=== PATIENT | female | born 1955 | race Caucasian/White ===

== ENCOUNTER 2017-01-07 09:55 | Observation (INO) ==
[2017-01-07] MEDS ORDERED: Haloperidol Lactate 5 MG/ML VIAL IM ONE ×3 (09:59→17:29)
[2017-01-07] MEDS ORDERED: *HR* LORazepam 2 MG/ML VIAL IM ONE (09:59)
[2017-01-07] MEDS ORDERED: ChlorproMAZINE 25 MG/ML AMPUL IM ONE (10:01)
--- NOTE | 2017-01-07 10:21 | Emergency Department Note ---
Disposition Clinical Impression: Acute anxiety, Suicidal ideation, Dehydration, moderate Depression Qualifiers: Depression Type: unspecified Qualified Code(s): F32.9 - Major depressive disorder, single episode, unspecified Diarrhea Qualifiers: Diarrhea type: unspecified type Qualified Code(s): R19.7 - Diarrhea, unspecified Disposition: Admitted As Inpatient Condition: Fair Referrals: NONE,PCP [Primary Care Provider] - Forms: ED Satisfaction Letter Time of Disposition: 11:27 Psych HPI - General Chief Complaint: ED Psychiatric Symptoms Stated Complaint: depressed Time Seen by Provider: 01/07/17 09:59 Source: patient Mode of arrival: EMS Limitations: no limitations Nursing Notes Reviewed: Yes Vital Signs Reviewed: Yes - History of Present Illness HPI Narrative: 61-year-old female is brought by EMS for evaluation of depression , anxiety, and suicidal ideation. The patient complains of worsening depression and anxiety and suicide ideation since this past Thursday. She states that she had a knee arthroscopy performed by Dr. Card last week and feels increasingly less mobile and that she is unable to get out and do the things that she enjoys. She denies any active plan but does admit to thoughts of self-harm. She denies any homicidal ideations. She denies any auditory or visual hallucinations. She denies any fever, chills, abdominal pain, or constipation. She does admit to being slightly nauseated and having a couple occasions of loose stools over the past several days. She complains of being short of breath however EMS reports that upon their arrival, the patient was found to be outside without her oxygen smoking cigarettes. She has a known history of COPD. She denies any productive cough or change in characteristics of her sputum. She denies any chest pain. She denies any pain with inspiration. Pt complaint: suicidal ideation, feels depressed Onset (ago): day(s) Duration: getting worse History of similar episodes: Yes Improves with: none Worsens with: none Context: other (recent surgery) Associated symptoms: Reports: shortness of breath - Related Data Home Medications Medication Instructions Recorded Confirmed Albuterol Neb [Proventil Neb] 2.5 mg IH Q4HR #0 07/10/16 12/31/16 Aspirin Enteric Coated [Aspirin EC] 81 mg PO DAILY #0 07/10/16 12/31/16 Cetirizine HCl [Zyrtec] 10 mg PO DAILY #0 07/10/16 12/31/16 Dicyclomine [Bentyl] 10 mg PO BID #0 07/10/16 12/31/16 Divalproex Sodium [Depakote] 500 mg PO BID #0 07/10/16 12/31/16 Gabapentin [Neurontin] 600 mg PO TID #0 07/10/16 12/31/16 LORazepam [Ativan] 0.5 mg PO TID #0 07/10/16 12/31/16 Losartan [Cozaar] 25 mg PO DAILY #0 07/10/16 12/31/16 Mirtazapine [Remeron] 15 mg PO HS #0 07/10/16 12/31/16 Oxygen 2 l .ROUTE AD #0 07/10/16 12/31/16 Salmeterol Xinafoate [Serevent 1 puff IH BID #0 07/10/16 12/31/16 Diskus] Tiotropium [place] [Spiriva 2 puff IH DAILY #0 07/10/16 12/31/16 Respimat] Tramadol HCl [Ultram] 50 mg PO QID PRN #0 07/10/16 12/31/16 Acetaminophen [Tylenol] 650 mg PO Q6HR PRN 12/31/16 12/31/16 Albuterol Sulfate [Proair Hfa] 2 puff IH Q4H PRN 12/31/16 12/31/16 Calcium Carbonate [Tums] 1,000 mg PO Q4HR PRN 12/31/16 12/31/16 Esomeprazole Magnesium [Nexium] 40 mg PO DAILY 12/31/16 12/31/16 Fluticasone Propionate [Flovent 1 puff IH BID 12/31/16 12/31/16 Hfa] HYDROcodone/Acet 5/325 mg [[place] 1 tab PO Q8H PRN 12/31/16 12/31/16 5-325 mg] Loperamide [Imodium] 2 - 4 mg PO Q6H PRN 12/31/16 12/31/16 Tetrahydrozoline HCl [Visine] 1 drop OP QID PRN 12/31/16 12/31/16 Tizanidine HCl [Tizanidine HCl] 4 mg PO TID PRN 12/31/16 12/31/16 Previous Rx's Medication Instructions Recorded Clindamycin [Cleocin] 150 mg PO Q6HR #7 capsule 12/31/16 Clindamycin [Cleocin] 150 mg PO Q6HR #7 capsule 12/31/16 HYDROcodone/Acet 5/325 mg [[place] 1 tab PO Q6H PRN #14 tab 12/31/16 5-325 mg] Ibuprofen [Motrin] 600 mg PO Q8HR #20 tab 12/31/16 Ibuprofen [Motrin] 600 mg PO Q8HR #20 tab 12/31/16 Azithromycin [Zithromax] 250 mg PO DAILY #6 tablet 01/05/17 predniSONE [PredniSONE] 10 mg PO DAILY #21 tablet 01/05/17 Allergies Allergy/AdvReac Type Severity Reaction Status Date / Time alprazolam [From Xanax] Allergy Itching Verified 12/19/16 16:27 bupropion [From Wellbutrin] Allergy Itching Verified 12/19/16 16:27 doxycycline Allergy Nausea Verified 12/19/16 16:27 Ethyl Chloride Allergy Itching Verified 12/19/16 16:27 fexofenadine [From Fannie] Allergy Itching Verified 12/19/16 16:27 hydroxyzine Allergy Hallucinati Verified 12/19/16 16:27 ng Procaine [From Novocain] Allergy Rash Verified 12/19/16 16:27 Penicillins AdvReac Itching Verified 12/19/16 16:27 All systems ED: reviewed and negative except as stated. Constitutional: Denies: fever, chills, weakness, weight change Eyes: Denies: eye pain, eye discharge, vision change ENT ED: Denies: ear pain, throat pain, dental pain, hearing loss, epistaxis, congestion, dysphagia Cardiovascular: Denies: chest pain, palpitations, dyspnea on exertion, edema, syncope Respiratory: Reports: as per HPI, dyspnea. Denies: cough, wheezes, hemoptysis, stridor Gastrointestinal: Reports: as per HPI, nausea, vomiting. Denies: abdominal pain , diarrhea, constipation, hematemesis, melena, hematochezia Genitourinary: Denies: dysuria, frequency, hematuria, discharge Musculoskeletal: Denies: back pain, neck pain, arthralgia, myalgia Integumentary: Denies: rash, abrasion, lesions Neurological: Denies: headache, weakness, numbness, paresthesias, confusion, abnormal gait, vertigo Psychiatric: Reports: as per HPI, anxiety, depression, suicidal thoughts. Denies: homicidal thoughts, auditory hallucinations, visual hallucinations Endocrine: Denies: fatigue Hematological/Lymphatic: Denies: easy bleeding, easy bruising Allergic/Immunologic: Denies: facial swelling, urticaria Past Medical History - Past Medical History Attestation: Yes The following information was validated with the patient. Source: patient, nursing notes reviewed Medical history: Reports: asthma, COPD, GERD, hypertension, syncope Psychiatric history: Reports: anxiety, bipolar - Social History Smoking Status: Current every day smoker Smokeless Tobacco Status: No Alcohol use: Reports: none Drug use: Reports: none Physical Exam - General Limitations: no limitations General appearance: alert, in no apparent distress - Head Head exam: atraumatic, normocephalic, normal inspection - Eye Eye exam: Present: normal appearance, PERRL, EOMI. Absent: nystagmus - ENT ENT exam: mucous membranes moist - Neck Neck exam: Present: normal inspection, full ROM, trachea midline - Chest Chest inspection: Present: normal inspection, symmetric chest wall rise - Respiratory Respiratory exam: Present: normal lung sounds bilaterally. Absent: respiratory distress, wheezes, stridor, accessory muscle use, prolonged expiratory phase - Cardiovascular Cardiovascular exam: Present: regular rate, normal rhythm, normal heart sounds - Abdominal Exam Abdominal exam: Present: soft, Non-Tender, normal bowel sounds - Expanded Lower Extremity Exam Knee exam: Present: tenderness (Left knee), other (3 surgical puncture wounds are noted with Steri-Strips in place overlying the wounds. No discharge or drainage is noted. No associated cellulitis.) Neurovascular/Tendon exam: Present: normal capillary refill, normal 2-point discrimination. Absent: pulse deficit, motor deficit, sensory deficit, tendon deficit, extremity cold to touch Gait: observed and normal - Back Exam Back exam: Present: normal inspection, full ROM. Absent: tenderness - Neurological Exam Neurological exam: Present: alert, oriented X3 - Psychiatric Psychiatric exam: Present: normal affect, depressed, anxious, suicidal ideation - Skin Skin exam: Present: warm, dry, intact, normal color Course Vital Signs Temperature 97.7 F 01/07/17 10:06 Pulse Rate 103 01/07/17 10:06 Respiratory Rate 20 01/07/17 10:06 Blood Pressure 128/77 01/07/17 10:06 O2 Sat by Pulse Oximetry 95 01/07/17 10:06 Temperature 97.7 F 01/07/17 10:06 Pulse Rate 90 01/07/17 10:48 Respiratory Rate 22 01/07/17 10:48 Blood Pressure 128/77 01/07/17 10:48 O2 Sat by Pulse Oximetry 98 01/07/17 10:48 Oxygen Delivery Oxygen Delivery Simple Mask Psych - MDM Narrative Medical decision making narrative: For this encounter, I have reviewed the [employer] or PA documentation, treatment plan, and medical decision making; and I have had face to face time with this patient. Patient was signed out to me by the day shift nurse practitioner. Patient has a history of schizophrenia has been off her medications due to knee surgery she has had exacerbation of her COPD and also probably C. difficile she has had diarrhea as post surgery along with antibiotics. Waiting on her C. difficile to come back. She was medicated with Haldol and Ativan here. She is a 72 hour hold. I will speak with 1A for evaluation of her also while she is in the hospital. I will he spoke with hospitalist and they will admit her. Patient has been uncooperative here but is nontoxic. Waiting on the rest of her labs and then reassess. 1300 hrs.: Patient's chest x-ray shows a COPD pattern and she is much more calm now that she got her medications. She is given IV fluid hydration with her C. difficile negative. Per lab. Her bring her in for diarrhea, dehydration, and schizophrenia reevaluation. Will consult psychiatry for her evaluation inpatient. - Lab Data Lab results reviewed: Yes I reviewed the patient's lab results. Result diagrams: 01/07/17 10:28 01/07/17 10:28 Lab Results 01/07/17 01/07/17 01/07/17 Range/Units 10:28 10:28 10:30 WBC 8.7 (4.3-11.1) K/mcL RBC 4.07 (3.82-4.97) M/mcL Hgb 11.5 (11.5-15.4) g/dL Hct 36.8 (35.3-44.9) % MCV 90.4 (83.0-100.0) fL MCH 28.3 (28.0-33.3) pg MCHC 31.3 L (31.6-35.5) g/dL RDW 12.6 (11.5-14.5) % Plt Count 222 (140-400) K/mcL MPV 9.3 L (9.4-12.4) fL Immature Gran % 0.3 (0-4) % Seg Neutrophils % 76.8 % Lymphocytes % 14.8 % Monocytes % 8.0 % Eosinophils % 0.0 % Basophils % 0.1 % Neutrophils # 6.7 (1.6-8.9) K/mcL Lymphocytes # 1.3 (0.6-4.6) K/mcL Monocytes # 0.7 (0.0-1.3) K/mcL Eosinophils # 0.0 (0.0-0.6) K/mcL Basophils # 0.0 (0.0-0.2) K/mcL Sodium 139 (136-145) mEq/L Potassium 3.7 (3.5-4.5) mEq/L Chloride 96 L (98-109) mEq/L Carbon Dioxide 33 H (19-29) mEq/L BUN 9 (7-20) mg/dL Creatinine 0.77 (0.57-1.11) mg/dL Est GFR ( Amer) > 60 (> 60) Est GFR (Non-Af Amer) > 60 (> 60) BUN/Creatinine Ratio 12 (6-26) Glucose 106 H (70-99) mg/dL Calculated Osmolality 287 (280-300) Calcium 9.3 (8.6-10.8) mg/dL Troponin I 0.01 (0-0.03) ng/mL Ur Specimen Adequacy Urine Color (Yellow) Urine Clarity (Clear) Urine pH (5.0-8.0) pH Units Ur Specific [place] (1.010-1.025) Urine Protein (Neg-Trace) mg/dL Urine Glucose (UA) (Normal) mg/dL Urine Ketones (Negative) mg/dL Urine Blood (Negative) Urine Nitrite (Negative) Urine Bilirubin (Negative) Urine Urobilinogen (Normal) mg/dL Ur Leukocyte Esterase (Negative) Stl C. diff Tox B Gene (Negative) Salicylates < 5.0 L (15-30) mg/dL Urine Opiates Screen (Gpsttv=929) ng/mL Acetaminophen 1.0 L (10-30) mcg/mL Ur Barbiturates Screen (Fzygcy=750) ng/mL Ur Phencyclidine Scrn (Cutoff=25) ng/mL Ur Amphetamines Screen (Dasgpj=2028) ng/mL U Benzodiazepines Scrn (Nxnwdd=154) ng/mL Urine Cocaine Screen (Cutoff= 300) ng/mL U Marijuana (THC) Screen (Cutoff = 50) ng/mL Ethyl Alcohol < 10 (0-10) mg/dL 01/07/17 01/07/17 01/07/17 Range/Units 11:07 11:08 11:27 WBC (4.3-11.1) K/mcL RBC (3.82-4.97) M/mcL Hgb (11.5-15.4) g/dL Hct (35.3-44.9) % MCV (83.0-100.0) fL MCH (28.0-33.3) pg MCHC (31.6-35.5) g/dL RDW (11.5-14.5) % Plt Count (140-400) K/mcL MPV (9.4-12.4) fL Immature Gran % (0-4) % Seg Neutrophils % % Lymphocytes % % Monocytes % % Eosinophils % % Basophils % % Neutrophils # (1.6-8.9) K/mcL Lymphocytes # (0.6-4.6) K/mcL Monocytes # (0.0-1.3) K/mcL Eosinophils # (0.0-0.6) K/mcL Basophils # (0.0-0.2) K/mcL Sodium (136-145) mEq/L Potassium (3.5-4.5) mEq/L Chloride (98-109) mEq/L Carbon Dioxide (19-29) mEq/L BUN (7-20) mg/dL Creatinine (0.57-1.11) mg/dL Est GFR ( Amer) (> 60) Est GFR (Non-Af Amer) (> 60) BUN/Creatinine Ratio (6-26) Glucose (70-99) mg/dL Calculated Osmolality (280-300) Calcium (8.6-10.8) mg/dL Troponin I (0-0.03) ng/mL Ur Specimen Adequacy See below A Urine Color Yellow (Yellow) Urine Clarity Clear (Clear) Urine pH 6.5 (5.0-8.0) pH Units Ur Specific [place] 1.015 (1.010-1.025) Urine Protein 30 H (Neg-Trace) mg/dL Urine Glucose (UA) Normal (Normal) mg/dL Urine Ketones Negative (Negative) mg/dL Urine Blood Moderate H (Negative) Urine Nitrite Negative (Negative) Urine Bilirubin Small H (Negative) Urine Urobilinogen Normal (Normal) mg/dL Ur Leukocyte Esterase Trace H (Negative) Stl C. diff Tox B Gene Negative (Negative) Salicylates (15-30) mg/dL Urine Opiates Screen Positive H (Dtlgvy=414) ng/mL Acetaminophen (10-30) mcg/mL Ur Barbiturates Screen Negative (Xwzigu=158) ng/mL Ur Phencyclidine Scrn Negative (Cutoff=25) ng/mL Ur Amphetamines Screen Negative (Mnwtiq=7686) ng/mL U Benzodiazepines Scrn Positive H (Wftmwh=640) ng/mL Urine Cocaine Screen Negative (Cutoff= 300) ng/mL U Marijuana (THC) Screen Negative (Cutoff = 50) ng/mL Ethyl Alcohol (0-10) mg/dL - Radiology Data Radiology results reviewed: Yes I reviewed the patient's radiology results. - EKG Data EKG attestation: Yes I reviewed and interpreted this EKG. Psychiatric Medical Clearance - Medical Clearance Checklist Medical History: No Social History Section defined Current Vitals: Last Vital Signs Temp 97.7 F 01/07/17 10:06 Pulse 90 01/07/17 10:48 Resp 22 01/07/17 10:48 BP 128/77 01/07/17 10:48 Pulse Ox 98 01/07/17 10:48 Psychiatric Lab Panel: Drug Levels and Toxicity 01/07/17 01/07/17 10:28 11:08 Urine Opiates Screen Positive H Acetaminophen 1.0 L Ur Barbiturates Screen Negative Ur Phencyclidine Scrn Negative Ur Amphetamines Screen Negative U Benzodiazepines Scrn Positive H Urine Cocaine Screen Negative U Marijuana (THC) Screen Negative Ethyl Alcohol < 10 Abnormal Labs: Abnormal lab results MCHC 31.3 g/dL (31.6-35.5) L 01/07/17 10:28 MPV 9.3 fL (9.4-12.4) L 01/07/17 10:28 Chloride 96 mEq/L (98-109) L 01/07/17 10:28 Carbon Dioxide 33 mEq/L (19-29) H 01/07/17 10:28 Glucose 106 mg/dL (70-99) H 01/07/17 10:28 Ur Specimen Adequacy See below A 01/07/17 11:07 Urine Protein 30 mg/dL (Neg-Trace) H 01/07/17 11:07 Urine Blood Moderate (Negative) H 01/07/17 11:07 Urine Bilirubin Small (Negative) H 01/07/17 11:07 Ur Leukocyte Esterase Trace (Negative) H 01/07/17 11:07 Salicylates < 5.0 mg/dL (15-30) L 01/07/17 10:28 Urine Opiates Screen Positive ng/mL (Lqzxvq=284) H 01/07/17 11:08 Acetaminophen 1.0 mcg/mL (10-30) L 01/07/17 10:28 U Benzodiazepines Scrn Positive ng/mL (Leivcj=114) H 01/07/17 11:08 SKayce - Genevieve Situation: Demographics, MOA Background: Presenting Complaint, Relevant PMH, Meds, & Allergies Assessment: Vital Signs, Course and respsone to treatment, Exam Concerns, Patient/Family Expectation, Pertinant Lab Results, Outstanding Labs Recommendation: Barrier(s) to disposition, Recommendation based on pending studies, treatments, or consults S.B.A.RJude Report Given to: Dr. Tony Vallejo Repor Time: 11:10 (Due to mid-level shift change)
[2017-01-07 10:37] LABS: Basophils % 0.1 %; Hematocrit 36.8 % (35.3-44.9); Hemoglobin 11.5 g/dL (11.5-15.4); Immature Granulocytes % 0.3 % (0-4); Lymphocytes # 1.3 K/mcL (0.6-4.6); Lymphocytes % 14.8 %; Mean Corpuscular HGB Conc 31.3 g/dL (31.6-35.5); Mean Corpuscular Hemoglobin 28.3 pg (28.0-33.3); Mean Corpuscular Volume 90.4 fL (83.0-100.0); Mean Platelet Volume 9.3 fL (9.4-12.4); Monocytes # 0.7 K/mcL (0.0-1.3); Neutrophils # 6.7 K/mcL (1.6-8.9); Platelet Count 222 K/mcL (140-400); Red Blood Count 4.07 M/mcL (3.82-4.97); Red Cell Distribution Width 12.6 % (11.5-14.5); Segmented Neutrophils % 76.8 %
[2017-01-07 10:51] LABS: BUN/Creatinine Ratio 12 (6-26); Blood Urea Nitrogen 9 mg/dL (7-20); Calcium 9.3 mg/dL (8.6-10.8); Carbon Dioxide 33 mEq/L (19-29); Chloride 96 mEq/L (98-109); Glucose 106 mg/dL (70-99); Osmolality,Calculated 287 (280-300); Potassium 3.7 mEq/L (3.5-4.5); Sodium 139 mEq/L (136-145); eGFR For African Americans > 60 (> 60); eGFR For Non-African Americans > 60 (> 60)
[2017-01-07 10:52] LABS: Ethanol < 10 mg/dL (0-10); Salicylate < 5.0 mg/dL (15-30)
[2017-01-07 11:30] LABS: Amphetamine Screen,Urine Negative ng/mL (Cutoff=1000); Barbiturate Screen,Urine Negative ng/mL (Cutoff=200); Benzodiazepines Screen,Urine Positive ng/mL (Cutoff=200); Cannabinoid Screen,Urine Negative ng/mL (Cutoff = 50); Cocaine Screen,Urine Negative ng/mL (Cutoff= 300); Opiate Screen,Urine Positive ng/mL (Cutoff=300); Phencyclidine Screen,Urine Negative ng/mL (Cutoff=25)
[2017-01-07 11:32] LABS: Bilirubin,Urine Small (Negative); Blood,Urine Moderate (Negative); Clarity,Urine Clear (Clear); Color,Urine Yellow (Yellow); Glucose,Urine (UA) Normal (Normal); Ketones,Urine Negative (Negative); Leukocyte Esterase,Urine Trace (Negative); Nitrite,Urine Negative (Negative); PH,Urine 6.5 pH Units (5.0-8.0); Protein,Urine 30 mg/dL (Neg-Trace); Specific Gravity,Urine 1.015 (1.010-1.025); Urobilinogen,Urine Normal (Normal)
[2017-01-07] MEDS ORDERED: *HR* HYDROmorphone (PF) 1 MG/ML SYRINGE IVP ONE (12:01)
[2017-01-07] MEDS ORDERED: Nicotine 21 MG PATCH.TD24 TD ONE (12:30)
[2017-01-07] MEDS: 0.9 % Sodium Chloride 1,000 ML IVC SCH ×2 (13:08→17:37)
[2017-01-07] MEDS ORDERED: Ipratropium/Albuterol Neb 3 ML IH ONE (13:56)
[2017-01-07] MEDS ORDERED: tiZANidine 4 MG TABLET PO PRN (15:26)
[2017-01-07] MEDS ORDERED: NON-FORMULARY MEDICATION 1 EACH EACH (Oxygen [Oxygen] 2 L) SCH (15:30)
[2017-01-07] MEDS ORDERED: methylPREDNISolone 125 MG/2 ML VIAL IVP ONE (15:35)
[2017-01-07] MEDS ORDERED: Acetaminophen 325 MG TABLET PO PRN (15:40)
[2017-01-07] MEDS ORDERED: Naloxone 0.4 MG/ML INJ IVP PRN (15:40)
--- NOTE | 2017-01-07 16:04 | Internal Med History&Physical ---
<Danial Dexter J - Last Filed: 01/07/17 15:49> Date of Encounter: 01/07/17 Time of Encounter: 15:49 Assessment and Plan (1) Suicidal ideation Current visit: Yes Status: Acute While in the emergency department she was noted to have suicidal ideation. At that time she was placed as a 1-1 and a consult to psych was implemented however , this time the patient denies any suicidal ideation. Awaiting consult from psych to determine the need for one-to-one monitoring and/or medication adjustment. It appears that she is having an acute exacerbation of anxiety likely secondary to withdrawal from benzodiazepines and antidepressants. Plan is to resume lorazepam at home dose, to resume Remeron and Depakote at home dose as well. (2) Withdrawal from benzodiazepine Current visit: Yes Status: Acute Patient has recently been taking additional doses of benzodiazepines to help combat anxiety. Additionally she admits to taking additional doses of antidepressants. Her benzo's and anti depressants are now under lock and nielsen and dosed as appropriate per her home health aid. It appears that she may be suffering from benzo withdrawal which could be exacerbating her anxiety. Continue lorazepam at home dose. Continue Depakote and Remeron at home dosing. consult to psych for eval Qualifiers: Complication of substance-induced condition: with unspecified complication Qualified Code(s): F13.239 - Sedative, hypnotic or anxiolytic dependence with withdrawal, unspecified (3) Depression Current visit: Yes Status: Acute History of anxiety, bipolar with depression. He admits to worsening depression since undergoing arthroscopy last week. Since being depression missed that she does not care whether or not she lives or dies. However at this time she denies any SI. Resume Remeron and Depakote at home doses to help with depression and bipolar disorder Qualifiers: Depression Type: unspecified Qualified Code(s): F32.9 - Major depressive disorder, single episode, unspecified (4) Acute anxiety Current visit: Yes Status: Acute Appears to have acute exacerbation of anxiety. Patient has history of anxiety/ bipolar/depression. She reports to recently taking additional doses of her benzos to help mitigate anxiety she is experiencing symptoms undergoing arthroscopy last week. However, when her home health aide found out she was doing her medications are locked up and given to her as dosed since this past Thursday. I highly suspect benzodiazepine withdrawal is contributing to her acute anxiety. Continue home dose of Ativan (5) COPD exacerbation Current visit: Yes Status: Acute Acute on chronic exacerbation of COPD. Upon examination the patient is anxious , and has wheezing throughout bilateral lungs anterior and posterior. It is a current 1 pack per day smoker for the last 40 years she reports that the difficulty breathing began 3 days ago has progressively gotten worse since. Additionally she has not taken any of her respiratory medications. Start duo nebs every 4 hours scheduled Continue home dose of Flovent A one-time dose of Solu-Medrol 125 mg IV push then start 40 mg IV push daily Azithromycin 250 mg daily Start nicotine patch Continuous pulse ox Continuous oxygen therapy at home dose titrate as needed for SPO2 greater than 92%. Continuous telemetry (6) Diarrhea Current visit: Yes Status: Acute Reports diarrhea intermittently throughout the last 72 hours. However, at this time she has not had a bowel movement. She was found to be negative of C. difficile in the ED. Start loperamide and continue to monitor for worsening or improvement She has also dehydrated plan is to rehydrate with normal saline at 125 mL per hour CMP in the a.m. Qualifiers: Diarrhea type: unspecified type Qualified Code(s): R19.7 - Diarrhea, unspecified (7) Dehydration, moderate Current visit: Yes Status: Acute Patient reports intermittent diarrhea throughout the last 72 hours. She is mildly tachycardic at times and will exam appears to be slightly dehydrated. IV fluids 0.9 normal saline at 125 mL per hour CMP in the a.m. (8) DVT prophylaxis Current visit: Yes Status: Acute Due to hospital course and changes to mobility as well as recent surgery she is at risk for DVT. Start lovenox 40mg SC Internal Medicine - H&P: HPI Chief complaint: ANXIETY, SI, diarrhea, and dehydration Admitted From: Home Plans for Post Hospital Care: Home History of present illness: Ms. Aguilera is a 61 year old female with a PMH of asthma, COPD, GERD, HTN, anxiety, bipolar. Patient reports that last week she had a knee arthroscopy by Dr. Card and has been less mobile than she is used to. She states that this has stopped her from partaking in activities that she once enjoyed. The increase in immobility has led to an increase in anxiety and depression. The patient admits to taking her anxiolytics and antidepressants more than the prescribed dose. Additionally she goes on to confirm that she was caught doing so by her home health aide and that now her medications are locked up and dosed as appropriate. she notes that her anxiety has gotten progressively worse since then. Upon arrival to the ED was noted that she had some SI, however, when questioned the patient denies any SI or intent to harm herself or any other individual. She admits to saying the anxiety is so bad she would not care if she . For this reason she was placed as a 1-1 and a psych consult was obtained in the ED. She reports an additional concern for new shortness of breath, wheezing and non productive cough as well as intermittent bouts of diarrhea within the last 72 hours. She denies any fevers, fatigue, lethargy, increase in sputum production or chest pain. Admits to difficulty breathing that is more noticable with activity. Chest x-ray in the emergency department did not reveal any new acute pulmonary process. CBC and CMP were unremarkable. Shortness of breath somewhat improved with a DuoNeb treatment in the emergency department. She reports diarrhea as intermittent, but is unable to describe the consistency or frequency. Denies any abdominal pain, nausea, or vomiting. C-diff w/u in the ED negative. She is being admitted to [facility] for further workup and evaluation Past Med Surg Social Fam HX - Past Medical History Medical history: asthma, COPD, GERD, hypertension, syncope Psychiatric history: anxiety, bipolar - Social History Smoking Status: Current every day smoker Smokeless Tobacco Status: No Alcohol use: none Drug use: none - Family History Mother Living Status: Cause of : lung ca Hx Family Cancer: Yes (lung) Sister Race: Family Member Ethnicity: Non- Hx Family Endocrine Disorder: Yes (DM II) Internal Medicine - H&P: Meds Cetirizine HCl [Zyrtec] 10 mg PO DAILY #0 07/10/16 [History] Dicyclomine [Bentyl] 10 mg PO BID #0 07/10/16 [History] Gabapentin [Neurontin] 600 mg PO TID #0 07/10/16 [History] LORazepam [Ativan] 0.5 mg PO TID #0 07/10/16 [History] Losartan [Cozaar] 25 mg PO DAILY #0 07/10/16 [History] Mirtazapine [Remeron] 15 mg PO HS #0 07/10/16 [History] Oxygen 2 l .ROUTE AD #0 07/10/16 [History] Salmeterol Xinafoate [Serevent Diskus] 1 puff IH BID #0 07/10/16 [History] Tiotropium [place] [Spiriva Respimat] 2 puff IH DAILY #0 07/10/16 [History] Tramadol HCl [Ultram] 50 mg PO QID PRN #0 07/10/16 [History] Calcium Carbonate [Tums] 1,000 mg PO Q4HR PRN 12/31/16 [History] Esomeprazole Magnesium [Nexium] 40 mg PO DAILY 12/31/16 [History] Fluticasone Propionate [Flovent Hfa] 1 puff IH BID 12/31/16 [History] Tetrahydrozoline HCl [Visine] 1 drop OP QID PRN 12/31/16 [History] Tizanidine HCl [Tizanidine HCl] 4 mg PO TID PRN 12/31/16 [History] Azithromycin [Zithromax] 250 mg PO DAILY #6 tablet 01/05/17 [Rx] predniSONE [PredniSONE] 10 mg PO DAILY #21 tablet 01/05/17 [Rx] Diclofenac Sodium [Voltaren] 75 mg PO BID 01/07/17 [History] Divalproex Sodium [Depakote Sprinkle] 250 mg PO BID 01/07/17 [History] 3 Allergy/AdvReac Type Severity Reaction Status Date / Time alprazolam [From Xanax] Allergy Itching Verified 12/19/16 16:27 bupropion [From Wellbutrin] Allergy Itching Verified 12/19/16 16:27 doxycycline Allergy Nausea Verified 12/19/16 16:27 Ethyl Chloride Allergy Itching Verified 12/19/16 16:27 fexofenadine [From Fannie] Allergy Itching Verified 12/19/16 16:27 hydroxyzine Allergy Hallucinati Verified 12/19/16 16:27 ng Procaine [From Novocain] Allergy Rash Verified 12/19/16 16:27 Penicillins AdvReac Itching Verified 12/19/16 16:27 All Systems PM: A 10-system review of systems was performed and is negative for pertinent findings except as documented above in the HPI. - Constitutional Constitutional: no anorexia, no chills, no fatigue, no fever(s), no malaise, no night sweats, no weakness - EENT Eyes: no change in vision, no discharge, no pain, no photophobia Ears: no ear discharge, no ear pain, no tinnitus Nose, mouth and throat: no dysphagia, no nasal discharge, no neck pain, no post- nasal drip, no sore throat - Cardiovascular Cardiovascular ROS IM: no chest pain, no diaphoresis, no dyspnea, no lightheadedness, no palpitations, no syncope - Respiratory Respiratory: cough (Cough that is chronic), dyspnea, wheezing, no pain on inspiration, no excessive phlegm production, no change in phlegm color, no pain with cough - Gastrointestinal Gastrointestinal: diarrhea, no abdominal pain, no constipation, no fecal incontinence, no hematemesis, no hematochezia, no melena, no nausea, no vomiting - Genitourinary Genitourinary: no change in urinary stream, no difficulty urinating, no dysuria , no flank pain, no hematuria - Musculoskeletal Musculoskeletal ROS IM: limited range of motion (Admits to limited range of motion since arthroscopy), no joint swelling, no numbness, no tingling - Integumentary Integumentary IM: no rash, no unusual bruising - Neurological Neurological ROS: no confusion, no convulsions, no disequilibrium, no dizziness , no focal weakness, no lack of coordination, no numbness, no tingling, no tremor(s), no weakness - Psychiatric Psychiatric: anxiety (Admits to an increase in anxiety as per history of present illness), depression (Minutes through an increase in depression as per history of present illness), suicidal ideation (Denies suicidal ideations at this time), no auditory hallucinations, no homicidal ideation, no paranoia, no visual hallucinations - Hematologic/Lymphatic Hematologic/Lymphatic: no easy bruising - Constitutional Vitals: Temp Pulse Resp BP Pulse Ox 97.7 F 89 16 136/89 93 01/07/17 15:34 01/07/17 15:34 01/07/17 15:34 01/07/17 15:34 01/07/17 15:34 General appearance: Present: cooperative, mild distress, A&O X 3, answers questions appropriately - Head Head exam: Present: atraumatic, normocephalic - Eye Eye exam: Present: EOMI, PERRL, conjuntiva pink, sclera anicteric Pupils: Present: PERRL - Neck Neck exam general surgery: Present: supple, trachea midline. Absent: lymphadenopathy - Respiratory Respiratory exam: Present: wheezes (Wheezes noted throughout lungs anterior and posterior), tachypnea. Absent: accessory muscle use, rales, rhonchi - Expanded Respiratory Exam Location: wheezes: Left, Right, Upper, Lower - Cardiovascular Cardiovascular exam: Present: RRR, +S1, +S2. Absent: diastolic murmur, gallop, rubs, systolic murmur - GI/Abdominal GI/Abdominal exam: Present: normal bowel sounds, soft, no peritoneal signs. Absent: distended, firm, tenderness - Extremities Exam Extremities exam: Present: warm, radial pulses palpable and symmetrical. Absent : calf tenderness, cyanotic, pedal edema - Expanded Lower Extremities Exam Knee exam: Present: ecchymosis. Absent: erythema, swelling, tenderness, warmth - Incison Incision: Present: clean and dry, intact, approximated. Absent: draining, red, swollen, inflamed, erythema, open - Neurological Exam Neurological exam: Present: CN II-XII intact, oriented X3, no focal deficits. Absent: pronater drift, facial droop, speech deficit - Psychiatric Psychiatric exam: Present: anxious. Absent: suicidal ideation - Expanded Psychiatric Exam Focused psych exam: Absent: delusional, flight of ideas, loose associations, paranoid, restlessness - Skin Skin exam: Present: dry, intact Internal Med - H&P Results - Labs CBC & Chem 7: 01/07/17 10:28 01/07/17 10:28 - Diagnostic Studies Chest x-ray Additional comments: Revealed no acute pulmonary process <Eladia Rachel - Last Filed: 01/07/17 19:00> Date of Encounter: 01/07/17 Internal Medicine - H&P: HPI History of present illness: Ms. Aguilera is a 61 year old female All Systems PM: A 10-system review of systems was performed and is negative for pertinent findings except as documented above in the HPI. - Constitutional Vitals: Temp Pulse Resp BP Pulse Ox 97.7 F 88 14 156/77 97 01/07/17 18:47 01/07/17 18:47 01/07/17 18:47 01/07/17 18:47 01/07/17 18:47 Internal Med - H&P Results - Labs CBC & Chem 7: 01/07/17 10:28 01/07/17 10:28 - Attending Attestation Pt independently seen and examined at bedside. Admitted for acute anxiety attack , COPD exacerbation, concern for SI, and diarrhea. continue systemic steroids, bronchodilator support, O2 supplementation restarted home antipsychotic medications. Pt has intermittently required Haldol 5mg IM prn severe agitation/anxiety, will continue No suicidal ideation at this time, however given the state of anxiety she is in , will continue 1-1 sitter. Psych evaluation requested. Reconcile patient's psych medications prior to discharge Will continue supportive care for diarrhea, continue IV fluids, stool negative for C-diff. Monitor electrolytes closely and replace as needed. Case was discussed with the CRICKET Dexter, I agree with his documented findings, assessment, and plan.
[2017-01-07] MEDS: Ipratropium/Albuterol Neb 3 ML IH SCH ×3 (16:14→22:59)
[2017-01-07] MEDS ORDERED: Haloperidol Lactate 5 MG/ML VIAL ONE (17:31)
[2017-01-07] MEDS: Azithromycin 250 MG TABLET PO SCH (17:37)
[2017-01-07] MEDS: Divalproex Sodium 125 MG CAPSULE PO SCH ×2 (17:44→21:10)
[2017-01-07] MEDS: *HR* LORazepam 0.5 MG TABLET PO SCH (20:18)
[2017-01-07] MEDS: Diclofenac Sodium 75 MG TABLET PO SCH (20:18)
[2017-01-07] MEDS: Gabapentin 300 MG CAPSULE PO SCH (20:19)
[2017-01-07] MEDS: Fluticasone Propionate Nasal 50 MCG/SPRAY BOTTLE NS SCH (20:20)
[2017-01-07] MEDS ORDERED: Divalproex Sodium 125 MG CAPSULE PO SCH (21:00)
[2017-01-07] MEDS ORDERED: Mirtazapine 15 MG TABLET PO SCH (21:00)
[2017-01-08] MEDS: traMADol 50 MG TABLET PO PRN ×2 (00:08→09:38)
[2017-01-08] MEDS: Ipratropium/Albuterol Neb 3 ML IH SCH ×3 (05:02→11:20)
[2017-01-08 05:16] LABS: Basophils % 0.2 %; Hematocrit 29.9 % (35.3-44.9); Immature Granulocytes % 1.3 % (0-4); Lymphocytes # 0.6 K/mcL (0.6-4.6); Mean Corpuscular HGB Conc 32.8 g/dL (31.6-35.5); Mean Corpuscular Volume 88.5 fL (83.0-100.0); Mean Platelet Volume 9.9 fL (9.4-12.4); Monocytes # 0.1 K/mcL (0.0-1.3); Neutrophils # 4.7 K/mcL (1.6-8.9); Platelet Count 176 K/mcL (140-400); Red Blood Count 3.38 M/mcL (3.82-4.97); Red Cell Distribution Width 12.8 % (11.5-14.5); Segmented Neutrophils % 85.5 %
[2017-01-08 05:39] LABS: Hemoglobin 9.8 g/dL (11.5-15.4)
--- NOTE | 2017-01-08 05:42 | Electrocardiograph Report ---
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
[2017-01-08] MEDS ORDERED: *HR* Enoxaparin 40 MG/0.4 ML SYRINGE SQ SCH (07:00)
[2017-01-08 07:23] LABS: BUN/Creatinine Ratio 13 (6-26); Blood Urea Nitrogen 8 mg/dL (7-20); Calcium 8.2 mg/dL (8.6-10.8); Carbon Dioxide 28 mEq/L (19-29); Chloride 97 mEq/L (98-109); Glucose 123 mg/dL (70-99); Osmolality,Calculated 286 (280-300); Potassium 3.9 mEq/L (3.5-4.5); Sodium 138 mEq/L (136-145); eGFR For African Americans > 60 (> 60); eGFR For Non-African Americans > 60 (> 60)
[2017-01-08] MEDS ORDERED: predniSONE 20 MG TABLET PO SCH (09:00)
[2017-01-08] MEDS ORDERED: MethylPREDNISolone 40 MG/ML VIAL IVP SCH (09:00)
[2017-01-08] MEDS ORDERED: Loratadine 10 MG TABLET PO SCH (09:00)
[2017-01-08] MEDS ORDERED: Nicotine 21 MG PATCH.TD24 TD SCH (09:00)
[2017-01-08] MEDS: 0.9 % Sodium Chloride 1,000 ML IVC SCH ×2 (09:17→13:20)
[2017-01-08] MEDS: Gabapentin 300 MG CAPSULE PO SCH (09:31)
[2017-01-08] MEDS: Divalproex Sodium 125 MG CAPSULE PO SCH (09:32)
[2017-01-08] MEDS: *HR* LORazepam 0.5 MG TABLET PO SCH (09:32)
[2017-01-08] MEDS: Azithromycin 250 MG TABLET PO SCH (09:32)
[2017-01-08] MEDS: Fluticasone Propionate Nasal 50 MCG/SPRAY BOTTLE NS SCH (09:34)
[2017-01-08] MEDS: Diclofenac Sodium 75 MG TABLET PO SCH (09:35)
[2017-01-08 11:28] VITALS: BP 150/92
--- NOTE | 2017-01-08 15:18 | Consult Note ---
Date of Encounter: 01/08/17 Time of Encounter: 14:30 Assessment & Recommendation (1) Suicidal ideation Current visit: Yes Status: Acute Assessment & Recommendation: Patient is currently stable and nonsuicidal from psychiatric point of view. She is advised to follow-up with her psychiatrist. No medication changes at this time. Thank you for consultation History of Present Illness Patient: new to practice Requesting Physician: Radha Vasquez MD Reason for consult: Suicidal ideation History of present illness: Ms. Aguilera is a 61 year old female admitted to the hospital for evaluation of multiple medical problems including COPD, possible benzodiazepine withdrawal and history of depression and anxiety. Psychiatric consultation was requested to evaluate suicidal ideation. Patient has history of psychiatric treatment and continue to be on medication including Depakote and mirtazapine and apparently she was overusing her benzodiazepines and was going through withdrawal joint this admission, she is stable at this time. Patient also carries a different diagnosis in the past including bipolar schizoaffective disorder and anxiety disorder. Currently the patient is recovering and improving and denied any suicidal ideation she is taken her medication as ordered And denied any recent change in her medication or stressors. CC: Radha Vasquez MD Past Med Surg Social Fam HX - Past Medical History Medical history: asthma, COPD, GERD, hypertension, syncope - Past Psychiatric History Psychiatric history: Reports: anxiety, bipolar, depression - Social History Smoking Status: Current every day smoker Smokeless Tobacco Status: No Alcohol use: none Drug use: none - Family History Mother Living Status: Cause of : lung ca Hx Family Cancer: Yes (lung) Sister Race: Family Member Ethnicity: Non- Hx Family Endocrine Disorder: Yes (DM II) Medications & Allergies Cetirizine HCl [Zyrtec] 10 mg PO DAILY #0 07/10/16 [History] Dicyclomine [Bentyl] 10 mg PO BID #0 07/10/16 [History] Gabapentin [Neurontin] 600 mg PO TID #0 07/10/16 [History] LORazepam [Ativan] 0.5 mg PO TID #0 07/10/16 [History] Losartan [Cozaar] 25 mg PO DAILY #0 07/10/16 [History] Mirtazapine [Remeron] 15 mg PO HS #0 07/10/16 [History] Oxygen 2 l .ROUTE AD #0 07/10/16 [History] Salmeterol Xinafoate [Serevent Diskus] 1 puff IH BID #0 07/10/16 [History] Tiotropium [place] [Spiriva Respimat] 2 puff IH DAILY #0 07/10/16 [History] Tramadol HCl [Ultram] 50 mg PO QID PRN #0 07/10/16 [History] Calcium Carbonate [Tums] 1,000 mg PO Q4HR PRN 12/31/16 [History] Esomeprazole Magnesium [Nexium] 40 mg PO DAILY 12/31/16 [History] Fluticasone Propionate [Flovent Hfa] 1 puff IH BID 12/31/16 [History] Tetrahydrozoline HCl [Visine] 1 drop OP QID PRN 12/31/16 [History] Tizanidine HCl [Tizanidine HCl] 4 mg PO TID PRN 12/31/16 [History] Azithromycin [Zithromax] 250 mg PO DAILY #6 tablet 01/05/17 [Rx] predniSONE [PredniSONE] 10 mg PO DAILY #21 tablet 01/05/17 [Rx] Divalproex Sodium [Depakote Sprinkle] 250 mg PO BID 01/07/17 [History] PredniSONE [Deltasone] 40 mg PO DAILY 7 Days 01/08/17 [Rx] 3 Allergy/AdvReac Type Severity Reaction Status Date / Time alprazolam [From Xanax] Allergy Itching Verified 12/19/16 16:27 bupropion [From Wellbutrin] Allergy Itching Verified 12/19/16 16:27 doxycycline Allergy Nausea Verified 12/19/16 16:27 Ethyl Chloride Allergy Itching Verified 12/19/16 16:27 fexofenadine [From Fannie] Allergy Itching Verified 12/19/16 16:27 hydroxyzine Allergy Hallucinati Verified 12/19/16 16:27 ng Procaine [From Novocain] Allergy Rash Verified 12/19/16 16:27 Penicillins AdvReac Itching Verified 12/19/16 16:27 Review of Systems Psychiatric: Reports: anxiety Mental Status Exam Patient orientation: Yes Person, Yes Time, Yes Place Level of alertness: Alert Patient appearance: Appropriate, Unkempt, Thin Behavior: calm, cooperative, anxious Psychomotor activity: Normal Eye contact: Maintains Eye Contact Mood description: Euthymic/stable Affect description: congruent with mood, full range Speech pattern: Normal rate, Normal rhythm, Normal tone Speech volume: Normal Thought process: Linear, Goal Oriented Thought content: No Suicidal ideation, No Homicidal ideation, No Overt delusions Perceptual disturbances: No Auditory hallucinations, No Visual hallucinations Attention span: Capable of Focused Attention Memory description: Grossly Intact Patient reliability: Reliable Historian Intelligence estimate: Average Judgment: Limited Insight: Partial Results - Vital Signs Vital signs: Temp Pulse Resp BP Pulse Ox 98.8 F 76 15 150/92 98 01/08/17 11:26 01/08/17 11:26 01/08/17 11:26 01/08/17 11:26 01/08/17 11:26 - Labs Labs: Laboratory Last Values WBC 5.5 K/mcL (4.3-11.1) 01/08/17 04:33 RBC 3.38 M/mcL (3.82-4.97) L 01/08/17 04:33 Hgb 9.8 g/dL (11.5-15.4) L D 01/08/17 04:33 Hct 29.9 % (35.3-44.9) L 01/08/17 04:33 MCV 88.5 fL (83.0-100.0) 01/08/17 04:33 MCH 29.0 pg (28.0-33.3) 01/08/17 04:33 MCHC 32.8 g/dL (31.6-35.5) 01/08/17 04:33 RDW 12.8 % (11.5-14.5) 01/08/17 04:33 Plt Count 176 K/mcL (140-400) 01/08/17 04:33 MPV 9.9 fL (9.4-12.4) 01/08/17 04:33 Immature Gran % 1.3 % (0-4) 01/08/17 04:33 Seg Neutrophils % 85.5 % 01/08/17 04:33 Lymphocytes % 11.0 % 01/08/17 04:33 Monocytes % 2.0 % 01/08/17 04:33 Eosinophils % 0.0 % 01/08/17 04:33 Basophils % 0.2 % 01/08/17 04:33 Neutrophils # 4.7 K/mcL (1.6-8.9) 01/08/17 04:33 Lymphocytes # 0.6 K/mcL (0.6-4.6) 01/08/17 04:33 Monocytes # 0.1 K/mcL (0.0-1.3) 01/08/17 04:33 Eosinophils # 0.0 K/mcL (0.0-0.6) 01/08/17 04:33 Basophils # 0.0 K/mcL (0.0-0.2) 01/08/17 04:33 Sodium 138 mEq/L (136-145) 01/08/17 04:33 Potassium 3.9 mEq/L (3.5-4.5) 01/08/17 04:33 Chloride 97 mEq/L (98-109) L 01/08/17 04:33 Carbon Dioxide 28 mEq/L (19-29) 01/08/17 04:33 BUN 8 mg/dL (7-20) 01/08/17 04:33 Creatinine 0.63 mg/dL (0.57-1.11) 01/08/17 04:33 Est GFR ( Amer) > 60 (> 60) 01/08/17 04:33 Est GFR (Non-Af Amer) > 60 (> 60) 01/08/17 04:33 BUN/Creatinine Ratio 13 (6-26) 01/08/17 04:33 Glucose 123 mg/dL (70-99) H 01/08/17 04:33 Calculated Osmolality 286 (280-300) 01/08/17 04:33 Calcium 8.2 mg/dL (8.6-10.8) L 01/08/17 04:33 Troponin I 0.01 ng/mL (0-0.03) 01/07/17 10:30 Ur Specimen Adequacy See below A 01/07/17 11:07 Urine Color Yellow (Yellow) 01/07/17 11:07 Urine Clarity Clear (Clear) 01/07/17 11:07 Urine pH 6.5 pH Units (5.0-8.0) 01/07/17 11:07 Ur Specific [place] 1.015 (1.010-1.025) 01/07/17 11:07 Urine Protein 30 mg/dL (Neg-Trace) H 01/07/17 11:07 Urine Glucose (UA) Normal mg/dL (Normal) 01/07/17 11:07 Urine Ketones Negative mg/dL (Negative) 01/07/17 11:07 Urine Blood Moderate (Negative) H 01/07/17 11:07 Urine Nitrite Negative (Negative) 01/07/17 11:07 Urine Bilirubin Small (Negative) H 01/07/17 11:07 Urine Urobilinogen Normal mg/dL (Normal) 01/07/17 11:07 Ur Leukocyte Esterase Trace (Negative) H 01/07/17 11:07 Stl C. diff Tox B Gene Negative (Negative) 01/07/17 11:27 Salicylates < 5.0 mg/dL (15-30) L 01/07/17 10:28 Urine Opiates Screen Positive ng/mL (Koaeby=221) H 01/07/17 11:08 Acetaminophen 1.0 mcg/mL (10-30) L 01/07/17 10:28 Ur Barbiturates Screen Negative ng/mL (Lsxhvg=972) 01/07/17 11:08 Ur Phencyclidine Scrn Negative ng/mL (Cutoff=25) 01/07/17 11:08 Ur Amphetamines Screen Negative ng/mL (Abmkip=5892) 01/07/17 11:08 U Benzodiazepines Scrn Positive ng/mL (Zuynog=987) H 01/07/17 11:08 Urine Cocaine Screen Negative ng/mL (Cutoff= 300) 01/07/17 11:08 U Marijuana (THC) Screen Negative ng/mL (Cutoff = 50) 01/07/17 11:08 Ethyl Alcohol < 10 mg/dL (0-10) 01/07/17 10:28 Consult Discharge Plan - Plan Instructions: Prednisone (By mouth), Hypoxia (GEN), Anxiety (DC) Additional Instructions: Please starting taking the 40mg of steroids that we prescribed you here. Please stop taking the dose that you currently have at home. Please follow up with your PCP in 1-2 weeks time. Come to the ED if you have any worsening signs or symptoms. Prescriptions: PredniSONE [Deltasone] 40 mg PO DAILY 7 Days
--- NOTE | 2017-01-10 15:35 | Discharge Summary ---
Date of Encounter: 01/08/17 Time of Encounter: 14:00 - Discharge Diagnosis (1) Depression Priority: Secondary Status: Chronic Qualifiers: Depression Type: unspecified Qualified Code(s): F32.9 - Major depressive disorder, single episode, unspecified (2) Acute anxiety Priority: Primary Status: Acute (3) Suicidal ideation Priority: Primary Status: Acute (4) COPD exacerbation Priority: Primary Status: Acute (5) Withdrawal from benzodiazepine Priority: Primary Status: Acute Qualifiers: Complication of substance-induced condition: with unspecified complication Qualified Code(s): F13.239 - Sedative, hypnotic or anxiolytic dependence with withdrawal, unspecified - Discharge Medications Prescriptions: PredniSONE [Deltasone] 40 mg PO DAILY 7 Days Home Medications: Cetirizine HCl [Zyrtec] 10 mg PO DAILY #0 07/10/16 [History] Dicyclomine [Bentyl] 10 mg PO BID #0 07/10/16 [History] Gabapentin [Neurontin] 600 mg PO TID #0 07/10/16 [History] LORazepam [Ativan] 0.5 mg PO TID #0 07/10/16 [History] Losartan [Cozaar] 25 mg PO DAILY #0 07/10/16 [History] Mirtazapine [Remeron] 15 mg PO HS #0 07/10/16 [History] Oxygen 2 l .ROUTE AD #0 07/10/16 [History] Salmeterol Xinafoate [Serevent Diskus] 1 puff IH BID #0 07/10/16 [History] Tiotropium [place] [Spiriva Respimat] 2 puff IH DAILY #0 07/10/16 [History] Tramadol HCl [Ultram] 50 mg PO QID PRN #0 07/10/16 [History] Calcium Carbonate [Tums] 1,000 mg PO Q4HR PRN 12/31/16 [History] Esomeprazole Magnesium [Nexium] 40 mg PO DAILY 12/31/16 [History] Fluticasone Propionate [Flovent Hfa] 1 puff IH BID 12/31/16 [History] Tetrahydrozoline HCl [Visine] 1 drop OP QID PRN 12/31/16 [History] Tizanidine HCl [Tizanidine HCl] 4 mg PO TID PRN 12/31/16 [History] Azithromycin [Zithromax] 250 mg PO DAILY #6 tablet 01/05/17 [Rx] predniSONE [PredniSONE] 10 mg PO DAILY #21 tablet 01/05/17 [Rx] Divalproex Sodium [Depakote Sprinkle] 250 mg PO BID 01/07/17 [History] PredniSONE [Deltasone] 40 mg PO DAILY 7 Days 01/08/17 [Rx] Allergies/Adverse Reactions: 3 Allergy/AdvReac Type Severity Reaction Status Date / Time alprazolam [From Xanax] Allergy Itching Verified 12/19/16 16:27 bupropion [From Wellbutrin] Allergy Itching Verified 12/19/16 16:27 doxycycline Allergy Nausea Verified 12/19/16 16:27 Ethyl Chloride Allergy Itching Verified 12/19/16 16:27 fexofenadine [From Fannie] Allergy Itching Verified 12/19/16 16:27 hydroxyzine Allergy Hallucinati Verified 12/19/16 16:27 ng Procaine [From Novocain] Allergy Rash Verified 12/19/16 16:27 Penicillins AdvReac Itching Verified 12/19/16 16:27 Date of admission: 01/07/17 13:31 Primary care physician: PCP NONE Consults: 01/07/17 13:40 Consult to Psychiatry [CONS] Routine Consulting Provider: Psychiatry Luana Reason for Consult: Schizophrenia Call Completed: No 01/07/17 16:15 Consult to Cnc Service Technician [CONS] Routine Reason for SW Consult: Maxim H/H Discharging clinician: Radha Vasquez Anticipated date of discharge: 01/08/17 - Patient Status Disposition: Left Against Medical Advice Condition: Fair - Discharge Instructions Instructions: Prednisone (By mouth), Hypoxia (GEN), Anxiety (DC) Follow Up With: NONE,PCP [Primary Care Provider] - Additional Instructions: Please starting taking the 40mg of steroids that we prescribed you here. Please stop taking the dose that you currently have at home. Please follow up with your PCP in 1-2 weeks time. Come to the ED if you have any worsening signs or symptoms. Hospital course: Ms. Aguilera is a 61 year old female with history of COPD, tobacco abuse, anxiety and depression was admitted due to possible benzodiazepine withdrawal. She does have home health services and was noted to be apparently overusing her benzodiazepine pills due to extreme anxiety, which were then taken away by her home health nurse. She was also noted to have acute exacerbation of COPD and was started on IV steroids, bronchodilators and supplemental oxygen. On my evaluation today, patient is noted to be extremely anxious, on a simple mask at 6 L/m oxygen and noted to be having bilateral wheezing. She was recommended to stay in the hospital for continued treatment for acute COPD, however she refused stating that she is very anxious in the hospital setting and would be more comfortable at home and decided to leave AGAINST MEDICAL ADVICE. She was still provided with a prescription for oral steroids. Patient was also evaluated by psychiatry and has been cleared from psychiatric standpoint. - Time Spent with Patient Total time spent providing and/or coordinating discharge services: Greater than 30 minutes (25 min) - Constitutional Vitals: Temp Pulse Resp BP Pulse Ox 98.8 F 76 15 150/92 98 01/08/17 11:26 01/08/17 11:26 01/08/17 11:26 01/08/17 11:26 01/08/17 11:26 General appearance: Present: cooperative, mild distress, A&O X 3, answers questions appropriately - Respiratory Respiratory exam: Present: wheezes (B/L diffuse wheezing). Absent: accessory muscle use, rales, rhonchi
== END 2017-01-08 13:55 | disposition left against medical advice (07) ==
LOC: 3BNU 09:55 → EMEROO 09:55 → SUATTDRO 13:31 → 3BNU 14:46
PROVIDERS: ADMIT Nurse Practitioner; ATTEND Internal Medicine

== ENCOUNTER 2017-01-20 04:47 | Observation (INO) ==
[2017-01-20] MEDS ORDERED: methylPREDNISolone 125 MG/2 ML VIAL IVP ONE (04:51)
[2017-01-20] MEDS ORDERED: Ipratropium/Albuterol Neb 3 ML IH ONE ×2 (04:51→07:42)
--- NOTE | 2017-01-20 04:55 | Emergency Department Note ---
Disposition Clinical Impression: Acute exacerbation of chronic obstructive airways disease, Acute anxiety Disposition: Still a Patient Condition: Fair Referrals: NONE,PCP [Non-Partnered Physician] - Forms: ED Satisfaction Letter SOB HPI - General Chief Complaint: ED Shortness of Breath/Dyspnea Stated Complaint: anxiety/COPD Time Seen by Provider: 01/20/17 04:49 Source: patient, EMS Mode of arrival: EMS Limitations: no limitations Nursing Notes Reviewed: Yes Vital Signs Reviewed: Yes - History of Present Illness Patient presents to the ED with the chief complaint of shortness of breath. Patient has a history of severe anxiety and COPD. She was seen and evaluated in the emergency department earlier today for similar symptoms. She refused a chest x-ray steroids and left AGAINST MEDICAL ADVICE. She presents again stating that she feels worse. Reports that she was given medicine for her anxiety, which really helped and she wanted to leave and when the medicine wore off, she began panicking again and feeling very short of breath and heavy feeling in her chest. States that she just cannot take it anymore. Denies any fever, abdominal pain or vomiting. - Related Data Home Medications Medication Instructions Recorded Confirmed Cetirizine HCl [Zyrtec] 10 mg PO DAILY #0 07/10/16 01/20/17 Dicyclomine [Bentyl] 10 mg PO BID #0 07/10/16 01/20/17 Gabapentin [Neurontin] 600 mg PO TID #0 07/10/16 01/20/17 LORazepam [Ativan] 0.5 mg PO TID #0 07/10/16 01/20/17 Losartan [Cozaar] 25 mg PO DAILY #0 07/10/16 01/20/17 Mirtazapine [Remeron] 15 mg PO HS #0 07/10/16 01/20/17 Oxygen 2 l .ROUTE AD #0 07/10/16 01/20/17 Salmeterol Xinafoate [Serevent 1 puff IH BID #0 07/10/16 01/20/17 Diskus] Tiotropium [place] [Spiriva 2 puff IH DAILY #0 07/10/16 01/20/17 Respimat] Tramadol HCl [Ultram] 50 mg PO QID PRN #0 07/10/16 01/20/17 Calcium Carbonate [Tums] 1,000 mg PO Q4HR PRN 12/31/16 01/20/17 Esomeprazole Magnesium [Nexium] 40 mg PO DAILY 12/31/16 01/20/17 Fluticasone Propionate [Flovent 1 puff IH BID 12/31/16 01/20/17 Hfa] Tetrahydrozoline HCl [Visine] 1 drop OP QID PRN 12/31/16 01/20/17 Tizanidine HCl [Tizanidine HCl] 4 mg PO TID PRN 12/31/16 01/20/17 Divalproex Sodium [Depakote 250 mg PO BID 01/07/17 01/20/17 Sprinkle] Previous Rx's Medication Instructions Recorded PredniSONE [Deltasone] 40 mg PO DAILY 7 Days 01/08/17 Allergies Allergy/AdvReac Type Severity Reaction Status Date / Time alprazolam [From Xanax] Allergy Itching Verified 12/19/16 16:27 bupropion [From Wellbutrin] Allergy Itching Verified 12/19/16 16:27 doxycycline Allergy Nausea Verified 12/19/16 16:27 Ethyl Chloride Allergy Itching Verified 12/19/16 16:27 fexofenadine [From Fannie] Allergy Itching Verified 12/19/16 16:27 hydroxyzine Allergy Hallucinati Verified 12/19/16 16:27 ng Procaine [From Novocain] Allergy Rash Verified 12/19/16 16:27 Penicillins AdvReac Itching Verified 12/19/16 16:27 All systems ED: reviewed and negative except as stated. Constitutional: Denies: fever Cardiovascular: Reports: chest pain Respiratory: Reports: cough, dyspnea, wheezes Gastrointestinal: Denies: vomiting Past Medical History - Past Medical History Attestation: Yes The following information was validated with the patient. Source: patient Medical history: Reports: asthma, COPD, GERD, hypertension, syncope Psychiatric history: Reports: anxiety, bipolar, depression - Social History Smoking Status: Current every day smoker Smokeless Tobacco Status: No Alcohol use: Reports: none Drug use: Reports: none Physical Exam - General General appearance: anxious (very) - Head Head exam: atraumatic, normocephalic, normal inspection - Chest Chest inspection: Present: normal inspection, symmetric chest wall rise - Respiratory Respiratory exam: Present: respiratory distress (Hyperventilating), other (Poor inspiratory effort). Absent: normal lung sounds bilaterally - Cardiovascular Cardiovascular exam: Present: regular rate, normal rhythm, normal heart sounds - Abdominal Exam Abdominal exam: Present: soft, Non-Tender. Absent: tenderness, distention, guarding, rebound, rigidity Course Course Narrative: 61-year-old female presenting with a COPD exacerbation and anxiety attack. She left AGAINST MEDICAL ADVICE a few hours ago and is presenting again. She does have a history of leaving once she receives benzodiazepines, so we will treat her shortness of breath before administering any benzos. Patient may require admission, but further workup will be required. - Reevaluation(s) Reevaluation #1: Patient remained very anxious, but is feeling somewhat better after leaving treatments. She is still requesting a nonrebreather due to a sense of dyspnea. Feel this is likely related to her anxiety. She is requesting admission for psychiatric evaluation. I spoke with the hospitalist who was requesting an ABG before accepting the patient. We will order this and have to call him back. Time: 06:37 Vital Signs Temperature 98.7 F 01/20/17 04:48 Pulse Rate 90 01/20/17 04:48 Respiratory Rate 16 01/20/17 04:48 Blood Pressure 120/95 01/20/17 04:48 O2 Sat by Pulse Oximetry 100 01/20/17 04:48 Temperature 98.7 F 01/20/17 04:48 Pulse Rate 102 01/20/17 07:19 Respiratory Rate 18 01/20/17 06:42 Blood Pressure 136/88 01/20/17 07:19 O2 Sat by Pulse Oximetry 100 01/20/17 07:19 Oxygen Delivery Oxygen Delivery Non Rebreather Mask Shortness of Breath/Dyspnea - Medical Records Medical records reviewed: Yes I reviewed the patient's medical records. - Lab Data Lab results reviewed: Yes I reviewed the patient's lab results. Result diagrams: 01/20/17 05:06 01/20/17 05:06 Lab Results 01/20/17 01/20/17 01/20/17 Range/Units 05:06 05:06 05:06 WBC 7.6 (4.3-11.1) K/mcL RBC 3.66 L (3.82-4.97) M/mcL Hgb 10.5 L (11.5-15.4) g/dL Hct 34.0 L (35.3-44.9) % MCV 92.9 (83.0-100.0) fL MCH 28.7 (28.0-33.3) pg MCHC 30.9 L (31.6-35.5) g/dL RDW 14.1 (11.5-14.5) % Plt Count 200 (140-400) K/mcL MPV 9.7 (9.4-12.4) fL Immature Gran % 0.5 (0-4) % Seg Neutrophils % 57.4 % Lymphocytes % 31.8 % Monocytes % 8.8 % Eosinophils % 1.2 % Basophils % 0.3 % Neutrophils # 4.4 (1.6-8.9) K/mcL Lymphocytes # 2.4 (0.6-4.6) K/mcL Monocytes # 0.7 (0.0-1.3) K/mcL Eosinophils # 0.1 (0.0-0.6) K/mcL Basophils # 0.0 (0.0-0.2) K/mcL Sodium 144 (136-145) mEq/L Potassium 3.2 L (3.5-4.5) mEq/L Chloride 100 (98-109) mEq/L Carbon Dioxide 36 H (19-29) mEq/L BUN 3 L (7-20) mg/dL Creatinine 0.70 (0.57-1.11) mg/dL Est GFR ( Amer) > 60 (> 60) Est GFR (Non-Af Amer) > 60 (> 60) BUN/Creatinine Ratio 4 L (6-26) Glucose 89 (70-99) mg/dL Calculated Osmolality 294 (280-300) Calcium 8.8 (8.6-10.8) mg/dL Troponin I 0.03 (0-0.03) ng/mL B-Natriuretic Peptide (0-100) pg/mL 01/20/17 Range/Units 05:06 WBC (4.3-11.1) K/mcL RBC (3.82-4.97) M/mcL Hgb (11.5-15.4) g/dL Hct (35.3-44.9) % MCV (83.0-100.0) fL MCH (28.0-33.3) pg MCHC (31.6-35.5) g/dL RDW (11.5-14.5) % Plt Count (140-400) K/mcL MPV (9.4-12.4) fL Immature Gran % (0-4) % Seg Neutrophils % % Lymphocytes % % Monocytes % % Eosinophils % % Basophils % % Neutrophils # (1.6-8.9) K/mcL Lymphocytes # (0.6-4.6) K/mcL Monocytes # (0.0-1.3) K/mcL Eosinophils # (0.0-0.6) K/mcL Basophils # (0.0-0.2) K/mcL Sodium (136-145) mEq/L Potassium (3.5-4.5) mEq/L Chloride (98-109) mEq/L Carbon Dioxide (19-29) mEq/L BUN (7-20) mg/dL Creatinine (0.57-1.11) mg/dL Est GFR ( Amer) (> 60) Est GFR (Non-Af Amer) (> 60) BUN/Creatinine Ratio (6-26) Glucose (70-99) mg/dL Calculated Osmolality (280-300) Calcium (8.6-10.8) mg/dL Troponin I (0-0.03) ng/mL B-Natriuretic Peptide 317 H (0-100) pg/mL - Radiology Data Radiology results reviewed: Yes I reviewed the patient's radiology results. - EKG Data EKG attestation: Yes I reviewed and interpreted this EKG. EKG results narrative: Sinus rhythm, rate 87, MI interval 134, QRS 86, QTC 417, left axis deviation, no acute ischemic changes S.B.A.R. - S.B.A.R. Situation: Demographics, MOA Background: Presenting Complaint, Relevant PMH, Meds, & Allergies Assessment: Vital Signs, Course and respsone to treatment, Exam Concerns, Patient/Family Expectation, Pertinant Lab Results, Outstanding Labs Recommendation: Barrier(s) to disposition, Recommendation based on pending studies, treatments, or consults S.B.A.R. Report Given to: Dr. Celestin S.B.A.Nancy Repor Time: 06:58 Attestation Statement - Attestation Attestation: I, León White MD, personally evaluated this patient and discussed their management with the resident physician. I reviewed the resident's note and agree with the documented findings, medical decision making, and plan of care. 61-year-old female presents to the emergency department with a complaint of anxiety and difficulty breathing. Patient was seen here last evening for the same complaints and refused treatment. He did receive Ativan while here and states that it helped and she went home and slept but when the medicine wore off she awoke with the same symptoms of feeling short of breath. On examination patient is a well-developed well-nourished female in no acute distress. She is very anxious and agitated. Breath sounds are decreased and equal bilaterally with no rales or wheezes noted. Heart regular rate and rhythm. Abdomen is soft and nontender with normal bowel sounds. Labs reviewed. No acute changes on EKG. Chest x-ray negative. Dr. Preciado discussed the patient with the hospitalist, Dr. Gutierrez, and he requested the patient have an ABG before being accepted. ABG was ordered. At shift change patient is being signed out to the oncoming physician, Dr. Celestin. If medicine refuses to accept this patient the patient will need a psychiatric consultation.
[2017-01-20 05:14] LABS: Basophils % 0.3 %; Eosinophils # 0.1 K/mcL (0.0-0.6); Eosinophils % 1.2 %; Hemoglobin 10.5 g/dL (11.5-15.4); Immature Granulocytes % 0.5 % (0-4); Lymphocytes # 2.4 K/mcL (0.6-4.6); Lymphocytes % 31.8 %; Mean Corpuscular HGB Conc 30.9 g/dL (31.6-35.5); Mean Corpuscular Hemoglobin 28.7 pg (28.0-33.3); Mean Corpuscular Volume 92.9 fL (83.0-100.0); Mean Platelet Volume 9.7 fL (9.4-12.4); Monocytes # 0.7 K/mcL (0.0-1.3); Monocytes % 8.8 %; Neutrophils # 4.4 K/mcL (1.6-8.9); Platelet Count 200 K/mcL (140-400); Red Blood Count 3.66 M/mcL (3.82-4.97); Red Cell Distribution Width 14.1 % (11.5-14.5); Segmented Neutrophils % 57.4 %
[2017-01-20 05:27] LABS: BUN/Creatinine Ratio 4 (6-26); Blood Urea Nitrogen 3 mg/dL (7-20); Calcium 8.8 mg/dL (8.6-10.8); Carbon Dioxide 36 mEq/L (19-29); Chloride 100 mEq/L (98-109); Glucose 89 mg/dL (70-99); Osmolality,Calculated 294 (280-300); Potassium 3.2 mEq/L (3.5-4.5); Sodium 144 mEq/L (136-145); eGFR For African Americans > 60 (> 60); eGFR For Non-African Americans > 60 (> 60)
[2017-01-20] MEDS ORDERED: Ondansetron 4 MG/2 ML VIAL IVP ONE (05:30)
[2017-01-20] MEDS ORDERED: *HR* LORazepam 2 MG/ML VIAL IVP ONE ×3 (06:00→08:07)
[2017-01-20] MEDS ORDERED: Nicotine 21 MG PATCH.TD24 TD STA (06:01)
[2017-01-20] MEDS ORDERED: Haloperidol Lactate 5 MG/ML VIAL IVP ONE (06:39)
[2017-01-20] MEDS ORDERED: *HR* LORazepam 2 MG/ML VIAL ONE (06:46)
[2017-01-20 07:29] LABS: ABG Base Excess 16.8 mEq/L (-2.0 to 3.0); ABG HCO3 45 mEq/L (21-27); ABG Oxygen Saturation 100 % (95-98); ABG PH 7.39 pH Units (7.32-7.45); ABG PO2 295 mmHg (85-104); ABG TCO2 47.1 mEq/L (20-26)
[2017-01-20 07:32] LABS: ABG PCO2 74 mmHg (35-45)
[2017-01-20 07:34] LABS: Blood Gas FiO2 100 %
[2017-01-20] MEDS ORDERED: Azithromycin 500 MG in D5% in Water 250 ML IVPB ONE (07:42)
--- NOTE | 2017-01-20 08:28 | Electrocardiograph Report ---
[place] [facility] Test Date: 2017-01-20 Pat Name: Starla Aguilera Department: 102 Room: Gender: F Cooker Chip: Anton : [id number] Requested By: Henrry Preciado Order Number: [id number] Reading MD: Maurizio Galvan DO Measurements Intervals [place] Rate: 87 P: 48 MA: 134 QRS: -23 QRSD: 86 T: 33 QT: 372 QTc: 417 Interpretive Statements SINUS RHYTHM BORDERLINE LEFT AXIS DEVIATION [QRS AXIS < -20] Electronically Signed On 01-20-2017 7:44:07 EDT by Maurizio Galvan DO
[2017-01-20] MEDS ORDERED: Nicotine 21 MG PATCH.TD24 TD SCH (09:00)
[2017-01-20 09:56] VITALS: BP 118/83
[2017-01-20] MEDS ORDERED: Acetaminophen 325 MG TABLET PO PRN (11:17)
[2017-01-20] MEDS ORDERED: Ondansetron 4 MG/2 ML VIAL IVP PRN (11:17)
[2017-01-20] MEDS ORDERED: Naloxone 0.4 MG/ML INJ IVP PRN (11:17)
[2017-01-20] MEDS ORDERED: tiZANidine 4 MG TABLET PO PRN (11:19)
[2017-01-20] MEDS ORDERED: Potassium Chloride Elixir 20 MEQ/15 ML UDC PO ONE (11:19)
[2017-01-20] MEDS ORDERED: traMADol 50 MG TABLET PO PRN (11:19)
[2017-01-20] MEDS ORDERED: Ipratropium/Albuterol Neb 3 ML IH PRN (11:22)
[2017-01-20] MEDS ORDERED: *HR* LORazepam 2 MG/ML VIAL IVP PRN (11:24)
--- NOTE | 2017-01-20 11:40 | Internal Med History&Physical ---
Date of Encounter: 01/20/17 Time of Encounter: 10:30 Assessment and Plan (1) Acute bronchitis Current visit: Yes Status: Acute Patient likely has a cute on chronic bronchitis. Continue when necessary bronchodilators and supplemental oxygen. Patient educated about the use of low- flow oxygen and a trial of BiPAP, to which she is currently agreeable. Wean down FiO2 as tolerated, currently at 3 L/m via facemask. We will hold off on antibiotics for now. Continue home medications of inhaled steroids and LABA. Qualifiers: Bronchitis organism: unspecified organism Qualified Code(s): J20.9 - Acute bronchitis, unspecified (2) Acute anxiety Current visit: Yes Status: Acute We will use when necessary IV benzodiazepines along with supportive care. One- on-one sitter for safety. Psychiatry consult. Patient needs close outpatient follow-up with behavioral health. director human services consulted for safe discharge planning. (3) Generalized anxiety disorder Current visit: Yes Status: Chronic (4) PTSD (post-traumatic stress disorder) Current visit: Yes Status: Chronic (5) Bipolar disorder Current visit: Yes Status: Chronic Qualifiers: Active/Remission status: remission status unspecified Qualified Code(s): F31.9 - Bipolar disorder, unspecified (6) Depression Current visit: Yes Status: Chronic Qualifiers: Depression Type: unspecified Qualified Code(s): F32.9 - Major depressive disorder, single episode, unspecified (7) COPD (chronic obstructive pulmonary disease) Current visit: Yes Status: Chronic Qualifiers: COPD type: unspecified COPD Qualified Code(s): J44.9 - Chronic obstructive pulmonary disease, unspecified (8) Chronic respiratory failure with hypoxia Current visit: Yes Status: Chronic Secondary to COPD. Noted to be on home oxygen via face mask at 6 L/m per patient. (9) Tobacco abuse Current visit: Yes Status: Chronic Patient is currently not motivated to quit smoking despite understanding the harmful effects of smoking on underlying COPD. Continue nicotine transdermal patch. Internal Medicine - H&P: HPI Chief complaint: Shortness of breath Admitted From: Emergency Dept Plans for Post Hospital Care: Home History of present illness: Ms. Aguilera is a 61 year old female with history of bipolar disorder, generalized anxiety disorder, posttraumatic stress disorder, COPD, presented to the emergency room with complaints of difficulty breathing and not thinking straight. Patient presented with similar complaints last night, improved with benzodiazepines and was discharged home. However, she began to experience similar symptoms of extreme anxiety, inability to think straight, difficulty in taking deep breaths and she presented back to the emergency room. She denies fever, chills, wheezing, cough, palpitations. Patient admits to smoking at least 1 pack of cigarettes per day and reports that she enjoys smoking despite knowing the ill effects of smoking on underlying COPD and respiratory distress. She feels anxious with nasal cannula and continues to use face mask at home which is a 6 L/m according to the patient. Her ABG today revealed PO2 close to 300 and PCO2 mildly elevated but she continues to insist on wearing high flow oxygen via face mask and continues to refuse a trial of BiPAP. She further reports that she needs to see a psychiatrist and that it has been ages since she saw one, although her home medication list reports a number of psychotropic medications. Past Med Surg Social Fam HX - Past Medical History Medical history: asthma, COPD, GERD, hypertension Psychiatric history: anxiety, bipolar, depression, panic disorder, PTSD - Past Surgical History Surgical History: appendectomy, orthopedic, other (Left knee arthroscopic surgery), other (Tonsillectomy) - Social History Smoking Status: Current every day smoker Smokeless Tobacco Status: No Alcohol use: none Drug use: none Occupational status: disabled Current living situation: Home - Independent Activity Level: Independent ambulation Recent Out of Country Travel Within the Last 8 Weeks: No Exposure or Possible Exposure to Illness During Travel: No - Family History Mother Living Status: Hx Family Cancer: Yes (lung) Sister Family Member Ethnicity: Non- Hx Family Endocrine Disorder: Yes (DM II) Internal Medicine - H&P: Meds Cetirizine HCl [Zyrtec] 10 mg PO DAILY #0 07/10/16 [History] Dicyclomine [Bentyl] 10 mg PO BID #0 07/10/16 [History] Gabapentin [Neurontin] 600 mg PO TID #0 07/10/16 [History] LORazepam [Ativan] 0.5 mg PO TID #0 07/10/16 [History] Losartan [Cozaar] 25 mg PO DAILY #0 07/10/16 [History] Mirtazapine [Remeron] 15 mg PO HS #0 07/10/16 [History] Oxygen 2 l .ROUTE AD #0 07/10/16 [History] Salmeterol Xinafoate [Serevent Diskus] 1 puff IH BID #0 07/10/16 [History] Tiotropium [place] [Spiriva Respimat] 2 puff IH DAILY #0 07/10/16 [History] Tramadol HCl [Ultram] 50 mg PO QID PRN #0 07/10/16 [History] Calcium Carbonate [Tums] 1,000 mg PO Q4HR PRN 12/31/16 [History] Esomeprazole Magnesium [Nexium] 40 mg PO DAILY 12/31/16 [History] Fluticasone Propionate [Flovent Hfa] 1 puff IH BID 12/31/16 [History] Tetrahydrozoline HCl [Visine] 1 drop OP QID PRN 12/31/16 [History] Tizanidine HCl [Tizanidine HCl] 4 mg PO TID PRN 12/31/16 [History] Divalproex Sodium [Depakote Sprinkle] 250 mg PO BID 01/07/17 [History] PredniSONE [Deltasone] 40 mg PO DAILY 7 Days 01/08/17 [Rx] 3 Allergy/AdvReac Type Severity Reaction Status Date / Time alprazolam [From Xanax] Allergy Itching Verified 12/19/16 16:27 bupropion [From Wellbutrin] Allergy Itching Verified 12/19/16 16:27 doxycycline Allergy Nausea Verified 12/19/16 16:27 Ethyl Chloride Allergy Itching Verified 12/19/16 16:27 fexofenadine [From Fannie] Allergy Itching Verified 12/19/16 16:27 hydroxyzine Allergy Hallucinati Verified 12/19/16 16:27 ng Procaine [From Novocain] Allergy Rash Verified 12/19/16 16:27 Penicillins AdvReac Itching Verified 12/19/16 16:27 All Systems PM: A 10-system review of systems was performed and is negative for pertinent findings except as documented above in the HPI. - Constitutional Constitutional: no chills, no fever(s), no night sweats - EENT Eyes: no change in vision, no discharge, no pain, no photophobia Ears: no ear discharge, no ear pain, no tinnitus Nose, mouth and throat: no dysphagia, no nasal discharge, no neck pain, no sore throat - Cardiovascular Cardiovascular ROS IM: no chest pain, no diaphoresis, no dyspnea, no lightheadedness, no palpitations, no syncope - Respiratory Respiratory: no cough, no dyspnea, no wheezing, no excessive phlegm production - Gastrointestinal Gastrointestinal: no abdominal pain, no diarrhea, no hematemesis, no hematochezia, no melena, no nausea, no vomiting - Genitourinary Genitourinary: no change in urinary stream, no dysuria, no flank pain, no hematuria - Musculoskeletal Musculoskeletal ROS IM: no numbness, no tingling - Integumentary Integumentary IM: no rash, no unusual bruising - Neurological Neurological ROS: behavioral changes - Psychiatric Psychiatric: anxiety, behavioral changes, difficulty concentrating, mood swings , panic attacks - Hematologic/Lymphatic Hematologic/Lymphatic: no easy bruising - Constitutional Vitals: Temp Pulse Resp BP Pulse Ox 97.8 F 102 18 118/83 97 01/20/17 09:33 01/20/17 09:33 01/20/17 09:33 01/20/17 09:33 01/20/17 09:33 General appearance: Present: cachectic, mild distress (Extremely agitated with intermittent screaming and crying bouts), A&O X 3, answers questions appropriately - Respiratory Respiratory exam: Present: CTAB. Absent: accessory muscle use, rales, rhonchi, wheezes - Cardiovascular Cardiovascular exam: Present: RRR, +S1, +S2, tachycardia. Absent: diastolic murmur, gallop, rubs, systolic murmur - GI/Abdominal GI/Abdominal exam: Present: normal bowel sounds, soft, no peritoneal signs. Absent: distended, tenderness - Extremities Exam Extremities exam: Present: full ROM, warm, radial pulses palpable and symmetrical. Absent: calf tenderness, cyanotic, pedal edema - Neurological Exam Neurological exam: Present: CN II-XII intact, oriented X3, no focal deficits. Absent: pronater drift, facial droop, speech deficit - Skin Skin exam: Present: dry, intact Internal Med - H&P Results - Labs CBC & Chem 7: 01/20/17 05:06 01/20/17 05:06 - EKG Data -: EKG Interpreted by Myself EKG shows normal: sinus rhythm Rate: normal
--- NOTE | 2017-01-20 13:21 | Consult Note ---
Date of Encounter: 01/20/17 Time of Encounter: 14:51 Assessment & Recommendation (1) Acute anxiety Current visit: Yes Status: Acute History of Present Illness Requesting Physician: Blair Gibson MD Reason for consult: anxiety History of present illness: Ms. Aguilera is a 61 year old female with psychiatric hx of mood disorder, generalized anxiety disorder admitted to medical floor for COPD. patient seen and evaluated and room patient had a breathing treatment on. Patient reports that she is taking pain medication at home and reports that she is also on story her steroid medication patient reports that she has not had proper follow- up for her psychiatric problems but reports that she has been selectively compliant with her medications. Patient reports that she misses her cats and wants to get back onto them she reports she is breathing better since she came to the hospital. Patient is very happy that she has outpatient follow-up appointment for psychiatrist and reports she is looking forward to following up to get her medications adjusted. Patient denies suicide or homicide ideations patient is not overtly psychotic. Assessment: Generalized ANxiety disorder Plan: - follow up outpatient for med mg CC: Blair Gibson MD Past Med Surg Social Fam HX - Past Medical History Medical history: asthma, COPD, GERD, hypertension - Past Surgical History Surgical History: appendectomy, orthopedic, other (Left knee arthroscopic surgery), other (Tonsillectomy) - Social History Smoking Status: Current every day smoker Smokeless Tobacco Status: No Alcohol use: none Drug use: none - Family History Mother Living Status: Hx Family Cancer: Yes (lung) Sister Family Member Ethnicity: Non- Hx Family Endocrine Disorder: Yes (DM II) Medications & Allergies Cetirizine HCl [Zyrtec] 10 mg PO DAILY #0 07/10/16 [History] Dicyclomine [Bentyl] 10 mg PO BID #0 07/10/16 [History] Gabapentin [Neurontin] 600 mg PO TID #0 07/10/16 [History] LORazepam [Ativan] 0.5 mg PO TID #0 07/10/16 [History] Losartan [Cozaar] 25 mg PO DAILY #0 07/10/16 [History] Mirtazapine [Remeron] 15 mg PO HS #0 07/10/16 [History] Oxygen 2 l .ROUTE AD #0 07/10/16 [History] Salmeterol Xinafoate [Serevent Diskus] 1 puff IH BID #0 07/10/16 [History] Tiotropium [place] [Spiriva Respimat] 2 puff IH DAILY #0 07/10/16 [History] Tramadol HCl [Ultram] 50 mg PO QID PRN #0 07/10/16 [History] Calcium Carbonate [Tums] 1,000 mg PO Q4HR PRN 12/31/16 [History] Esomeprazole Magnesium [Nexium] 40 mg PO DAILY 12/31/16 [History] Fluticasone Propionate [Flovent Hfa] 1 puff IH BID 12/31/16 [History] Tetrahydrozoline HCl [Visine] 1 drop OP QID PRN 12/31/16 [History] Tizanidine HCl [Tizanidine HCl] 4 mg PO TID PRN 12/31/16 [History] Divalproex Sodium [Depakote Sprinkle] 250 mg PO BID 01/07/17 [History] PredniSONE [Deltasone] 40 mg PO DAILY 7 Days 01/08/17 [Rx] 3 Allergy/AdvReac Type Severity Reaction Status Date / Time alprazolam [From Xanax] Allergy Itching Verified 12/19/16 16:27 bupropion [From Wellbutrin] Allergy Itching Verified 12/19/16 16:27 doxycycline Allergy Nausea Verified 12/19/16 16:27 Ethyl Chloride Allergy Itching Verified 12/19/16 16:27 fexofenadine [From Fannie] Allergy Itching Verified 12/19/16 16:27 hydroxyzine Allergy Hallucinati Verified 12/19/16 16:27 ng Procaine [From Novocain] Allergy Rash Verified 12/19/16 16:27 Penicillins AdvReac Itching Verified 12/19/16 16:27 Mental Status Exam Patient orientation: Yes Person, Yes Time, Yes Place Level of alertness: Alert Patient appearance: Appropriate Behavior: calm, anxious Psychomotor activity: Normal Eye contact: Maintains Eye Contact Mood description: Euthymic/stable Affect description: congruent with mood Speech pattern: Normal rate, Normal rhythm, Normal tone Speech volume: Normal Thought process: Intact Thought content: Yes Intact Attention span: Capable of Focused Attention, Capable of Sustained Attention Memory description: Grossly Intact Patient reliability: Reliable Historian Results - Vital Signs Vital signs: Temp Pulse Resp BP Pulse Ox 97.8 F 102 18 118/83 97 01/20/17 09:33 01/20/17 09:33 01/20/17 09:33 01/20/17 09:33 01/20/17 09:33 - Labs Labs: Laboratory Last Values WBC 7.6 K/mcL (4.3-11.1) 01/20/17 05:06 RBC 3.66 M/mcL (3.82-4.97) L 01/20/17 05:06 Hgb 10.5 g/dL (11.5-15.4) L 01/20/17 05:06 Hct 34.0 % (35.3-44.9) L 01/20/17 05:06 MCV 92.9 fL (83.0-100.0) 01/20/17 05:06 MCH 28.7 pg (28.0-33.3) 01/20/17 05:06 MCHC 30.9 g/dL (31.6-35.5) L 01/20/17 05:06 RDW 14.1 % (11.5-14.5) 01/20/17 05:06 Plt Count 200 K/mcL (140-400) 01/20/17 05:06 MPV 9.7 fL (9.4-12.4) 01/20/17 05:06 Immature Gran % 0.5 % (0-4) 01/20/17 05:06 Seg Neutrophils % 57.4 % 01/20/17 05:06 Lymphocytes % 31.8 % 01/20/17 05:06 Monocytes % 8.8 % 01/20/17 05:06 Eosinophils % 1.2 % 01/20/17 05:06 Basophils % 0.3 % 01/20/17 05:06 Neutrophils # 4.4 K/mcL (1.6-8.9) 01/20/17 05:06 Lymphocytes # 2.4 K/mcL (0.6-4.6) 01/20/17 05:06 Monocytes # 0.7 K/mcL (0.0-1.3) 01/20/17 05:06 Eosinophils # 0.1 K/mcL (0.0-0.6) 01/20/17 05:06 Basophils # 0.0 K/mcL (0.0-0.2) 01/20/17 05:06 ABG pH 7.39 pH Units (7.32-7.45) 01/20/17 07:18 ABG pCO2 74 mmHg (35-45) H* 01/20/17 07:18 ABG pO2 295 mmHg (85-104) H 01/20/17 07:18 ABG HCO3 45 mEq/L (21-27) H 01/20/17 07:18 ABG Total CO2 47.1 mEq/L (20-26) H 01/20/17 07:18 ABG O2 Saturation 100 % (95-98) H 01/20/17 07:18 ABG Base Excess 16.8 mEq/L (-2.0 to 3.0) H 01/20/17 07:18 Blood Gas Modality MASK 01/20/17 07:18 Inspired O2 100 % 01/20/17 07:18 Sodium 144 mEq/L (136-145) 01/20/17 05:06 Potassium 3.2 mEq/L (3.5-4.5) L 01/20/17 05:06 Chloride 100 mEq/L (98-109) 01/20/17 05:06 Carbon Dioxide 36 mEq/L (19-29) H 01/20/17 05:06 BUN 3 mg/dL (7-20) L 01/20/17 05:06 Creatinine 0.70 mg/dL (0.57-1.11) 01/20/17 05:06 Est GFR ( Amer) > 60 (> 60) 01/20/17 05:06 Est GFR (Non-Af Amer) > 60 (> 60) 01/20/17 05:06 BUN/Creatinine Ratio 4 (6-26) L 01/20/17 05:06 Glucose 89 mg/dL (70-99) 01/20/17 05:06 Calculated Osmolality 294 (280-300) 01/20/17 05:06 Calcium 8.8 mg/dL (8.6-10.8) 01/20/17 05:06 Troponin I 0.03 ng/mL (0-0.03) 01/20/17 05:06 B-Natriuretic Peptide 317 pg/mL (0-100) H 01/20/17 05:06 Consult Discharge Plan - Plan Referrals: David Benjamin MD [Primary Care Provider] -
[2017-01-20] MEDS ORDERED: OLANZapine 10 MG VIAL IM ONE (14:36)
[2017-01-20] MEDS ORDERED: *HR* LORazepam 0.5 MG TABLET PO SCH (15:00)
[2017-01-20] MEDS ORDERED: Gabapentin 300 MG CAPSULE PO SCH (15:00)
--- NOTE | 2017-01-20 15:10 | Discharge Summary ---
Date of Encounter: 01/20/17 Time of Encounter: 15:08 - Discharge Diagnosis (1) Acute bronchitis Priority: Primary Status: Resolved Qualifiers: Bronchitis organism: unspecified organism Qualified Code(s): J20.9 - Acute bronchitis, unspecified (2) Acute anxiety Priority: Primary Status: Acute (3) Generalized anxiety disorder Priority: Secondary Status: Chronic (4) PTSD (post-traumatic stress disorder) Priority: Secondary Status: Chronic (5) Bipolar disorder Priority: Secondary Status: Chronic Qualifiers: Active/Remission status: remission status unspecified Qualified Code(s): F31.9 - Bipolar disorder, unspecified (6) Depression Priority: Secondary Status: Chronic Qualifiers: Depression Type: unspecified Qualified Code(s): F32.9 - Major depressive disorder, single episode, unspecified (7) COPD (chronic obstructive pulmonary disease) Priority: Secondary Status: Chronic Qualifiers: COPD type: unspecified COPD Qualified Code(s): J44.9 - Chronic obstructive pulmonary disease, unspecified (8) Chronic respiratory failure with hypoxia Priority: Secondary Status: Chronic (9) Tobacco abuse Priority: Secondary Status: Chronic - Discharge Medications Home Medications: Cetirizine HCl [Zyrtec] 10 mg PO DAILY #0 07/10/16 [History] Dicyclomine [Bentyl] 10 mg PO BID #0 07/10/16 [History] Gabapentin [Neurontin] 600 mg PO TID #0 07/10/16 [History] LORazepam [Ativan] 0.5 mg PO TID #0 07/10/16 [History] Losartan [Cozaar] 25 mg PO DAILY #0 07/10/16 [History] Mirtazapine [Remeron] 15 mg PO HS #0 07/10/16 [History] Oxygen 2 l NS AD #0 07/10/16 [History] Salmeterol Xinafoate [Serevent Diskus] 1 puff IH BID #0 07/10/16 [History] Tiotropium [place] [Spiriva Respimat] 2 puff IH DAILY #0 07/10/16 [History] Tramadol HCl [Ultram] 50 mg PO QID PRN #0 07/10/16 [History] Calcium Carbonate [Tums] 1,000 mg PO Q4HR PRN 12/31/16 [History] Esomeprazole Magnesium [Nexium] 40 mg PO DAILY 08/16/17 [History] Fluticasone Propionate [Flovent Hfa] 1 puff IH BID 12/31/16 [History] Tetrahydrozoline HCl [Visine] 1 drop OP QID PRN 12/31/16 [History] Tizanidine HCl 4 mg PO TID PRN 12/31/16 [History] Divalproex Sodium [Depakote Sprinkle] 250 mg PO BID 01/07/17 [History] Allergies/Adverse Reactions: 3 Allergy/AdvReac Type Severity Reaction Status Date / Time alprazolam [From Xanax] Allergy Itching Verified 12/19/16 16:27 bupropion [From Wellbutrin] Allergy Itching Verified 12/19/16 16:27 doxycycline Allergy Nausea Verified 12/19/16 16:27 Ethyl Chloride Allergy Itching Verified 12/19/16 16:27 fexofenadine [From Fannie] Allergy Itching Verified 12/19/16 16:27 hydroxyzine Allergy Hallucinati Verified 12/19/16 16:27 ng Procaine [From Novocain] Allergy Rash Verified 12/19/16 16:27 Penicillins AdvReac Itching Verified 12/19/16 16:27 Date of admission: 01/20/17 08:49 Primary care physician: David Benjamin MD Consults: 01/20/17 09:47 Consult to Nutrition [CONS] Routine Comment: Consulting Provider: NUTRITION Reason for Dietary Consult: MST Score 01/20/17 10:46 Consult to Pastoral Services [CONS] Routine Comment: pt is joanna wants to see one 01/20/17 11:19 Consult to Dressed Poultry Grader [CONS] Routine Reason for SW Consult: Safe discharge 01/20/17 11:22 Consult to Psychiatry [CONS] Routine Consulting Provider: Psychiatry Luana Reason for Consult: Extreme anxiety, agitation, psychosis, depression Call Completed: Yes Discharging clinician: Radha Vasquez Anticipated date of discharge: 01/20/17 - Patient Status Disposition: Home Health Service Condition: Fair Functional capacity at discharge: independent ambulation Overall status at discharge: patient is progressing back to baseline - Discharge Instructions Instructions: Depression (DC) Follow Up With: David Benjamin MD [Primary Care Provider] - Additional Instructions: F/up with Psychiatry as scheduled - Diet and Activity Activity: resume usual activities as tolerated, wear oxygen at all times Diet: advance to your usual diet, regular diet Hospital course: Ms. Aguilera is a 61 year old female with extensive psychiatric history including generalized anxiety disorder, bipolar disorder, PTSD and underlying COPD was admitted with tachypnea and difficulty breathing. Her presentation was mostly consistent with a cute anxiety and panic attack and hyperventilation. Patient initially refused to come off Naveed nonrebreather mask or be placed on BiPAP. ABG revealed normal pH of 7.39, high PCO2 at 74, which is likely her baseline and PO2 of 295. Patient received when necessary benzodiazepines and gradually calmed down and although she insisted on wearing a face mask instead of nasal cannula, her oxygen requirements and FiO2 could be weaned down and she was saturating well on 2 L/m. Patient was seen by psychiatry who recommended outpatient follow-up and encouraged patient to keep her appointments and be compliant with her home medications. She verbalized understanding and patient was extremely anxious to go home to be with her cats. director of medical services was consulted and outpatient psychiatry follow-up has been arranged and patient is otherwise medically stable. Time spent discussing smoking cessation with patient: 3 to 10 minutes - Time Spent with Patient Total time spent providing and/or coordinating discharge services: Greater than 30 minutes (40 min) - Constitutional Vitals: Temp Pulse Resp BP Pulse Ox 97.8 F 102 18 118/83 97 01/20/17 09:33 01/20/17 09:33 01/20/17 09:33 01/20/17 09:33 01/20/17 09:33 General appearance: Present: cachectic, A&O X 3, answers questions appropriately - Cardiovascular Cardiovascular exam: Present: RRR, +S1, +S2. Absent: diastolic murmur, gallop, rubs, systolic murmur
--- NOTE | 2017-01-20 15:12 | Physician Discharge Referral ---
Home Health/Hosp Referral Info Transfer to: Home Health Attending Provider: Radha Vasquez Provider in Charge Post Discharge: PCP - Diagnosis (1) Acute bronchitis Priority: Primary Status: Resolved (2) Acute anxiety Priority: Primary Status: Resolved (3) Generalized anxiety disorder Priority: Secondary Status: Chronic (4) PTSD (post-traumatic stress disorder) Priority: Secondary Status: Chronic (5) Bipolar disorder Priority: Secondary Status: Chronic (6) Depression Priority: Secondary Status: Chronic (7) COPD (chronic obstructive pulmonary disease) Priority: Secondary Status: Chronic (8) Chronic respiratory failure with hypoxia Priority: Secondary Status: Chronic (9) Tobacco abuse Priority: Secondary Status: Chronic - Respiratory Orders Oxygen / L per min (2L/min via [place]) Smoking Cessation: Smoking cessation has been advised. For more information, call the [employer] Tobacco Quit Line at 0-621-KGMI-NOW. - Diet/Nutrition Diet/Nutrition Orders: Regular - Activity Activity Orders: Ambulate - Services Needed Following services are medically necessary services: Nursing, Home Health Aide - Transfer Medications Home Medications: Cetirizine HCl [Zyrtec] 10 mg PO DAILY #0 07/10/16 [History] Dicyclomine [Bentyl] 10 mg PO BID #0 07/10/16 [History] Gabapentin [Neurontin] 600 mg PO TID #0 07/10/16 [History] LORazepam [Ativan] 0.5 mg PO TID #0 07/10/16 [History] Losartan [Cozaar] 25 mg PO DAILY #0 07/10/16 [History] Mirtazapine [Remeron] 15 mg PO HS #0 07/10/16 [History] Oxygen 2 l .ROUTE AD #0 07/10/16 [History] Salmeterol Xinafoate [Serevent Diskus] 1 puff IH BID #0 07/10/16 [History] Tiotropium [place] [Spiriva Respimat] 2 puff IH DAILY #0 07/10/16 [History] Tramadol HCl [Ultram] 50 mg PO QID PRN #0 07/10/16 [History] Calcium Carbonate [Tums] 1,000 mg PO Q4HR PRN 12/31/16 [History] Esomeprazole Magnesium [Nexium] 40 mg PO DAILY 12/31/16 [History] Fluticasone Propionate [Flovent Hfa] 1 puff IH BID 12/31/16 [History] Tetrahydrozoline HCl [Visine] 1 drop OP QID PRN 12/31/16 [History] Tizanidine HCl 4 mg PO TID PRN 12/31/16 [History] Divalproex Sodium [Depakote Sprinkle] 250 mg PO BID 01/07/17 [History] PredniSONE [Deltasone] 40 mg PO DAILY 7 Days 01/08/17 [Rx] Allergies/Adverse Reactions: 3 Allergy/AdvReac Type Severity Reaction Status Date / Time alprazolam [From Xanax] Allergy Itching Verified 12/19/16 16:27 bupropion [From Wellbutrin] Allergy Itching Verified 12/19/16 16:27 doxycycline Allergy Nausea Verified 12/19/16 16:27 Ethyl Chloride Allergy Itching Verified 12/19/16 16:27 fexofenadine [From Fannie] Allergy Itching Verified 12/19/16 16:27 hydroxyzine Allergy Hallucinati Verified 12/19/16 16:27 ng Procaine [From Novocain] Allergy Rash Verified 12/19/16 16:27 Penicillins AdvReac Itching Verified 12/19/16 16:27 Certification: Further, I certify that my clinical findings support that this patient is homebound (i.e. absences from home require considerable and taxing effort and are for medical reasons or zoroastrian services or infrequently or short duration when for other reasons) because: Homebound Reason: Patient requires assistance of a person or device to safely leave home, Leaving home requires considerable and taxing effort due to condition, Altered mental status requiring supervision when leaving home Attestation: My signature below is to certify that this patient is under my care and that I, or nurse practitioner, or a physician's membership assistant working with me, has a face-to -face encounter with this patient.
[2017-01-20] MEDS ORDERED: Albuterol 2.5 MG/3 ML NEBULIZER IH SCH (16:00)
--- NOTE | 2017-01-20 18:06 | Emergency Department Note ---
START Narrative - START START: I examined this patient and my medical decision-making was reviewed with the Resident Physician. I agree with the documented findings, disposition and treatment plan as described except to the extent set forth below. 61-year-old female with COPD exacerbation. Refusing BiPAP. Treated with bronchodilators. We will admit for further evaluation. Discussed case with hospitalist team
[2017-01-20] MEDS ORDERED: Divalproex Sodium 125 MG CAPSULE PO SCH (21:00)
[2017-01-20] MEDS ORDERED: NON-FORMULARY MEDICATION 1 EACH EACH (Fluticasone Propionate [Flovent Hfa] 1 PUFF) IH SCH (21:00)
[2017-01-20] MEDS ORDERED: Mirtazapine 15 MG TABLET PO SCH (21:00)
[2017-01-21] MEDS ORDERED: CETIRIZINE 10 MG PO SCH (09:00)
== END 2017-01-20 15:25 | disposition home health service (06) ==
LOC: 2NENU 04:47 → EMEROO 04:47 → 2NENU 09:15
PROVIDERS: ADMIT Internal Medicine; ATTEND Family Medicine

== ENCOUNTER 2017-01-20 18:09 | Inpatient (IN) ==
[2017-01-20] MEDS ORDERED: *HR* LORazepam 2 MG/ML VIAL IM ONE (18:16)
--- NOTE | 2017-01-20 18:27 | Emergency Department Note ---
Disposition Clinical Impression: Intentional overdose of drug in tablet form, Hypoxia Suicidal behavior Qualifiers: Attempted self-injury: with attempted self-injury Qualified Code(s): T14.91 - Suicide attempt Disposition: Admitted As Inpatient Condition: Good Referrals: NONE,PCP [Primary Care Provider] - Forms: ED Satisfaction Letter Time of Disposition: 19:44 Psych HPI - General Chief Complaint: ED Psychiatric Symptoms Stated Complaint: anxious Time Seen by Provider: 01/20/17 18:14 Source: patient - History of Present Illness HPI Narrative: 61 year old female who was most recently evaluted and admitted to the [facility] today presents via eMS for complaints of difficutlly with breathing and anxiety attak. PAtient was admitted for bronchitis and medical clearance and pysch eval. Pyschiatrist saw and recommended discharge home with resrouces. Rachelle returns to the eD via EMS for the complaints of dificult in breathing. Rachelle states that she went home and smoked a lot of cigarettes and took an unsure amount of pills and is not sure what she took. OAtinet states she does not feel sane and that she didnt mean to hurt herself and she doesnt feel safe for home. EMS states that she was hyperventilating and had a O2 of 83% on arrival and then she was placed on NRB and back to 100%. Rachelle is on RA now and a 100%. - Related Data Home Medications Medication Instructions Recorded Confirmed Cetirizine HCl [Zyrtec] 10 mg PO DAILY #0 07/10/16 01/20/17 Dicyclomine [Bentyl] 10 mg PO BID #0 07/10/16 01/20/17 Gabapentin [Neurontin] 600 mg PO TID #0 07/10/16 01/20/17 LORazepam [Ativan] 0.5 mg PO TID #0 07/10/16 01/20/17 Losartan [Cozaar] 25 mg PO DAILY #0 07/10/16 01/20/17 Mirtazapine [Remeron] 15 mg PO HS #0 07/10/16 01/20/17 Oxygen 2 l NS AD #0 07/10/16 01/20/17 Salmeterol Xinafoate [Serevent 1 puff IH BID #0 07/10/16 01/20/17 Diskus] Tiotropium [place] [Spiriva 2 puff IH DAILY #0 02/23/17 09/05/17 Respimat] Tramadol HCl [Ultram] 50 mg PO QID PRN #0 07/10/16 01/20/17 Calcium Carbonate [Tums] 1,000 mg PO Q4HR PRN 12/31/16 01/20/17 Esomeprazole Magnesium [Nexium] 40 mg PO DAILY 12/31/16 01/20/17 Fluticasone Propionate [Flovent 1 puff IH BID 12/31/16 01/20/17 Hfa] Tetrahydrozoline HCl [Visine] 1 drop OP QID PRN 12/31/16 01/20/17 Tizanidine HCl 4 mg PO TID PRN 12/31/16 01/20/17 Divalproex Sodium [Depakote 250 mg PO BID 01/07/17 01/20/17 Sprinkle] Allergies Allergy/AdvReac Type Severity Reaction Status Date / Time alprazolam [From Xanax] Allergy Itching Verified 12/19/16 16:27 bupropion [From Wellbutrin] Allergy Itching Verified 12/19/16 16:27 doxycycline Allergy Nausea Verified 12/19/16 16:27 Ethyl Chloride Allergy Itching Verified 12/19/16 16:27 fexofenadine [From Fannie] Allergy Itching Verified 12/19/16 16:27 hydroxyzine Allergy Hallucinati Verified 12/19/16 16:27 ng Procaine [From Novocain] Allergy Rash Verified 12/19/16 16:27 Penicillins AdvReac Itching Verified 12/19/16 16:27 Constitutional: Denies: fever, chills, weakness, weight change Eyes: Denies: eye pain, eye discharge, vision change ENT ED: Denies: ear pain, throat pain, dental pain, hearing loss, epistaxis, congestion, dysphagia Cardiovascular: Reports: palpitations. Denies: chest pain, dyspnea on exertion , edema, syncope Respiratory: Reports: dyspnea. Denies: cough, wheezes, hemoptysis, stridor Gastrointestinal: Denies: abdominal pain, nausea, vomiting, diarrhea, constipation, hematemesis, melena, hematochezia Genitourinary: Denies: dysuria, frequency, hematuria, discharge Musculoskeletal: Denies: back pain, neck pain, arthralgia, myalgia Integumentary: Denies: rash, abrasion, lesions Neurological: Denies: headache, weakness, numbness, paresthesias, confusion, abnormal gait, vertigo Psychiatric: Reports: anxiety, suicidal thoughts. Denies: depression, homicidal thoughts, auditory hallucinations, visual hallucinations Endocrine: Denies: fatigue Hematological/Lymphatic: Denies: easy bleeding, easy bruising Allergic/Immunologic: Denies: facial swelling, urticaria Past Medical History - Past Medical History Medical history: Reports: asthma, COPD, GERD, hypertension Surgical history: Reports: appendectomy, orthopedic, other (Left knee arthroscopic surgery), other (Tonsillectomy) Psychiatric history: Reports: anxiety, bipolar, depression, panic disorder, PTSD - Social History Smoking Status: Current every day smoker Smokeless Tobacco Status: No Alcohol use: Reports: none Drug use: Reports: none Physical Exam - General Limitations: no limitations General appearance: alert, in no apparent distress - Head Head exam: atraumatic, normocephalic, normal inspection - Eye Eye exam: Present: normal appearance, PERRL, EOMI - Expanded Eye Exam Pupils: Left: reactive - ENT ENT exam: normal exam, normal oropharynx, mucous membranes moist - Expanded ENT Exam External ear exam: Present: normal external inspection Mouth exam: Present: normal external inspection Teeth exam: Present: normal inspection Throat exam: Present: normal inspection - Neck Neck exam: Present: normal inspection, full ROM, trachea midline - Chest Chest inspection: Present: normal inspection, symmetric chest wall rise - Respiratory Respiratory exam: Present: normal lung sounds bilaterally - Cardiovascular Cardiovascular exam: Present: normal rhythm, tachycardia, normal heart sounds - Abdominal Exam Abdominal exam: Present: soft, Non-Tender. Absent: tenderness, distention, guarding, rebound, rigidity - Extremities Exam Extremities exam: Present: normal inspection, full ROM. Absent: tenderness, pedal edema - Expanded Upper Extremity Exam Shoulder exam: Present: normal inspection, full ROM Arm exam: Present: normal inspection, full ROM Elbow exam: Present: normal inspection, full ROM Forearm/Wrist exam: Present: normal inspection, full ROM Hand exam: Present: normal inspection, full ROM Vascular exam: Normal: capillary refill, radial pulse - Expanded Lower Extremity Exam Hip/Pelvis exam: Present: normal inspection, full ROM Upper leg exam: Present: normal inspection, full ROM Knee exam: Present: normal inspection, full ROM Lower leg exam: Present: normal inspection, full ROM Ankle exam: Present: normal inspection, full ROM Foot/toe exam: Present: normal inspection, full ROM Neurovascular/Tendon exam: Absent: motor deficit, sensory deficit, tendon deficit - Back Exam Back exam: Present: normal inspection, full ROM. Absent: tenderness - Neurological Exam Neurological exam: Present: alert, oriented X3 - Expanded Neurological Exam Patient oriented to: Present: person, place, time Coma Scale Eye Opening: Spontaneous Coma Scale Motor Response: Obeys Commands Coma Scale Verbal Response: Oriented Coma Scale Total: 15 - Psychiatric Psychiatric exam: Present: normal affect, normal mood - Skin Skin exam: Present: warm, dry, intact, normal color Course Course Narrative: we will discuss case with hospitlist and 1A and treat aptinet with ativan. Patinet will need to be medically cleared due to intentional overdose. - Consultations Consultation #1: discussed case with hospitaist Pedro and she states the patient was admitted and cleared by marko and discharged home. Time: 18:45 Consultation #2: discussed case with 1A [facility] nurse and she states if it is unsure what the patient took then they would fr[place]ka a 24 hours obs period before pysch clearance. Time: 18:46 Consultation #3: discussed case with Dr. Boyd and he accepts rachelle for admission to his service for medical clearance. Rachelle is pink-slipped Time: 19:43 Vital Signs Temperature 98.1 F 01/20/17 18:11 Pulse Rate 104 01/20/17 18:11 Respiratory Rate 20 01/20/17 18:11 Blood Pressure 133/78 01/20/17 18:11 O2 Sat by Pulse Oximetry 94 01/20/17 18:11 Temperature 98.1 F 01/20/17 18:11 Pulse Rate 104 01/20/17 18:11 Respiratory Rate 20 01/20/17 18:11 Blood Pressure 133/78 01/20/17 18:11 O2 Sat by Pulse Oximetry 94 01/20/17 18:11 Oxygen Delivery Oxygen Delivery Non Rebreather Mask Psych - Lab Data Result diagrams: 01/20/17 18:54 01/20/17 18:54 Lab Results 01/20/17 01/20/17 01/20/17 Range/Units 18:54 18:54 18:54 WBC 6.6 (4.3-11.1) K/mcL RBC 3.87 (3.82-4.97) M/mcL Hgb 11.3 L (11.5-15.4) g/dL Hct 35.1 L (35.3-44.9) % MCV 90.7 (83.0-100.0) fL MCH 29.2 (28.0-33.3) pg MCHC 32.2 (31.6-35.5) g/dL RDW 13.9 (11.5-14.5) % Plt Count 212 (140-400) K/mcL MPV 10.0 (9.4-12.4) fL Immature Gran % 0.6 (0-4) % Seg Neutrophils % 79.8 % Lymphocytes % 13.3 % Monocytes % 6.1 % Eosinophils % 0.0 % Basophils % 0.2 % Neutrophils # 5.2 (1.6-8.9) K/mcL Lymphocytes # 0.9 (0.6-4.6) K/mcL Monocytes # 0.4 (0.0-1.3) K/mcL Eosinophils # 0.0 (0.0-0.6) K/mcL Basophils # 0.0 (0.0-0.2) K/mcL D-Dimer 476 (0-500) ng/mLFEU Sodium 142 (136-145) mEq/L Potassium 4.0 (3.5-4.5) mEq/L Chloride 102 (98-109) mEq/L Carbon Dioxide 32 H (19-29) mEq/L BUN 4 L (7-20) mg/dL Creatinine 0.80 (0.57-1.11) mg/dL Est GFR ( Amer) > 60 (> 60) Est GFR (Non-Af Amer) > 60 (> 60) BUN/Creatinine Ratio 5 L (6-26) Glucose 113 H (70-99) mg/dL Calculated Osmolality 292 (280-300) Calcium 9.6 (8.6-10.8) mg/dL Troponin I (0-0.03) ng/mL Urine Color (Yellow) Urine Clarity (Clear) Urine pH (5.0-8.0) pH Units Ur Specific [place] (1.010-1.025) Urine Protein (Neg-Trace) mg/dL Urine Glucose (UA) (Normal) mg/dL Urine Ketones (Negative) mg/dL Urine Blood (Negative) Urine Nitrite (Negative) Urine Bilirubin (Negative) Urine Urobilinogen (Normal) mg/dL Ur Leukocyte Esterase (Negative) Urine Microscopic RBC (0-3) per hpf Urine Microscopic WBC (0-3) per hpf Ur Squamous Epith Cells (None-Few) per lpf Urine Bacteria (None-Few) per hpf Hyaline Casts (None-Few) per lpf Salicylates < 5.0 L (15-30) mg/dL Urine Opiates Screen (Oempih=852) ng/mL Acetaminophen 3.0 L (10-30) mcg/mL Ur Barbiturates Screen (Mnxsgk=687) ng/mL Ur Phencyclidine Scrn (Cutoff=25) ng/mL Ur Amphetamines Screen (Yfefpj=2707) ng/mL U Benzodiazepines Scrn (Dccctj=516) ng/mL Urine Cocaine Screen (Cutoff= 300) ng/mL U Marijuana (THC) Screen (Cutoff = 50) ng/mL Ethyl Alcohol < 10 (0-10) mg/dL 01/20/17 01/20/17 01/20/17 Range/Units 18:55 19:09 19:09 WBC (4.3-11.1) K/mcL RBC (3.82-4.97) M/mcL Hgb (11.5-15.4) g/dL Hct (35.3-44.9) % MCV (83.0-100.0) fL MCH (28.0-33.3) pg MCHC (31.6-35.5) g/dL RDW (11.5-14.5) % Plt Count (140-400) K/mcL MPV (9.4-12.4) fL Immature Gran % (0-4) % Seg Neutrophils % % Lymphocytes % % Monocytes % % Eosinophils % % Basophils % % Neutrophils # (1.6-8.9) K/mcL Lymphocytes # (0.6-4.6) K/mcL Monocytes # (0.0-1.3) K/mcL Eosinophils # (0.0-0.6) K/mcL Basophils # (0.0-0.2) K/mcL D-Dimer (0-500) ng/mLFEU Sodium (136-145) mEq/L Potassium (3.5-4.5) mEq/L Chloride (98-109) mEq/L Carbon Dioxide (19-29) mEq/L BUN (7-20) mg/dL Creatinine (0.57-1.11) mg/dL Est GFR ( Amer) (> 60) Est GFR (Non-Af Amer) (> 60) BUN/Creatinine Ratio (6-26) Glucose (70-99) mg/dL Calculated Osmolality (280-300) Calcium (8.6-10.8) mg/dL Troponin I 0.00 (0-0.03) ng/mL Urine Color Yellow (Yellow) Urine Clarity Cloudy A (Clear) Urine pH 8.5 H (5.0-8.0) pH Units Ur Specific [place] 1.010 (1.010-1.025) Urine Protein Negative (Neg-Trace) mg/dL Urine Glucose (UA) Normal (Normal) mg/dL Urine Ketones Negative (Negative) mg/dL Urine Blood Negative (Negative) Urine Nitrite Negative (Negative) Urine Bilirubin Negative (Negative) Urine Urobilinogen Normal (Normal) mg/dL Ur Leukocyte Esterase Moderate H (Negative) Urine Microscopic RBC 5-15 H (0-3) per hpf Urine Microscopic WBC 15-30 H (0-3) per hpf Ur Squamous Epith Cells Many H (None-Few) per lpf Urine Bacteria Many H (None-Few) per hpf Hyaline Casts None Seen (None-Few) per lpf Salicylates (15-30) mg/dL Urine Opiates Screen Positive H (Yegqny=851) ng/mL Acetaminophen (10-30) mcg/mL Ur Barbiturates Screen Negative (Llxdls=899) ng/mL Ur Phencyclidine Scrn Negative (Cutoff=25) ng/mL Ur Amphetamines Screen Negative (Uwchgg=3160) ng/mL U Benzodiazepines Scrn Negative (Svanzk=784) ng/mL Urine Cocaine Screen Negative (Cutoff= 300) ng/mL U Marijuana (THC) Screen Negative (Cutoff = 50) ng/mL Ethyl Alcohol (0-10) mg/dL - EKG Data EKG attestation: Yes I reviewed and interpreted this EKG. EKG results narrative: sinus tachycardia with rate of 102. NO STEMI. normla intervals. no old ekg. [id number] Psychiatric Medical Clearance - Medical Clearance Checklist Medical History: No Social History Section defined Current Vitals: Last Vital Signs Temp 98.1 F 01/20/17 18:11 Pulse 104 01/20/17 18:11 Resp 20 01/20/17 18:11 BP 133/78 01/20/17 18:11 Pulse Ox 94 01/20/17 18:11 Psychiatric Lab Panel: Drug Levels and Toxicity 01/20/17 01/20/17 18:54 19:09 Urine Opiates Screen Positive H Acetaminophen 3.0 L Ur Barbiturates Screen Negative Ur Phencyclidine Scrn Negative Ur Amphetamines Screen Negative U Benzodiazepines Scrn Negative Urine Cocaine Screen Negative U Marijuana (THC) Screen Negative Ethyl Alcohol < 10 Abnormal Labs: Abnormal lab results Hgb 11.3 g/dL (11.5-15.4) L 01/20/17 18:54 Hct 35.1 % (35.3-44.9) L 01/20/17 18:54 Carbon Dioxide 32 mEq/L (19-29) H 01/20/17 18:54 BUN 4 mg/dL (7-20) L 01/20/17 18:54 BUN/Creatinine Ratio 5 (6-26) L 01/20/17 18:54 Glucose 113 mg/dL (70-99) H 01/20/17 18:54 Urine Clarity Cloudy (Clear) A 01/20/17 19:09 Urine pH 8.5 pH Units (5.0-8.0) H 01/20/17 19:09 Ur Leukocyte Esterase Moderate (Negative) H 01/20/17 19:09 Urine Microscopic RBC 5-15 per hpf (0-3) H 01/20/17 19:09 Urine Microscopic WBC 15-30 per hpf (0-3) H 01/20/17 19:09 Ur Squamous Epith Cells Many per lpf (None-Few) H 01/20/17 19:09 Urine Bacteria Many per hpf (None-Few) H 01/20/17 19:09 Salicylates < 5.0 mg/dL (15-30) L 01/20/17 18:54 Urine Opiates Screen Positive ng/mL (Sbazcj=768) H 01/20/17 19:09 Acetaminophen 3.0 mcg/mL (10-30) L 01/20/17 18:54 Statement of Medical Clearance: I have evaluated the patient, reviewed diagnostic information, and certify that the patient's medical condition is sufficiently stable that transfer to the psychiatric unit does not pose a significant risk of deterioration.
[2017-01-20] MEDS ORDERED: Nicotine 21 MG PATCH.TD24 TD STA (19:04)
[2017-01-20 19:08] LABS: Basophils % 0.2 %; Hematocrit 35.1 % (35.3-44.9); Hemoglobin 11.3 g/dL (11.5-15.4); Immature Granulocytes % 0.6 % (0-4); Lymphocytes # 0.9 K/mcL (0.6-4.6); Lymphocytes % 13.3 %; Mean Corpuscular HGB Conc 32.2 g/dL (31.6-35.5); Mean Corpuscular Hemoglobin 29.2 pg (28.0-33.3); Mean Corpuscular Volume 90.7 fL (83.0-100.0); Monocytes # 0.4 K/mcL (0.0-1.3); Monocytes % 6.1 %; Neutrophils # 5.2 K/mcL (1.6-8.9); Platelet Count 212 K/mcL (140-400); Red Blood Count 3.87 M/mcL (3.82-4.97); Red Cell Distribution Width 13.9 % (11.5-14.5); Segmented Neutrophils % 79.8 %
[2017-01-20 19:19] LABS: Bilirubin,Urine Negative (Negative); Blood,Urine Negative (Negative); Clarity,Urine Cloudy (Clear); Color,Urine Yellow (Yellow); Glucose,Urine (UA) Normal (Normal); Ketones,Urine Negative (Negative); Leukocyte Esterase,Urine Moderate (Negative); Nitrite,Urine Negative (Negative); PH,Urine 8.5 pH Units (5.0-8.0); Protein,Urine Negative (Neg-Trace); Urobilinogen,Urine Normal (Normal)
[2017-01-20 19:21] LABS: BUN/Creatinine Ratio 5 (6-26); Blood Urea Nitrogen 4 mg/dL (7-20); Calcium 9.6 mg/dL (8.6-10.8); Carbon Dioxide 32 mEq/L (19-29); Chloride 102 mEq/L (98-109); Glucose 113 mg/dL (70-99); Osmolality,Calculated 292 (280-300); Sodium 142 mEq/L (136-145); eGFR For African Americans > 60 (> 60); eGFR For Non-African Americans > 60 (> 60)
[2017-01-20 19:25] LABS: Amphetamine Screen,Urine Negative ng/mL (Cutoff=1000); Barbiturate Screen,Urine Negative ng/mL (Cutoff=200); Benzodiazepines Screen,Urine Negative ng/mL (Cutoff=200); Cannabinoid Screen,Urine Negative ng/mL (Cutoff = 50); Cocaine Screen,Urine Negative ng/mL (Cutoff= 300); Opiate Screen,Urine Positive ng/mL (Cutoff=300); Phencyclidine Screen,Urine Negative ng/mL (Cutoff=25)
[2017-01-20 19:28] LABS: Bacteria,Urine Many per hpf (None-Few); Hyaline Casts,Urine None Seen per lpf (None-Few); Squamous Epithelial Cell,Urine Many per lpf (None-Few); WBC,Urine 15-30 per hpf (0-3)
[2017-01-20 19:34] LABS: Ethanol < 10 mg/dL (0-10); Salicylate < 5.0 mg/dL (15-30)
--- NOTE | 2017-01-20 21:05 | Internal Med History&Physical ---
Date of Encounter: 01/21/17 Time of Encounter: 20:45 Assessment and Plan (1) Acute anxiety Current visit: No Status: Acute Acute on chronic anxiety and panic attack - with suicidal thoughts Continue IV Ativan as needed, supportive care One-on-one patient sitter Psychiatry consult, discharge planning (2) Suicidal ideation Current visit: No Status: Acute Patient has stated that she does not feel safe for herself and does not feel sane Does not have any active suicidal ideation (3) COPD exacerbation Current visit: No Status: Acute Continue DuoNeb breathing treatment, salmeterol, Spiriva, O2 via nasal cannula Pulse ox, continue to monitor closely, cardiac telemetry (4) Tobacco abuse Current visit: No Status: Chronic Nicotine patch (5) DVT prophylaxis Current visit: No Status: Acute Heparin subcutaneous Internal Medicine - H&P: HPI Chief complaint: Suicidal ideation/Intentional overdose Admitted From: Emergency Dept Plans for Post Hospital Care: Home History of present illness: Ms. Aguilera is a 61 year old female with history of bipolar disorder, generalized anxiety disorder, posttraumatic stress disorder, COPD, presented to the emergency room with complaints of difficulty breathing and anxiety/panic attack. Patient presented earlier in the day with similar complaints. Patient was admitted for a few hours and was discharged home. She was treated for acute bronchitis and acute anxiety. She was cleared by psychiatry. She returned to the ER a few hours later. Patient stated that began to experience similar symptoms of extreme anxiety, inability to think straight, difficulty in taking deep breaths. Patient apparently took a few pills, she is not sure what she took. She stated that she does not feel sane and states it is not safe for her to go home. She denies fever, chills, wheezing, cough, palpitations. Initially in the ED patient was hyperventilating. She initially had hypoxia and was placed on nonrebreather. Now she is doing well on nasal cannula. IV Ativan was given for her severe anxiety. Patient will be under observation. She will need psychiatry evaluation once again. Past Med Surg Social Fam HX - Past Medical History Medical history: asthma, COPD, GERD, hypertension Psychiatric history: anxiety, bipolar, depression, panic disorder, PTSD - Past Surgical History Surgical History: appendectomy, orthopedic, other (Left knee arthroscopic surgery), other (Tonsillectomy) - Social History Smoking Status: Current every day smoker Smokeless Tobacco Status: No Alcohol use: none Drug use: none - Family History Mother Living Status: Hx Family Cancer: Yes (lung) Sister Family Member Ethnicity: Non- Hx Family Endocrine Disorder: Yes (DM II) Internal Medicine - H&P: Meds Cetirizine HCl [Zyrtec] 10 mg PO DAILY #0 07/10/16 [History] Dicyclomine [Bentyl] 10 mg PO BID #0 07/10/16 [History] Gabapentin [Neurontin] 600 mg PO TID #0 07/10/16 [History] LORazepam [Ativan] 0.5 mg PO TID #0 07/10/16 [History] Losartan [Cozaar] 25 mg PO DAILY #0 07/10/16 [History] Mirtazapine [Remeron] 15 mg PO HS #0 07/10/16 [History] Oxygen 2 l NS AD #0 07/10/16 [History] Salmeterol Xinafoate [Serevent Diskus] 1 puff IH BID #0 07/10/16 [History] Tiotropium [place] [Spiriva Respimat] 2 puff IH DAILY #0 07/10/16 [History] Tramadol HCl [Ultram] 50 mg PO QID PRN #0 07/10/16 [History] Calcium Carbonate [Tums] 1,000 mg PO Q4HR PRN 12/31/16 [History] Esomeprazole Magnesium [Nexium] 40 mg PO DAILY 12/31/16 [History] Fluticasone Propionate [Flovent Hfa] 1 puff IH BID 12/31/16 [History] Tetrahydrozoline HCl [Visine] 1 drop OP QID PRN 12/31/16 [History] Tizanidine HCl 4 mg PO TID PRN 12/31/16 [History] Divalproex Sodium [Depakote Sprinkle] 250 mg PO BID 01/07/17 [History] 3 Allergy/AdvReac Type Severity Reaction Status Date / Time alprazolam [From Xanax] Allergy Itching Verified 12/19/16 16:27 bupropion [From Wellbutrin] Allergy Itching Verified 12/19/16 16:27 doxycycline Allergy Nausea Verified 12/19/16 16:27 Ethyl Chloride Allergy Itching Verified 12/19/16 16:27 fexofenadine [From Fannie] Allergy Itching Verified 12/19/16 16:27 hydroxyzine Allergy Hallucinati Verified 12/19/16 16:27 ng Procaine [From Novocain] Allergy Rash Verified 12/19/16 16:27 Penicillins AdvReac Itching Verified 12/19/16 16:27 All Systems PM: A 10-system review of systems was performed and is negative for pertinent findings except as documented above in the HPI. - Constitutional Constitutional: fatigue, no fever(s), no weakness - EENT Eyes: no blurry vision - Cardiovascular Cardiovascular ROS IM: dyspnea, palpitations, no chest pain, no dyspnea on exertion, no edema, no lightheadedness, no orthopnea, no syncope - Respiratory Respiratory: cough, dyspnea, no excessive phlegm production - Gastrointestinal Gastrointestinal: no abdominal pain, no bloating, no cramping, no diarrhea, no hematochezia, no nausea, no vomiting - Genitourinary Genitourinary: no dysuria - Musculoskeletal Musculoskeletal ROS IM: no back pain - Neurological Neurological ROS: no abnormal gait, no confusion, no focal weakness, no loss of vision, no numbness, no tingling - Psychiatric Psychiatric: anxiety, suicidal ideation, no auditory hallucinations, no visual hallucinations - Constitutional Vitals: Temp Pulse Resp BP Pulse Ox 98.1 F 104 20 133/78 94 01/20/17 18:11 01/20/17 18:11 01/20/17 18:11 01/20/17 18:11 01/20/17 18:11 General appearance: Present: cooperative, A&O X 3, no acute distress, answers questions appropriately Exam: Ill-appearing, anxious - Head Head exam: Present: atraumatic - Eye Eye exam: Present: EOMI - ENT ENT exam: Present: mucous membranes moist - Respiratory Respiratory exam: Present: wheezes (Mild bilateral). Absent: accessory muscle use, rales, rhonchi, tachypnea - Cardiovascular Cardiovascular exam: Present: RRR, +S1, +S2 - GI/Abdominal GI/Abdominal exam: Present: soft. Absent: distended, firm, guarding, tenderness - Extremities Exam Extremities exam: Present: radial pulses palpable and symmetrical. Absent: calf tenderness, cyanotic, pedal edema - Neurological Exam Neurological exam: Present: alert, oriented X3, no focal deficits. Absent: facial droop, speech deficit Additional comments: Patient seems to have mild extrapyramidal symptoms like akathisia Internal Med - H&P Results - Labs CBC & Chem 7: 01/20/17 18:54 01/20/17 18:54
[2017-01-20] MEDS ORDERED: Naloxone 0.4 MG/ML INJ IVP PRN (21:07)
[2017-01-20] MEDS ORDERED: Ondansetron 4 MG/2 ML VIAL IVP PRN (21:07)
[2017-01-20] MEDS ORDERED: *HR* LORazepam 2 MG/ML VIAL IVP ONE (22:00)
[2017-01-20] MEDS ORDERED: *HR* LORazepam 2 MG/ML VIAL ONE (22:12)
[2017-01-21] MEDS ORDERED: Ipratropium/Albuterol Neb 3 ML IH PRN (00:35)
[2017-01-21] MEDS ORDERED: *HR* LORazepam 0.5 MG TABLET PO PRN (01:46)
[2017-01-21] MEDS ORDERED: *HR* LORazepam 2 MG/ML VIAL ONE ×2 (01:52→23:56)
[2017-01-21] MEDS ORDERED: NON-FORMULARY MEDICATION 1 EACH EACH (Oxygen [Oxygen] 2 L) NS SCH (02:30)
[2017-01-21] MEDS ORDERED: Haloperidol Lactate 5 MG/ML VIAL IVP ONE (05:42)
[2017-01-21] MEDS ORDERED: Haloperidol Lactate 5 MG/ML VIAL ONE (05:45)
[2017-01-21] MEDS: *HR* Heparin 5,000 UNIT/ML VIAL SQ SCH ×2 (05:48→18:21)
[2017-01-21] MEDS ORDERED: Famotidine 20 MG/2 ML VIAL IVP SCH (06:00)
[2017-01-21] MEDS ORDERED: Divalproex Sodium 125 MG CAPSULE PO SCH (09:00)
[2017-01-21] MEDS ORDERED: *HR* LORazepam 2 MG/ML VIAL IVP ONE (09:45)
[2017-01-21] MEDS: Nicotine 21 MG PATCH.TD24 TD SCH (10:08)
[2017-01-21] MEDS: Tiotropium 18 MCG inhalation IH SCH (10:24)
[2017-01-21] MEDS: SEREVENT IH SCH ×2 (10:34→21:55)
--- NOTE | 2017-01-21 11:38 | Consult Note ---
Date of Encounter: 01/21/17 Time of Encounter: 11:36 Assessment & Recommendation (1) Generalized anxiety disorder Current visit: No Status: Chronic Assessment & Recommendation: Would recommend increasing patient's Depakote 500 twice a day to help with mood symptom and behavioral outburst would also recommend scheduling Ativan 0.5 mg 3 times a day to help assist with anxiety symptoms also would recommend home healthcare for patient or rehabilitation post discharge due to patient's multiple number of admissions and the possible need for ongoing healthcare due to her unable to take medications appropriately and care for herself History of Present Illness Requesting Physician: Lillie Serrato Reason for consult: anxiety History of present illness: Ms. Aguilera is a 61 year old female with a past long history of anxiety has been hospitalized numerous times on the medical floor as well as the psychiatric floor. Patient reports that she was discharged yesterday and that she reports she was in a lot of pain so she took one extra pain felt she reports after she took that she called the ambulance and came back because she was not feeling well and she reports that she was having trouble breathing. Patient reports that her taking the extra pill was not in an attempt to hurt herself or harm herself. Patient reports that she feels she would not have this which anxiety if she felt her pain was under control and that she was doing better medically. Patient denies any suicide or homicide ideations patient does report feeling mildly better after she gets Ativan. Patient reports her anxiety when her pain is well controlled at 2 out of 10 with 10 being the worst. Patient endorses anxiety symptoms patient endorses depressive symptoms secondary to generalized medical condition patient did not endorse manic or hypomanic symptoms patient did not endorse any psychotic symptoms when patient does yell out she should be behavioral be redirected because her yelling out is a means to want to get more medication so boundary should be set with patient. Patient reports she follows up outpatient with a provider for her's psychotropic medications which she reports not wanting changed at this time. CC: Lillie Serrato Past Med Surg Social Fam HX - Past Medical History Medical history: asthma, COPD, GERD, hypertension - Past Surgical History Surgical History: appendectomy, orthopedic, other (Left knee arthroscopic surgery), other (Tonsillectomy) - Social History Smoking Status: Current every day smoker Smokeless Tobacco Status: No Alcohol use: none Drug use: none - Family History Mother Living Status: Hx Family Cancer: Yes (lung) Sister Family Member Ethnicity: Non- Hx Family Endocrine Disorder: Yes (DM II) Medications & Allergies Cetirizine HCl [Zyrtec] 10 mg PO DAILY #0 07/10/16 [History] Dicyclomine [Bentyl] 10 mg PO BID #0 07/10/16 [History] Gabapentin [Neurontin] 600 mg PO TID #0 07/10/16 [History] LORazepam [Ativan] 0.5 mg PO TID #0 07/10/16 [History] Losartan [Cozaar] 25 mg PO DAILY #0 07/10/16 [History] Mirtazapine [Remeron] 15 mg PO HS #0 07/10/16 [History] Oxygen 2 l NS AD #0 07/10/16 [History] Salmeterol Xinafoate [Serevent Diskus] 1 puff IH BID #0 07/10/16 [History] Tiotropium [place] [Spiriva Respimat] 2 puff IH DAILY #0 07/10/16 [History] Tramadol HCl [Ultram] 50 mg PO QID PRN #0 07/10/16 [History] Calcium Carbonate [Tums] 1,000 mg PO Q4HR PRN 12/31/16 [History] Esomeprazole Magnesium [Nexium] 40 mg PO DAILY 12/31/16 [History] Fluticasone Propionate [Flovent Hfa] 1 puff IH BID 12/31/16 [History] Tetrahydrozoline HCl [Visine] 1 drop OP QID PRN 12/31/16 [History] Tizanidine HCl 4 mg PO TID PRN 12/31/16 [History] Divalproex Sodium [Depakote Sprinkle] 250 mg PO BID 01/07/17 [History] 3 Allergy/AdvReac Type Severity Reaction Status Date / Time alprazolam [From Xanax] Allergy Itching Verified 12/19/16 16:27 bupropion [From Wellbutrin] Allergy Itching Verified 12/19/16 16:27 doxycycline Allergy Nausea Verified 12/19/16 16:27 Ethyl Chloride Allergy Itching Verified 12/19/16 16:27 fexofenadine [From Fannie] Allergy Itching Verified 12/19/16 16:27 hydroxyzine Allergy Hallucinati Verified 12/19/16 16:27 ng Procaine [From Novocain] Allergy Rash Verified 12/19/16 16:27 Penicillins AdvReac Itching Verified 12/19/16 16:27 Results - Vital Signs Vital signs: Temp Pulse Resp BP Pulse Ox 97.8 F 92 19 128/80 99 01/21/17 11:08 01/21/17 11:08 01/21/17 11:08 01/21/17 11:08 01/21/17 11:08 - Labs Labs: Laboratory Last Values WBC 6.6 K/mcL (4.3-11.1) 01/20/17 18:54 RBC 3.87 M/mcL (3.82-4.97) 01/20/17 18:54 Hgb 11.3 g/dL (11.5-15.4) L 01/20/17 18:54 Hct 35.1 % (35.3-44.9) L 01/20/17 18:54 MCV 90.7 fL (83.0-100.0) 01/20/17 18:54 MCH 29.2 pg (28.0-33.3) 01/20/17 18:54 MCHC 32.2 g/dL (31.6-35.5) 01/20/17 18:54 RDW 13.9 % (11.5-14.5) 01/20/17 18:54 Plt Count 212 K/mcL (140-400) 01/20/17 18:54 MPV 10.0 fL (9.4-12.4) 01/20/17 18:54 Immature Gran % 0.6 % (0-4) 01/20/17 18:54 Seg Neutrophils % 79.8 % 01/20/17 18:54 Lymphocytes % 13.3 % 01/20/17 18:54 Monocytes % 6.1 % 01/20/17 18:54 Eosinophils % 0.0 % 01/20/17 18:54 Basophils % 0.2 % 01/20/17 18:54 Neutrophils # 5.2 K/mcL (1.6-8.9) 01/20/17 18:54 Lymphocytes # 0.9 K/mcL (0.6-4.6) 01/20/17 18:54 Monocytes # 0.4 K/mcL (0.0-1.3) 01/20/17 18:54 Eosinophils # 0.0 K/mcL (0.0-0.6) 01/20/17 18:54 Basophils # 0.0 K/mcL (0.0-0.2) 01/20/17 18:54 D-Dimer 476 ng/mLFEU (0-500) 01/20/17 18:54 Sodium 142 mEq/L (136-145) 01/20/17 18:54 Potassium 4.0 mEq/L (3.5-4.5) 01/20/17 18:54 Chloride 102 mEq/L (98-109) 01/20/17 18:54 Carbon Dioxide 32 mEq/L (19-29) H 01/20/17 18:54 BUN 4 mg/dL (7-20) L 01/20/17 18:54 Creatinine 0.80 mg/dL (0.57-1.11) 01/20/17 18:54 Est GFR ( Amer) > 60 (> 60) 01/20/17 18:54 Est GFR (Non-Af Amer) > 60 (> 60) 01/20/17 18:54 BUN/Creatinine Ratio 5 (6-26) L 01/20/17 18:54 Glucose 113 mg/dL (70-99) H 01/20/17 18:54 Calculated Osmolality 292 (280-300) 01/20/17 18:54 Calcium 9.6 mg/dL (8.6-10.8) 01/20/17 18:54 Troponin I 0.00 ng/mL (0-0.03) 01/20/17 18:55 Urine Color Yellow (Yellow) 01/20/17 19:09 Urine Clarity Cloudy (Clear) A 01/20/17 19:09 Urine pH 8.5 pH Units (5.0-8.0) H 01/20/17 19:09 Ur Specific [place] 1.010 (1.010-1.025) 01/20/17 19:09 Urine Protein Negative mg/dL (Neg-Trace) 01/20/17 19:09 Urine Glucose (UA) Normal mg/dL (Normal) 01/20/17 19:09 Urine Ketones Negative mg/dL (Negative) 01/20/17 19:09 Urine Blood Negative (Negative) 01/20/17 19:09 Urine Nitrite Negative (Negative) 01/20/17 19:09 Urine Bilirubin Negative (Negative) 01/20/17 19:09 Urine Urobilinogen Normal mg/dL (Normal) 01/20/17 19:09 Ur Leukocyte Esterase Moderate (Negative) H 01/20/17 19:09 Urine Microscopic RBC 5-15 per hpf (0-3) H 01/20/17 19:09 Urine Microscopic WBC 15-30 per hpf (0-3) H 01/20/17 19:09 Ur Squamous Epith Cells Many per lpf (None-Few) H 01/20/17 19:09 Urine Bacteria Many per hpf (None-Few) H 01/20/17 19:09 Hyaline Casts None Seen per lpf (None-Few) 01/20/17 19:09 Salicylates < 5.0 mg/dL (15-30) L 01/20/17 18:54 Urine Opiates Screen Positive ng/mL (Podcbv=826) H 01/20/17 19:09 Acetaminophen 3.0 mcg/mL (10-30) L 01/20/17 18:54 Ur Barbiturates Screen Negative ng/mL (Haesel=380) 01/20/17 19:09 Ur Phencyclidine Scrn Negative ng/mL (Cutoff=25) 01/20/17 19:09 Ur Amphetamines Screen Negative ng/mL (Okqeat=6210) 01/20/17 19:09 U Benzodiazepines Scrn Negative ng/mL (Sdphvb=406) 01/20/17 19:09 Urine Cocaine Screen Negative ng/mL (Cutoff= 300) 01/20/17 19:09 U Marijuana (THC) Screen Negative ng/mL (Cutoff = 50) 01/20/17 19:09 Ethyl Alcohol < 10 mg/dL (0-10) 01/20/17 18:54 - Impressions Impressions Head CT 01/21/17 01:49 IMPRESSION: 1. No acute hemorrhage. 2. Moderate to severe small vessel chronic ischemic changes. Small foci of acute ischemia cannot be excluded. 3. Bilateral mastoiditis with right-sided maxillary sinusitis. D/ / Loco Blair MD / Loco Blair MD Interpreting Provider: Loco Blair MD Consult Discharge Plan - Plan Referrals: NONE,PCP [Primary Care Provider] -
[2017-01-21] MEDS ORDERED: Divalproex Sodium 125 MG CAPSULE PO ONE (12:22)
--- NOTE | 2017-01-21 12:33 | Internal Med Progress Note ---
Date of Encounter: 01/21/17 Time of Encounter: 09:30 - Assessment and plan (1) Intentional overdose of drug in tablet form Current Visit: Yes Status: Acute Assessment and plan: patient stating she took one tablet of a "heavy pain pill" last night because she was unsafe and home and stated she did not feel as if she was able to breathe. She currently denies suicidal or homicidal ideations. Psychiatry has recommended increasing her Depakote levels and starting her on low-dose Ativan 3 times a day. (2) COPD exacerbation Current Visit: No Status: Acute Assessment and plan: Examination is more consistent with panic attack however she does have a lengthy smoking history. She was able to calm down and take deep breaths on examination and she appeared to have good aeration. Chest x-ray from 01/20/17 unremarkable. We will continue to treat her overwhelming anxiety and monitor closely. In review of her chart, it appears as if the patient is on 2 L per nasal cannula continuously at home however this is unverified at this point. She is currently tolerating 3 L well and her saturations are normal. She also has a face mask on for her comfort only and to assist with hyperventilation treatment. We will treat with DuoNeb's every 6. No indication for steroids at this time. (3) COPD (chronic obstructive pulmonary disease) Current Visit: No Status: Chronic Qualifiers: COPD type: unspecified COPD Qualified Code(s): J44.9 - Chronic obstructive pulmonary disease, unspecified (4) Panic attack Current Visit: Yes Status: Acute Assessment and plan: On examination, patient is continually screaming and asking for help. She continually states that she feels as if she is unable to breathe. She is hyperventilating. When asked to take deep breaths, she is able to do so, but then goes right back into panic mode. She has been seen by Psychiatry who increased her Depakote dosage and recommended 0.5mg of ativan scheduled three times a day. Per psychiatry, no indication for inpatient psychiatric care at this time. Will bring OT and PT on board as nursing report that the patient was quite weak when she attempted to stand up earlier today. We will continue to set firm limits with the patient, we will try to avoid IV medications for mood stabilizing. (5) Depression Current Visit: No Status: Chronic Assessment and plan: Denies suicidal ideation at this time. Qualifiers: Depression Type: unspecified Qualified Code(s): F32.9 - Major depressive disorder, single episode, unspecified (6) Generalized anxiety disorder Current Visit: No Status: Chronic (7) Suicidal ideation Current Visit: No Status: Resolved (8) PTSD (post-traumatic stress disorder) Current Visit: No Status: Chronic (9) Bipolar disorder Current Visit: No Status: Chronic (10) Chronic respiratory failure with hypoxia Current Visit: No Status: Chronic Assessment and plan: It appears as if the patient wears 2 L per nasal cannula continuously at home, will verify once her mood is more stabilized. Currently, she is stable on 3 L per nasal cannula but she also has a facemask on more for her comfort and for anything else and also to assist with hyperventilation. (11) Tobacco abuse Current Visit: No Status: Chronic Assessment and plan: no counseling attempted at this time- will continue nicotine patch and revisit topic once her mood is more stable. (12) DVT prophylaxis Current Visit: No Status: Acute Assessment and plan: Subcutaneous heparin - Subjective Interval history: Patient seen and examined. On examination, patient is sitting upright on the side of her bed. Patient is hysterical and continually asking for help and continually stating that she cannot breathe. She was able to answer questions and is oriented 3 though at times, she is difficult to understand given that she is edentulous and tachypneic. - Constitutional Vitals: Temp Pulse Resp BP Pulse Ox 97.8 F 92 19 128/80 99 01/21/17 11:08 01/21/17 11:08 01/21/17 11:08 01/21/17 11:08 01/21/17 11:08 General appearance: Present: cooperative, disheveled, A&O X 3, severe distress ( moderate; emotional distress mostly), answers questions appropriately - Head Head exam: Present: atraumatic, normocephalic - Eye Eye exam: Present: PERRL, conjuntiva pink, sclera anicteric Pupils: Present: PERRL - Neck Neck exam general surgery: Present: supple, trachea midline. Absent: lymphadenopathy - Respiratory Respiratory exam: Present: decreased breath sounds, respiratory distress, tachypnea. Absent: accessory muscle use, rales, rhonchi, wheezes - Cardiovascular Cardiovascular exam: Present: RRR, +S1, +S2, tachycardia (mentally very upset). Absent: diastolic murmur, gallop, rubs, systolic murmur - GI/Abdominal GI/Abdominal exam: Present: normal bowel sounds, soft, no peritoneal signs. Absent: distended, tenderness - Extremities Exam Extremities exam: Present: warm, radial pulses palpable and symmetrical. Absent : calf tenderness, cyanotic, pedal edema - Neurological Exam Neurological exam: Present: alert, CN II-XII intact, oriented X3, no focal deficits, strengths equal and symetr throughout. Absent: pronater drift, facial droop, speech deficit - Psychiatric Psychiatric exam: Present: anxious, manic. Absent: homicidal ideation, suicidal ideation - Expanded Psychiatric Exam Focused psych exam: Present: perseverating, pressured speech, psychomotor agitation, restlessness - Skin Skin exam: Present: dry, intact, pallor, warm Internal Medicine: Result - Labs CBC & Chem 7: 01/20/17 18:54 01/20/17 18:54 - ABG Interpretation ABG results: PT/INR, D-dimer D-Dimer 476 ng/mLFEU (0-500) 01/20/17 18:54 - Impressions Impressions Head CT 01/21/17 01:49 IMPRESSION: 1. No acute hemorrhage. 2. Moderate to severe small vessel chronic ischemic changes. Small foci of acute ischemia cannot be excluded. 3. Bilateral mastoiditis with right-sided maxillary sinusitis. D/ / Loco Blair MD / Loco Blair MD Interpreting Provider: Loco Blair MD Consult Discharge Plan - Plan Referrals: NONE,PCP [Primary Care Provider] -
--- NOTE | 2017-01-21 15:02 | Electrocardiograph Report ---
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
[2017-01-21] MEDS: *HR* LORazepam 0.5 MG TABLET PO SCH ×2 (15:43→21:36)
[2017-01-21] MEDS: Ipratropium/Albuterol Neb 3 ML IH SCH ×2 (16:31→22:57)
[2017-01-21] MEDS: Famotidine 20 MG/2 ML VIAL IVP SCH (18:21)
[2017-01-21] MEDS ORDERED: Mirtazapine 15 MG TABLET PO SCH (21:00)
[2017-01-21] MEDS: Divalproex Sodium 125 MG CAPSULE PO SCH (21:36)
[2017-01-21] MEDS: Beclomethasone 80mcg MDI IH SCH (22:56)
[2017-01-21] MEDS: *HR* LORazepam 2 MG/ML VIAL IVP ONE (23:58)
[2017-01-22] MEDS: *HR* LORazepam 2 MG/ML VIAL IVP ONE (00:07)
[2017-01-22] MEDS ORDERED: Haloperidol Lactate 5 MG/ML VIAL IVP ONE (02:00)
[2017-01-22] MEDS: Ipratropium/Albuterol Neb 3 ML IH SCH ×2 (03:47→10:37)
[2017-01-22 04:59] LABS: Basophils % 0.3 %; Eosinophils % 0.3 %; Hematocrit 33.7 % (35.3-44.9); Hemoglobin 10.6 g/dL (11.5-15.4); Immature Granulocytes % 0.3 % (0-4); Lymphocytes # 2.3 K/mcL (0.6-4.6); Lymphocytes % 38.6 %; Mean Corpuscular HGB Conc 31.5 g/dL (31.6-35.5); Mean Corpuscular Hemoglobin 28.8 pg (28.0-33.3); Mean Corpuscular Volume 91.6 fL (83.0-100.0); Mean Platelet Volume 10.3 fL (9.4-12.4); Monocytes # 0.5 K/mcL (0.0-1.3); Monocytes % 8.7 %; Neutrophils # 3.1 K/mcL (1.6-8.9); Platelet Count 177 K/mcL (140-400); Red Blood Count 3.68 M/mcL (3.82-4.97); Red Cell Distribution Width 13.7 % (11.5-14.5); Segmented Neutrophils % 51.8 %
[2017-01-22 05:17] LABS: BUN/Creatinine Ratio 9 (6-26); Blood Urea Nitrogen 6 mg/dL (7-20); Calcium 8.8 mg/dL (8.6-10.8); Carbon Dioxide 33 mEq/L (19-29); Chloride 100 mEq/L (98-109); Glucose 91 mg/dL (70-99); Osmolality,Calculated 291 (280-300); Potassium 3.3 mEq/L (3.5-4.5); Sodium 142 mEq/L (136-145); eGFR For African Americans > 60 (> 60); eGFR For Non-African Americans > 60 (> 60)
[2017-01-22] MEDS: Famotidine 20 MG/2 ML VIAL IVP SCH (06:22)
[2017-01-22] MEDS: *HR* Heparin 5,000 UNIT/ML VIAL SQ SCH (06:22)
[2017-01-22] MEDS: Nicotine 21 MG PATCH.TD24 TD SCH (09:23)
[2017-01-22] MEDS: *HR* LORazepam 0.5 MG TABLET PO SCH (09:23)
[2017-01-22] MEDS: SEREVENT IH SCH (10:03)
[2017-01-22] MEDS: Divalproex Sodium 125 MG CAPSULE PO SCH (10:23)
[2017-01-22] MEDS: Beclomethasone 80mcg MDI IH SCH (10:38)
[2017-01-22] MEDS: Tiotropium 18 MCG inhalation IH SCH (10:39)
[2017-01-22 10:51] VITALS: BP 145/74
--- NOTE | 2017-01-22 14:59 | Discharge Summary ---
Date of Encounter: 01/22/17 Time of Encounter: 09:30 (and 1430) - Discharge Diagnosis (1) Intentional overdose of drug in tablet form Priority: Primary Status: Acute Comments: Denied suicidal or homicidal ideation during this admission. (2) COPD exacerbation Priority: Primary Status: Resolved Comments: Denied shortness of breath above her normal time of discharge. Examination more consistent with anxiety/panic attacks and with the COPD exacerbation. No wheezing present on examination. (3) COPD (chronic obstructive pulmonary disease) Priority: Secondary Status: Chronic Qualifiers: COPD type: unspecified COPD Qualified Code(s): J44.9 - Chronic obstructive pulmonary disease, unspecified (4) Panic attack Priority: Primary Status: Acute Comments: Patient was noted to be screaming nonstop until she would receive IV lorazepam or Haldol. On the day of discharge, firm limits were set and the patient was informed that she would not be receiving IV medications here regardless of how much she screams. She never screened for the rest of the day and stated that she was ready to go home. I spoke to her home health nurse who states that she frequently has to set limits like this as well as the patient tries to get her to give her extra lorazepam at home. (5) Depression Priority: Secondary Status: Chronic Qualifiers: Depression Type: unspecified Qualified Code(s): F32.9 - Major depressive disorder, single episode, unspecified (6) Generalized anxiety disorder Priority: Secondary Status: Chronic (7) Suicidal ideation Priority: Primary Status: Resolved (8) PTSD (post-traumatic stress disorder) Priority: Secondary Status: Chronic (9) Bipolar disorder Priority: Secondary Status: Chronic (10) Chronic respiratory failure with hypoxia Priority: Secondary Status: Chronic Comments: No increased need for oxygen (11) Tobacco abuse Priority: Secondary Status: Chronic Comments: Declined counseling (12) DVT prophylaxis Priority: Primary Status: Acute Comments: Subcutaneous heparin while admitted - Discharge Medications Prescriptions: Divalproex Sodium [Depakote Sprinkle] 500 mg PO QPM #120 Divalproex Sodium [Depakote Sprinkle] 750 mg PO QAM #180 Home Medications: Cetirizine HCl [Zyrtec] 10 mg PO DAILY #0 07/10/16 [History] Dicyclomine [Bentyl] 10 mg PO BID #0 07/10/16 [History] Gabapentin [Neurontin] 600 mg PO TID #0 07/10/16 [History] LORazepam [Ativan] 0.5 mg PO TID #0 07/10/16 [History] Losartan [Cozaar] 25 mg PO DAILY #0 07/10/16 [History] Mirtazapine [Remeron] 15 mg PO HS #0 07/10/16 [History] Oxygen 2 l NS AD #0 07/10/16 [History] Salmeterol Xinafoate [Serevent Diskus] 1 puff IH BID #0 07/10/16 [History] Tiotropium Turner [Spiriva Respimat] 2 puff IH DAILY #0 07/10/16 [History] Tramadol HCl [Ultram] 50 mg PO QID PRN #0 07/10/16 [History] Calcium Carbonate [Tums] 1,000 mg PO Q4HR PRN 12/31/16 [History] Esomeprazole Magnesium [Nexium] 40 mg PO DAILY 12/31/16 [History] Fluticasone Propionate [Flovent Hfa] 1 puff IH BID 12/31/16 [History] Tetrahydrozoline HCl [Visine] 1 drop OP QID PRN 12/31/16 [History] Tizanidine HCl 4 mg PO TID PRN 12/31/16 [History] Divalproex Sodium [Depakote Sprinkle] 500 mg PO QPM #120 01/22/17 [Rx] Divalproex Sodium [Depakote Sprinkle] 750 mg PO QAM #180 01/22/17 [Rx] Allergies/Adverse Reactions: 3 Allergy/AdvReac Type Severity Reaction Status Date / Time alprazolam [From Xanax] Allergy Itching Verified 12/19/16 16:27 bupropion [From Wellbutrin] Allergy Itching Verified 12/19/16 16:27 doxycycline Allergy Nausea Verified 12/19/16 16:27 Ethyl Chloride Allergy Itching Verified 12/19/16 16:27 fexofenadine [From Fannie] Allergy Itching Verified 12/19/16 16:27 hydroxyzine Allergy Hallucinati Verified 12/19/16 16:27 ng Procaine [From Novocain] Allergy Rash Verified 12/19/16 16:27 Penicillins AdvReac Itching Verified 12/19/16 16:27 Procedures/tests Complete & Pending: Procedures Performed prior 72 hours Category Date Time Status CT head/brain wo con [CT] Stat Cat Scan 01/21/17 01:49 Completed Date of admission: 01/20/17 23:40 Primary care physician: PCP NONE Consults: 01/21/17 02:27 Consult to Psychiatry [CONS] Routine Consulting Provider: Byron Craft Reason for Consult: Anxiety, possible suicidal ideation Call Completed: No 01/22/17 07:47 Consult to Occupational Therapy [CONS] Routine Comment: Evaluate, develop and implement POC Reason for Consult: generalized weakness Consult to Physical Therapy [CONS] Routine Comment: Evaluate, develop and implement POC Reason for Consult: generalized weakness Consult to Ramp Supervisor [CONS] Routine Reason for SW Consult: readmit. psych hx. OT/PT pending. Discharging clinician: Lillie Meza Anticipated date of discharge: 01/22/17 - Patient Status Disposition: Home Health Service Condition: Good Functional capacity at discharge: independent ambulation Overall status at discharge: patient is progressing back to baseline - Discharge Instructions Follow Up With: David Benjamin MD [Non-Partnered Physician] - 01/29/17 2:30 pm [place], View [Other] Additional Instructions: Follow-up with primary care provider and psychiatrist as scheduled - Diet and Activity Activity: increase activity as tolerated Diet: low salt diet Hospital course: Ms. Aguilera is a 61 year old female with past medical history bipolar disorder, generalized anxiety disorder, PTSD, COPD on oxygen at home. Patient presented to the emergency department chief complaint of difficulty breathing and anxiety/ panic attack. Patient had presented to the emergency department earlier on in the same day for the same complaint. She was admitted for a couple hours and was discharged home. At that point, she was treated for acute bronchitis and acute anxiety and was cleared by psychiatry and sent home. She returned during this visit, to the ER a few hours later. Patient stating that when she got home she endorsed extreme anxiety, inability to think straight, difficulty taking deep breaths. Patient stating she intentionally took a few pills and states that she did not feel sane and stated she did not feel as if it was safe for her to go home. She denied fever, chills, wheezing, cough, palpitations. Upon presentation, patient was hyperventilating and placed on a nonrebreather. She was also given IV lorazepam. Head CT negative for acute processes. Patient was then admitted to the hospitalist service for further evaluation and management. After being admitted, patient stating she took 1 of her pain pills. Shortly after admission, patient denied suicidal or homicidal ideations. She did however continue to have severe panic attacks. The patient would scream and yell until she was given either IV lorazepam or IV Haldol. After 2 days of this, firm limits were set and the patient was informed that despite how loud she yells that she would not be receiving any more IV medications. Patient was then observed for the rest of the day and she had no further screaming outbursts. At that time, patient requested to go home. Her home care nurse who sees her typically twice a day Nguyen Suarez was present at time of discharge. I discussed the plan of care specifically with her. Depakote levels were checked on 01/20/17 and noted to be low at 27 with normal being 50-100. Her home med list was incorrect. Nguyen stated that the patient was already taking 500 mg of Depakote twice a day. Her prior primary care provider, Dr Srinivasan, had discussed increasing her morning dose to 750 mg a couple months ago but the patient's mood was stable so they held off. Given that her mood has now been unstable for approximately 2 weeks and her levels are low, a.m. dosage increased to 750 and p.m. dosage At 500. After firm limits were set, patient's mood and affect improved but she continued to endorse anxiety. She further stated that it was more manageable. She did have an abnormal urinalysis but urine culture was negative and she denied dysuria. Tox screen was positive for opiates but ironically not positive for benzos even though her home health nurse states that she gets 0.5 mg of lorazepam 3 times a day every day. Her home health nurse also stated that she has had to set limits with her in the past because she has attempted to yell and scream to get more her lorazepam than she is supposed to take. It appears as if she has a new primary care provider at the same office. She was instructed to follow up closely outpatient with that provider. She also has a psychiatrist appointment at the end of this month. Patient and her home health nurse felt she was stable for discharge. She was discharged home in stable condition with close outpatient follow-up recommended. ITS Impressions Head CT 01/21/17 01:49 IMPRESSION: 1. No acute hemorrhage. 2. Moderate to severe small vessel chronic ischemic changes. Small foci of acute ischemia cannot be excluded. 3. Bilateral mastoiditis with right-sided maxillary sinusitis. D/ / Loco Blair MD / Loco Blair MD Interpreting Provider: Loco Blair MD - Time Spent with Patient Total time spent providing and/or coordinating discharge services: - Constitutional Vitals: Temp Pulse Resp BP Pulse Ox 98.1 F 92 22 145/74 99 01/22/17 10:49 01/22/17 10:49 01/22/17 10:49 01/22/17 10:49 01/22/17 10:43 General appearance: Present: cooperative, disheveled, mild distress, A&O X 3, answers questions appropriately - Head Head exam: Present: atraumatic, normocephalic - Eye Eye exam: Present: PERRL, conjuntiva pink, sclera anicteric Pupils: Present: PERRL - Neck Neck exam general surgery: Present: supple, trachea midline. Absent: lymphadenopathy - Respiratory Respiratory exam: Present: decreased breath sounds. Absent: accessory muscle use, rales, respiratory distress, rhonchi, wheezes - Cardiovascular Cardiovascular exam: Present: RRR, +S1, +S2. Absent: diastolic murmur, gallop, rubs, systolic murmur - GI/Abdominal GI/Abdominal exam: Present: normal bowel sounds, soft, no peritoneal signs. Absent: distended, tenderness - Extremities Exam Extremities exam: Present: warm, radial pulses palpable and symmetrical. Absent : calf tenderness, cyanotic, pedal edema - Neurological Exam Neurological exam: Present: alert, CN II-XII intact, normal gait, oriented X3, no focal deficits, strengths equal and symetr throughout. Absent: pronater drift, facial droop, speech deficit - Psychiatric Psychiatric exam: Present: anxious. Absent: homicidal ideation, suicidal ideation - Expanded Psychiatric Exam Focused psych exam: Present: perseverating, psychomotor agitation, restlessness - Skin Skin exam: Present: dry, intact, pallor, warm
--- NOTE | 2017-01-22 15:15 | Physician Discharge Referral ---
Home Health/Hosp Referral Info Transfer to: Home Health Attending Provider: Harvey Meza CNP Provider in Charge Post Discharge: PCP - Diagnosis (1) Intentional overdose of drug in tablet form Priority: Primary Status: Acute (2) COPD exacerbation Priority: Primary Status: Resolved (3) COPD (chronic obstructive pulmonary disease) Priority: Secondary Status: Chronic (4) Panic attack Priority: Primary Status: Acute (5) Depression Priority: Secondary Status: Chronic (6) Generalized anxiety disorder Priority: Secondary Status: Chronic (7) Suicidal ideation Priority: Primary Status: Resolved (8) PTSD (post-traumatic stress disorder) Priority: Secondary Status: Chronic (9) Bipolar disorder Priority: Secondary Status: Chronic (10) Chronic respiratory failure with hypoxia Priority: Secondary Status: Chronic (11) Tobacco abuse Priority: Secondary Status: Chronic (12) DVT prophylaxis Priority: Primary Status: Acute - Respiratory Orders Oxygen / L per min (6.5 per facemask) Smoking Cessation: Smoking cessation has been advised. For more information, call the [place] Tobacco Quit Line at 8-160-DFRN-NOW. - Diet/Nutrition Diet/Nutrition Orders: No Added Salt (SARA) - Activity Activity Orders: Up ad fern - Services Needed Following services are medically necessary services: Nursing - Transfer Medications Prescriptions: Divalproex Sodium [Depakote Sprinkle] 500 mg PO QPM #120 Divalproex Sodium [Depakote Sprinkle] 750 mg PO QAM #180 Home Medications: Cetirizine HCl [Zyrtec] 10 mg PO DAILY #0 07/10/16 [History] Dicyclomine [Bentyl] 10 mg PO BID #0 07/10/16 [History] Gabapentin [Neurontin] 600 mg PO TID #0 07/10/16 [History] LORazepam [Ativan] 0.5 mg PO TID #0 07/10/16 [History] Losartan [Cozaar] 25 mg PO DAILY #0 07/10/16 [History] Mirtazapine [Remeron] 15 mg PO HS #0 07/10/16 [History] Oxygen 2 l NS AD #0 07/10/16 [History] Salmeterol Xinafoate [Serevent Diskus] 1 puff IH BID #0 07/10/16 [History] Tiotropium [place] [Spiriva Respimat] 2 puff IH DAILY #0 07/10/16 [History] Tramadol HCl [Ultram] 50 mg PO QID PRN #0 07/10/16 [History] Calcium Carbonate [Tums] 1,000 mg PO Q4HR PRN 12/31/16 [History] Esomeprazole Magnesium [Nexium] 40 mg PO DAILY 12/31/16 [History] Fluticasone Propionate [Flovent Hfa] 1 puff IH BID 12/31/16 [History] Tetrahydrozoline HCl [Visine] 1 drop OP QID PRN 12/31/16 [History] Tizanidine HCl 4 mg PO TID PRN 12/31/16 [History] Divalproex Sodium [Depakote Sprinkle] 500 mg PO QPM #120 01/22/17 [Rx] Divalproex Sodium [Depakote Sprinkle] 750 mg PO QAM #180 01/22/17 [Rx] Allergies/Adverse Reactions: 3 Allergy/AdvReac Type Severity Reaction Status Date / Time alprazolam [From Xanax] Allergy Itching Verified 12/19/16 16:27 bupropion [From Wellbutrin] Allergy Itching Verified 12/19/16 16:27 doxycycline Allergy Nausea Verified 12/19/16 16:27 Ethyl Chloride Allergy Itching Verified 12/19/16 16:27 fexofenadine [From Fannie] Allergy Itching Verified 12/19/16 16:27 hydroxyzine Allergy Hallucinati Verified 12/19/16 16:27 ng Procaine [From Novocain] Allergy Rash Verified 12/19/16 16:27 Penicillins AdvReac Itching Verified 12/19/16 16:27 Certification: Further, I certify that my clinical findings support that this patient is homebound (i.e. absences from home require considerable and taxing effort and are for medical reasons or restoration services or infrequently or short duration when for other reasons) because: Homebound Reason: Altered mental status requiring supervision when leaving home Attestation: My signature below is to certify that this patient is under my care and that I, or nurse practitioner, or a physician's ambulance assistant working with me, has a face-to -face encounter with this patient.
== END 2017-01-22 15:15 | disposition home health service (06) | DRG 812 ==
LOC: 3BNU 18:09 → EMEROO 18:09 → 3BNU 21:06
PROVIDERS: ADMIT Nurse Practitioner Family; ATTEND Nurse Practitioner Family

== ENCOUNTER 2018-06-12 18:32 | Observation (INO) ==
[2018-06-12 19:13] LABS: Basophils # 0.1 K/mcL (0.0-0.2); Basophils % 0.5 %; Hematocrit 40.9 % (35.3-44.9); Hemoglobin 13.1 g/dL (11.5-15.4); Immature Granulocytes % 2.2 % (0-4); Lymphocytes # 2.6 K/mcL (0.6-4.6); Mean Corpuscular Hemoglobin 29.4 pg (28.0-33.3); Mean Corpuscular Volume 91.9 fL (83.0-100.0); Mean Platelet Volume 9.9 fL (9.4-12.4); Monocytes # 1.8 K/mcL (0.0-1.3); Monocytes % 13.2 %; Platelet Count 310 K/mcL (140-400); Red Blood Count 4.45 M/mcL (3.82-4.97); Segmented Neutrophils % 65.1 %
[2018-06-12] MEDS ORDERED: Ipratropium/Albuterol Neb 3 ML IH ONE (19:23)
[2018-06-12 19:32] LABS: BUN/Creatinine Ratio 11 (6-26); Blood Urea Nitrogen 13 mg/dL (8-23); Calcium 9.3 mg/dL (8.6-10.3); Carbon Dioxide 32 mEq/L (23-29); Chloride 96 mEq/L (98-107); Glucose 111 mg/dL (70-105); Osmolality,Calculated 291 (280-300); Potassium 3.6 mEq/L (3.5-5.1); Sodium 140 mEq/L (136-145); eGFR For Non-African Americans 48 (> 60)
[2018-06-12 19:33] LABS: Troponin I < 0.03 ng/mL (< 0.04)
--- NOTE | 2018-06-12 19:35 | Emergency Department Note ---
Disposition Clinical Impression: Generalized weakness, Transient alteration of awareness, COPD exacerbation Disposition: Admitted As Inpatient Condition: Fair Time of Disposition: 20:18 SOB HPI - General Chief Complaint: ED Shortness of Breath/Dyspnea Stated Complaint: DAVIDSON Time Seen by Provider: 06/12/18 18:35 Source: patient, EMS Mode of arrival: EMS Limitations: no limitations Nursing Notes Reviewed: Yes Vital Signs Reviewed: Yes - History of Present Illness 62-year-old female history of COPD 2L home oxygen supplementation presents to the emergency department via EMS with home health nurse with complaints of shortness of breath and difficulty in breathing. Symptoms worse today. She was found to be hypoxic down to 92% despite being up to 4 L. She was also noted to be hypotensive systolic 60s her nurse. Her home health nurse also reports that she has been acting more confused and forgetting simple things such as feeding her cats and eating. Those noted by her neighbor that she was yelling her caretakers name and wandering outside. Over the past week patient's been treated on outpatient basis for suspected COPD exacerbation. She was evaluated here week ago sent home on azithromycin and prednisone. Symptoms gradually improved until when she was evaluated by her primary care provider and placed on additional steroids as she was not improved. She continues to use her inhalers with minimal relief. She reports productive cough. Denies fevers. Denies any chest pain at this time. She was given a breathing treatment prior to arrival here and is found to be tachycardic 110. Denies history of blood clots. No anticoagulant use. No recent hospitalizations. continues to smoke. She sees Dr. Gastel[facility] worker. Pt Subjective Complaint: shortness of breath, cough - Related Data Home Medications Medication Instructions Recorded Confirmed Cetirizine HCl [Zyrtec] 10 mg PO DAILY #0 07/10/16 01/20/17 Dicyclomine [Bentyl] 10 mg PO BID #0 07/10/16 01/20/17 Gabapentin [Neurontin] 600 mg PO TID #0 07/10/16 01/20/17 LORazepam [Ativan] 0.5 mg PO TID #0 07/10/16 01/20/17 Losartan [Cozaar] 25 mg PO DAILY #0 07/10/16 01/20/17 Mirtazapine [Remeron] 15 mg PO HS #0 07/10/16 01/20/17 Oxygen 2 l NS AD #0 07/10/16 01/20/17 Salmeterol Xinafoate [Serevent 1 puff IH BID #0 07/10/16 01/20/17 Diskus] Tiotropium [place] [Spiriva 2 puff IH DAILY #0 07/10/16 01/20/17 Respimat] Tramadol HCl [Ultram] 50 mg PO QID PRN #0 07/10/16 01/20/17 Calcium Carbonate [Tums] 1,000 mg PO Q4HR PRN 12/31/16 01/20/17 Esomeprazole Magnesium [Nexium] 40 mg PO DAILY 12/31/16 01/20/17 Fluticasone Propionate [Flovent 1 puff IH BID 12/31/16 01/20/17 Hfa] Tetrahydrozoline HCl [Visine] 1 drop OP QID PRN 12/31/16 01/20/17 Tizanidine HCl 4 mg PO TID PRN 12/31/16 01/20/17 Previous Rx's Medication Instructions Recorded Divalproex Sodium [Depakote 750 mg PO QAM #180 01/22/17 Sprinkle] HydrOXYzine SYP [Atarax] 10 mg PO BID #20 mls 02/04/17 Buspirone HCl [Buspar] 5 mg PO HS #14 tablet 02/06/17 Diclofenac Sodium [Voltaren] 2 gm TP BID #1 gel..gram. 09/08/17 Acetaminophen [Acetaminophen ER] 650 mg PO Q4-6H PRN #30 tablet.er 05/31/18 Azithromycin [Zithromax] 250 mg PO DAILY #6 tablet 06/05/18 predniSONE [PredniSONE] 60 mg PO DAILY #15 tablet 06/05/18 Allergies Allergy/AdvReac Type Severity Reaction Status Date / Time alprazolam [From Xanax] Allergy Itching Verified 05/31/18 13:30 bupropion [From Wellbutrin] Allergy Itching Verified 05/31/18 13:30 doxycycline Allergy Nausea Verified 05/31/18 13:30 Ethyl Chloride Allergy Itching Verified 05/31/18 13:30 fexofenadine [From Fannie] Allergy Itching Verified 05/31/18 13:30 hydroxyzine Allergy Hallucinati Verified 05/31/18 13:30 ng Procaine [From Novocain] Allergy Rash Verified 05/31/18 13:30 Penicillins AdvReac Itching Verified 05/31/18 13:30 All systems ED: reviewed and negative except as stated. Review of Systems: As Per HPI Constitutional: Denies: fever, chills ENT ED: Denies: congestion Cardiovascular: Denies: chest pain Respiratory: Reports: cough, dyspnea. Denies: hemoptysis Gastrointestinal: Denies: abdominal pain, nausea, vomiting Genitourinary: Denies: dysuria Musculoskeletal: Denies: back pain, neck pain Integumentary: Denies: rash, abrasion Neurological: Denies: headache, confusion Past Medical History - Past Medical History Attestation: Yes The following information was validated with the patient. Source: patient Medical history: Reports: arthritis, asthma, COPD, other Surgical history: Reports: appendectomy, orthopedic, other, other Psychiatric history: Reports: anxiety, bipolar, depression, panic disorder, PTSD - Social History Smoking Status: Current every day smoker Smokeless Tobacco Status: No Alcohol use: Reports: none Drug use: Reports: none Physical Exam - General Limitations: no limitations General appearance: alert, in no apparent distress, other (Appears chronically ill) - Head Head exam: atraumatic, normocephalic, normal inspection - Eye Eye exam: Present: normal appearance, PERRL, EOMI - ENT ENT exam: normal exam, normal oropharynx, mucous membranes moist - Neck Neck exam: Present: normal inspection, full ROM, trachea midline - Chest Chest inspection: Present: normal inspection, symmetric chest wall rise - Respiratory Respiratory exam: Present: respiratory distress, wheezes, prolonged expiratory phase - Cardiovascular Cardiovascular exam: Present: normal rhythm, tachycardia, normal heart sounds. Absent: systolic murmur, diastolic murmur - Expanded Cardiovascular Exam Peripheral pulses: 2+: radial (R), radial (L) - Abdominal Exam Abdominal exam: Present: soft, Non-Tender, normal bowel sounds. Absent: tenderness, distention, guarding, rebound, rigidity - Extremities Exam Extremities exam: Present: normal inspection, full ROM, normal capillary refill. Absent: tenderness, pedal edema, calf tenderness - Back Exam Back exam: Present: normal inspection, full ROM. Absent: tenderness, CVA tenderness (R), CVA tenderness (L) - Neurological Exam Neurological exam: Present: alert, oriented X3 - Psychiatric Psychiatric exam: Present: normal affect, normal mood - Skin Skin exam: Present: warm, dry, intact, normal color. Absent: rash, cyanosis, diaphoresis Course Course Narrative: Patient presents with opthalmic tech with concerns for confusion and weakness and difficulty in breathing. She has been on steroids for suspected COPD exacerbation and has been more confused today and found to be hypoxic and hypotensive. On examination she has prolonged expiratory phase as well as wheezing. She was noted to be 92% on oxygen mask 4 L. She normally is on 2 liter home oxygen supplementation. Concern for possible developing pneumonia versus worsening COPD versus possible pulmonary embolism. CT scan labs including breathing treatment. Concern that her confusion could be polypharmacy secondary to steroid use. She has already received her prednisone at home, will hold off on methylprednisolone at this time. She will likely require admission for failed outpatient therapy as well as weakness and confusion. - Reevaluation(s) Reevaluation #1: She has a mild leukocytosis 13.8. This could be secondary to steroid use. Chest x-ray did not reveal pneumonia. Troponin less than 0.03. Awaiting CT scan to further evaluate her refractory symptoms with concern for pulmonary emb olism. Time: 20:16 Reevaluation #2: CT scan does not reveal pulmonary embolism. Reveals emphysema. Will plan to admit for COPD exacerbation not improving with outpatient therapy. Her reported confusion by home health nurse, concern for medication related, less likely sepsis or CO2 narcosis. Patinet unable to urinate at this time, refuses to allow us to obtain urinalysis with straight catheterization. Impression is COPD exacerbation and weakness. Time: 21:52 - Consultations Consultation #1: Spoke with on-call hospitalist danyell Chris to admit for COPD exacerbation and weakness. No further orders at this time Time: 21:54 Vital Signs Temperature 98.3 F 06/12/18 18:42 Pulse Rate 122 06/12/18 18:42 Respiratory Rate 22 06/12/18 18:42 Blood Pressure 147/106 06/12/18 18:42 O2 Sat by Pulse Oximetry 100 06/12/18 18:42 Temperature 98.3 F 06/12/18 18:42 Pulse Rate 116 06/12/18 19:59 Respiratory Rate 18 06/12/18 19:59 Blood Pressure 108/85 06/12/18 19:59 O2 Sat by Pulse Oximetry 100 06/12/18 19:59 Oxygen Delivery Oxygen Delivery Nasal Cannula Shortness of Breath/Dyspnea - [facility] Narrative Medical decision making narrative: Patient was discussed with my attending physician who agrees with ED management and final disposition. They independently evaluated the patient. Please refer to their attestation to this encounter for additional information. This note was generated by [employer] voice recognition software and as a result grammatical or spelling errors may occur using this program. - Medical Records Medical records reviewed: Yes I reviewed the patient's medical records. - Lab Data Lab results reviewed: Yes I reviewed the patient's lab results. Result diagrams: 06/12/18 18:56 06/12/18 18:56 Lab Results 06/12/18 06/12/18 06/12/18 Range/Units 18:56 18:56 18:56 WBC 13.8 H (4.3-11.1) K/mcL RBC 4.45 (3.82-4.97) M/mcL Hgb 13.1 (11.5-15.4) g/dL Hct 40.9 (35.3-44.9) % MCV 91.9 (83.0-100.0) fL MCH 29.4 (28.0-33.3) pg MCHC 32.0 (31.6-35.5) g/dL RDW 13.0 (11.5-14.5) % Plt Count 310 (140-400) K/mcL MPV 9.9 (9.4-12.4) fL Immature Gran % 2.2 (0-4) % Seg Neutrophils % 65.1 % Lymphocytes % 19.0 % Monocytes % 13.2 % Eosinophils % 0.0 % Basophils % 0.5 % Neutrophils # 9.0 H (1.6-8.9) K/mcL Lymphocytes # 2.6 (0.6-4.6) K/mcL Monocytes # 1.8 H (0.0-1.3) K/mcL Eosinophils # 0.0 (0.0-0.6) K/mcL Basophils # 0.1 (0.0-0.2) K/mcL Sodium 140 (136-145) mEq/L Potassium 3.6 (3.5-5.1) mEq/L Chloride 96 L (98-107) mEq/L Carbon Dioxide 32 H (23-29) mEq/L BUN 13 (8-23) mg/dL Creatinine 1.14 (0.60-1.20) mg/dL Est GFR ( Amer) 58 L (> 60) Est GFR (Non-Af Amer) 48 L (> 60) BUN/Creatinine Ratio 11 (6-26) Glucose 111 H (70-105) mg/dL Calculated Osmolality 291 (280-300) Lactic Acid 1.7 (0.5-2.2) mmol/L Calcium 9.3 (8.6-10.3) mg/dL Troponin I < 0.03 (< 0.04) ng/mL B-Natriuretic Peptide (Less than 100) pg/mL 06/12/18 Range/Units 18:56 WBC (4.3-11.1) K/mcL RBC (3.82-4.97) M/mcL Hgb (11.5-15.4) g/dL Hct (35.3-44.9) % MCV (83.0-100.0) fL MCH (28.0-33.3) pg MCHC (31.6-35.5) g/dL RDW (11.5-14.5) % Plt Count (140-400) K/mcL MPV (9.4-12.4) fL Immature Gran % (0-4) % Seg Neutrophils % % Lymphocytes % % Monocytes % % Eosinophils % % Basophils % % Neutrophils # (1.6-8.9) K/mcL Lymphocytes # (0.6-4.6) K/mcL Monocytes # (0.0-1.3) K/mcL Eosinophils # (0.0-0.6) K/mcL Basophils # (0.0-0.2) K/mcL Sodium (136-145) mEq/L Potassium (3.5-5.1) mEq/L Chloride (98-107) mEq/L Carbon Dioxide (23-29) mEq/L BUN (8-23) mg/dL Creatinine (0.60-1.20) mg/dL Est GFR ( Amer) (> 60) Est GFR (Non-Af Amer) (> 60) BUN/Creatinine Ratio (6-26) Glucose (70-105) mg/dL Calculated Osmolality (280-300) Lactic Acid (0.5-2.2) mmol/L Calcium (8.6-10.3) mg/dL Troponin I (< 0.04) ng/mL B-Natriuretic Peptide 33 (Less than 100) pg/mL - Radiology Data Radiology results reviewed: Yes I reviewed the patient's radiology results. Chest X-Ray 06/12/18 18:35 IMPRESSION: No acute process. D/ / Suraj Limon MD / Suraj Limon MD Interpreting Provider: Suraj Limon MD Chest CTA 06/12/18 20:14 IMPRESSION: 1. No pulmonary embolism. 2. Emphysema. 3. Calcific atherosclerosis aorta and coronary arteries. D/ / Robert Turk / Robert Turk Interpreting Provider: Robert Turk - EKG Data EKG attestation: Yes I reviewed and interpreted this EKG. EKG results narrative: EKG performed 1851 sinus tachycardia 117 beats per minute, normal axis, good R wave progression, no ST elevation or depression. Compared to prior EKG performed 05/26/2017 which at that time shows sinus tachycardia 107 beats per minute with left axis deviation with similar consistent findings. No acute ischemic changes. Attestation Statement - Attestation Attestation: I, Agustín Casillas, examined this patient and my medical decision-making was reviewed with the DEMONSTRATOR KNITTING/PA/Advanced Practice Nurse/Resident Physician. I agree with the documented findings, disposition and treatment plan as described except to the extent set forth below. 62-year-old female presents emergency department for evaluation of hypotension, hypoxia, altered mental status. Patient is a poor historian and is agitated during the exam however home health nurse is present in the room to give further information. Home health nurse states the patient has been increasingly confused over the past couple days, she has been forgetting to feed the cat's, she has been outside when the opthalmic tech was not present screaming her name, agitating the neighbors. Today the patient was hypotensive per the home health nurse who stated her BP was in the low 60s systolic. Home health nurse reported the patient had been requiring 4 L of O2 and was still only satting 92%. Patient had wheezing on posterior lung woodson on exam. She was given breathing treatments in the emergency department. She finished a 4 day course of 60 mg prednisone within the past 2 days and was just given a prescription for prednisone taper by her PCP yesterday. Patient CTA did not show evidence of acute PE. She will be admitted to the hospitalist for further evaluation of her dyspnea.
[2018-06-12] MEDS ORDERED: *HR* LORazepam 0.5 MG TABLET PO ONE (19:37)
[2018-06-12] MEDS ORDERED: Isovue-370 500 ML BOTTLE IVP ONE (20:14)
[2018-06-12] MEDS ORDERED: Azithromycin 500 MG in D5% in Water 250 ML IVPB ONE (21:44)
[2018-06-12] MEDS ORDERED: cefTRIAXone 1,000 MG in Water for inj. (sterile) 20 ML 10 ML IVP ONE (21:44)
[2018-06-12] MEDS ORDERED: 0.9 % Sodium Chloride 1,000 ML IVC ONE (22:00)
[2018-06-13] MEDS ORDERED: Naloxone 0.4 MG/ML INJ IVP PRN (01:44)
[2018-06-13] MEDS ORDERED: Albuterol 2.5 MG/3 ML NEBULIZER IH PRN (01:51)
--- NOTE | 2018-06-13 03:26 | Internal Med History&Physical ---
Date of Encounter: 06/13/18 Time of Encounter: 01:15 Internal Medicine - H&P: HPI Chief complaint: Acute hypoxic respiratory failure Admitted From: Emergency Dept Plans for Post Hospital Care: Home History of present illness: Ms. Aguilera is a 62 year old female Patient presented to the emergency room with her home health nurse for complaints of shortness of breath and difficulty breathing. History of present illness obtained from emergency room records, patient was not able to give a detailed history during my examination. She was satting in the low 90s despite being on 4 L of nasal cannula oxygen. Her home health nurse also reported that she had a systolic blood pressure in the 60s at home. She also reported that patient was acting more confused and forgetting normal daily chores such as feeding her cats and feeding herself. Neighbors also have noted that she had been wandering around outside yelling for her electronic game developer. She has been seeing outpatient physicians for COPD exacerbation and was recently started on azithromycin and prednisone. She has tried her home inhalers and a steroid taper was being continued but her symptoms were not improving In the emergency room patient's CBC showed a white count of 13.8, BNP was within normal limits. Patient's initial troponin was undetectable, BNP was 33 and lactic acid was 1.7. Chest x-ray revealed no acute process, CT angios showed no pulmonary embolism but did show emphysema and calcified atherosclerotic aorta and coronary arteries. A head CT was performed that showed no acute intracranial abnormality, but did show chronic microvascular ischemic changes, bilateral mastoid effusions and paranasal sinus disease. She was given breathing treatments, a 0.5 mg dose of Ativan for agitation, IV fluids and was sent to the medical floor for further management. Upon arrival, patient seemed very agitated. Patient's electronic game developer was present initially and tried to calm the patient going her that she needed to allow the doctors and nurses to help her, and the electronic game developer went home for the night. The patient continued to be agitated stating that her home health nurse "abandoned" her, and she wanted to go home. When I saw the patient she was sitting on the side of the bed with the gown over her street clothes. She had an oxygen mask on at 4 L. She is been refusing any vitals to be checked and is refusing further treatment and medication. She continues to state that she wants to go home, despite being told that she does not have a way to get home. We tried to get a hold of the patient's home health nurse but those attempts were unsucces sful. Patient did allow me to perform a physical exam, she denied nausea, vomiting, chest pain, shortness of breath, and diarrhea, constipation and abdominal pain. I did not feel that the patient was able to make an informed decision about going home, patient was only oriented to self, her birthdate but did not know where she was nor the current date. After some convincing the patient did however lay back down in the bed and fell asleep. Patient's CODE STATUS was set to full code due to history of suicidal ideation and decreased orientation. No other information available at this time, ryan montes's home health nurse is currently not answering her phone. Past Med Surg Social Fam HX - Past Medical History Medical history: arthritis, asthma, COPD, other Additional medical history: hyponatremia,edema,hyponasality,anxiety with depression, chronic pain, headache, hx pneumonia, fibromyalgia, hypokalem ia,PTmphazeymaSD, FLETCHER,emphyxema, chronic bronchitis,neuropathy,mu;tiple broken bones,thrush,oral,tardive dyskinesia,cervical Fa,BROAD DISC BULDGEAT,MILD c3/4 LISTHESIS,BIPOLAr, back pain, ddd lumbar, tobacco abuse,vulval intraepithical neoplasia grade 1, shoulder pain,IBS, onychocosis,falls,seborrheic dermatitis, peripheral neuropathy,joint pain,weight loss,bite from cat,dermatophytosis, ingrown toe nail with infection,high risk medication use,cervical stenosis,myofascial pain,cellulitis,NSTEMI,mild vulvar dysplasia Psychiatric history: anxiety, bipolar, depression, panic disorder, PTSD - Past Surgical History Surgical History: appendectomy, orthopedic, other, other Additional surgical history: teeth extraction,tonsillectomy,barium swallow,EGD with ialation,urethral dilation,FLETCHER, L Knee repair - Social History Smoking Status: Current every day smoker Smokeless Tobacco Status: No Alcohol use: none Drug use: none - Family History Mother Living Status: Hx Family Cancer: Yes (lung) Sister Family Member Ethnicity: Non- Hx Family Endocrine Disorder: Yes (DM II) Internal Medicine - H&P: Meds Cetirizine HCl [Zyrtec] 10 mg PO DAILY #0 07/10/16 [History] Dicyclomine [Bentyl] 10 mg PO BID #0 07/10/16 [History] Gabapentin [Neurontin] 600 mg PO TID #0 07/10/16 [History] LORazepam [Ativan] 0.5 mg PO TID #0 07/10/16 [History] Losartan [Cozaar] 25 mg PO DAILY #0 07/10/16 [History] Mirtazapine [Remeron] 15 mg PO HS #0 07/10/16 [History] Oxygen 2 l NS AD #0 07/10/16 [History] Salmeterol Xinafoate [Serevent Diskus] 1 puff IH BID #0 07/10/16 [History] Tiotropium [place] [Spiriva Respimat] 2 puff IH DAILY #0 07/10/16 [History] Tramadol HCl [Ultram] 50 mg PO QID PRN #0 07/10/16 [History] Calcium Carbonate [Tums] 1,000 mg PO Q4HR PRN 12/31/16 [History] Esomeprazole Magnesium [Nexium] 40 mg PO DAILY 12/31/16 [History] Fluticasone Propionate [Flovent Hfa] 1 puff IH BID 12/31/16 [History] Tetrahydrozoline HCl [Visine] 1 drop OP QID PRN 12/31/16 [History] Tizanidine HCl 4 mg PO TID PRN 12/31/16 [History] Divalproex Sodium [Depakote Sprinkle] 750 mg PO QAM #180 01/22/17 [Rx] HydrOXYzine SYP [Atarax] 10 mg PO BID #20 mls 02/04/17 [Rx] Buspirone HCl [Buspar] 5 mg PO HS #14 tablet 02/06/17 [Rx] Diclofenac Sodium [Voltaren] 2 gm TP BID #1 gel..gram. 09/08/17 [Rx] Acetaminophen [Acetaminophen ER] 650 mg PO Q4-6H PRN #30 tablet.er 05/31/18 [Rx] Azithromycin [Zithromax] 250 mg PO DAILY #6 tablet 06/05/18 [Rx] predniSONE [PredniSONE] 60 mg PO DAILY #15 tablet 06/05/18 [Rx] Allergy/AdvReac Type Severity Reaction Status Date / Time alprazolam [From Xanax] Allergy Itching Verified 05/31/18 13:30 bupropion [From Wellbutrin] Allergy Itching Verified 05/31/18 13:30 doxycycline Allergy Nausea Verified 05/31/18 13:30 Ethyl Chloride Allergy Itching Verified 05/31/18 13:30 fexofenadine [From Fannie] Allergy Itching Verified 05/31/18 13:30 hydroxyzine Allergy Hallucinati Verified 05/31/18 13:30 ng Procaine [From Novocain] Allergy Rash Verified 05/31/18 13:30 Penicillins AdvReac Itching Verified 05/31/18 13:30 All Systems PM: A 10-system review of systems was performed and is negative for pertinent fi ndings except as documented above in the HPI. - Constitutional Vitals: Temp Pulse Resp BP Pulse Ox 98.0 F 113 20 107/96 90 06/12/18 22:50 06/12/18 22:50 06/12/18 22:50 06/12/18 22:50 06/13/18 00:00 General appearance: Present: A&O X 1, mild distress. Absent: cooperative, answers questions appropriately Exam: Patient refusing to allow for pulse ox to be placed, and will not allow for blood pressure checks. She is oriented to self, and birthdate but not to place or time - Head Head exam: Present: normal inspection - Eye Eye exam: Present: EOMI, normal appearance - Respiratory Respiratory exam: Present: decreased breath sounds, wheezes. Absent: CTAB, rale s, respiratory distress, rhonchi - Cardiovascular Cardiovascular exam: Present: RRR. Absent: diastolic murmur, systolic murmur - GI/Abdominal GI/Abdominal exam: Present: normal bowel sounds, soft. Absent: tenderness - Extremities Exam Extremities exam: Present: warm, radial pulses palpable and symmetrical. Absent: pedal edema, tenderness - Neurological Exam Neurological exam: Present: no focal deficits, strengths equal and symetr throughout. Absent: motor sensory deficit, facial droop, speech deficit - Skin Skin exam: Present: dry, normal color, warm Internal Med - H&P Results - Labs CBC & Chem 7: 06/12/18 18:56 06/12/18 18:56 Labs: Short CBC 06/12/18 Range/Units 18:56 WBC 13.8 H (4.3-11.1) K/mcL Hgb 13.1 (11.5-15.4) g/dL Hct 40.9 (35.3-44.9) % Plt Count 310 (140-400) K/mcL Neutrophils # 9.0 H (1.6-8.9) K/mcL BMP 06/12/18 18:56 Sodium 140 Potassium 3.6 Chloride 96 L Carbon Dioxide 32 H BUN 13 Creatinine 1.14 Glucose 111 H Calcium 9.3 Cardiac Enzymes 06/12/18 Range/Units 18:56 Troponin I < 0.03 (< 0.04) ng/mL - Impressions ITS Impressions Chest X-Ray 06/12/18 18:35 IMPRESSION: No acute process. D/ / Suraj Limon MD / Suraj Limon MD Interpreting Provider: Suraj Limon MD Chest CTA 06/12/18 20:14 IMPRESSION: 1. No pulmonary embolism. 2. Emphysema. 3. Calcific atherosclerosis aorta and coronary arteries. D/ / Robert Turk / Robert Turk Interpreting Provider: Robert Turk Head CT 06/12/18 23:45 IMPRESSION: No acute intracranial abnormality. Chronic microvascular ischemic changes. Bilateral mastoid effusions. Paranasal sinus disease. D/ / Barbara Varela MD / Barbara Varela MD Interpreting Provider: Barbara Varela MD - Assessment and plan (1) Acute and chronic respiratory failure with hypoxia Current Visit: Yes Status: Acute Assessment and plan: Patient had lower oxygen sats than normal, being treated for COPD exacerbation outpatient. Continue oxygen supplementation Continue breathing treatments if patient allows Continue steroids Bedside of to monitor, which patient is currently refusing Continue ceftriaxone and azithromycin (2) Acute exacerbation of chronic obstructive airways disease Current Visit: No Status: Acute Assessment and plan: As above, patient had started treatment for this outpatient with no improvement. Treatment as above (3) Acute encephalopathy Current Visit: Yes Status: Acute Assessment and plan: Unclear what patient's baseline is. She currently is only oriented to self but not place or time. She does have home health at home. Patient is normally able to take care of her cats however. Head CT showed no acute intracranial abnormalities. Continue to monitor Consider obtaining an ABG symptoms worsen if patient allows Hold sedating meds Urine tox screen and urinalysis if patient provides urine sample (4) Generalized weakness Current Visit: Yes Status: Acute Assessment and plan: Unclear what patient's baseline is. Patient is able to ambulate on her own. Could be secondary to COPD exacerbation Treatment as above Consider PT OT consult (5) DVT prophylaxis Current Visit: No Status: Acute Assessment and plan: Subcutaneous heparin if patient allows - Time Spent With Patient Total time spent is greater than 50% in coordination of care (as documented) at patient's floor/unit and/or counseling patient: Greater than 35 minutes
[2018-06-13] MEDS: Ipratropium/Albuterol Neb 3 ML IH SCH ×5 (03:28→22:02)
[2018-06-13] MEDS: *HR* Heparin 5,000 UNIT/ML VIAL SQ SCH ×2 (06:45→17:23)
[2018-06-13] MEDS ORDERED: predniSONE 20 MG TABLET PO SCH (09:00)
[2018-06-13] MEDS ORDERED: cefTRIAXone 1,000 MG in Water for inj. (sterile) 20 ML 10 ML IVP SCH (09:00)
[2018-06-13] MEDS ORDERED: *HR* LORazepam 2 MG/ML VIAL IVP ONE (09:17)
--- NOTE | 2018-06-13 12:28 | Event Note ---
Date of Encounter: 06/13/18 Time of Encounter: 12:28 62 y/o female w/ PMHx of COPD on home oxygen, anxiety depression being treated as an outpt for acute COPD exacerbation admitted for confusion and AMS Pt seen and examined at bedside. Pt AAO X 3 (pt is aware she is in the hospital however states she is here due to, "so many things" was not able to specify). Pt also kept repeating she wants her friend Bronwyn who is also her POLISHER AND SANDER. RN reported this morning pt very agitated, refusing pills. Pt reports she was on high dosages of Prednisone and that made her, "sick like a dog". Pt reports she does not want any more. POLISHER AND SANDER called this morning and spoke w/ Bill. This is not pt's baseline, she is usually calmer, not confused, pt lives alone and takes care of her cat. The change in mental state began recently. AMS possibly related to recent high dose prednisone use. Pt moving air well, minimal wheeze - hold off on Steroids - c/w sarai - c/w Cassia
[2018-06-13 12:52] LABS: Basophils % 0.4 %; Eosinophils % 0.1 %; Hematocrit 39.6 % (35.3-44.9); Hemoglobin 12.7 g/dL (11.5-15.4); Immature Granulocytes % 1.8 % (0-4); Lymphocytes % 20.4 %; Mean Corpuscular HGB Conc 32.1 g/dL (31.6-35.5); Mean Corpuscular Hemoglobin 29.4 pg (28.0-33.3); Mean Corpuscular Volume 91.7 fL (83.0-100.0); Mean Platelet Volume 9.8 fL (9.4-12.4); Monocytes # 1.1 K/mcL (0.0-1.3); Monocytes % 10.9 %; Neutrophils # 6.4 K/mcL (1.6-8.9); Platelet Count 304 K/mcL (140-400); Red Blood Count 4.32 M/mcL (3.82-4.97); Red Cell Distribution Width 13.1 % (11.5-14.5); Segmented Neutrophils % 66.4 %
[2018-06-13 13:13] LABS: BUN/Creatinine Ratio 14 (6-26); Blood Urea Nitrogen 13 mg/dL (8-23); Calcium 9.3 mg/dL (8.6-10.3); Carbon Dioxide 34 mEq/L (23-29); Chloride 94 mEq/L (98-107); Glucose 129 mg/dL (70-105); Magnesium 1.7 mg/dL (1.6-2.6); Osmolality,Calculated 286 (280-300); Phosphorous 3.2 mg/dL (2.7-4.5); Potassium 3.5 mEq/L (3.5-5.1); Sodium 137 mEq/L (136-145); eGFR For Non-African Americans > 60 (> 60)
[2018-06-13 14:28] LABS: Bilirubin,Urine Negative (Negative); Blood,Urine Negative (Negative); Clarity,Urine Clear (Clear); Color,Urine Yellow (Yellow); Glucose,Urine (UA) Normal (Normal); Ketones,Urine Negative (Negative); Leukocyte Esterase,Urine Small (Negative); Nitrite,Urine Negative (Negative); PH,Urine 5.5 pH Units (5.0-8.0); Protein,Urine Trace mg/dL (Neg-Trace); Specific Gravity,Urine > 1.030 (1.010-1.025); Urobilinogen,Urine Normal (Normal)
[2018-06-13 14:31] LABS: Bacteria,Urine Moderate per hpf (None-Few); Hyaline Casts,Urine None Seen per lpf (None-Few); Squamous Epithelial Cell,Urine Many per lpf (None-Few)
[2018-06-13 14:36] LABS: Amphetamine Screen,Urine Negative ng/mL (Cutoff=1000); Barbiturate Screen,Urine Negative ng/mL (Cutoff=200); Benzodiazepines Screen,Urine Negative ng/mL (Cutoff=200); Cannabinoid Screen,Urine Negative ng/mL (Cutoff = 50); Cocaine Screen,Urine Negative ng/mL (Cutoff= 300); Opiate Screen,Urine Negative ng/mL (Cutoff=300); Phencyclidine Screen,Urine Negative ng/mL (Cutoff=25)
[2018-06-13] MEDS: *HR* LORazepam 0.5 MG TABLET PO SCH ×2 (15:14→19:55)
[2018-06-13] MEDS: Nicotine 14 MG PATCH.TD24 TD SCH (15:52)
[2018-06-13] MEDS ORDERED: Azithromycin 500 MG in D5% in Water 250 ML IVPB SCH (21:00)
[2018-06-13] MEDS ORDERED: traMADol 50 MG TABLET PO ONE (23:57)
[2018-06-14] MEDS: Ipratropium/Albuterol Neb 3 ML IH SCH ×2 (04:28→10:58)
[2018-06-14 05:05] LABS: Basophils % 0.4 %; Eosinophils % 0.4 %; Hematocrit 36.6 % (35.3-44.9); Hemoglobin 11.8 g/dL (11.5-15.4); Immature Granulocytes % 1.9 % (0-4); Lymphocytes # 1.9 K/mcL (0.6-4.6); Lymphocytes % 26.6 %; Mean Corpuscular HGB Conc 32.2 g/dL (31.6-35.5); Mean Corpuscular Hemoglobin 29.1 pg (28.0-33.3); Mean Corpuscular Volume 90.4 fL (83.0-100.0); Mean Platelet Volume 9.6 fL (9.4-12.4); Monocytes # 0.7 K/mcL (0.0-1.3); Monocytes % 10.2 %; Neutrophils # 4.2 K/mcL (1.6-8.9); Platelet Count 246 K/mcL (140-400); Red Blood Count 4.05 M/mcL (3.82-4.97); Red Cell Distribution Width 12.7 % (11.5-14.5); Segmented Neutrophils % 60.5 %
[2018-06-14 05:17] LABS: BUN/Creatinine Ratio 14 (6-26); Blood Urea Nitrogen 10 mg/dL (8-23); Calcium 9.1 mg/dL (8.6-10.3); Carbon Dioxide 39 mEq/L (23-29); Chloride 92 mEq/L (98-107); Glucose 99 mg/dL (70-105); Osmolality,Calculated 281 (280-300); Phosphorous 3.1 mg/dL (2.7-4.5); Potassium 3.5 mEq/L (3.5-5.1); Sodium 136 mEq/L (136-145); eGFR For Non-African Americans > 60 (> 60)
[2018-06-14] MEDS: *HR* Heparin 5,000 UNIT/ML VIAL SQ SCH (06:30)
[2018-06-14] MEDS ORDERED: Divalproex Sodium 125 MG CAPSULE PO SCH ×5 (09:00→21:00)
[2018-06-14] MEDS: *HR* LORazepam 0.5 MG TABLET PO SCH (09:11)
[2018-06-14] MEDS: Nicotine 14 MG PATCH.TD24 TD SCH (09:12)
[2018-06-14 11:50] VITALS: BP 145/75
[2018-06-14] MEDS ORDERED: traMADol 50 MG TABLET PO PRN (12:03)
[2018-06-14] MEDS ORDERED: tiZANidine 4 MG TABLET PO PRN (12:03)
--- NOTE | 2018-06-14 12:13 | Physician Discharge Referral ---
Home Health/Hosp Referral Info Transfer to: Home Health Provider in Charge Post Discharge: PCP - Respiratory Orders Smoking Cessation: Smoking cessation has been advised. For more information, call the [place] Tobacco Quit Line at 0-919-FJDJ-NOW. - Services Needed Following services are medically necessary services: Nursing, Home Health Aide - Transfer Medications Home Medications: Cetirizine HCl [Zyrtec] 10 mg PO DAILY #0 07/10/16 [History] Dicyclomine [Bentyl] 10 mg PO BID #0 07/10/16 [History] LORazepam [Ativan] 0.5 mg PO TID PRN #0 07/10/16 [History] Losartan [Cozaar] 25 mg PO DAILY #0 07/10/16 [History] Mirtazapine [Remeron] 15 mg PO HS #0 07/10/16 [History] Oxygen 4 l NS AD #0 07/10/16 [History] Salmeterol Xinafoate [Serevent Diskus] 1 puff IH BID #0 07/10/16 [History] Tiotropium [place] [Spiriva Respimat] 2 puff IH DAILY #0 07/10/16 [History] Tramadol HCl [Ultram] 50 mg PO TID PRN #0 07/10/16 [History] Esomeprazole Magnesium [Nexium] 40 mg PO DAILY 12/31/16 [History] Tizanidine HCl 4 mg PO TID PRN 12/31/16 [History] Acetaminophen [Acetaminophen ER] 650 mg PO Q4-6H PRN #30 tablet.er 05/31/18 [Rx] Albuterol Neb [Proventil Neb] 2.5 mg IH Q4HR PRN 06/14/18 [History] Amitriptyline [Elavil] 10 mg PO DAILY 06/14/18 [History] Buspirone HCl [Buspar] 30 mg PO BID 06/14/18 [History] Divalproex Sodium [Depakote Sprinkle] 250 mg PO HS 06/14/18 [History] Divalproex Sodium [Depakote Sprinkle] 375 mg PO QAM 06/14/18 [History] Fluticasone Propionate Nasal [Flonase] 1 spray NS DAILY 06/14/18 [History] Fluticasone Propionate [Flovent Hfa] 2 puff IH BID 06/14/18 [History] Gabapentin [Neurontin] 800 mg PO TID 06/14/18 [History] PredniSONE [Deltasone] 20 mg PO TAPER 06/14/18 [History] Quetiapine Fumarate [SEROquel] 50 - 100 mg PO HS PRN 06/14/18 [History] Roflumilast [Daliresp] 500 mcg PO DAILY 06/14/18 [History] Sucralfate [Carafate] 1 gm PO TID 06/14/18 [History] cloNIDine HCl [CloNIDine HCl] 0.1 mg PO TID PRN 06/14/18 [History] Allergies/Adverse Reactions: Allergy/AdvReac Type Severity Reaction Status Date / Time alprazolam [From Xanax] Allergy Itching Verified 05/31/18 13:30 bupropion [From Wellbutrin] Allergy Itching Verified 05/31/18 13:30 doxycycline Allergy Nausea Verified 05/31/18 13:30 Ethyl Chloride Allergy Itching Verified 05/31/18 13:30 fexofenadine [From Fannie] Allergy Itching Verified 05/31/18 13:30 hydroxyzine Allergy Hallucinati Verified 05/31/18 13:30 ng Procaine [From Novocain] Allergy Rash Verified 05/31/18 13:30 Penicillins AdvReac Itching Verified 05/31/18 13:30 Certification: Further, I certify that my clinical findings support that this patient is homebound (i.e. absences from home require considerable and taxing effort and are for medical reasons or congregation services or infrequently or short duration when for other reasons) because: Homebound Reason: Patient requires assistance of a person or device to safely leave home Attestation: My signature below is to certify that this patient is under my care and that I, or nurse practitioner, or a physician's phlebotomist lab assistant working with me, has a face-t o-face encounter with this patient.
--- NOTE | 2018-06-14 12:13 | Discharge Summary ---
- NOTES TO OUTPATIENT PROVIDER Notes to Outpatient Provider: Outpatient Neuropsych evaluation Orders not resulted at time of discharge: Pending orders 06/12/18 20:35 Culture,Blood [BC] Stat 06/15/18 04:00 Magnesium AM 0400 06/16/18 04:00 Magnesium AM 0400 06/17/18 04:00 Magnesium AM 399 Date of Encounter: 06/14/18 Time of Encounter: 11:00 - Discharge Diagnosis (1) Altered mental state Priority: Primary Status: Acute Qualifiers: Qualified Code(s): R41.82 - Altered mental status, unspecified (2) Acute anxiety Priority: Secondary Status: Acute (3) Acute exacerbation of chronic obstructive airways disease Priority: Secondary Status: Acute Hospital course: , 62 y/o female w/ PMHx of COPD on home oxygen, anxiety depression being treated as an outpt for acute COPD exacerbation admitted for confusion and AMS. Pt reported she got sick from the Prednisone she was on. CT head negative. Pt curently AAO X 4, having a conversation with her sitter, still requesting to be with her friend Bronwyn who is also her HEALTHCARE LIAISON. Lung exam improved with ATC duonebs, and Prednisone held. This morning pt reports she feels well and wants to go home. Pt reports she does not do well outside of her home. Confusion possibly due to Prednisone as pt has been lucid since yesterday afternoon, no documented episodes of agitation. Pt medically stable however would still recommend outpatient Neuropsych evaluation. Discharge discussed with: patient - Time Spent with Patient Total time spent providing and/or coordinating discharge services: Less than 30 minutes - Discharge Medications Home Medications: Cetirizine HCl [Zyrtec] 10 mg PO DAILY #0 07/10/16 [History] Dicyclomine [Bentyl] 10 mg PO BID #0 07/10/16 [History] LORazepam [Ativan] 0.5 mg PO TID PRN #0 07/10/16 [History] Losartan [Cozaar] 25 mg PO DAILY #0 07/10/16 [History] Mirtazapine [Remeron] 15 mg PO HS #0 07/10/16 [History] Oxygen 4 l NS AD #0 07/10/16 [History] Salmeterol Xinafoate [Serevent Diskus] 1 puff IH BID #0 07/10/16 [History] Tiotropium [place] [Spiriva Respimat] 2 puff IH DAILY #0 07/10/16 [History] Tramadol HCl [Ultram] 50 mg PO TID PRN #0 07/10/16 [History] Esomeprazole Magnesium [Nexium] 40 mg PO DAILY 12/31/16 [History] Tizanidine HCl 4 mg PO TID PRN 12/31/16 [History] Acetaminophen [Acetaminophen ER] 650 mg PO Q4-6H PRN #30 tablet.er 05/31/18 [Rx] Albuterol Neb [Proventil Neb] 2.5 mg IH Q4HR PRN 06/14/18 [History] Amitriptyline [Elavil] 10 mg PO DAILY 06/14/18 [History] Buspirone HCl [Buspar] 30 mg PO BID 06/14/18 [History] Divalproex Sodium [Depakote Sprinkle] 250 mg PO HS 06/14/18 [History] Divalproex Sodium [Depakote Sprinkle] 375 mg PO QAM 06/14/18 [History] Fluticasone Propionate Nasal [Flonase] 1 spray NS DAILY 06/14/18 [History] Fluticasone Propionate [Flovent Hfa] 2 puff IH BID 06/14/18 [History] Gabapentin [Neurontin] 800 mg PO TID 06/14/18 [History] Nicotine Patch [Nicoderm] 21 mg TD DAILY #3 patch.td24 06/14/18 [Rx] PredniSONE [Deltasone] 20 mg PO TAPER 06/14/18 [History] Quetiapine Fumarate [SEROquel] 50 - 100 mg PO HS PRN 06/14/18 [History] Roflumilast [Daliresp] 500 mcg PO DAILY 06/14/18 [History] Sucralfate [Carafate] 1 gm PO TID 06/14/18 [History] cloNIDine HCl [CloNIDine HCl] 0.1 mg PO TID PRN 06/14/18 [History] Allergies/Adverse Reactions: Allergy/AdvReac Type Severity Reaction Status Date / Time alprazolam [From Xanax] Allergy Itching Verified 05/31/18 13:30 bupropion [From Wellbutrin] Allergy Itching Verified 05/31/18 13:30 doxycycline Allergy Nausea Verified 05/31/18 13:30 Ethyl Chloride Allergy Itching Verified 05/31/18 13:30 fexofenadine [From Fannie] Allergy Itching Verified 05/31/18 13:30 hydroxyzine Allergy Hallucinati Verified 05/31/18 13:30 ng Procaine [From Novocain] Allergy Rash Verified 05/31/18 13:30 Penicillins AdvReac Itching Verified 05/31/18 13:30 Date of admission: 06/12/18 21:54 Primary care physician: Whitney Richards Consults: 06/13/18 01:51 Consult to Nurse Navigator [CONS] Routine Comment: - Constitutional Vitals: Temp Pulse Resp BP Pulse Ox 98.5 F 103 22 145/75 95 06/14/18 11:44 06/14/18 11:44 06/14/18 11:44 06/14/18 11:44 06/14/18 11:44 General appearance: Present: A&O X 1, mild distress. Absent: answers questions appropriately Exam: General - Sitting up in bed, NAD, AAO X 4 HEENT - NC/AT, PERRLA Neck - Supple Lungs - faint basilar wheezes however moving air better than yesterday. CVS - RRR, nl s1, s2 Abd - soft, NT/ND, BS+ Ext - no edema - Patient Status Disposition: Home Health Service Condition: Fair Overall status at discharge: patient is progressing back to baseline - Discharge Instructions Instructions: Altered Mental Status (GEN), Chronic Obstructive Pulmonary Disease (DC) Follow Up With: Whitney Richards MD [Primary Care Provider] - - Diet and Activity Activity: increase activity as tolerated Diet: advance to your usual diet
[2018-06-14] MEDS ORDERED: NON-FORMULARY MEDICATION 1 EACH EACH (Roflumilast [Daliresp] 500 MCG) PO SCH (12:15)
[2018-06-14] MEDS ORDERED: *HR* LORazepam 0.5 MG TABLET PO SCH (15:00)
[2018-06-14] MEDS ORDERED: Gabapentin 400 MG CAPSULE PO SCH (15:00)
--- NOTE | 2018-06-15 11:26 | Electrocardiograph Report ---
[address] [address] Test Date: 2018-06-12 Pat Name: Starla Aguilera Department: [id number] Room: 2NE17 Gender: F [employer] Outreach Specialist: : [id number] Requested By: Agustín Casillas Order Number: [id number] Reading MD: Anselmo Brizuela Measurements Intervals [place] Rate: 117 P: 80 OK: 113 QRS: -20 QRSD: 90 T: 78 QT: 316 QTc: 441 Interpretive Statements Sinus tachycardia Nonspecific T wave changes Electronically Signed On 06-15-2018 11:24:54 EST by Anselmo Brizuela
== END 2018-06-14 13:52 | disposition home health service (06) ==
LOC: 2NENU 18:32 → EMEROOARM 18:32 → SUATTDRO 21:54 → 2NENU 22:30
PROVIDERS: ADMIT Pediatrics; ATTEND Hospitalist

== ENCOUNTER 2018-06-24 23:22 | Observation (INO) ==
--- NOTE | 2018-06-24 23:43 | Emergency Department Note ---
Disposition Clinical Impression: COPD exacerbation, Hypokalemia, Smoking, Acute anxiety Disposition: Admitted As Inpatient Condition: Good Referrals: NONE,PCP [Primary Care Provider] - Forms: ED Satisfaction Letter Time of Disposition: 02:15 Anxiety HPI - General Stated Complaint: anxiety Time Seen by Provider: 06/24/18 23:27 Source: patient, EMS Mode of arrival: EMS Limitations: no limitations Nursing Notes Reviewed: Yes Vital Signs Reviewed: Yes - History of Present Illness HPI Narrative: Nontoxic-appearing 62-year-old female with a history of COPD, anxiety, and restless leg syndrome arrives by home from EMS for evaluation of complaints of shortness of breath and worsening anxiety as well as "twitching of the legs". She states that these symptoms have been present for several years however states that symptoms have worsened over the past several days. She is a rather poor historian when questioned about the duration of symptoms and or worsening of these symptoms. She had not does deny however, any chest pain, abdominal pain, nausea, vomiting, diaphoresis, headache, fever, or chills. Although she does not know what medication she takes for her restless leg syndrome, she states that she is faithful in taking these medications. She states that she is prescribed Ativan for her anxiety however states that it has not been helping. She denies any homicidal ideations, auditory or visual hallucinations. She does describe intermittent episodes of thoughts of inflicting self harm however is reluctant to say if she has any current suicidal ideations. MD complaint: anxiety, shortness of breath Onset (ago): unknown Symptoms: dyspnea Severity: moderate Quality: constant Improves with: nothing Worsens with: nothing Associated symptoms: Denies: chest pain, palpitations, diaphoresis, fever/chills, nausea/vomiting - Related Data Home Medications: Home Medications Medication Instructions Recorded Confirmed Cetirizine HCl [Zyrtec] 10 mg PO DAILY #0 07/10/16 06/14/18 Dicyclomine [Bentyl] 10 mg PO BID #0 07/10/16 06/14/18 LORazepam [Ativan] 0.5 mg PO TID PRN #0 07/10/16 06/14/18 Losartan [Cozaar] 25 mg PO DAILY #0 07/10/16 06/14/18 Mirtazapine [Remeron] 15 mg PO HS #0 07/10/16 06/14/18 Oxygen 4 l NS AD #0 07/10/16 06/14/18 Salmeterol Xinafoate [Serevent 1 puff IH BID #0 07/10/16 06/14/18 Diskus] Tiotropium [place] [Spiriva 2 puff IH DAILY #0 07/10/16 06/14/18 Respimat] Tramadol HCl [Ultram] 50 mg PO TID PRN #0 07/10/16 06/14/18 Esomeprazole Magnesium [Nexium] 40 mg PO DAILY 12/31/16 06/14/18 Tizanidine HCl 4 mg PO TID PRN 12/31/16 06/14/18 Albuterol Neb [Proventil Neb] 2.5 mg IH Q4HR PRN 06/14/18 06/14/18 Amitriptyline [Elavil] 10 mg PO DAILY 06/14/18 06/14/18 Buspirone HCl [Buspar] 30 mg PO BID 06/14/18 06/14/18 Divalproex Sodium [Depakote 250 mg PO HS 06/14/18 06/14/18 Sprinkle] Divalproex Sodium [Depakote 375 mg PO QAM 06/14/18 06/14/18 Sprinkle] Fluticasone Propionate Nasal 1 spray NS DAILY 06/14/18 06/14/18 [Flonase] Fluticasone Propionate [Flovent 2 puff IH BID 06/14/18 06/14/18 Hfa] Gabapentin [Neurontin] 800 mg PO TID 06/14/18 06/14/18 Quetiapine Fumarate [SEROquel] 50 - 100 mg PO HS PRN 06/14/18 06/14/18 Roflumilast [Daliresp] 500 mcg PO DAILY 06/14/18 06/14/18 Sucralfate [Carafate] 1 gm PO TID 06/14/18 06/14/18 cloNIDine HCl [CloNIDine HCl] 0.1 mg PO TID PRN 06/14/18 06/14/18 Previous Rx's Medication Instructions Recorded Acetaminophen [Acetaminophen ER] 650 mg PO Q4-6H PRN #30 tablet.er 05/31/18 Azithromycin 250 mg PO DAILY #3 tablet 06/14/18 Nicotine Patch [Nicoderm] 21 mg TD DAILY #3 patch.td24 06/14/18 Allergies/Adverse Reactions: Allergies Allergy/AdvReac Type Severity Reaction Status Date / Time alprazolam [From Xanax] Allergy Itching Verified 05/31/18 13:30 bupropion [From Wellbutrin] Allergy Itching Verified 05/31/18 13:30 doxycycline Allergy Nausea Verified 05/31/18 13:30 Ethyl Chloride Allergy Itching Verified 05/31/18 13:30 fexofenadine [From Fannie] Allergy Itching Verified 05/31/18 13:30 hydroxyzine Allergy Hallucinati Verified 05/31/18 13:30 ng Procaine [From Novocain] Allergy Rash Verified 05/31/18 13:30 Penicillins AdvReac Itching Verified 05/31/18 13:30 All systems ED: reviewed and negative except as stated. Review of Systems: As Per HPI Constitutional: Denies: fever, chills, weakness, weight change Eyes: Denies: eye pain, eye discharge, vision change ENT ED: Denies: ear pain, throat pain, dental pain, hearing loss, epistaxis, congestion, dysphagia Cardiovascular: Denies: chest pain, palpitations, dyspnea on exertion, edema, syncope Respiratory: Reports: as per HPI, dyspnea. Denies: cough, wheezes, hemoptysis, stridor, sputum production Gastrointestinal: Denies: abdominal pain, nausea, vomiting, diarrhea, constipation, hematemesis, melena, hematochezia Genitourinary: Denies: dysuria, frequency, hematuria, discharge Musculoskeletal: Reports: as per HPI, other ("Twitching of the legs"). Denies: back pain, neck pain, arthralgia, myalgia Integumentary: Denies: rash, abrasion, lesions Neurological: Denies: headache, weakness, numbness, paresthesias, confusion, abnormal gait, vertigo Psychiatric: Reports: as per HPI, anxiety. Denies: depression, suicidal thoughts, homicidal thoughts, auditory hallucinations, visual hallucinations Endocrine: Denies: fatigue Hematological/Lymphatic: Denies: easy bleeding, easy bruising Allergic/Immunologic: Denies: facial swelling, urticaria Past Medical History - Past Medical History Attestation: Yes The following information was validated with the patient. Source: patient, nursing notes reviewed Medical history: Reports: arthritis, asthma, COPD, other Surgical history: Reports: appendectomy, orthopedic, other, other Psychiatric history: Reports: anxiety, bipolar, depression, panic disorder, PTSD - Social History Smoking Status: Current every day smoker Smokeless Tobacco Status: No Alcohol use: Reports: none Drug use: Reports: none Physical Exam - General Limitations: no limitations General appearance: alert, in no apparent distress - Head Head exam: atraumatic, normocephalic, normal inspection - Eye Eye exam: Present: normal appearance, PERRL, EOMI. Absent: nystagmus - ENT ENT exam: mucous membranes moist - Neck Neck exam: Present: normal inspection, full ROM - Chest Chest inspection: Present: normal inspection, symmetric chest wall rise - Respiratory Respiratory exam: Present: normal lung sounds bilaterally. Absent: respiratory distress, wheezes, stridor, accessory muscle use, prolonged expiratory phase - Cardiovascular Cardiovascular exam: Present: regular rate, normal rhythm, normal heart sounds - Abdominal Exam Abdominal exam: Present: soft, Non-Tender, normal bowel sounds - Extremities Exam Extremities exam: Present: normal inspection, full ROM - Neurological Exam Neurological exam: Present: alert, oriented X3 - Psychiatric Psychiatric exam: Present: anxious - Skin Skin exam: Present: warm, dry, intact, normal color. Absent: rash Course Course Narrative: I spoke with Dr. Toth, admitting hospitalist. He is except the patient for further management of her dyspnea, hypokalemia, and anxiety. I discussed this plan with Dr. Limon. Dr. Limon Has had a [id number] evaluation with the patient and agrees with this plan. Vital Signs Temperature 98.1 F 06/25/18 00:14 Pulse Rate 102 06/25/18 00:14 Respiratory Rate 17 06/25/18 00:14 Blood Pressure 91/77 06/25/18 00:14 O2 Sat by Pulse Oximetry 100 06/25/18 00:14 Temperature 98.1 F 06/25/18 00:14 Pulse Rate 95 06/25/18 01:53 Respiratory Rate 20 06/25/18 01:53 Blood Pressure 112/77 06/25/18 01:53 O2 Sat by Pulse Oximetry 99 06/25/18 01:53 Oxygen Delivery Oxygen Delivery Simple Mask Anxiety - Medical Records Medical records reviewed: Yes I reviewed the patient's medical records. - Lab Data Lab results reviewed: Yes I reviewed the patient's lab results. Lab results narrative: Lab Results 06/25/18 06/25/18 06/25/18 Range/Units 00:07 00:07 00:07 WBC 4.1 L (4.3-11.1) K/mcL RBC 3.52 L (3.82-4.97) M/mcL Hgb 10.3 L (11.5-15.4) g/dL Hct 31.7 L (35.3-44.9) % MCV 90.1 (83.0-100.0) fL MCH 29.3 (28.0-33.3) pg MCHC 32.5 (31.6-35.5) g/dL RDW 13.2 (11.5-14.5) % Plt Count 139 L (140-400) K/mcL MPV 10.6 (9.4-12.4) fL Immature Gran % 0.2 (0-4) % Seg Neutrophils % 51.4 % Lymphocytes % 35.9 % Monocytes % 10.8 % Eosinophils % 1.2 % Basophils % 0.5 % Neutrophils # 2.1 (1.6-8.9) K/mcL Lymphocytes # 1.5 (0.6-4.6) K/mcL Monocytes # 0.4 (0.0-1.3) K/mcL Eosinophils # 0.1 (0.0-0.6) K/mcL Basophils # 0.0 (0.0-0.2) K/mcL Sodium 141 (136-145) mEq/L Potassium 2.9 L (3.5-5.1) mEq/L Chloride 99 (98-107) mEq/L Carbon Dioxide 34 H (23-29) mEq/L BUN 4 L (8-23) mg/dL Creatinine 0.61 (0.60-1.20) mg/dL Est GFR ( Amer) > 60 (> 60) Est GFR (Non-Af Amer) > 60 (> 60) BUN/Creatinine Ratio 7 (6-26) Glucose 124 H (70-105) mg/dL Calculated Osmolality 290 (280-300) Calcium 8.2 L (8.6-10.3) mg/dL Troponin I < 0.03 (< 0.04) ng/mL TSH 0.456 (0.340-5.600) mcIU/mL Salicylates < 2.5 L (15.0-30.0) mg/dL Acetaminophen < 10 L (10-20) mcg/mL Ethyl Alcohol < 10 (Less than 10) mg/dL Result diagrams: 06/25/18 00:07 06/25/18 00:07 Lab Results 06/25/18 06/25/18 06/25/18 Range/Units 00:07 00:07 00:07 WBC 4.1 L (4.3-11.1) K/mcL RBC 3.52 L (3.82-4.97) M/mcL Hgb 10.3 L (11.5-15.4) g/dL Hct 31.7 L (35.3-44.9) % MCV 90.1 (83.0-100.0) fL MCH 29.3 (28.0-33.3) pg MCHC 32.5 (31.6-35.5) g/dL RDW 13.2 (11.5-14.5) % Plt Count 139 L (140-400) K/mcL MPV 10.6 (9.4-12.4) fL Immature Gran % 0.2 (0-4) % Seg Neutrophils % 51.4 % Lymphocytes % 35.9 % Monocytes % 10.8 % Eosinophils % 1.2 % Basophils % 0.5 % Neutrophils # 2.1 (1.6-8.9) K/mcL Lymphocytes # 1.5 (0.6-4.6) K/mcL Monocytes # 0.4 (0.0-1.3) K/mcL Eosinophils # 0.1 (0.0-0.6) K/mcL Basophils # 0.0 (0.0-0.2) K/mcL Sodium 141 (136-145) mEq/L Potassium 2.9 L (3.5-5.1) mEq/L Chloride 99 (98-107) mEq/L Carbon Dioxide 34 H (23-29) mEq/L BUN 4 L (8-23) mg/dL Creatinine 0.61 (0.60-1.20) mg/dL Est GFR ( Amer) > 60 (> 60) Est GFR (Non-Af Amer) > 60 (> 60) BUN/Creatinine Ratio 7 (6-26) Glucose 124 H (70-105) mg/dL Calculated Osmolality 290 (280-300) Calcium 8.2 L (8.6-10.3) mg/dL Troponin I < 0.03 (< 0.04) ng/mL TSH 0.456 (0.340-5.600) mcIU/mL Salicylates < 2.5 L (15.0-30.0) mg/dL Acetaminophen < 10 L (10-20) mcg/mL Ethyl Alcohol < 10 (Less than 10) mg/dL - Radiology Data Radiology results reviewed: Yes I reviewed the patient's radiology results. Chest X-Ray 06/24/18 23:39 IMPRESSION: No acute process. D/ / Mak Funk MD / Mak Funk MD Interpreting Provider: Mak Funk MD - EKG Data EKG attestation: Yes I reviewed and interpreted this EKG. EKG results narrative: EKG shows sinus tachycardia at a rate of 107 bpm. ME interval 132, QRS duration 95, QT/QTc interval 351/469. No ectopy noted. No ST elevation.
[2018-06-25 00:29] LABS: Basophils % 0.5 %; Eosinophils # 0.1 K/mcL (0.0-0.6); Eosinophils % 1.2 %; Hematocrit 31.7 % (35.3-44.9); Hemoglobin 10.3 g/dL (11.5-15.4); Immature Granulocytes % 0.2 % (0-4); Lymphocytes # 1.5 K/mcL (0.6-4.6); Lymphocytes % 35.9 %; Mean Corpuscular HGB Conc 32.5 g/dL (31.6-35.5); Mean Corpuscular Hemoglobin 29.3 pg (28.0-33.3); Mean Corpuscular Volume 90.1 fL (83.0-100.0); Mean Platelet Volume 10.6 fL (9.4-12.4); Monocytes # 0.4 K/mcL (0.0-1.3); Monocytes % 10.8 %; Neutrophils # 2.1 K/mcL (1.6-8.9); Platelet Count 139 K/mcL (140-400); Red Blood Count 3.52 M/mcL (3.82-4.97); Red Cell Distribution Width 13.2 % (11.5-14.5); Segmented Neutrophils % 51.4 %
[2018-06-25 00:46] LABS: Acetaminophen < 10 mcg/mL (10-20); BUN/Creatinine Ratio 7 (6-26); Blood Urea Nitrogen 4 mg/dL (8-23); Calcium 8.2 mg/dL (8.6-10.3); Carbon Dioxide 34 mEq/L (23-29); Chloride 99 mEq/L (98-107); Ethanol < 10 mg/dL (Less than 10); Glucose 124 mg/dL (70-105); Osmolality,Calculated 290 (280-300); Potassium 2.9 mEq/L (3.5-5.1); Salicylate < 2.5 mg/dL (15.0-30.0); Sodium 141 mEq/L (136-145); eGFR For Non-African Americans > 60 (> 60)
[2018-06-25 00:58] LABS: Thyroid Stimulating Hormone 0.456 mcIU/mL (0.340-5.600)
[2018-06-25] MEDS ORDERED: Potassium Chloride 40 MEQ, Lidocaine 1% 2 ML in D5% in Water 500 ML IVPB ONE (01:13)
[2018-06-25] MEDS ORDERED: 0.9 % Sodium Chloride 1,000 ML IVC ONE (01:20)
[2018-06-25] MEDS ORDERED: methylPREDNISolone 125 MG/2 ML VIAL IVP ONE (01:42)
--- NOTE | 2018-06-25 01:42 | Emergency Department Note ---
Disposition Clinical Impression: COPD exacerbation, Hypokalemia, Smoking Disposition: Admitted As Inpatient Condition: Good Referrals: NONE,PCP [Primary Care Provider] - General Adult HPI - General Chief complaint: ED Psychiatric Symptoms Stated complaint: anxiety Time Seen by Provider: 06/24/18 23:27 Source: patient, EMS Mode of arrival: EMS Limitations: no limitations - History of Present Illness Pain Scale: 0 - Related Data Home Medications Medication Instructions Recorded Confirmed Cetirizine HCl [Zyrtec] 10 mg PO DAILY #0 07/10/16 06/14/18 Dicyclomine [Bentyl] 10 mg PO BID #0 07/10/16 06/14/18 LORazepam [Ativan] 0.5 mg PO TID PRN #0 07/10/16 06/14/18 Losartan [Cozaar] 25 mg PO DAILY #0 07/10/16 06/14/18 Mirtazapine [Remeron] 15 mg PO HS #0 07/10/16 06/14/18 Oxygen 4 l NS AD #0 07/10/16 06/14/18 Salmeterol Xinafoate [Serevent 1 puff IH BID #0 07/10/16 06/14/18 Diskus] Tiotropium [place] [Spiriva 2 puff IH DAILY #0 07/10/16 06/14/18 Respimat] Tramadol HCl [Ultram] 50 mg PO TID PRN #0 07/10/16 06/14/18 Esomeprazole Magnesium [Nexium] 40 mg PO DAILY 12/31/16 06/14/18 Tizanidine HCl 4 mg PO TID PRN 12/31/16 06/14/18 Albuterol Neb [Proventil Neb] 2.5 mg IH Q4HR PRN 06/14/18 06/14/18 Amitriptyline [Elavil] 10 mg PO DAILY 06/14/18 06/14/18 Buspirone HCl [Buspar] 30 mg PO BID 06/14/18 06/14/18 Divalproex Sodium [Depakote 250 mg PO HS 06/14/18 06/14/18 Sprinkle] Divalproex Sodium [Depakote 375 mg PO QAM 06/14/18 06/14/18 Sprinkle] Fluticasone Propionate Nasal 1 spray NS DAILY 06/14/18 06/14/18 [Flonase] Fluticasone Propionate [Flovent 2 puff IH BID 06/14/18 06/14/18 Hfa] Gabapentin [Neurontin] 800 mg PO TID 06/14/18 06/14/18 Quetiapine Fumarate [SEROquel] 50 - 100 mg PO HS PRN 06/14/18 06/14/18 Roflumilast [Daliresp] 500 mcg PO DAILY 06/14/18 06/14/18 Sucralfate [Carafate] 1 gm PO TID 06/14/18 06/14/18 cloNIDine HCl [CloNIDine HCl] 0.1 mg PO TID PRN 06/14/18 06/14/18 Previous Rx's Medication Instructions Recorded Acetaminophen [Acetaminophen ER] 650 mg PO Q4-6H PRN #30 tablet.er 05/31/18 Azithromycin 250 mg PO DAILY #3 tablet 06/14/18 Nicotine Patch [Nicoderm] 21 mg TD DAILY #3 patch.td24 06/14/18 Allergies Allergy/AdvReac Type Severity Reaction Status Date / Time alprazolam [From Xanax] Allergy Itching Verified 05/31/18 13:30 bupropion [From Wellbutrin] Allergy Itching Verified 05/31/18 13:30 doxycycline Allergy Nausea Verified 05/31/18 13:30 Ethyl Chloride Allergy Itching Verified 05/31/18 13:30 fexofenadine [From Fannie] Allergy Itching Verified 05/31/18 13:30 hydroxyzine Allergy Hallucinati Verified 05/31/18 13:30 ng Procaine [From Novocain] Allergy Rash Verified 05/31/18 13:30 Penicillins AdvReac Itching Verified 05/31/18 13:30 Constitutional: Denies: fever, chills, weakness, weight change Eyes: Denies: eye pain, eye discharge, vision change ENT ED: Denies: ear pain, throat pain, dental pain, hearing loss, epistaxis, congestion, dysphagia Cardiovascular: Denies: chest pain, palpitations, dyspnea on exertion, edema, syncope Respiratory: Reports: as per HPI, dyspnea. Denies: cough, wheezes, hemoptysis, stridor, sputum production Gastrointestinal: Denies: abdominal pain, nausea, vomiting, diarrhea, constipation, hematemesis, melena, hematochezia Genitourinary: Denies: dysuria, frequency, hematuria, discharge Musculoskeletal: Reports: as per HPI, other ("Twitching of the legs"). Denies: back pain, neck pain, arthralgia, myalgia Integumentary: Denies: rash, abrasion, lesions Neurological: Denies: headache, weakness, numbness, paresthesias, confusion, abnormal gait, vertigo Psychiatric: Reports: as per HPI, anxiety. Denies: depression, suicidal thoughts, homicidal thoughts, auditory hallucinations, visual hallucinations Endocrine: Denies: fatigue Hematological/Lymphatic: Denies: easy bleeding, easy bruising Allergic/Immunologic: Denies: facial swelling, urticaria Past Medical History - Past Medical History Medical history: Reports: arthritis, asthma, COPD, other Surgical history: Reports: appendectomy, orthopedic, other, other Psychiatric history: Reports: anxiety, bipolar, depression, panic disorder, PTSD CONSULTING SOLUTION MANAGER history: Reports: no CONSULTING SOLUTION MANAGER history - Social History Smoking Status: Current every day smoker Smokeless Tobacco Status: No Alcohol use: Reports: none Drug use: Reports: none Physical Exam - General Limitations: no limitations General appearance: alert, in no apparent distress Course Vital Signs Temperature 98.1 F 06/25/18 00:14 Pulse Rate 102 06/25/18 00:14 Respiratory Rate 17 06/25/18 00:14 Blood Pressure 91/77 06/25/18 00:14 O2 Sat by Pulse Oximetry 100 06/25/18 00:14 Temperature 98.1 F 06/25/18 00:14 Pulse Rate 112 06/25/18 01:03 Respiratory Rate 20 06/25/18 01:03 Blood Pressure 110/76 06/25/18 01:03 O2 Sat by Pulse Oximetry 91 06/25/18 01:03 Oxygen Delivery Oxygen Delivery Simple Mask Medical Decision Making - MDM Narrative Medical decision making narrative: Chest x-ray was normal. EKG showed some sinus tachycardia. No signs acute ischemia. - Medical Records Medical records reviewed: Yes I reviewed the patient's medical records. - Lab Data Lab results reviewed: Yes I reviewed the patient's lab results. Result diagrams: 06/25/18 00:07 06/25/18 00:07 Lab Results 06/25/18 06/25/18 06/25/18 Range/Units 00:07 00:07 00:07 WBC 4.1 L (4.3-11.1) K/mcL RBC 3.52 L (3.82-4.97) M/mcL Hgb 10.3 L (11.5-15.4) g/dL Hct 31.7 L (35.3-44.9) % MCV 90.1 (83.0-100.0) fL MCH 29.3 (28.0-33.3) pg MCHC 32.5 (31.6-35.5) g/dL RDW 13.2 (11.5-14.5) % Plt Count 139 L (140-400) K/mcL MPV 10.6 (9.4-12.4) fL Immature Gran % 0.2 (0-4) % Seg Neutrophils % 51.4 % Lymphocytes % 35.9 % Monocytes % 10.8 % Eosinophils % 1.2 % Basophils % 0.5 % Neutrophils # 2.1 (1.6-8.9) K/mcL Lymphocytes # 1.5 (0.6-4.6) K/mcL Monocytes # 0.4 (0.0-1.3) K/mcL Eosinophils # 0.1 (0.0-0.6) K/mcL Basophils # 0.0 (0.0-0.2) K/mcL Sodium 141 (136-145) mEq/L Potassium 2.9 L (3.5-5.1) mEq/L Chloride 99 (98-107) mEq/L Carbon Dioxide 34 H (23-29) mEq/L BUN 4 L (8-23) mg/dL Creatinine 0.61 (0.60-1.20) mg/dL Est GFR ( Amer) > 60 (> 60) Est GFR (Non-Af Amer) > 60 (> 60) BUN/Creatinine Ratio 7 (6-26) Glucose 124 H (70-105) mg/dL Calculated Osmolality 290 (280-300) Calcium 8.2 L (8.6-10.3) mg/dL Troponin I < 0.03 (< 0.04) ng/mL TSH 0.456 (0.340-5.600) mcIU/mL Salicylates < 2.5 L (15.0-30.0) mg/dL Acetaminophen < 10 L (10-20) mcg/mL Ethyl Alcohol < 10 (Less than 10) mg/dL - Radiology Data Radiology results reviewed: Yes I reviewed the patient's radiology results. Attestation Statement - Attestation Attestation: I examined this patient and my medical decision-making was reviewed with the BASEBALL HAND SEWER. I agree with the documented findings, disposition and treatment plan as described except to the extent set forth below. 62-year-old female presents from home for shortness of breath and some muscle cramping. States she smokes about a pack or more a day of cigarettes. She is a history of COPD. She states she has been more short of breath lately. Her workup here revealed a low potassium of 2.9. Patient will be admitted for shortness of breath and evaluation for COPD as well as treatment of her potassium.
[2018-06-25 02:34] LABS: Magnesium 1.5 mg/dL (1.6-2.6)
[2018-06-25 04:59] VITALS: BP 142/82
[2018-06-25 05:56] LABS: Bilirubin,Urine Negative (Negative); Blood,Urine Negative (Negative); Clarity,Urine Clear (Clear); Color,Urine Yellow (Yellow); Glucose,Urine (UA) Normal (Normal); Ketones,Urine Negative (Negative); Leukocyte Esterase,Urine Negative (Negative); Nitrite,Urine Negative (Negative); Protein,Urine Negative (Neg-Trace); Specific Gravity,Urine < 1.005 (1.010-1.025); Urobilinogen,Urine Normal (Normal)
[2018-06-25] MEDS ORDERED: Albuterol 2.5 MG/3 ML NEBULIZER IH PRN (05:58)
[2018-06-25 06:01] LABS: Amphetamine Screen,Urine Negative ng/mL (Cutoff=1000); Barbiturate Screen,Urine Negative ng/mL (Cutoff=200)
[2018-06-25 06:02] LABS: Benzodiazepines Screen,Urine Positive ng/mL (Cutoff=300); Cannabinoid Screen,Urine Negative ng/mL (Cutoff = 50); Cocaine Screen,Urine Negative ng/mL (Cutoff= 300); Opiate Screen,Urine Negative ng/mL (Cutoff=300); Phencyclidine Screen,Urine Negative ng/mL (Cutoff=25)
[2018-06-25] MEDS ORDERED: *HR* LORazepam 0.5 MG TABLET PO PRN (06:03)
[2018-06-25] MEDS ORDERED: predniSONE 20 MG TABLET PO SCH (09:00)
[2018-06-25] MEDS ORDERED: Ipratropium/Albuterol Neb 3 ML IH SCH (11:00)
--- NOTE | 2018-06-25 20:13 | Event Note ---
Date of Encounter: 06/25/18 Time of Encounter: 06:00 Patient was admitted earlier in the morning for COPD exacerbation, however upon arrival to her hospital room she indicated that she wanted to leave AGAINST MEDICAL ADVICE. I was not able to see the patient prior to her departure. Nursing staff informed her that risks of going home AGAINST MEDICAL ADVICE could include worsening symptoms and . Patient signed AMA paperwork and left the hospital.
--- NOTE | 2018-06-26 12:36 | Electrocardiograph Report ---
[place] [id number] Test Date: 2018-06-25 Pat Name: Starla Summer Department: [id number] Room: 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
== END 2018-06-25 07:48 | disposition left against medical advice (07) ==
LOC: 2SOUTHHOLD 23:22 → EMEROOARM 23:22 → 2SOUTHHOLD 06-25 04:31
PROVIDERS: ADMIT Family Medicine; ATTEND Family Medicine

== ENCOUNTER 2018-12-01 19:05 | Observation (INO) ==
--- NOTE | 2018-12-01 20:58 | Emergency Department Note ---
Disposition Clinical Impression: Acute anxiety, Generalized anxiety disorder Disposition: Admitted As Inpatient Condition: Fair Referrals: NONE,PCP [Primary Care Provider] - Time of Disposition: 21:01 General Adult HPI - General Chief complaint: ED Shortness of Breath/Dyspnea Stated complaint: Alexia Time Seen by Provider: 12/01/18 19:06 Source: patient Mode of arrival: EMS Limitations: no limitations Nursing Notes Reviewed: Yes Vital Signs Reviewed: Yes - History of Present Illness HPI Narrative: Patient presented emergency department with chief complaint of anxiety. I just discharged this patient after a significant extended workup in the emergency department in regards to her anxiety, with multiple phone calls to psychiatry, social service manager, and patient's medical power of insurance attorney, she was deemed to have capacity, when evaluated by psychiatric resident and attending, and did not meet any reason for psychiatric evaluation and admission as she is not suicidal she is not homicidal. She states that as soon as she got home she felt anxious and so she had to call the paramedics to bring her right back to the emergency department. She felt short of breath when she was at home and was very anxious and scared so she came back. She states now she has no symptoms she is not short of breath she is not currently anxious now that she is back in the emergency department. She has no current complaints. She denies chest pain shortness breath dizziness or weakness. I had a long conversation with her asking what it was that I could help her with because when I saw her earlier and we spoke with her medical power of insurance attorney they requested that she be placed in a long-term facility the patient adamantly states that she will not do that. The patient again was deemed to have capacity by psychiatry earlier today, and states that she will not go to a long-term facility. I told her that she cannot live in the emergency department and that she does not meet any admission criteria to the hospital, and asked her again Y every time we discharge her when she states that she wants to go home that she called the paramedics as soon as she gets home and she states because she is too anxious to be by herself at her home, but I asked her if she wants to go home and she states yes she wants to go home and does not know why she keeps calling the paramedics every time she gets home. Pain Scale: 0 - Related Data Home Medications Medication Instructions Recorded Confirmed Cetirizine HCl [Zyrtec] 10 mg PO DAILY #0 07/10/16 12/01/18 LORazepam [Ativan] 0.5 mg PO HS #0 07/10/16 12/01/18 Losartan [Cozaar] 25 mg PO DAILY #0 07/10/16 12/01/18 Mirtazapine [Remeron] 15 mg PO HS #0 07/10/16 12/01/18 Oxygen 4 l NS AD #0 07/10/16 12/01/18 Salmeterol Xinafoate [Serevent 1 puff IH BID #0 07/10/16 12/01/18 Diskus] Tiotropium [place] [Spiriva 2 puff IH DAILY #0 07/10/16 12/01/18 Respimat] Esomeprazole Magnesium [Nexium] 40 mg PO DAILY 12/31/16 12/01/18 Tizanidine HCl 4 mg PO TID PRN 12/31/16 12/01/18 Albuterol Neb [Proventil Neb] 2.5 mg IH Q4HR PRN 06/14/18 12/01/18 Amitriptyline [Elavil] 10 mg PO DAILY 06/14/18 12/01/18 Buspirone HCl [Buspar] 30 mg PO BID 06/14/18 12/01/18 Divalproex Sodium [Depakote 250 mg PO TID 06/14/18 12/01/18 Sprinkle] Fluticasone Propionate Nasal 1 spray NS DAILY 06/14/18 12/01/18 [Flonase] Fluticasone Propionate [Flovent 2 puff IH BID 06/14/18 12/01/18 Hfa] Gabapentin [Neurontin] 800 mg PO TID 06/14/18 12/01/18 Quetiapine Fumarate [SEROquel] 50 - 100 mg PO HS PRN 06/14/18 12/01/18 Roflumilast [Daliresp] 500 mcg PO DAILY 06/14/18 12/01/18 cloNIDine HCl [CloNIDine HCl] 0.1 mg PO TID PRN 06/14/18 12/01/18 Previous Rx's Medication Instructions Recorded Quetiapine Fumarate [SEROquel] 12.5 mg PO 2-3XD PRN #8 tablet 06/15/19 Allergies Allergy/AdvReac Type Severity Reaction Status Date / Time alprazolam [From Xanax] Allergy Itching Verified 11/30/18 21:00 bupropion [From Wellbutrin] Allergy Itching Verified 11/30/18 21:00 doxycycline Allergy Nausea Verified 11/30/18 21:00 Ethyl Chloride Allergy Itching Verified 11/30/18 21:00 fexofenadine [From Fannie] Allergy Itching Verified 11/30/18 21:00 hydroxyzine Allergy Hallucinati Verified 11/30/18 21:00 ng Procaine [From Novocain] Allergy Rash Verified 11/30/18 21:00 Penicillins AdvReac Itching Verified 11/30/18 21:00 Past Medical History - Past Medical History Medical history: Reports: arthritis, asthma, COPD, other Surgical history: Reports: appendectomy, orthopedic, other, other Psychiatric history: Reports: anxiety, bipolar, other WORKPLACE REHABILITATION OFFICER history: Reports: no WORKPLACE REHABILITATION OFFICER history - Social History Smoking Status: Current every day smoker Smokeless Tobacco Status: No Alcohol use: Reports: none Drug use: Reports: none Physical Exam - General Limitations: no limitations General appearance: alert, in no apparent distress, anxious - Head Head exam: atraumatic, normocephalic - Eye Eye exam: Present: normal appearance, PERRL - ENT ENT exam: normal exam, normal oropharynx - Neck Neck exam: Present: normal inspection, full ROM - Chest Chest inspection: Present: normal inspection, symmetric chest wall rise - Respiratory Respiratory exam: Present: normal lung sounds bilaterally - Cardiovascular Cardiovascular exam: Present: regular rate, normal rhythm - Abdominal Exam Abdominal exam: Present: soft, Non-Tender - Extremities Exam Extremities exam: Present: normal inspection, full ROM. Absent: tenderness - Expanded Lower Extremity Exam Hip/Pelvis exam: Present: normal inspection, full ROM Foot/toe exam: Present: normal inspection, full ROM Neurovascular/Tendon exam: Present: normal capillary refill. Absent: pulse deficit Gait: observed and normal, other (Without hypoxia during exertion) - Back Exam Back exam: Present: normal inspection, full ROM. Absent: tenderness, CVA tenderness (R), CVA tenderness (L), paraspinal tenderness - Neurological Exam Neurological exam: Present: alert, oriented X3, CN II-XII intact, normal gait. Absent: motor sensory deficit - Psychiatric Psychiatric exam: Present: anxious - Skin Skin exam: Present: warm, dry, intact, normal color Course Vital Signs Temperature 99.1 F 12/01/18 19:20 Pulse Rate 98 12/01/18 19:20 Respiratory Rate 16 12/01/18 19:20 Blood Pressure 127/80 12/01/18 19:20 O2 Sat by Pulse Oximetry 98 12/01/18 19:20 Temperature 99.1 F 12/01/18 19:20 Pulse Rate 98 12/01/18 19:20 Respiratory Rate 16 12/01/18 19:20 Blood Pressure 127/80 12/01/18 19:20 O2 Sat by Pulse Oximetry 98 12/01/18 19:20 Oxygen Delivery Oxygen Delivery Room Air Medical Decision Making - MDM Narrative Medical decision making narrative: I contacted social service manager who was involved in this patient's care all throughout today, during her last visit to the emergency department, she states that she does not know what to do with this patient currently, she would recommend potentially a psychiatric hold on the patient secondary to her profound anxiety and inability to stop return to the emergency department for anxiety, but she does not have any other answers I spoke with psychiatric intake team who requested that I speak with Dr. Vázquez with the psychiatry team, I spoke with her, she states that this patient does not meet criteria for a psychiatric hold but that she would be willing to voluntarily admit this patient, so that they can get a team involved to help figure things out with her which may include aggressive outpatient case management and home help. After a long conversation with the patient she is agreeable to being voluntary overnight to psychiatry. Basic laboratory studies were ordered at the request of psychiatry and the patient will be admitted to psychiatry for further management of profound anxiety. - Medical Records Medical records reviewed: Yes I reviewed the patient's medical records. - Lab Data Lab results reviewed: Yes I reviewed the patient's lab results. - Radiology Data Radiology results reviewed: Yes I reviewed the patient's radiology results.
[2018-12-01 21:17] LABS: Basophils % 0.2 %; Eosinophils % 0.1 %; Hematocrit 35.7 % (35.3-44.9); Hemoglobin 11.8 g/dL (11.5-15.4); Immature Granulocytes % 0.5 % (0-4); Lymphocytes # 1.6 K/mcL (0.6-4.6); Lymphocytes % 18.9 %; Mean Corpuscular HGB Conc 33.1 g/dL (31.6-35.5); Mean Corpuscular Hemoglobin 29.3 pg (28.0-33.3); Mean Corpuscular Volume 88.6 fL (83.0-100.0); Mean Platelet Volume 8.9 fL (9.4-12.4); Monocytes # 1.2 K/mcL (0.0-1.3); Monocytes % 13.7 %; Neutrophils # 5.8 K/mcL (1.6-8.9); Platelet Count 246 K/mcL (140-400); Red Blood Count 4.03 M/mcL (3.82-4.97); Red Cell Distribution Width 14.4 % (11.5-14.5); Segmented Neutrophils % 66.6 %; White Blood Count 8.7 K/mcL (4.3-11.1)
[2018-12-01 21:36] LABS: Acetaminophen < 10 mcg/mL (10-20); Alanine Aminotransferase 6 Units/L (7-52); Albumin/Globulin Ratio 1.5 (1.1-2.2); Alkaline Phosphatase 92 Units/L (34-104); Aspartate Amino Transferase 16 Units/L (13-39); BUN/Creatinine Ratio 19 (6-26); Bilirubin,Direct 0.1 mg/dL (0.0-0.2); Bilirubin,Indirect 0.3 mg/dL (0.0-1.2); Bilirubin,Total 0.4 mg/dL (0.3-1.0); Blood Urea Nitrogen 15 mg/dL (8-23); Calcium 9.2 mg/dL (8.6-10.3); Carbon Dioxide 26 mEq/L (23-29); Chloride 95 mEq/L (98-107); Ethanol < 10 mg/dL (Less than 10); Globulin 2.6 g/dL (2.4-3.5); Glucose 98 mg/dL (70-105); Osmolality,Calculated 271 (280-300); Potassium 3.7 mEq/L (3.5-5.1); Salicylate < 2.5 mg/dL (15.0-30.0); Sodium 130 mEq/L (136-145); Total Protein 6.6 g/dL (6.4-8.9); eGFR For African Americans > 60 (> 60); eGFR For Non-African Americans > 60 (> 60)
[2018-12-01] MEDS ORDERED: *HR* LORazepam 1 MG TABLET PO PRN (22:09)
[2018-12-01] MEDS ORDERED: Haloperidol Lactate 5 MG/ML VIAL IM PRN (22:09)
[2018-12-01] MEDS ORDERED: *HR* LORazepam 2 MG/ML VIAL IM PRN (22:09)
[2018-12-01] MEDS ORDERED: Mag Hydrox/Al Hydrox/Simeth 30 ML UDC PO PRN (22:09)
[2018-12-01] MEDS ORDERED: MOM Conc 10 ML UD.LIQ PO PRN (22:09)
[2018-12-01] MEDS ORDERED: Acetaminophen 325 MG TABLET PO PRN (22:09)
[2018-12-01] MEDS: Nicotine 14 MG PATCH.TD24 TD SCH (22:30)
[2018-12-01] MEDS: traZODone 50 MG TABLET PO PRN (23:13)
--- NOTE | 2018-12-02 09:50 | Psychiatry History & Physical ---
Date of Encounter: 12/02/18 Time of Encounter: 09:15 History of Present Illness Patient Stated Chief Complaint: "I don't like being restricted" Medicare Admission Attestation: For traditional Medicare patients the provided hospital inpatient services are reasonable and necessary and in the case of services not specified as inpatient-only under 42 CFR 419.22 (n), that they are appropriately provided as inpatient services in accordance 42 CFR 412.3. For Critical Access Hospital the patient may reasonably be expected to be discharged or transferred to a hospital within 96 hours after admission to the Critical Access Hospital. Admitted From: Emergency Dept History of Present Illness: Ms. Aguilera is a 63 year old female who presented to the emergency department via EMS 5 times in a course of 24 hours for anxiety. On the 4th time the psychiatry team saw her and determined she had capacity and was discharged. A few hours later she returned and the ER doctor convinced her to voluntarily admit herself onto the psychiatric unit for management of the anxiety. Staff reports that overnight she got aggressive and was banging on the window at the nurses station and was redirected to her room and patient slept. She awoke this morning and began doing the same thing and received IM haldol, benadryl, and ativan. Today when speaking with patient she was asked why she kept coming to the emergency department she states, "I probably decided I wanted out, I don't like being that restricted". Patient states she does not remember going to the ER yesterday and that she just wants to go home. When asked why she is on the psychiatric unit patient states, "I read an article and thought I'm going to investigate into it". 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 Patient admits that she has recently been having trouble sleeping at home and that it was worse last night. Patient denies any SI, HI, or AVH. Patient states she currently lives at home with her 8 cats and has little social support and that when something is wrong she has no one to call. She states she does see an outpatient psychiatrist but that she is in between providers now and isn't sure who she is going to see going forward. Client seems confused today. Has needed reoriented to location of room multiple times. Unable to use the phone correctly. Unable to say why she called emergency services so many times yesterday to bring her to the hospital. Reportedly lives in a home with multiple cats, no electricity, and no running water. Prescribed Depakote but VPA level low so likely has not been taking meds correctly. Reportedly has a POA. Will need to contact this person as client does not appear safe to return to independent living. Linked with [facility]. Will attempt to contact providers today to come up with an action plan. Client denies SI/HI/AH/VH. Does not need to be on an inpatient psych unit but no options for an immediate safe discharge plan. No family involvement or other supports. Past Med Surg Social Fam HX - Past Medical History Medical history: arthritis, asthma, COPD, other - Past Psychiatric History Psychiatric history: Reports: anxiety, bipolar, depression Past psychiatric history details: Patient admits to one previous suicide attempt 4-5 years ago but is unwilling to share more details. Patient also admits to being hospitalized many times before but states that her mast admission was so long ago she doesn't remember when it was. She also states she has been on so many psychiatric medications in her life she can't remember them all. In chart patient has a history of schizoaffective, patient denies this. Family psychiatric history: Yes Family Psychiatric History Details: Admits to an extensive history of schizophrenia and alcoholism Family History of Suicide: None - Past Surgical History Surgical History: appendectomy, orthopedic, other, other - Social History Smoking Status: Current every day smoker Packs per day: 1/2 Smokeless Tobacco Status: No Alcohol use: none Drug use: none - Family History Mother Living Status: Hx Family Cancer: Yes (lung) Sister Family Member Ethnicity: Non- Hx Family Endocrine Disorder: Yes (DM II) Medications & Allergies Cetirizine HCl [Zyrtec] 10 mg PO DAILY #0 07/10/16 [History] LORazepam [Ativan] 0.5 mg PO BID PRN #0 07/10/16 [History] Losartan [Cozaar] 25 mg PO DAILY #0 07/10/16 [History] Mirtazapine [Remeron] 15 mg PO HS #0 07/10/16 [History] Oxygen 4 l NS AD #0 07/10/16 [History] Salmeterol Xinafoate [Serevent Diskus] 1 puff IH BID #0 07/10/16 [History] Tiotropium [place] [Spiriva Respimat] 2 puff IH DAILY #0 07/10/16 [History] Esomeprazole Magnesium [Nexium] 40 mg PO DAILY 12/31/16 [History] Tizanidine HCl 4 mg PO TID PRN 12/31/16 [History] Albuterol Neb [Proventil Neb] 2.5 mg IH Q4HR PRN 06/14/18 [History] Amitriptyline [Elavil] 10 mg PO DAILY 06/14/18 [History] Buspirone HCl [Buspar] 30 mg PO BID 06/14/18 [History] Divalproex Sodium [Depakote Sprinkle] 250 mg PO TID 06/14/18 [History] Fluticasone Propionate Nasal [Flonase] 1 spray NS DAILY 06/14/18 [History] Fluticasone Propionate [Flovent Hfa] 2 puff IH BID 06/14/18 [History] Gabapentin [Neurontin] 800 mg PO BID 06/14/18 [History] Quetiapine Fumarate [SEROquel] 50 - 100 mg PO HS PRN 06/14/18 [History] Roflumilast [Daliresp] 500 mcg PO DAILY 06/14/18 [History] cloNIDine HCl [CloNIDine HCl] 0.1 mg PO TID PRN 06/14/18 [History] Quetiapine Fumarate [SEROquel] 12.5 mg PO 2-3XD PRN #8 tablet 10/30/18 [Rx] Allergy/AdvReac Type Severity Reaction Status Date / Time alprazolam [From Xanax] Allergy Itching Verified 11/30/18 21:00 bupropion [From Wellbutrin] Allergy Itching Verified 11/30/18 21:00 doxycycline Allergy Nausea Verified 11/30/18 21:00 Ethyl Chloride Allergy Itching Verified 11/30/18 21:00 fexofenadine [From Fannie] Allergy Itching Verified 11/30/18 21:00 hydroxyzine Allergy Hallucinati Verified 11/30/18 21:00 ng Procaine [From Novocain] Allergy Rash Verified 11/30/18 21:00 Penicillins AdvReac Itching Verified 11/30/18 21:00 Review of Systems Constitutional: Denies: fever, chills Eyes: Denies: eye pain, vision change Ears, Nose, Throat: Denies: congestion Cardiovascular: Denies: chest pain, edema Respiratory: Denies: cough Gastrointestinal: Denies: abdominal pain, nausea, vomiting Genitourinary female: Denies: urgency, dysuria, frequency, abnormal menses, dyspareunia Musculoskeletal: Denies: joint swelling, joint pain Integumentary: Denies: rash Neurological: Denies: weakness, numbness Psychiatric: Reports: depression, anxiety. Denies: suicidal ideation, auditory hallucinations, visual hallucinations Endocrine: Reports: fatigue Hematologic/Lymphatic: Denies: easy bruising, lymphadenopathy Allergic/Immunologic: Denies: facial swelling Exam - HEENT Head exam IM: Present: atraumatic, normal inspection Eye exam IM: Present: normal appearance ENT exam IM: Present: normal exam - Neurological Neurological exam: Present: alert - Respiratory Respiratory exam IM: Absent: accessory muscle use - GI/Abdominal GI/Abdominal exam IM: Present: normal bowel sounds, soft. Absent: tenderness - Extremities Extremities exam IM: Present: full ROM - Skin Skin exam IM: Absent: abrasion - Constitutional Vitals: Temp Pulse Resp BP Pulse Ox 98.9 F 99 16 133/91 96 12/01/18 22:20 12/01/18 22:20 12/01/18 22:20 12/01/18 22:20 12/01/18 22:20 General appearance: unkempt - Musculoskeletal Gait: slow, shuffling Station: relaxed Strength & Tone: normal for patient - Psychiatric Patient Orientation: Yes Person, Yes Time (Patient knows month and day, not year), Yes Place, No Circumstance (patient thinks she is here to write an investigative report ) Level of alertness: Alert Behavior: calm Psychomotor activity: Slowed Eye Contact: Maintains Eye Contact Mood Description: Anxious Patient description of mood: "Unwell" Affect description: blunted Speech Volume: Soft/Quiet Speech pattern: normal rate, normal rhythm, normal tone, fluent, spontaneous Language & Vocabulary: consistent with education Thought Process: Evasive Thought Content: Yes Overt delusions (believes she is an top coater) Perceptual Disturbances: No Auditory hallucinations, No Visual hallucinations Attention Span Ability: Capable of Focused Attention Memory Description: Immediate Impaired (doesn't remember ED visit yesterday), Recent Impaired, Remote Intact Patient Reliability: Not Reliable Historian Fund of knowledge: Yes below average Intelligence Estimate: Average Judgment: Poor Insight: Minimal Results - Drug Levels and Toxicology Drug Levels and Toxicology: Drug Levels and Toxicity 12/01/18 21:02 Acetaminophen < 10 L Ethyl Alcohol < 10 - Labs Labs: Laboratory Last Values WBC 8.7 K/mcL (4.3-11.1) 12/01/18 21:02 RBC 4.03 M/mcL (3.82-4.97) 12/01/18 21:02 Hgb 11.8 g/dL (11.5-15.4) 12/01/18 21:02 Hct 35.7 % (35.3-44.9) 12/01/18 21:02 MCV 88.6 fL (83.0-100.0) 12/01/18 21:02 MCH 29.3 pg (28.0-33.3) 12/01/18 21:02 MCHC 33.1 g/dL (31.6-35.5) 12/01/18 21:02 RDW 14.4 % (11.5-14.5) 12/01/18 21:02 Plt Count 246 K/mcL (140-400) 12/01/18 21:02 MPV 8.9 fL (9.4-12.4) L 12/01/18 21:02 Immature Gran % 0.5 % (0-4) 12/01/18 21:02 Seg Neutrophils % 66.6 % 12/01/18 21:02 Lymphocytes % 18.9 % 12/01/18 21:02 Monocytes % 13.7 % 12/01/18 21:02 Eosinophils % 0.1 % 12/01/18 21:02 Basophils % 0.2 % 12/01/18 21:02 Neutrophils # 5.8 K/mcL (1.6-8.9) 12/01/18 21:02 Lymphocytes # 1.6 K/mcL (0.6-4.6) 12/01/18 21:02 Monocytes # 1.2 K/mcL (0.0-1.3) 12/01/18 21:02 Eosinophils # 0.0 K/mcL (0.0-0.6) 12/01/18 21:02 Basophils # 0.0 K/mcL (0.0-0.2) 12/01/18 21:02 Sodium 130 mEq/L (136-145) L 12/01/18 21:02 Potassium 3.7 mEq/L (3.5-5.1) 12/01/18 21:02 Chloride 95 mEq/L (98-107) L 12/01/18 21:02 Carbon Dioxide 26 mEq/L (23-29) 12/01/18 21:02 BUN 15 mg/dL (8-23) 12/01/18 21:02 Creatinine 0.79 mg/dL (0.60-1.20) 12/01/18 21:02 Est GFR ( Amer) > 60 (> 60) 12/01/18 21:02 Est GFR (Non-Af Amer) > 60 (> 60) 12/01/18 21:02 BUN/Creatinine Ratio 19 (6-26) 12/01/18 21:02 Glucose 98 mg/dL (70-105) 12/01/18 21:02 Calculated Osmolality 271 (280-300) L 12/01/18 21:02 Calcium 9.2 mg/dL (8.6-10.3) 12/01/18 21:02 Total Bilirubin 0.4 mg/dL (0.3-1.0) 12/01/18 21:02 Direct Bilirubin 0.1 mg/dL (0.0-0.2) 12/01/18 21:02 Indirect Bilirubin 0.3 mg/dL (0.0-1.2) 12/01/18 21:02 AST 16 Units/L (13-39) 12/01/18 21:02 ALT 6 Units/L (7-52) L 12/01/18 21:02 Alkaline Phosphatase 92 Units/L (34-104) 12/01/18 21:02 Serum Total Protein 6.6 g/dL (6.4-8.9) 12/01/18 21:02 Albumin 4.0 g/dL (3.5-5.7) 12/01/18 21:02 Globulin 2.6 g/dL (2.4-3.5) 12/01/18 21:02 Albumin/Globulin Ratio 1.5 (1.1-2.2) 12/01/18 21:02 Salicylates < 2.5 mg/dL (15.0-30.0) L 12/01/18 21:02 Acetaminophen < 10 mcg/mL (10-20) L 12/01/18 21:02 Valproic Acid 21 mcg/mL (50-100) L 12/01/18 21:02 Ethyl Alcohol < 10 mg/dL (Less than 10) 12/01/18 21:02 Assessment and Plan (1) Bipolar disorder Current visit: No Status: Chronic Plan: Admit inpatient for safety and stabilization, Close observation, Suicide Precautions per unit protocol, Encourage participation in unit milieu, Group Therapy, Monitor sleep, Monitor appetite Additional Plan: Continue patient's home depakote 250mg TID. Patient's valproic acid levels currently subtherapeutic. Continue Buspar 30mg BID Continue Mirtazapine 15mg QHS Start trazadone 50mg QHS prn insomina Work with case management to develop an outpatient plan Risks, benefits, side effects, alternatives discussed w/pt: Yes Patient agreeable to treatment: Yes Plans for Post Hospital Care: Home Estimated Length of Stay (Days): 2 Qualifiers: Active/Remission status: currently active Current bipolar episode type: depressed Current episode severity: severe Psychotic features: with psychotic features Qualified Code(s): F31.5 - Bipolar disorder, current episode depressed, severe, with psychotic features
[2018-12-02] MEDS: traZODone 50 MG TABLET PO PRN (21:25)
[2018-12-02] MEDS: Nicotine 14 MG PATCH.TD24 TD SCH (21:27)
[2018-12-03 09:14] VITALS: BP 124/87
--- NOTE | 2018-12-03 10:21 | Discharge Summary ---
Date of Encounter: 12/03/18 Time of Encounter: 10:19 Diagnosis - Discharge Diagnosis (1) Bipolar disorder Status: Chronic Qualifiers: Active/Remission status: currently active Current bipolar episode type: depressed Current episode severity: severe Psychotic features: with psychotic features Qualified Code(s): F31.5 - Bipolar disorder, current episode depressed, severe, with psychotic features Medications - Discharge Medications Cetirizine HCl [Zyrtec] 10 mg PO DAILY #0 07/10/16 [History] LORazepam [Ativan] 0.5 mg PO BID PRN #0 07/10/16 [History] Losartan [Cozaar] 25 mg PO DAILY #0 07/10/16 [History] Mirtazapine [Remeron] 15 mg PO HS #0 07/10/16 [History] Oxygen 4 l NS AD #0 07/10/16 [History] Salmeterol Xinafoate [Serevent Diskus] 1 puff IH BID #0 07/10/16 [History] Tiotropium [place] [Spiriva Respimat] 2 puff IH DAILY #0 07/10/16 [History] Esomeprazole Magnesium [Nexium] 40 mg PO DAILY 12/31/16 [History] Tizanidine HCl 4 mg PO TID PRN 12/31/16 [History] Albuterol Neb [Proventil Neb] 2.5 mg IH Q4HR PRN 06/14/18 [History] Amitriptyline [Elavil] 10 mg PO DAILY 06/14/18 [History] Buspirone HCl [Buspar] 30 mg PO BID 06/14/18 [History] Divalproex Sodium [Depakote Sprinkle] 250 mg PO TID 06/14/18 [History] Fluticasone Propionate Nasal [Flonase] 1 spray NS DAILY 06/14/18 [History] Fluticasone Propionate [Flovent Hfa] 2 puff IH BID 06/14/18 [History] Gabapentin [Neurontin] 800 mg PO BID 06/14/18 [History] Quetiapine Fumarate [Seroquel] 50 - 100 mg PO HS PRN 06/14/18 [History] Roflumilast [Daliresp] 500 mcg PO DAILY 06/14/18 [History] cloNIDine HCl [CloNIDine HCl] 0.1 mg PO TID PRN 06/14/18 [History] Quetiapine Fumarate [Seroquel] 12.5 mg PO 2-3XD PRN #8 tablet 10/30/18 [Rx] Allergy/AdvReac Type Severity Reaction Status Date / Time alprazolam [From Xanax] Allergy Itching Verified 11/30/18 21:00 bupropion [From Wellbutrin] Allergy Itching Verified 11/30/18 21:00 doxycycline Allergy Nausea Verified 11/30/18 21:00 Ethyl Chloride Allergy Itching Verified 11/30/18 21:00 fexofenadine [From Fannie] Allergy Itching Verified 11/30/18 21:00 hydroxyzine Allergy Hallucinati Verified 11/30/18 21:00 ng Procaine [From Novocain] Allergy Rash Verified 11/30/18 21:00 Penicillins AdvReac Itching Verified 11/30/18 21:00 Results Procedures and tests throughout hospitalization: Completed Lab Orders Category Date Time Status Acetaminophen Stat Lab 12/01/18 21:02 Completed Basic Metabolic Panel Stat Lab 12/01/18 21:02 Completed Blood Alcohol [Ethanol] Stat Lab 12/01/18 21:02 Completed Complete Blood Count [HEME] Stat Lab 12/01/18 21:02 Completed Hepatic Panel Stat Lab 12/01/18 21:02 Completed Salicylate Stat Lab 12/01/18 21:02 Completed Valproate Stat Lab 12/01/18 21:02 Completed Provider Date of admission: 12/01/18 22:00 Primary care physician: PCP NONE Discharging clinician: [facility] Exam - Constitutional Vitals: Temp Pulse Resp BP Pulse Ox 99 F 90 18 124/87 97 12/03/18 09:00 12/03/18 09:00 12/03/18 09:00 12/03/18 09:00 12/03/18 09:00 General appearance: disheveled - Musculoskeletal Gait: slow Station: relaxed Strength & Tone: normal for patient - Psychiatric Patient Orientation: Yes Person, No Time, Yes Place, No Circumstance Level of alertness: Alert Behavior: calm, cooperative Psychomotor activity: Slowed Eye Contact: Maintains Eye Contact Mood Description: Angry Affect description: blunted Speech Volume: Normal Speech pattern: normal rate, normal rhythm, normal tone, fluent, spontaneous Language & Vocabulary: consistent with education Thought Process: Evasive Thought Content: No Suicidal ideation, No Homicidal ideation, No Overt delusions Perceptual Disturbances: No Auditory hallucinations, No Visual hallucinations Attention Span Ability: Capable of Focused Attention Memory Description: Immediate Intact, Recent Impaired, Remote Impaired Patient Reliability: Not Reliable Historian Fund of knowledge: Yes abstraction ability Intelligence Estimate: Average Judgment: Limited Insight: Minimal Hospital Course Hospital course: Ms. Aguilera is a 63 year old female who was admitted to after she called emergency services to bring her to the ER 5 times in 24 hours. Client denied SI/HI/AH/VH and was not felt to meet inpatient criteria but was taking ambulances out of commission so frequently it was felt she could not be safely returned home. Staff were initially under the impression that client was living in deplorable conditions and that she had no water or electricity. This medical writer contacted [facility] where client is linked for management of Bipolar Disorder. However, this medical writer learned yesterday that client just had her intake with the psychiatrist a couple of weeks ago and her initial appointment with her counselor was scheduled for today. Limited information available. However, today staff were able to get a hold of client's vocational case manager who is familiar with client. personal lines account manager said she has been in client's place taking care of her cats for the last two days. personal lines account manager also said client is linked with assistance programs and has electricity paid for. Air conditioning is on and working. Client did fail to pay her water bill and her water was turned off. However, vocational case manager stated she can pick client up from the unit today and take her to pay her bill and get the water turned back on. personal lines account manager did say client is a hoarder but she comes out to client's place twice weekly to help her clean. personal lines account manager states living environment is safe and client can return there. Discussed constant ER visits. personal lines account manager now aware and will try to intervene. This medical writer spoke with client about this today as well. Client states she understands she was abusing these services but that lately she has been feeling anxious and paranoid. Discussed her low VPA level and that it is obvious she has not been taking her meds as prescribed. Client agreed with this. She is set up for home delivery of meds and she understands now she has to take them to keep her anxiety under control. If her med compliance improves and her vocational case manager is aware of the uptick in her ER visits, hopefully these things will be enough to keep her in her home, which is something the client very much wants. Discussed [facility] today as an alternative if things to do not work out for client in her home after discharge. Total time spent with client greater than 30 minutes. Patient was educated of her diagnosis and the risks, benefits, and side effects of this treatment and alternative treatment options and was monitored for responsiveness and side effects. Mood, anxiety, sleep, appetite, and interest improved, as did future orientation. Self-harm thoughts subsided, thinking cleared, psychosis resolved, and mood stabilized. Patient was able to attend both individual and group therapy sessions as well as meeting with the psychiatrist daily and urged to discuss any medication or treatment issues or other concerns. The patient was educated primarily by verbal means about their diagnosis and manifestations in their life. The option for treatment including group and individual therapy programming was offered to the patient in the use of medications with all their potential risks, benefits, and side effects were discussed with the patient at length. The patient was given the opportunity to ask questions and was noted to participate in the treatment in the planning process. The patient felt ready and eager to be discharged from the inpatient psychiatric unit to continue on with treatment as an outpatient. The patient agreed that she is safe for this disposition. The patient was considered to be able to participate in informed consent and decision making with respect to medical, legal, and financial issues of the time of discharge. At the time of discharge the patient adamantly denied any concerns for lethality including suicidal or homicidal thoughts ideations or plans and was future oriented toward ongoing mental health care, medical follow-up and sobriety. - Time Spent with Patient Total time spent providing and/or coordinating discharge services: Greater than 30 minutes Assessment and Plan - Patient/Caregiver Discharge Instructions Activity: resume usual activities as tolerated Diet: regular diet - Follow up Plan Follow up with: [facility] [Outside] - 12/03/18 10:00 am (You have an appointment scheduled on Monday, December 03, 2018 at 10:00 AM with Audrey [facility]on [facility] for Counseling. You have an appointment scheduled for Saturday, January 12, 2019 at 1:[address] Marino Ocampo D.O. for medication management. Please contact the office at least 24 hours in advance if you are unable to keep your appointment(s). ) Functional capacity at discharge: independent ambulation Overall status at discharge: Stable Disposition: Home, Self-Care Quality - Multiple Antipsychotics Patient discharged on 2 or more antipsychotic medications: No Procedures - Procedures Procedures: Medication Management, Crisis Stabilization, Supportive Therapy, Group Therapy
[2018-12-03] MEDS ORDERED: Divalproex (12 HR) 250 MG TABLET PO SCH (21:00)
[2018-12-04] MEDS ORDERED: Tiotropium 18 MCG inhalation IH SCH (07:00)
== END 2018-12-03 13:40 | disposition home or self-care (01) ==
LOC: 1ANU 19:05 → EMEROOARM 19:05 → 1ANU 22:06
PROVIDERS: ADMIT Psychiatry & Neurology Psychiatry; ATTEND Psychiatry & Neurology Psychiatry

== ENCOUNTER 2018-12-03 15:51 | Inpatient (IN) ==
[2018-12-03] MEDS ORDERED: Ipratropium/Albuterol Neb 3 ML IH ONE (15:53)
--- NOTE | 2018-12-03 16:03 | Emergency Department Note ---
Disposition Clinical Impression: Confusion UTI (urinary tract infection) Qualifiers: Urinary tract infection type: site unspecified Hematuria presence: without hematuria Qualified Code(s): N39.0 - Urinary tract infection, site not specified Disposition: Admitted As Inpatient Condition: Fair Referrals: Whitney Richards MD [Primary Care Provider] - Forms: ED Satisfaction Letter Time of Disposition: 20:48 General Adult HPI - General Stated complaint: SOB Time Seen by Provider: 12/03/18 15:52 - Related Data Home Medications Medication Instructions Recorded Confirmed Cetirizine HCl [Zyrtec] 10 mg PO DAILY #0 07/10/16 12/01/18 LORazepam [Ativan] 0.5 mg PO BID PRN #0 07/10/16 12/01/18 Losartan [Cozaar] 25 mg PO DAILY #0 07/10/16 12/01/18 Mirtazapine [Remeron] 15 mg PO HS #0 07/10/16 12/01/18 Oxygen 4 l NS AD #0 07/10/16 12/01/18 Salmeterol Xinafoate [Serevent 1 puff IH BID #0 07/10/16 12/01/18 Diskus] Tiotropium [place] [Spiriva 2 puff IH DAILY #0 07/10/16 12/01/18 Respimat] Esomeprazole Magnesium [Nexium] 40 mg PO DAILY 12/31/16 12/01/18 Tizanidine HCl 4 mg PO TID PRN 12/31/16 12/01/18 Albuterol Neb [Proventil Neb] 2.5 mg IH Q4HR PRN 06/14/18 12/01/18 Amitriptyline [Elavil] 10 mg PO DAILY 06/14/18 12/01/18 Buspirone HCl [Buspar] 30 mg PO BID 06/14/18 12/01/18 Divalproex Sodium [Depakote 250 mg PO TID 06/14/18 12/01/18 Sprinkle] Fluticasone Propionate Nasal 1 spray NS DAILY 06/14/18 12/01/18 [Flonase] Fluticasone Propionate [Flovent 2 puff IH BID 06/14/18 12/01/18 Hfa] Gabapentin [Neurontin] 800 mg PO BID 06/14/18 12/01/18 Quetiapine Fumarate [Seroquel] 50 - 100 mg PO HS PRN 06/14/18 12/01/18 Roflumilast [Daliresp] 500 mcg PO DAILY 06/14/18 12/01/18 cloNIDine HCl [CloNIDine HCl] 0.1 mg PO TID PRN 06/14/18 12/01/18 Previous Rx's Medication Instructions Recorded Quetiapine Fumarate [Seroquel] 12.5 mg PO 2-3XD PRN #8 tablet 10/30/18 Allergies Allergy/AdvReac Type Severity Reaction Status Date / Time alprazolam [From Xanax] Allergy Itching Verified 11/30/18 21:00 bupropion [From Wellbutrin] Allergy Itching Verified 11/30/18 21:00 doxycycline Allergy Nausea Verified 11/30/18 21:00 Ethyl Chloride Allergy Itching Verified 11/30/18 21:00 fexofenadine [From Fannie] Allergy Itching Verified 11/30/18 21:00 hydroxyzine Allergy Hallucinati Verified 11/30/18 21:00 ng Procaine [From Novocain] Allergy Rash Verified 11/30/18 21:00 Penicillins AdvReac Itching Verified 11/30/18 21:00 Past Medical History - Past Medical History Medical history: Reports: arthritis, asthma, COPD, other Surgical history: Reports: appendectomy, orthopedic, other, other Psychiatric history: Reports: anxiety, bipolar, depression EXECUTIVE ADMIN history: Reports: no EXECUTIVE ADMIN history - Social History Smoking Status: Current every day smoker Smokeless Tobacco Status: No Alcohol use: Reports: none Drug use: Reports: none Course Vital Signs Respiratory Rate 16 12/03/18 16:03 O2 Sat by Pulse Oximetry 100 12/03/18 16:03 Temperature 98.1 F 12/03/18 18:42 Pulse Rate 102 12/03/18 18:42 Respiratory Rate 18 12/03/18 18:42 Blood Pressure 148/90 12/03/18 18:42 O2 Sat by Pulse Oximetry 98 12/03/18 18:42 Oxygen Delivery Oxygen Delivery Nasal Cannula Medical Decision Making - Lab Data Result diagrams: 12/03/18 17:42 12/03/18 17:42 Lab Results 12/03/18 12/03/18 12/03/18 Range/Units 17:42 17:42 17:42 WBC 6.6 (4.3-11.1) K/mcL RBC 3.75 L (3.82-4.97) M/mcL Hgb 11.1 L (11.5-15.4) g/dL Hct 34.2 L (35.3-44.9) % MCV 91.2 (83.0-100.0) fL MCH 29.6 (28.0-33.3) pg MCHC 32.5 (31.6-35.5) g/dL RDW 14.6 H (11.5-14.5) % Plt Count 254 (140-400) K/mcL MPV 8.9 L (9.4-12.4) fL Immature Gran % 0.3 (0-4) % Seg Neutrophils % 66.7 % Lymphocytes % 18.0 % Monocytes % 14.5 % Eosinophils % 0.0 % Basophils % 0.5 % Neutrophils # 4.4 (1.6-8.9) K/mcL Lymphocytes # 1.2 (0.6-4.6) K/mcL Monocytes # 1.0 (0.0-1.3) K/mcL Eosinophils # 0.0 (0.0-0.6) K/mcL Basophils # 0.0 (0.0-0.2) K/mcL Sodium 136 (136-145) mEq/L Potassium 3.7 (3.5-5.1) mEq/L Chloride 103 (98-107) mEq/L Carbon Dioxide 24 (23-29) mEq/L BUN 20 (8-23) mg/dL Creatinine 1.01 (0.60-1.20) mg/dL Est GFR ( Amer) > 60 (> 60) Est GFR (Non-Af Amer) 55 L (> 60) BUN/Creatinine Ratio 20 (6-26) Glucose 136 H (70-105) mg/dL Calculated Osmolality 287 (280-300) Calcium 8.7 (8.6-10.3) mg/dL Total Bilirubin 0.2 L (0.3-1.0) mg/dL Direct Bilirubin 0.0 (0.0-0.2) mg/dL Indirect Bilirubin 0.2 (0.0-1.2) mg/dL AST 13 (13-39) Units/L ALT 8 (7-52) Units/L Alkaline Phosphatase 82 (34-104) Units/L Ammonia 36 (16-53) mcmol/L Serum Total Protein 6.6 (6.4-8.9) g/dL Albumin 4.0 (3.5-5.7) g/dL Globulin 2.6 (2.4-3.5) g/dL Albumin/Globulin Ratio 1.5 (1.1-2.2) Urine Color (Yellow) Urine Clarity (Clear) Urine pH (5.0-8.0) pH Units Ur Specific [place] (1.010-1.025) Urine Protein (Neg-Trace) mg/dL Urine Glucose (UA) (Normal) mg/dL Urine Ketones (Negative) mg/dL Urine Blood (Negative) Urine Nitrite (Negative) Urine Bilirubin (Negative) Urine Urobilinogen (Normal) mg/dL Ur Leukocyte Esterase (Negative) Urine Microscopic RBC (0-3) per hpf Urine Microscopic WBC (0-3) per hpf Ur Squamous Epith Cells (None-Few) per lpf Urine Bacteria (None-Few) per hpf Hyaline Casts (None-Few) per lpf Ur Culture Indicated? (NO) Salicylates (15.0-30.0) mg/dL Urine Opiates Screen (Hxyizl=738) ng/mL Ur Buprenorphine Scrn (Cutoff=5) ng/mL Acetaminophen (10-20) mcg/mL Ur Barbiturates Screen (Aruxck=013) ng/mL Ur Phencyclidine Scrn (Cutoff=25) ng/mL Ur Amphetamines Screen (Ivwsry=7947) ng/mL U Benzodiazepines Scrn (Pmiddz=662) ng/mL Urine Cocaine Screen (Cutoff= 300) ng/mL U Marijuana (THC) Screen (Cutoff = 50) ng/mL Ur Drug Screen Interp Ethyl Alcohol (Less than 10) mg/dL 12/03/18 12/03/18 12/03/18 Range/Units 17:42 19:58 19:58 WBC (4.3-11.1) K/mcL RBC (3.82-4.97) M/mcL Hgb (11.5-15.4) g/dL Hct (35.3-44.9) % MCV (83.0-100.0) fL MCH (28.0-33.3) pg MCHC (31.6-35.5) g/dL RDW (11.5-14.5) % Plt Count (140-400) K/mcL MPV (9.4-12.4) fL Immature Gran % (0-4) % Seg Neutrophils % % Lymphocytes % % Monocytes % % Eosinophils % % Basophils % % Neutrophils # (1.6-8.9) K/mcL Lymphocytes # (0.6-4.6) K/mcL Monocytes # (0.0-1.3) K/mcL Eosinophils # (0.0-0.6) K/mcL Basophils # (0.0-0.2) K/mcL Sodium (136-145) mEq/L Potassium (3.5-5.1) mEq/L Chloride (98-107) mEq/L Carbon Dioxide (23-29) mEq/L BUN (8-23) mg/dL Creatinine (0.60-1.20) mg/dL Est GFR ( Amer) (> 60) Est GFR (Non-Af Amer) (> 60) BUN/Creatinine Ratio (6-26) Glucose (70-105) mg/dL Calculated Osmolality (280-300) Calcium (8.6-10.3) mg/dL Total Bilirubin (0.3-1.0) mg/dL Direct Bilirubin (0.0-0.2) mg/dL Indirect Bilirubin (0.0-1.2) mg/dL AST (13-39) Units/L ALT (7-52) Units/L Alkaline Phosphatase (34-104) Units/L Ammonia (16-53) mcmol/L Serum Total Protein (6.4-8.9) g/dL Albumin (3.5-5.7) g/dL Globulin (2.4-3.5) g/dL Albumin/Globulin Ratio (1.1-2.2) Urine Color Yellow (Yellow) Urine Clarity Cloudy A (Clear) Urine pH 6.0 (5.0-8.0) pH Units Ur Specific [place] 1.021 (1.010-1.025) Urine Protein Negative (Neg-Trace) mg/dL Urine Glucose (UA) Normal (Normal) mg/dL Urine Ketones Negative (Negative) mg/dL Urine Blood Negative (Negative) Urine Nitrite Positive A (Negative) Urine Bilirubin Negative (Negative) Urine Urobilinogen Normal (Normal) mg/dL Ur Leukocyte Esterase Moderate H (Negative) Urine Microscopic RBC 15-30 H (0-3) per hpf Urine Microscopic WBC TNTC H (0-3) per hpf Ur Squamous Epith Cells Moderate H (None-Few) per lpf Urine Bacteria None Seen (None-Few) per hpf Hyaline Casts Moderate H (None-Few) per lpf Ur Culture Indicated? YES A (NO) Salicylates < 2.5 L (15.0-30.0) mg/dL Urine Opiates Screen Negative (Elglrh=954) ng/mL Ur Buprenorphine Scrn Negative (Cutoff=5) ng/mL Acetaminophen < 10 L (10-20) mcg/mL Ur Barbiturates Screen Negative (Qhkgfp=623) ng/mL Ur Phencyclidine Scrn Negative (Cutoff=25) ng/mL Ur Amphetamines Screen Negative (Kremkf=1685) ng/mL U Benzodiazepines Scrn Negative (Optwsz=046) ng/mL Urine Cocaine Screen Negative (Cutoff= 300) ng/mL U Marijuana (THC) Screen Negative (Cutoff = 50) ng/mL Ur Drug Screen Interp See Below Ethyl Alcohol < 10 (Less than 10) mg/dL Attestation Statement - Attestation Attestation: I, Nader Dwyer DO, examined this patient [id number] and my medical decision-making was reviewed with Dr. Jay Graves, Resident Physician. I agree with the documented findings, disposition and treatment plan as described except to the extent set forth below. I personally supervised and was present for the nielsen/critical portions of the procedures completed by the resident documented below. Please see my progress notes for details. 63-year-old female presents emergency room for evaluation of shortness of breath and increased work of breathing. Patient typically uses oxygen was up walking a round town and did not have her oxygen with her. She flight please officers and they called the squad. Patient denies any chest pain or shortness of breath. Currently denying nausea vomiting or diarrhea. Denies any fevers or chills. She does continue to smoke despite her history of COPD. Patient's vital signs otherwise stable. She typically uses 4 L of oxygen at home all the time. Patient is sitting upright in the bed. She is conversational. She does not appear to be in any significant distress. Her lungs are diminished with coarse wheezing noted throughout all lung [place]. Heart is regular. Abdomen is soft. Extremities are normal. Patient denies any recent illnesses or other symptoms at this time. Patient did not have oxygen with her today during the onset of the symptoms is most likely the source of the shortness of breath as described. She is placed on oxygen she feels significantly better and has no complaints. Chest x-ray EKG along with symptomatic control be completed this time. Disposition to be determined once full workup and evaluation abdomen established. EKG is reviewed by myself in documented in the resident physician's note. Breathing treatments will be ordered and chest x-ray to be completed. See detailed documentation of the physical exam, medical intervention, medical decision-making and disposition in the resident physician's note. No critical care applied the patient's treatment course at this time. 1734 Patient is stable. She is deciding to try to leave the emergency department at this point. They contacted our psychiatric team as well as social work. Patient was evaluated and had appropriate medical capacity on Thursday. Her business teacher started today and said that she is confused. At this time, I do not feel the patient is appropriate medical decision-making capacity and will be placed on a medical hold until we have the remainder of workup completed and intervention from the psychiatric team social work and her immigration case manager. Patient will be monitored here in the department of this is determined. 2034 Patient's urinalysis does show positive nitrates and concern for urinary tract infection. This could be confounding the presentation this time. Patient will be admitted for what appears to be altered mentation secondary to urinary tract infection and evaluation for stability and safety at home. Hospitalist has been paged at this time. The hospitalist Dr. Qureshi reviewed the case. Detailed review the presentation symptoms medical intervention were discussed at length. No other acute concerns or issues noted. This will be monitored here in the emergency department until the admission process is completed.
--- NOTE | 2018-12-03 16:07 | Emergency Department Note ---
Disposition Clinical Impression: Confusion UTI (urinary tract infection) Qualifiers: Urinary tract infection type: site unspecified Hematuria presence: without hematuria Qualified Code(s): N39.0 - Urinary tract infection, site not specified Disposition: Still a Patient Condition: Fair Referrals: Whitney Richards MD [Primary Care Provider] - Forms: ED Satisfaction Letter Time of Disposition: 22:14 General Adult HPI - General Stated complaint: SOB Time Seen by Provider: 12/03/18 15:52 Nursing Notes Reviewed: Yes Vital Signs Reviewed: Yes - History of Present Illness HPI Narrative: 63-year-old female presents from scene via EMS. Patient was hardly walking down the street, fell short of breath, flank, police justice who then called EMS. Patient is COPD on 4 L nasal cannula at baseline. She was walking down the street in the heat without her oxygen stating that her oxygen canister was low and she was not sure how to turn it on. She does not have a battery-powered oxygen concentrator. PMH: COPD on continuous 4L oxygen, bipolar disorder with psychotic features, tobacco dependence, CAD with hx NSTEMI ROS: Positive: Shortness of breath at scene Negative: Shortness of breath with supplemental oxygen, productive cough, fever, chills, nausea, vomiting, chest pains, palpitations, diaphoresis - Related Data Home Medications Medication Instructions Recorded Confirmed Cetirizine HCl [Zyrtec] 10 mg PO DAILY #0 07/10/16 12/01/18 LORazepam [Ativan] 0.5 mg PO BID PRN #0 07/10/16 12/01/18 Losartan [Cozaar] 25 mg PO DAILY #0 07/10/16 12/01/18 Mirtazapine [Remeron] 15 mg PO HS #0 07/10/16 12/01/18 Oxygen 4 l NS AD #0 07/10/16 12/01/18 Salmeterol Xinafoate [Serevent 1 puff IH BID #0 07/10/16 12/01/18 Diskus] Tiotropium [place] [Spiriva 2 puff IH DAILY #0 07/10/16 12/01/18 Respimat] Esomeprazole Magnesium [Nexium] 40 mg PO DAILY 12/31/16 12/01/18 Tizanidine HCl 4 mg PO TID PRN 12/31/16 12/01/18 Albuterol Neb [Proventil Neb] 2.5 mg IH Q4HR PRN 06/14/18 12/01/18 Amitriptyline [Elavil] 10 mg PO DAILY 06/14/18 12/01/18 Buspirone HCl [Buspar] 30 mg PO BID 06/14/18 12/01/18 Divalproex Sodium [Depakote 250 mg PO TID 06/14/18 12/01/18 Sprinkle] Fluticasone Propionate Nasal 1 spray NS DAILY 06/14/18 12/01/18 [Flonase] Fluticasone Propionate [Flovent 2 puff IH BID 06/14/18 12/01/18 Hfa] Gabapentin [Neurontin] 800 mg PO BID 06/14/18 12/01/18 Quetiapine Fumarate [Seroquel] 50 - 100 mg PO HS PRN 06/14/18 12/01/18 Roflumilast [Daliresp] 500 mcg PO DAILY 06/14/18 12/01/18 cloNIDine HCl [CloNIDine HCl] 0.1 mg PO TID PRN 06/14/18 12/01/18 Previous Rx's Medication Instructions Recorded Quetiapine Fumarate [Seroquel] 12.5 mg PO 2-3XD PRN #8 tablet 10/30/18 Allergies Allergy/AdvReac Type Severity Reaction Status Date / Time alprazolam [From Xanax] Allergy Itching Verified 11/30/18 21:00 bupropion [From Wellbutrin] Allergy Itching Verified 11/30/18 21:00 doxycycline Allergy Nausea Verified 11/30/18 21:00 Ethyl Chloride Allergy Itching Verified 11/30/18 21:00 fexofenadine [From Fannie] Allergy Itching Verified 11/30/18 21:00 hydroxyzine Allergy Hallucinati Verified 11/30/18 21:00 ng Procaine [From Novocain] Allergy Rash Verified 11/30/18 21:00 Penicillins AdvReac Itching Verified 11/30/18 21:00 All systems ED: reviewed and negative except as stated. Review of Systems: As Per HPI Past Medical History - Past Medical History Medical history: Reports: arthritis, asthma, COPD, other Surgical history: Reports: appendectomy, orthopedic, other, other Psychiatric history: Reports: anxiety, bipolar, depression ORNAMENTAL BRONZE WORKER history: Reports: no ORNAMENTAL BRONZE WORKER history - Social History Smoking Status: Current every day smoker Smokeless Tobacco Status: No Alcohol use: Reports: none Drug use: Reports: none Physical Exam Vital Signs Reviewed General: Patient is alert, oriented, and in no acute distress on her baseline 4L NC. Head: atraumatic, normocephalic Eye: normal appearance, PERRL, EOMI, no scleral icterus, no conjunctival injection ENT: mucous membranes moist, normal external ear exam Neck: normal inspection, trachea midline, full ROM Chest: normal inspection, symmetric chest rise Respiratory: Good respiratory effort. Prolonged expiratory phase. Bilateral breath sounds are equal with apical end expiratory wheeze. Cardiovascular: Regular rate and rhythm. No clicks, rubs, gallops, or murmors. Normal heart sounds. Abdomen: Bowel sounds present normoactive. Abdomen is soft, nondistended, and nontender. No guarding or rebound. No organomegaly noted. Musculoskeletal: Spontaneously moving all extremities. Skin: warm, dry, intact. Neuro: GCS 15. No focal neurologic deficits observed. Psych: Patient's affect is appropriate for situation. Course Course Narrative: On presentation, patient is very tearful. She states that I am going to lock her up. I spoke with her directly and eased her concerns. EKG dated 12/03/2018 at 16:22 interpreted as sinus rhythm with rate of 99. MA is not prolonged. QRS 89, QTC 473. Left axis. Nonspecific ST-T changes. Compared to previous EKG dated 12/01/2018 showing no acute ischemic changes or comparison. Chest x-ray is unremarkable. Patient receives DuoNeb times after which her wheezing resolved. She continues to be comfortable on 4 L nasal cannula. ED social service assistant was involved in patient's care. She spoke with the patient's welding machine operator resistance who noted that the patient left mental health services [facility] this morning. At that time, she. She had difficulty opening her door, finding her tachycardia, etc. Here today, patient needs to be tearful. She states repeatedly that she is depressed and lonely. She denies suicidal or homicidal ideation. She states that she is going to leave because nobody can help her. I discussed with her that we are trying to figure out the best way to help her. She states there is no way to help her and that she is leaving. Because patient denies homicidality or suicidality I cannot psychologically pink slip her. She is, however, having difficulty figuring out how to open the door to her in the room. She states she will be walking home though she has no portable oxygen. A sitter will be placed bedside for distraction and redirection. Clinically concerned patient lacks medical decision making capacity at this time. Will pl aylin medical hold. We will begin more intensive workup based upon current observations. As time goes on, more the patient's story is becoming apparent. She was discharged this morning from [facility] mental [facility] unit. She was home approximately 2 hours with her welding machine operator resistance during which time the welding machine operator resistance left the patient in her home to go sisal picker food. During this time, the patient left her home and was wandering around the streets during which she became short of breath, leg on the police, called EMS, who brings the patient for this evaluation. Patient reevaluated by [facility] staff. No indication at this time for mental health admission. The mental health nurse suspects this is more dementia related. UA concerning for UTI. Rocephin given. Patient is not safe for discharge to her home. Plan at this time is admission on medical grounds for continued evaluation. Patient has altered mentation and is not able to make her medical decisions at this time given she was waundering the street without her 4L NC which she requires continuously. Patient's UA concerning for UTI. Given 1g Rocephin. Discussed the abovewith the admitting hospistalist, Dr. Qureshi. Though patient does have a UTI, there is epithelial cell contamination and patient is an appropriate candidate for outpatient oral antibiotics. She currently does not meet criteria for admission. Discussed the above with Dr. Vázquez, manager collection psychologist. Patient does not meet criteria for psychologic admission; no emergent admission diagnosis. Though patient was declared competant when she reportedly signed out AMA from geriatric psych, she has shown her inability to care for herself at home. Dr. Vázquez made me aware of the patient's POA, Shanice Danisotilioalden [phone]. I discussed the above with the manager collection leather production worker. POA proof is potentially in the process of being electronically scanned and thus not immediately available in the patient's chart. environmental services coordinator has exhausted all available avenues for the patient. They are receiving conflicting information on the patient's ability to care for herself. Patient was evaluated this morning by [facility] who advised admission to [facility] however [facility] was full and patient was discharged home. Additionally, they have the inclination the patient's friend/POA, Shanice, has little to do with the patient. Shanice reportedly would call the patient to offer emotional support but would not physically come from [place] to [place]. At this time, patient is not safe for discharge home. She is not a candidate for medical admission. She is not a candidate for psychiatric placement. If patient were to be transferred to [facility] then patient would not have access to psychiatric evaluation available at [facility]. My attending discussed the patient with Ben Birmingham, accounting administrator manager collection. Current plan is to keep the patient in the ED. Once social service liaison arrives tomorrow morning plan to get additional social service liaison involvement and potential additional psychiatric involvement. Patient signed out to Dr. White pending continued evaluation of her social situation. Chest X-Ray 12/03/18 15:57 IMPRESSION: No acute cardiopulmonary disease with the above reservation. D/ / Juanjose Dunn MD / Juanjose Dunn MD Interpreting Provider: Juanjose Dunn MD Vital Signs Respiratory Rate 16 12/03/18 16:03 O2 Sat by Pulse Oximetry 100 12/03/18 16:03 Temperature 98.1 F 12/03/18 18:42 Pulse Rate 102 12/03/18 18:42 Respiratory Rate 18 12/03/18 18:42 Blood Pressure 148/90 12/03/18 18:42 O2 Sat by Pulse Oximetry 98 12/03/18 18:42 Oxygen Delivery Oxygen Delivery Nasal Cannula Medical Decision Making - Lab Data Result diagrams: 12/03/18 17:42 12/03/18 17:42 Lab Results 12/03/18 12/03/18 12/03/18 Range/Units 17:42 17:42 17:42 WBC 6.6 (4.3-11.1) K/mcL RBC 3.75 L (3.82-4.97) M/mcL Hgb 11.1 L (11.5-15.4) g/dL Hct 34.2 L (35.3-44.9) % MCV 91.2 (83.0-100.0) fL MCH 29.6 (28.0-33.3) pg MCHC 32.5 (31.6-35.5) g/dL RDW 14.6 H (11.5-14.5) % Plt Count 254 (140-400) K/mcL MPV 8.9 L (9.4-12.4) fL Immature Gran % 0.3 (0-4) % Seg Neutrophils % 66.7 % Lymphocytes % 18.0 % Monocytes % 14.5 % Eosinophils % 0.0 % Basophils % 0.5 % Neutrophils # 4.4 (1.6-8.9) K/mcL Lymphocytes # 1.2 (0.6-4.6) K/mcL Monocytes # 1.0 (0.0-1.3) K/mcL Eosinophils # 0.0 (0.0-0.6) K/mcL Basophils # 0.0 (0.0-0.2) K/mcL Sodium 136 (136-145) mEq/L Potassium 3.7 (3.5-5.1) mEq/L Chloride 103 (98-107) mEq/L Carbon Dioxide 24 (23-29) mEq/L BUN 20 (8-23) mg/dL Creatinine 1.01 (0.60-1.20) mg/dL Est GFR ( Amer) > 60 (> 60) Est GFR (Non-Af Amer) 55 L (> 60) BUN/Creatinine Ratio 20 (6-26) Glucose 136 H (70-105) mg/dL Calculated Osmolality 287 (280-300) Calcium 8.7 (8.6-10.3) mg/dL Total Bilirubin 0.2 L (0.3-1.0) mg/dL Direct Bilirubin 0.0 (0.0-0.2) mg/dL Indirect Bilirubin 0.2 (0.0-1.2) mg/dL AST 13 (13-39) Units/L ALT 8 (7-52) Units/L Alkaline Phosphatase 82 (34-104) Units/L Ammonia 36 (16-53) mcmol/L Serum Total Protein 6.6 (6.4-8.9) g/dL Albumin 4.0 (3.5-5.7) g/dL Globulin 2.6 (2.4-3.5) g/dL Albumin/Globulin Ratio 1.5 (1.1-2.2) Urine Color (Yellow) Urine Clarity (Clear) Urine pH (5.0-8.0) pH Units Ur Specific [place] (1.010-1.025) Urine Protein (Neg-Trace) mg/dL Urine Glucose (UA) (Normal) mg/dL Urine Ketones (Negative) mg/dL Urine Blood (Negative) Urine Nitrite (Negative) Urine Bilirubin (Negative) Urine Urobilinogen (Normal) mg/dL Ur Leukocyte Esterase (Negative) Urine Microscopic RBC (0-3) per hpf Urine Microscopic WBC (0-3) per hpf Ur Squamous Epith Cells (None-Few) per lpf Urine Bacteria (None-Few) per hpf Hyaline Casts (None-Few) per lpf Ur Culture Indicated? (NO) Salicylates (15.0-30.0) mg/dL Urine Opiates Screen (Hpwbxr=873) ng/mL Ur Buprenorphine Scrn (Cutoff=5) ng/mL Acetaminophen (10-20) mcg/mL Ur Barbiturates Screen (Ogjxtt=502) ng/mL Ur Phencyclidine Scrn (Cutoff=25) ng/mL Ur Amphetamines Screen (Uwrvfd=3214) ng/mL U Benzodiazepines Scrn (Rxapjh=676) ng/mL Urine Cocaine Screen (Cutoff= 300) ng/mL U Marijuana (THC) Screen (Cutoff = 50) ng/mL Ur Drug Screen Interp Ethyl Alcohol (Less than 10) mg/dL 12/03/18 12/03/18 12/03/18 Range/Units 17:42 19:58 19:58 WBC (4.3-11.1) K/mcL RBC (3.82-4.97) M/mcL Hgb (11.5-15.4) g/dL Hct (35.3-44.9) % MCV (83.0-100.0) fL MCH (28.0-33.3) pg MCHC (31.6-35.5) g/dL RDW (11.5-14.5) % Plt Count (140-400) K/mcL MPV (9.4-12.4) fL Immature Gran % (0-4) % Seg Neutrophils % % Lymphocytes % % Monocytes % % Eosinophils % % Basophils % % Neutrophils # (1.6-8.9) K/mcL Lymphocytes # (0.6-4.6) K/mcL Monocytes # (0.0-1.3) K/mcL Eosinophils # (0.0-0.6) K/mcL Basophils # (0.0-0.2) K/mcL Sodium (136-145) mEq/L Potassium (3.5-5.1) mEq/L Chloride (98-107) mEq/L Carbon Dioxide (23-29) mEq/L BUN (8-23) mg/dL Creatinine (0.60-1.20) mg/dL Est GFR ( Amer) (> 60) Est GFR (Non-Af Amer) (> 60) BUN/Creatinine Ratio (6-26) Glucose (70-105) mg/dL Calculated Osmolality (280-300) Calcium (8.6-10.3) mg/dL Total Bilirubin (0.3-1.0) mg/dL Direct Bilirubin (0.0-0.2) mg/dL Indirect Bilirubin (0.0-1.2) mg/dL AST (13-39) Units/L ALT (7-52) Units/L Alkaline Phosphatase (34-104) Units/L Ammonia (16-53) mcmol/L Serum Total Protein (6.4-8.9) g/dL Albumin (3.5-5.7) g/dL Globulin (2.4-3.5) g/dL Albumin/Globulin Ratio (1.1-2.2) Urine Color Yellow (Yellow) Urine Clarity Cloudy A (Clear) Urine pH 6.0 (5.0-8.0) pH Units Ur Specific [place] 1.021 (1.010-1.025) Urine Protein Negative (Neg-Trace) mg/dL Urine Glucose (UA) Normal (Normal) mg/dL Urine Ketones Negative (Negative) mg/dL Urine Blood Negative (Negative) Urine Nitrite Positive A (Negative) Urine Bilirubin Negative (Negative) Urine Urobilinogen Normal (Normal) mg/dL Ur Leukocyte Esterase Moderate H (Negative) Urine Microscopic RBC 15-30 H (0-3) per hpf Urine Microscopic WBC TNTC H (0-3) per hpf Ur Squamous Epith Cells Moderate H (None-Few) per lpf Urine Bacteria None Seen (None-Few) per hpf Hyaline Casts Moderate H (None-Few) per lpf Ur Culture Indicated? YES A (NO) Salicylates < 2.5 L (15.0-30.0) mg/dL Urine Opiates Screen Negative (Kzxkyh=752) ng/mL Ur Buprenorphine Scrn Negative (Cutoff=5) ng/mL Acetaminophen < 10 L (10-20) mcg/mL Ur Barbiturates Screen Negative (Mruutv=782) ng/mL Ur Phencyclidine Scrn Negative (Cutoff=25) ng/mL Ur Amphetamines Screen Negative (Frshxq=3843) ng/mL U Benzodiazepines Scrn Negative (Pacwfp=791) ng/mL Urine Cocaine Screen Negative (Cutoff= 300) ng/mL U Marijuana (THC) Screen Negative (Cutoff = 50) ng/mL Ur Drug Screen Interp See Below Ethyl Alcohol < 10 (Less than 10) mg/dL Attestation Statement - Attestation Attestation: I, Nader Dwyer DO, examined this patient [id number] and my medical decision-making was reviewed with Dr. Jay Wakefield, Resident Physician. I agree with the documented findings, disposition and treatment plan as described except to the extent set forth below. I personally supervised and was present for the nielsen/critical portions of the procedures completed by the resident documented below. Please see my progress notes for details.
[2018-12-03] MEDS ORDERED: *HR* LORazepam 1 MG TABLET PO ONE ×2 (17:27→21:25)
[2018-12-03 17:55] LABS: Basophils % 0.5 %; Hematocrit 34.2 % (35.3-44.9); Hemoglobin 11.1 g/dL (11.5-15.4); Immature Granulocytes % 0.3 % (0-4); Lymphocytes # 1.2 K/mcL (0.6-4.6); Mean Corpuscular HGB Conc 32.5 g/dL (31.6-35.5); Mean Corpuscular Hemoglobin 29.6 pg (28.0-33.3); Mean Corpuscular Volume 91.2 fL (83.0-100.0); Mean Platelet Volume 8.9 fL (9.4-12.4); Monocytes % 14.5 %; Neutrophils # 4.4 K/mcL (1.6-8.9); Platelet Count 254 K/mcL (140-400); Red Blood Count 3.75 M/mcL (3.82-4.97); Red Cell Distribution Width 14.6 % (11.5-14.5); Segmented Neutrophils % 66.7 %; White Blood Count 6.6 K/mcL (4.3-11.1)
[2018-12-03 18:15] LABS: Acetaminophen < 10 mcg/mL (10-20); Alanine Aminotransferase 8 Units/L (7-52); Albumin/Globulin Ratio 1.5 (1.1-2.2); Alkaline Phosphatase 82 Units/L (34-104); Aspartate Amino Transferase 13 Units/L (13-39); BUN/Creatinine Ratio 20 (6-26); Bilirubin,Indirect 0.2 mg/dL (0.0-1.2); Bilirubin,Total 0.2 mg/dL (0.3-1.0); Blood Urea Nitrogen 20 mg/dL (8-23); Calcium 8.7 mg/dL (8.6-10.3); Carbon Dioxide 24 mEq/L (23-29); Chloride 103 mEq/L (98-107); Ethanol < 10 mg/dL (Less than 10); Globulin 2.6 g/dL (2.4-3.5); Glucose 136 mg/dL (70-105); Osmolality,Calculated 287 (280-300); Potassium 3.7 mEq/L (3.5-5.1); Salicylate < 2.5 mg/dL (15.0-30.0); Sodium 136 mEq/L (136-145); Total Protein 6.6 g/dL (6.4-8.9); eGFR For African Americans > 60 (> 60); eGFR For Non-African Americans 55 (> 60)
[2018-12-03 20:28] LABS: Amphetamine Screen,Urine Negative ng/mL (Cutoff=1000); Barbiturate Screen,Urine Negative ng/mL (Cutoff=200); Benzodiazepines Screen,Urine Negative ng/mL (Cutoff=200); Cannabinoid Screen,Urine Negative ng/mL (Cutoff = 50); Cocaine Screen,Urine Negative ng/mL (Cutoff= 300); Opiate Screen,Urine Negative ng/mL (Cutoff=300); Phencyclidine Screen,Urine Negative ng/mL (Cutoff=25)
[2018-12-03 20:31] LABS: Bacteria,Urine None Seen per hpf (None-Few); Bilirubin,Urine Negative (Negative); Blood,Urine Negative (Negative); Clarity,Urine Cloudy (Clear); Color,Urine Yellow (Yellow); Glucose,Urine (UA) Normal (Normal); Hyaline Casts,Urine Moderate per lpf (None-Few); Ketones,Urine Negative (Negative); Leukocyte Esterase,Urine Moderate (Negative); Nitrite,Urine Positive (Negative); Protein,Urine Negative (Neg-Trace); RBC,Urine 15-30 per hpf (0-3); Specific Gravity,Urine 1.021 (1.010-1.025); Squamous Epithelial Cell,Urine Moderate per lpf (None-Few); Urobilinogen,Urine Normal (Normal); WBC,Urine TNTC per hpf (0-3)
[2018-12-03] MEDS ORDERED: cefTRIAXone 1,000 MG in Water for inj. (sterile) 10 ML IVP ONE ×2 (20:41→22:00)
--- NOTE | 2018-12-04 06:03 | Event Note ---
Date of Encounter: 12/04/18 Time of Encounter: 06:05 Was contacted by the ER to review the case of Mrs. Huynh and see if she is illegible for medical admission to the hospitalist service, reviewing the case reviewed the patient not meeting criteria for admission to medicine service. As better ER staff psych has declined patient admission stating that the patient is not meeting criteria to be admitted to the psych unit. Reviewing the patient's records revealed the patient was just discharged from the service in a.m. today. I spoke with psych shipbuilding draftsperson who stated that patient is not illegible to be accepted at any of psychiatric facility. Also she stated that the patient symptoms most likely is attributed to dementia. I discussed the case again with Dr. Dwyer who stated that the patient was actually about to be accepted to psychiatric facilities this a.m. however the facility has full capacity and decision was made to discharge the patient home instead. At this point hospitalist team and ER team are in agreement that patient is made not meeting criteria for admission to the hospital medicine department. We also discussed the possibility of admitting patient to the swing bed at [facility] bending her placement, Dr. Dwyer felt that holding the patient for the next few hours in the ER until a.m. social work nurse start working in her placement again would be the best option at this point. From medicine perspective, we discussed that we could extend professional courtesy and provide an acute care bed for these few hours in case of the ER capacity is overwhelmed with patient showed and the bed in the ER is needed.
--- NOTE | 2018-12-04 07:28 | Emergency Department Note ---
Disposition Clinical Impression: Confusion UTI (urinary tract infection) Qualifiers: Urinary tract infection type: site unspecified Hematuria presence: without hematuria Qualified Code(s): N39.0 - Urinary tract infection, site not specified Disposition: Still a Patient Condition: Fair Referrals: Whitney Richards MD [Primary Care Provider] - Forms: ED Satisfaction Letter Time of Disposition: 07:00 General Adult HPI - General Chief complaint: ED Shortness of Breath/Dyspnea Stated complaint: SOB Time Seen by Provider: 12/03/18 15:52 Source: patient Limitations: no limitations - History of Present Illness Pain Scale: 0 - Related Data Home Medications Medication Instructions Recorded Confirmed Cetirizine HCl [Zyrtec] 10 mg PO DAILY #0 07/10/16 12/01/18 LORazepam [Ativan] 0.5 mg PO BID PRN #0 07/10/16 12/01/18 Losartan [Cozaar] 25 mg PO DAILY #0 07/10/16 12/01/18 Mirtazapine [Remeron] 15 mg PO HS #0 07/10/16 12/01/18 Oxygen 4 l NS AD #0 07/10/16 12/01/18 Salmeterol Xinafoate [Serevent 1 puff IH BID #0 07/10/16 12/01/18 Diskus] Tiotropium [employer] [Spiriva 2 puff IH DAILY #0 07/10/16 12/01/18 Respimat] Esomeprazole Magnesium [Nexium] 40 mg PO DAILY 12/31/16 12/01/18 Tizanidine HCl 4 mg PO TID PRN 12/31/16 12/01/18 Albuterol Neb [Proventil Neb] 2.5 mg IH Q4HR PRN 06/14/18 12/01/18 Amitriptyline [Elavil] 10 mg PO DAILY 06/14/18 12/01/18 Buspirone HCl [Buspar] 30 mg PO BID 06/14/18 12/01/18 Divalproex Sodium [Depakote 250 mg PO TID 06/14/18 12/01/18 Sprinkle] Fluticasone Propionate Nasal 1 spray NS DAILY 06/14/18 12/01/18 [Flonase] Fluticasone Propionate [Flovent 2 puff IH BID 06/14/18 12/01/18 Hfa] Gabapentin [Neurontin] 800 mg PO BID 06/14/18 12/01/18 Quetiapine Fumarate [Seroquel] 50 - 100 mg PO HS PRN 06/14/18 12/01/18 Roflumilast [Daliresp] 500 mcg PO DAILY 06/14/18 12/01/18 cloNIDine HCl [CloNIDine HCl] 0.1 mg PO TID PRN 06/14/18 12/01/18 Previous Rx's Medication Instructions Recorded Quetiapine Fumarate [Seroquel] 12.5 mg PO 2-3XD PRN #8 tablet 10/30/18 Allergies Allergy/AdvReac Type Severity Reaction Status Date / Time alprazolam [From Xanax] Allergy Itching Verified 11/30/18 21:00 bupropion [From Wellbutrin] Allergy Itching Verified 11/30/18 21:00 doxycycline Allergy Nausea Verified 11/30/18 21:00 Ethyl Chloride Allergy Itching Verified 11/30/18 21:00 fexofenadine [From Fannie] Allergy Itching Verified 11/30/18 21:00 hydroxyzine Allergy Hallucinati Verified 11/30/18 21:00 ng Procaine [From Novocain] Allergy Rash Verified 11/30/18 21:00 Penicillins AdvReac Itching Verified 11/30/18 21:00 Past Medical History - Past Medical History Medical history: Reports: arthritis, asthma, COPD, other Surgical history: Reports: appendectomy, orthopedic, other, other Psychiatric history: Reports: anxiety, bipolar, depression [employer] history: Reports: no 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 Graves and Dr. Dwyer. Please refer to their notes for complete details of the history and physical ex amination. Patient has been evaluated by the emergency department and also by psychiatry. Apparently psychiatry has refused admission of the patient and also the hospitalist has refused admission of the patient. human resources services specialist and administration have been involved and the plan is for patient to stay in the emergency department overnight until social sciences chair can work on arranging some type of placement for this patient in the morning. No problems or complaints throughout the security shift supervisor. At morning shift change patient is signed out to the oncoming dayshift physician, Dr. Agustín Casillas. Vital Signs Respiratory Rate 16 12/03/18 16:03 O2 Sat by Pulse Oximetry 100 12/03/18 16:03 Temperature 98.1 F 12/03/18 18:42 Pulse Rate 102 12/03/18 18:42 Respiratory Rate 18 12/03/18 18:42 Blood Pressure 148/90 12/03/18 18:42 O2 Sat by Pulse Oximetry 98 12/03/18 18:42 Oxygen Delivery Oxygen Delivery Nasal Cannula Medical Decision Making - Lab Data Result diagrams: 12/03/18 17:42 12/03/18 17:42 Lab Results 12/03/18 12/03/18 12/03/18 Range/Units 17:42 17:42 17:42 WBC 6.6 (4.3-11.1) K/mcL RBC 3.75 L (3.82-4.97) M/mcL Hgb 11.1 L (11.5-15.4) g/dL Hct 34.2 L (35.3-44.9) % MCV 91.2 (83.0-100.0) fL MCH 29.6 (28.0-33.3) pg MCHC 32.5 (31.6-35.5) g/dL RDW 14.6 H (11.5-14.5) % Plt Count 254 (140-400) K/mcL MPV 8.9 L (9.4-12.4) fL Immature Gran % 0.3 (0-4) % Seg Neutrophils % 66.7 % Lymphocytes % 18.0 % Monocytes % 14.5 % Eosinophils % 0.0 % Basophils % 0.5 % Neutrophils # 4.4 (1.6-8.9) K/mcL Lymphocytes # 1.2 (0.6-4.6) K/mcL Monocytes # 1.0 (0.0-1.3) K/mcL Eosinophils # 0.0 (0.0-0.6) K/mcL Basophils # 0.0 (0.0-0.2) K/mcL Sodium 136 (136-145) mEq/L Potassium 3.7 (3.5-5.1) mEq/L Chloride 103 (98-107) mEq/L Carbon Dioxide 24 (23-29) mEq/L BUN 20 (8-23) mg/dL Creatinine 1.01 (0.60-1.20) mg/dL Est GFR ( Amer) > 60 (> 60) Est GFR (Non-Af Amer) 55 L (> 60) BUN/Creatinine Ratio 20 (6-26) Glucose 136 H (70-105) mg/dL Calculated Osmolality 287 (280-300) Calcium 8.7 (8.6-10.3) mg/dL Total Bilirubin 0.2 L (0.3-1.0) mg/dL Direct Bilirubin 0.0 (0.0-0.2) mg/dL Indirect Bilirubin 0.2 (0.0-1.2) mg/dL AST 13 (13-39) Units/L ALT 8 (7-52) Units/L Alkaline Phosphatase 82 (34-104) Units/L Ammonia 36 (16-53) mcmol/L Serum Total Protein 6.6 (6.4-8.9) g/dL Albumin 4.0 (3.5-5.7) g/dL Globulin 2.6 (2.4-3.5) g/dL Albumin/Globulin Ratio 1.5 (1.1-2.2) Urine Color (Yellow) Urine Clarity (Clear) Urine pH (5.0-8.0) pH Units Ur Specific [place] (1.010-1.025) Urine Protein (Neg-Trace) mg/dL Urine Glucose (UA) (Normal) mg/dL Urine Ketones (Negative) mg/dL Urine Blood (Negative) Urine Nitrite (Negative) Urine Bilirubin (Negative) Urine Urobilinogen (Normal) mg/dL Ur Leukocyte Esterase (Negative) Urine Microscopic RBC (0-3) per hpf Urine Microscopic WBC (0-3) per hpf Ur Squamous Epith Cells (None-Few) per lpf Urine Bacteria (None-Few) per hpf Hyaline Casts (None-Few) per lpf Ur Culture Indicated? (NO) Salicylates (15.0-30.0) mg/dL Urine Opiates Screen (Apxbxv=323) ng/mL Ur Buprenorphine Scrn (Cutoff=5) ng/mL Acetaminophen (10-20) mcg/mL Ur Barbiturates Screen (Svrrux=287) ng/mL Ur Phencyclidine Scrn (Cutoff=25) ng/mL Ur Amphetamines Screen (Mkesav=3626) ng/mL U Benzodiazepines Scrn (Oefdzn=668) ng/mL Urine Cocaine Screen (Cutoff= 300) ng/mL U Marijuana (THC) Screen (Cutoff = 50) ng/mL Ur Drug Screen Interp Ethyl Alcohol (Less than 10) mg/dL 12/03/18 12/03/18 12/03/18 Range/Units 17:42 19:58 19:58 WBC (4.3-11.1) K/mcL RBC (3.82-4.97) M/mcL Hgb (11.5-15.4) g/dL Hct (35.3-44.9) % MCV (83.0-100.0) fL MCH (28.0-33.3) pg MCHC (31.6-35.5) g/dL RDW (11.5-14.5) % Plt Count (140-400) K/mcL MPV (9.4-12.4) fL Immature Gran % (0-4) % Seg Neutrophils % % Lymphocytes % % Monocytes % % Eosinophils % % Basophils % % Neutrophils # (1.6-8.9) K/mcL Lymphocytes # (0.6-4.6) K/mcL Monocytes # (0.0-1.3) K/mcL Eosinophils # (0.0-0.6) K/mcL Basophils # (0.0-0.2) K/mcL Sodium (136-145) mEq/L Potassium (3.5-5.1) mEq/L Chloride (98-107) mEq/L Carbon Dioxide (23-29) mEq/L BUN (8-23) mg/dL Creatinine (0.60-1.20) mg/dL Est GFR ( Amer) (> 60) Est GFR (Non-Af Amer) (> 60) BUN/Creatinine Ratio (6-26) Glucose (70-105) mg/dL Calculated Osmolality (280-300) Calcium (8.6-10.3) mg/dL Total Bilirubin (0.3-1.0) mg/dL Direct Bilirubin (0.0-0.2) mg/dL Indirect Bilirubin (0.0-1.2) mg/dL AST (13-39) Units/L ALT (7-52) Units/L Alkaline Phosphatase (34-104) Units/L Ammonia (16-53) mcmol/L Serum Total Protein (6.4-8.9) g/dL Albumin (3.5-5.7) g/dL Globulin (2.4-3.5) g/dL Albumin/Globulin Ratio (1.1-2.2) Urine Color Yellow (Yellow) Urine Clarity Cloudy A (Clear) Urine pH 6.0 (5.0-8.0) pH Units Ur Specific [place] 1.021 (1.010-1.025) Urine Protein Negative (Neg-Trace) mg/dL Urine Glucose (UA) Normal (Normal) mg/dL Urine Ketones Negative (Negative) mg/dL Urine Blood Negative (Negative) Urine Nitrite Positive A (Negative) Urine Bilirubin Negative (Negative) Urine Urobilinogen Normal (Normal) mg/dL Ur Leukocyte Esterase Moderate H (Negative) Urine Microscopic RBC 15-30 H (0-3) per hpf Urine Microscopic WBC TNTC H (0-3) per hpf Ur Squamous Epith Cells Moderate H (None-Few) per lpf Urine Bacteria None Seen (None-Few) per hpf Hyaline Casts Moderate H (None-Few) per lpf Ur Culture Indicated? YES A (NO) Salicylates < 2.5 L (15.0-30.0) mg/dL Urine Opiates Screen Negative (Ceklpa=870) ng/mL Ur Buprenorphine Scrn Negative (Cutoff=5) ng/mL Acetaminophen < 10 L (10-20) mcg/mL Ur Barbiturates Screen Negative (Ksigtu=983) ng/mL Ur Phencyclidine Scrn Negative (Cutoff=25) ng/mL Ur Amphetamines Screen Negative (Exgbsw=4129) ng/mL U Benzodiazepines Scrn Negative (Vhtvgr=271) ng/mL Urine Cocaine Screen Negative (Cutoff= 300) ng/mL U Marijuana (THC) Screen Negative (Cutoff = 50) ng/mL Ur Drug Screen Interp See Below Ethyl Alcohol < 10 (Less than 10) mg/dL
--- NOTE | 2018-12-04 10:43 | Emergency Department Note ---
Disposition Clinical Impression: Confusion UTI (urinary tract infection) Qualifiers: Urinary tract infection type: site unspecified Hematuria presence: without hematuria Qualified Code(s): N39.0 - Urinary tract infection, site not specified Disposition: Admitted As Inpatient Condition: Fair Time of Disposition: 08:00 General Adult HPI - General Chief complaint: ED Shortness of Breath/Dyspnea Stated complaint: SOB Time Seen by Provider: 12/03/18 15:52 Source: patient Limitations: no limitations Nursing Notes Reviewed: Yes Vital Signs Reviewed: Yes - History of Present Illness Pain Scale: 0 - Related Data Home Medications Medication Instructions Recorded Confirmed LORazepam [Ativan] 0.5 mg PO Q12H PRN #0 07/10/16 12/04/18 Salmeterol Xinafoate [Serevent 1 puff IH BID #0 07/10/16 12/04/18 Diskus] Tiotropium [place] [Spiriva 2 puff IH DAILY #0 07/10/16 12/04/18 Respimat] Esomeprazole Magnesium [Nexium] 40 mg PO DAILY 12/31/16 12/04/18 Tizanidine HCl 4 mg PO BID PRN 12/31/16 12/04/18 Divalproex Sodium [Depakote 500 mg PO BID 06/14/18 12/04/18 Sprinkle] Fluticasone Propionate [Flovent 2 puff IH BID 06/14/18 12/04/18 Hfa] Gabapentin [Neurontin] 800 mg PO BID 06/14/18 12/04/18 Roflumilast [Daliresp] 500 mcg PO DAILY 06/14/18 12/04/18 cloNIDine HCl [CloNIDine HCl] 0.1 mg PO BID PRN 06/14/18 12/04/18 Benztropine Mesylate 2 mg PO BID 12/04/18 12/04/18 Buspirone HCl [Buspar] 10 mg PO BID 12/04/18 12/04/18 Lactobacillus Acidophilus 1 tab PO DAILY 12/04/18 12/04/18 [Acidophilus] Loratadine [Allergy Relief] 10 mg PO DAILY 12/04/18 12/04/18 Magnesium Oxide [Magnesium] 400 mg PO DAILY 12/04/18 12/04/18 Melatonin 10 mg PO HS 12/04/18 12/04/18 Nicotine Patch [Nicoderm] 21 mg TP DAILY 12/04/18 12/04/18 Quetiapine Fumarate [SEROquel] 25 - 50 mg PO HS 12/04/18 12/04/18 Quetiapine Fumarate [Seroquel] 25 - 50 mg PO HS 12/04/18 12/04/18 Allergies Allergy/AdvReac Type Severity Reaction Status Date / Time alprazolam [From Xanax] Allergy Itching Verified 11/30/18 21:00 bupropion [From Wellbutrin] Allergy Itching Verified 11/30/18 21:00 doxycycline Allergy Nausea Verified 11/30/18 21:00 Ethyl Chloride Allergy Itching Verified 11/30/18 21:00 fexofenadine [From Fannie] Allergy Itching Verified 11/30/18 21:00 hydroxyzine Allergy Hallucinati Verified 11/30/18 21:00 ng Procaine [From Novocain] Allergy Rash Verified 11/30/18 21:00 Penicillins AdvReac Itching Verified 11/30/18 21:00 Past Medical History - Past Medical History Medical history: Reports: arthritis, asthma, COPD, other Surgical history: Reports: appendectomy, orthopedic, other, other Psychiatric history: Reports: anxiety, bipolar, depression PSYCH NP history: Reports: no PSYCH NP history - Social History Smoking Status: Current every day smoker Smokeless Tobacco Status: No Alcohol use: Reports: none Drug use: Reports: none Physical Exam - General Limitations: no limitations General appearance: alert, in no apparent distress Course Vital Signs Respiratory Rate 16 12/03/18 16:03 O2 Sat by Pulse Oximetry 100 12/03/18 16:03 Temperature 97.5 F L 12/06/18 02:51 Pulse Rate 77 12/06/18 02:51 Respiratory Rate 16 12/06/18 02:51 Blood Pressure 123/72 12/06/18 02:51 O2 Sat by Pulse Oximetry 96 12/06/18 02:51 Oxygen Delivery Oxygen Delivery Nasal Cannula Medical Decision Making - MDM Narrative Medical decision making narrative: 63-year-old female received in sign out at 7 AM pending reevaluation, disposition, social services specialist consult. director of physiotherapy services, Rocio, was counseled regarding the patient's care at home. She informed me that the patient does not have home health care at this time and would not be able to receive home health services until at least 2-3 days from now. We are also unable to place the patient into an assisted living facility. The patient is confused on my repeat evaluation in the emergency department. She is oriented to person and year but not to place or situation. She does not understand why she is in the emergency department. She was diagnosed with a urinary tract infection and given antibiotics last night. Patient denies fever, chills, chest pain, shortness of breath. She does not have capability to obtain her antibiotics ordered to obta in food at home. She is ambulatory in the emergency department but requires assistance. I do not feel that the patient is safe to return home secondary to her confusion as well as lack of resources. Patient will be admitted to the hospitalist for further care and evaluation. - Medical Records Medical records reviewed: Yes I reviewed the patient's medical records. - Lab Data Lab results reviewed: Yes I reviewed the patient's lab results. Result diagrams: 12/06/18 01:02 12/06/18 01:02 Lab Results 12/03/18 12/03/18 12/03/18 Range/Units 17:42 17:42 17:42 WBC 6.6 (4.3-11.1) K/mcL RBC 3.75 L (3.82-4.97) M/mcL Hgb 11.1 L (11.5-15.4) g/dL Hct 34.2 L (35.3-44.9) % MCV 91.2 (83.0-100.0) fL MCH 29.6 (28.0-33.3) pg MCHC 32.5 (31.6-35.5) g/dL RDW 14.6 H (11.5-14.5) % Plt Count 254 (140-400) K/mcL MPV 8.9 L (9.4-12.4) fL Immature Gran % 0.3 (0-4) % Seg Neutrophils % 66.7 % Lymphocytes % 18.0 % Monocytes % 14.5 % Eosinophils % 0.0 % Basophils % 0.5 % Neutrophils # 4.4 (1.6-8.9) K/mcL Lymphocytes # 1.2 (0.6-4.6) K/mcL Monocytes # 1.0 (0.0-1.3) K/mcL Eosinophils # 0.0 (0.0-0.6) K/mcL Basophils # 0.0 (0.0-0.2) K/mcL Sodium 136 (136-145) mEq/L Potassium 3.7 (3.5-5.1) mEq/L Chloride 103 (98-107) mEq/L Carbon Dioxide 24 (23-29) mEq/L BUN 20 (8-23) mg/dL Creatinine 1.01 (0.60-1.20) mg/dL Est GFR ( Amer) > 60 (> 60) Est GFR (Non-Af Amer) 55 L (> 60) BUN/Creatinine Ratio 20 (6-26) Glucose 136 H (70-105) mg/dL Calculated Osmolality 287 (280-300) Calcium 8.7 (8.6-10.3) mg/dL Total Bilirubin 0.2 L (0.3-1.0) mg/dL Direct Bilirubin 0.0 (0.0-0.2) mg/dL Indirect Bilirubin 0.2 (0.0-1.2) mg/dL AST 13 (13-39) Units/L ALT 8 (7-52) Units/L Alkaline Phosphatase 82 (34-104) Units/L Ammonia 36 (16-53) mcmol/L Serum Total Protein 6.6 (6.4-8.9) g/dL Albumin 4.0 (3.5-5.7) g/dL Globulin 2.6 (2.4-3.5) g/dL Albumin/Globulin Ratio 1.5 (1.1-2.2) Urine Color (Yellow) Urine Clarity (Clear) Urine pH (5.0-8.0) pH Units Ur Specific [place] (1.010-1.025) Urine Protein (Neg-Trace) mg/dL Urine Glucose (UA) (Normal) mg/dL Urine Ketones (Negative) mg/dL Urine Blood (Negative) Urine Nitrite (Negative) Urine Bilirubin (Negative) Urine Urobilinogen (Normal) mg/dL Ur Leukocyte Esterase (Negative) Urine Microscopic RBC (0-3) per hpf Urine Microscopic WBC (0-3) per hpf Ur Squamous Epith Cells (None-Few) per lpf Urine Bacteria (None-Few) per hpf Hyaline Casts (None-Few) per lpf Ur Culture Indicated? (NO) Salicylates (15.0-30.0) mg/dL Urine Opiates Screen (Eypxew=334) ng/mL Ur Buprenorphine Scrn (Cutoff=5) ng/mL Acetaminophen (10-20) mcg/mL Ur Barbiturates Screen (Efkzuu=453) ng/mL Ur Phencyclidine Scrn (Cutoff=25) ng/mL Ur Amphetamines Screen (Iqxadb=2873) ng/mL U Benzodiazepines Scrn (Sobuup=446) ng/mL Urine Cocaine Screen (Cutoff= 300) ng/mL U Marijuana (THC) Screen (Cutoff = 50) ng/mL Ur Drug Screen Interp Ethyl Alcohol (Less than 10) mg/dL 12/03/18 12/03/18 12/03/18 Range/Units 17:42 19:58 19:58 WBC (4.3-11.1) K/mcL RBC (3.82-4.97) M/mcL Hgb (11.5-15.4) g/dL Hct (35.3-44.9) % MCV (83.0-100.0) fL MCH (28.0-33.3) pg MCHC (31.6-35.5) g/dL RDW (11.5-14.5) % Plt Count (140-400) K/mcL MPV (9.4-12.4) fL Immature Gran % (0-4) % Seg Neutrophils % % Lymphocytes % % Monocytes % % Eosinophils % % Basophils % % Neutrophils # (1.6-8.9) K/mcL Lymphocytes # (0.6-4.6) K/mcL Monocytes # (0.0-1.3) K/mcL Eosinophils # (0.0-0.6) K/mcL Basophils # (0.0-0.2) K/mcL Sodium (136-145) mEq/L Potassium (3.5-5.1) mEq/L Chloride (98-107) mEq/L Carbon Dioxide (23-29) mEq/L BUN (8-23) mg/dL Creatinine (0.60-1.20) mg/dL Est GFR ( Amer) (> 60) Est GFR (Non-Af Amer) (> 60) BUN/Creatinine Ratio (6-26) Glucose (70-105) mg/dL Calculated Osmolality (280-300) Calcium (8.6-10.3) mg/dL Total Bilirubin (0.3-1.0) mg/dL Direct Bilirubin (0.0-0.2) mg/dL Indirect Bilirubin (0.0-1.2) mg/dL AST (13-39) Units/L ALT (7-52) Units/L Alkaline Phosphatase (34-104) Units/L Ammonia (16-53) mcmol/L Serum Total Protein (6.4-8.9) g/dL Albumin (3.5-5.7) g/dL Globulin (2.4-3.5) g/dL Albumin/Globulin Ratio (1.1-2.2) Urine Color Yellow (Yellow) Urine Clarity Cloudy A (Clear) Urine pH 6.0 (5.0-8.0) pH Units Ur Specific [place] 1.021 (1.010-1.025) Urine Protein Negative (Neg-Trace) mg/dL Urine Glucose (UA) Normal (Normal) mg/dL Urine Ketones Negative (Negative) mg/dL Urine Blood Negative (Negative) Urine Nitrite Positive A (Negative) Urine Bilirubin Negative (Negative) Urine Urobilinogen Normal (Normal) mg/dL Ur Leukocyte Esterase Moderate H (Negative) Urine Microscopic RBC 15-30 H (0-3) per hpf Urine Microscopic WBC TNTC H (0-3) per hpf Ur Squamous Epith Cells Moderate H (None-Few) per lpf Urine Bacteria None Seen (None-Few) per hpf Hyaline Casts Moderate H (None-Few) per lpf Ur Culture Indicated? YES A (NO) Salicylates < 2.5 L (15.0-30.0) mg/dL Urine Opiates Screen Negative (Xquiac=857) ng/mL Ur Buprenorphine Scrn Negative (Cutoff=5) ng/mL Acetaminophen < 10 L (10-20) mcg/mL Ur Barbiturates Screen Negative (Eworby=769) ng/mL Ur Phencyclidine Scrn Negative (Cutoff=25) ng/mL Ur Amphetamines Screen Negative (Ohnezd=5903) ng/mL U Benzodiazepines Scrn Negative (Xgddgx=016) ng/mL Urine Cocaine Screen Negative (Cutoff= 300) ng/mL U Marijuana (THC) Screen Negative (Cutoff = 50) ng/mL Ur Drug Screen Interp See Below Ethyl Alcohol < 10 (Less than 10) mg/dL
--- NOTE | 2018-12-04 10:56 | Internal Med History&Physical ---
Date of Encounter: 12/04/18 Time of Encounter: 10:55 Internal Medicine - H&P: HPI History of present illness: Ms. Aguilera is a 63 year old female with history of multiple psychiatric hospitalizations, COPD on 4L O2, CAD presented to ED after a police shift commander witnessed patient with trouble walking down the street falling short of breath. Patient is confused as to what is bringing her here but she does admit to gait difficulties and shortness of breath. She was ambulating without oxygen prope rly running during this time. She was discharged yesterday from mental health unit here at [facility] and only home for 2 hours before wandering the streets because her high risk case manager briefly left to sweet pickled fruit maker food. Patient was re evaluated by medical staff at and there was no indication for psychiatry readmission. She denies headache, blurry vision, neck pain/stiffness, lymphadenoapthy, chest pain, (any worsening above baseline) shortness of breath, n/v, diarrhea, palpitations, edema, numbness/tingling. She does admit to gait difficulties which has been worsening for past week. Urinalysis in ED was consistent with UTI. Patient does appear confused to situation but is oriented to person, pl aylin, time. Urine tox screen was negative as well as APAP, etoh, and ASA levels. CT of head was done yesterday that showed no acute intracranial abnormalities. 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 Also noted degree of ventricular dilatation is out of proportion to cortical sulci. Past Med Surg Social Fam HX - Past Medical History Medical history: arthritis, asthma, COPD, other Additional medical history: hyponatremia,edema,hyponasality,anxiety with depression, chronic pain, headache, hx pneumonia, fibromyalgia, hypokalemia,PTmphazeymaSD, FLETCHER,emphyxema, chronic bronchitis,neuropathy,mu;tiple broken bones,thrush,oral,tardive dyskinesia,cervical Fa,BROAD DISC BULDGEAT,MILD c3/4 LISTHESIS,BIPOLAr, back pain, ddd lumbar, tobacco abuse,vulval intraepithical neoplasia grade 1, shoulder pain,IBS, onychocosis,falls,seborrheic dermatitis, peripheral neuropathy,joint pain,weight loss,bite from cat,dermatophytosis, ingrown toe nail with infection,high risk medication use,cervical stenosis,myofascial pain,cellulitis,NSTEMI,mild vulvar dysplasia Psychiatric history: anxiety, bipolar, depression - Past Surgical History Surgical History: appendectomy, orthopedic, other, other Additional surgical history: teeth extraction,barium swallow,EGD with ialation,urethral dilation,FLETCHER, L Knee repair - Social History Smoking Status: Current every day smoker Smokeless Tobacco Status: No Alcohol use: none Drug use: none - Family History Mother Living Status: Hx Family Cancer: Yes (lung) Sister Family Member Ethnicity: Non- Hx Family Endocrine Disorder: Yes (DM II) Internal Medicine - H&P: Meds Cetirizine HCl [Zyrtec] 10 mg PO DAILY #0 07/10/16 [History] LORazepam [Ativan] 0.5 mg PO BID PRN #0 07/10/16 [History] Losartan [Cozaar] 25 mg PO DAILY #0 07/10/16 [History] Mirtazapine [Remeron] 15 mg PO HS #0 07/10/16 [History] Oxygen 4 l NS AD #0 07/10/16 [History] Salmeterol Xinafoate [Serevent Diskus] 1 puff IH BID #0 07/10/16 [History] Tiotropium [place] [Spiriva Respimat] 2 puff IH DAILY #0 07/10/16 [History] Esomeprazole Magnesium [Nexium] 40 mg PO DAILY 12/31/16 [History] Tizanidine HCl 4 mg PO TID PRN 12/31/16 [History] Albuterol Neb [Proventil Neb] 2.5 mg IH Q4HR PRN 06/14/18 [History] Amitriptyline [Elavil] 10 mg PO DAILY 06/14/18 [History] Buspirone HCl [Buspar] 30 mg PO BID 06/14/18 [History] Divalproex Sodium [Depakote Sprinkle] 250 mg PO TID 06/14/18 [History] Fluticasone Propionate Nasal [Flonase] 1 spray NS DAILY 06/14/18 [History] Fluticasone Propionate [Flovent Hfa] 2 puff IH BID 06/14/18 [History] Gabapentin [Neurontin] 800 mg PO BID 06/14/18 [History] Quetiapine Fumarate [Seroquel] 50 - 100 mg PO HS PRN 06/14/18 [History] Roflumilast [Daliresp] 500 mcg PO DAILY 06/14/18 [History] cloNIDine HCl [CloNIDine HCl] 0.1 mg PO TID PRN 06/14/18 [History] Quetiapine Fumarate [Seroquel] 12.5 mg PO 2-3XD PRN #8 tablet 10/30/18 [Rx] Allergy/AdvReac Type Severity Reaction Status Date / Time alprazolam [From Xanax] Allergy Itching Verified 11/30/18 21:00 bupropion [From Wellbutrin] Allergy Itching Verified 11/30/18 21:00 doxycycline Allergy Nausea Verified 11/30/18 21:00 Ethyl Chloride Allergy Itching Verified 11/30/18 21:00 fexofenadine [From Fannie] Allergy Itching Verified 11/30/18 21:00 hydroxyzine Allergy Hallucinati Verified 11/30/18 21:00 ng Procaine [From Novocain] Allergy Rash Verified 11/30/18 21:00 Penicillins AdvReac Itching Verified 11/30/18 21:00 All Systems PM: A 10-system review of systems was performed and is negative for pertinent findings except as documented above in the HPI. - Constitutional Vitals: Temp Pulse Resp BP Pulse Ox 98.1 F 74 13 129/88 95 12/03/18 18:42 12/04/18 07:30 12/04/18 07:30 12/04/18 07:30 12/04/18 07:30 General appearance: Present: A&O X 3 Exam: Unsure of current situation and why she is in ED. - Head Head exam: Present: atraumatic, normocephalic - Eye Eye exam: Present: PERRL, conjuntiva pink, sclera anicteric Pupils: Present: PERRL - Neck Neck exam general surgery: Present: supple, trachea midline. Absent: lymphadenopathy - Respiratory Respiratory exam: Present: CTAB. Absent: accessory muscle use, rales, rhonchi, wheezes - Cardiovascular Cardiovascular exam: Present: RRR, +S1, +S2. Absent: diastolic murmur, gallop, rubs, systolic murmur - GI/Abdominal GI/Abdominal exam: Present: normal bowel sounds, soft, no peritoneal signs. Absent: distended, tenderness - Extremities Exam Extremities exam: Present: warm, radial pulses palpable and symmetrical. Absent: calf tenderness, cyanotic, pedal edema - Neurological Exam Neurological exam: Present: abnormal gait (shuffling, needing assistance, slow to move), CN II-XII intact, oriented X3, no focal deficits. Absent: motor sensory deficit, pronater drift, facial droop, speech deficit - Psychiatric Psychiatric exam: Present: anxious. Absent: agitated, homicidal ideation, suicidal ideation - Skin Skin exam: Present: dry, intact Internal Med - H&P Results - Labs CBC & Chem 7: 12/03/18 17:42 12/03/18 17:42 Labs: Short CBC 12/03/18 Range/Units 17:42 WBC 6.6 (4.3-11.1) K/mcL Hgb 11.1 L (11.5-15.4) g/dL Hct 34.2 L (35.3-44.9) % Plt Count 254 (140-400) K/mcL Neutrophils # 4.4 (1.6-8.9) K/mcL BMP 12/03/18 17:42 Sodium 136 Potassium 3.7 Chloride 103 Carbon Dioxide 24 BUN 20 Creatinine 1.01 Glucose 136 H Calcium 8.7 Liver Function 12/03/18 Range/Units 17:42 Total Bilirubin 0.2 L (0.3-1.0) mg/dL Direct Bilirubin 0.0 (0.0-0.2) mg/dL AST 13 (13-39) Units/L ALT 8 (7-52) Units/L Alkaline Phosphatase 82 (34-104) Units/L Albumin 4.0 (3.5-5.7) g/dL Urine 12/03/18 Range/Units 19:58 Urine Color Yellow (Yellow) Urine Clarity Cloudy A (Clear) Urine pH 6.0 (5.0-8.0) pH Units Ur Specific [place]anc 1.021 (1.010-1.025) Urine Protein Negative (Neg-Trace) mg/dL Urine Glucose (UA) Normal (Normal) mg/dL - Impressions ITS Impressions Chest X-Ray 12/03/18 15:57 IMPRESSION: No acute cardiopulmonary disease with the above reservation. D/ / Juanjose Dunn MD / Juanjose Dunn MD Interpreting Provider: Juanjose Dunn MD Head CT 12/03/18 17:29 IMPRESSION: 1. No acute intracranial abnormality. 2. Global parenchymal volume loss with chronic microvascular ischemic changes. 3. 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 4. The degree of ventricular dilatation is out of proportion to the cortical sulci. A component of normal pressure hydrocephalus cannot be entirely excluded. D/ / Jordy Murcia MD / Jordy Murcia MD Interpreting Provider: Jordy Murcia MD - Assessment and Plan (1) UTI (urinary tract infection) Current Visit: Yes Status: Acute Qualifiers: Urinary tract infection type: site unspecified Hematuria presence: without hematuria Qualified Code(s): N39.0 - Urinary tract infection, site not specified (2) Acute encephalopathy Current Visit: No Status: Acute Assessment and plan: suspect acute metabolic encephalopathy from UTI. Patient appears to be confused about her current situation. She is awake, alert, and oriented to person place time, however. She does seem to have baseline cognitive troubles that could be gradually worsening. Given findings of CT scan in the context of gait disturbance, will consult Neurology for evaluation, though UTI may be more likely than NPH. - Continue Rocephin - Consult Neurology (3) Anxiety Current Visit: No Status: Acute Assessment and plan: resume home medications once med rec completed. (4) DVT prophylaxis Current Visit: No Status: Acute (5) COPD (chronic obstructive pulmonary disease) Current Visit: No Status: Chronic Qualifiers: COPD type: unspecified COPD Qualified Code(s): J44.9 - Chronic obstructive pulmonary disease, unspecified (6) Chronic respiratory failure with hypoxia Current Visit: No Status: Chronic (7) Generalized anxiety disorder Current Visit: No Status: Chronic - Time Spent With Patient Total time spent is greater than 50% in coordination of care (as documented) at patient's floor/unit and/or counseling patient:
[2018-12-04] MEDS ORDERED: Naloxone 0.4 MG/ML INJ IVP PRN (11:39)
[2018-12-04] MEDS: Ipratropium/Albuterol Neb 3 ML IH SCH ×3 (15:21→20:26)
[2018-12-04] MEDS: *HR* Heparin 5,000 UNIT/ML VIAL SQ SCH (16:46)
[2018-12-04] MEDS ORDERED: cloNIDine HCl 0.1 MG TABLET PO PRN (18:09)
[2018-12-04] MEDS: *HR* LORazepam 0.5 MG TABLET PO PRN (18:45)
[2018-12-04] MEDS: Gabapentin 300 MG CAPSULE PO SCH (19:17)
[2018-12-04] MEDS: Divalproex (12 HR) 500 MG TABLET PO SCH (19:17)
[2018-12-04] MEDS: Melatonin 3 MG TABLET PO SCH (19:17)
[2018-12-04] MEDS: SALMETEROL XINAFOATE IH SCH (19:17)
[2018-12-04] MEDS ORDERED: Ondansetron 4 MG/2 ML VIAL IVP PRN (19:24)
--- NOTE | 2018-12-04 20:27 | Neurology - Consult Note ---
Date of Encounter: 12/04/18 Time of Encounter: 15:00 Assessment and Plan (1) Confusion Current Visit: Yes Status: Acute Patient developed acute confusion with significant psychiatric history and recent hospitalization and she is really nervous with likely anxiety-induced limb tremors but is able to maintain posture and there certainly no evidence of Parkinson disease and she also has COPD requiring constant O2 supplementation therefore the presentation is not consistent with those caused by normal pressure hydrocephalus. Patient denies memory difficulty but accurate assessment of her mental status difficult due to presence of significant anxiety. She has no focal neurological deficits. I have no suspicion for any new STAFF AUDITOR pathology at this time. (2) Normal pressure hydrocephalus Current Visit: Yes Status: Acute I reviewed the patient's CT of head without contrast and compared to previous one that was performed few years ago (2009 and after) and i can see the change in the ventricle size and there does appear to be enlargement of the lateral ventricles bilaterally in relationship to the sulci and baseline diffuse cerebral atrophy. It is my opinion that there has been progressive enlargement of lateral ventricles, out of proportion of the cortical sulci. However, cl inically it is difficult to correlate with her clinical symptoms. In terms of typical symptoms related to NPH, such as dementia, gait difficulty and urinary and bowel incontinence, she has likely some gait difficulty per history as well as cognitive impairment but both can be complicated by her lexy oing anxiety and psychiatric conditions. Today her gait is small stepped but this appear to be complicated by ongoing anxiety. In terms of management at this there is no indication for any type of surgical intervention and the best approach would be to stabilize her medically and psychiatrically and then a neurology follow up is then needed when she is stable at baseline and a trial of lumbar drain then can be considered if indicated. History of Present Illness Chief complaint: confusion, balance difficulty and abnormal CT of head HPI: Ms. Aguilera is a 63 year old female with PMH significant for anxiety, bipolar disorder, with recent multiple psychiatric admissions, myofacial muscle pain, OA, lumbar DDD, COPD who presented to the ER, found SOB walking on the street in the heat and confused. At the time of this interview patient is nervous and unable to provide detailed information regarding her neurological condition. Neurology was consulted due to finding of CT of head showing questionable normal pressure hydrocephalus. Medical records regarding this current admission reviewed. CT of head reviewed and showed ventricular megaly at the bilateral occipital horn and the patient also completed MRI of brain which showed no acute intracranial abnormality. The patient does have previous CT of head that was done few years ago and comparison of these CT of head scan does show changes in the size of lateral ventricles bilaterally. Currently, patient denies any significant memory difficulty. She is however, anxious and have diffuse tremors involving her hands and legs but able to maintain her posture. She is aware of the tremors and admits that she is nervous. She is able to walk with very small steps. The tremors can be somewhat reduced by distracting her. She does admit that she has been having gait difficu lty lately. She denies any falls. No headaches. She denies memory difficulty. She is currently oriented to person and place but not exact date. Past Med Surg Social Fam HX - Past Medical History Medical history: arthritis, asthma, COPD, other Additional medical history: hyponatremia,edema,hyponasality,anxiety with depression, chronic pain, headache, hx pneumonia, fibromyalgia, hypokalemia,PTmphazeymaSD, FLETCHER,emphyxema, chronic bronchitis,neuropathy,mu;tiple broken bones,thrush,oral,tardive dyskinesia,cervical Fa,BROAD DISC BULDGEAT,MILD c3/4 LISTHESIS,BIPOLAr, back pain, ddd lumbar, tobacco abuse,vulval intraepithical neoplasia grade 1, shoulder pain,IBS, onychocosis,falls,seborrheic dermatitis, peripheral neuropathy,joint pain,weight loss,bite from cat,dermatophytosis, ingrown toe nail with infection,high risk medication use,cervical stenosis,myofascial pain,cellulitis,NSTEMI,mild vulvar dysplasia Psychiatric history: anxiety, bipolar, depression - Past Surgical History Surgical History: appendectomy, orthopedic, other, other Additional surgical history: teeth extraction,barium swallow,EGD with ialati on,urethral dilation,FLETCHER, L Knee repair - Social History Smoking Status: Current every day smoker Smokeless Tobacco Status: No Alcohol use: none Drug use: none - Family History Mother Living Status: Hx Family Cancer: Yes (lung) Sister Family Member Ethnicity: Non- Hx Family Endocrine Disorder: Yes (DM II) Medications and Allergies LORazepam [Ativan] 0.5 mg PO Q12H PRN #0 07/10/16 [History] Salmeterol Xinafoate [Serevent Diskus] 1 puff IH BID #0 07/10/16 [History] Tiotropium [place] [Spiriva Respimat] 2 puff IH DAILY #0 07/10/16 [History] Esomeprazole Magnesium [Nexium] 40 mg PO DAILY 12/31/16 [History] Tizanidine HCl 4 mg PO BID PRN 12/31/16 [History] Divalproex Sodium [Depakote Sprinkle] 500 mg PO BID 06/14/18 [History] Fluticasone Propionate [Flovent Hfa] 2 puff IH BID 06/14/18 [History] Gabapentin [Neurontin] 800 mg PO BID 06/14/18 [History] Roflumilast [Daliresp] 500 mcg PO DAILY 06/14/18 [History] cloNIDine HCl [CloNIDine HCl] 0.1 mg PO BID PRN 06/14/18 [History] Benztropine Mesylate 2 mg PO BID 12/04/18 [History] Buspirone HCl [Buspar] 10 mg PO BID 12/04/18 [History] Lactobacillus Acidophilus [Acidophilus] 1 tab PO DAILY 12/04/18 [History] Loratadine [Allergy Relief] 10 mg PO DAILY 12/04/18 [History] Magnesium Oxide [Magnesium] 400 mg PO DAILY 12/04/18 [History] Melatonin 10 mg PO HS 12/04/18 [History] Nicotine Patch [Nicoderm] 21 mg TP DAILY 12/04/18 [History] Quetiapine Fumarate [SEROquel] 25 - 50 mg PO HS 12/04/18 [History] Quetiapine Fumarate [Seroquel] 25 - 50 mg PO HS 12/04/18 [History] Allergy/AdvReac Type Severity Reaction Status Date / Time alprazolam [From Xanax] Allergy Itching Verified 11/30/18 21:00 bupropion [From Wellbutrin] Allergy Itching Verified 11/30/18 21:00 doxycycline Allergy Nausea Verified 11/30/18 21:00 Ethyl Chloride Allergy Itching Verified 11/30/18 21:00 fexofenadine [From Fannie] Allergy Itching Verified 11/30/18 21:00 hydroxyzine Allergy Hallucinati Verified 11/30/18 21:00 ng Procaine [From Novocain] Allergy Rash Verified 11/30/18 21:00 Penicillins AdvReac Itching Verified 11/30/18 21:00 All Systems: The remainder of the systems were reviewed and are negative - Constitutional Constitutional ROS IM: anorexia (no), chills (no), daytime sleepiness (no), excessive sweating (no), headache(s) (no), weight loss (no) - Nose, Mouth, Throat Nose, mouth and throat: abnormal hearing (no), change in voice (no), disequilibrium (yes), dizziness (no), headache(s) (no) - Cardiovascular Cardiovascular ROS IM: chest pain (no), chest pain at rest (no), claudication (no), diaphoresis (no) - Respiratory Respiratory IM: cough (no), dyspnea (yes), dyspnea on exertion (yes), wheezing (yes) - Gastrointestinal Gastrointestinal: abdominal pain (no), diarrhea (no) - Genitourinary Genitourinary ROS: difficulty urinating (no) - Neurological Neurological ROS: abnormal gait (yes), abnormal hearing (no), abnormal movements (diffuse fine tremors), abnormal speech, behavioral changes (yes), disequilibrium (yes), dizziness (no), memory loss (denies) - Psychiatric Psychiatric general PM: auditory hallucinations (no), behavioral changes (yes), visual hallucinations (no) Physical Examination - Vital Signs Vital Signs: Initial Vital Signs Resp Pulse Ox 16 100 12/03/18 16:03 12/03/18 16:03 - Constitutional General appearance: older than stated age, other (Patient is wide awake and alert but nervous. Aware that she is nerovus but unable to stop the tremor) - Neurologic Sensorimotor examination: other (Grossly intact) Motor examination - right side: 5/5: deltoids, biceps, triceps, wrist flexion, wrist extension, bridge expert, hip flexors, tibialis Anterior, quadriceps, toe extension (EHL), plantarflexion Motor examination - left side: 5/5: deltoids, biceps, triceps, wrist flexion, wrist extension, hip flexors, bridge expert, quadriceps, tibialis Anterior, toe extension (EHL), plantarflexion Detailed sensory examination: other (Grossly intact) Posture: other (None) Reflex and gait examination: other (Gait is abnormal. Is able to walk with very small tentative steps with hand being held and admtis that she is nervous) Reflexes: Biceps: 2+, Triceps: 2+, Brachioradialis: 2+, Patella: 2+, Achilles: 2+ Mental Status Examination: awake, alert, oriented to person, oriented to place, oriented to time, follows commands appropriately, answers questions appropriately, no agnosia, no aphasia, no aproxia Cranial nerve examination: PERRL, EOMI, visual woodson intact, corneal reflexes brisk symmetrically, sensory to face intact, mastication intact, no facial asymmetry is present, no dysarthria, hearing is intact symmetrically, soft palate elevates bilaterally upon phonation, gag reflex intact, flexes SCM and trapezius muscles symmetrically with full power, tongue protrudes midline, no atrophy or facial fasiculations present Results - Laboratory Findings CBC and BMP: 12/03/18 17:42 12/03/18 17:42 Abnormal lab findings: Abnormal lab results RBC 3.75 M/mcL (3.82-4.97) L 12/03/18 17:42 Hgb 11.1 g/dL (11.5-15.4) L 12/03/18 17:42 Hct 34.2 % (35.3-44.9) L 12/03/18 17:42 RDW 14.6 % (11.5-14.5) H 12/03/18 17:42 MPV 8.9 fL (9.4-12.4) L 12/03/18 17:42 Est GFR (Non-Af Amer) 55 (> 60) L 12/03/18 17:42 Glucose 136 mg/dL (70-105) H 12/03/18 17:42 Total Bilirubin 0.2 mg/dL (0.3-1.0) L 12/03/18 17:42 Urine Clarity Cloudy (Clear) A 12/03/18 19:58 Urine Nitrite Positive (Negative) A 12/03/18 19:58 Ur Leukocyte Esterase Moderate (Negative) H 12/03/18 19:58 Urine Microscopic RBC 15-30 per hpf (0-3) H 12/03/18 19:58 Urine Microscopic WBC TNTC per hpf (0-3) H 12/03/18 19:58 Ur Squamous Epith Cells Moderate per lpf (None-Few) H 12/03/18 19:58 Hyaline Casts Moderate per lpf (None-Few) H 12/03/18 19:58 Ur Culture Indicated? YES (NO) A 12/03/18 19:58 Salicylates < 2.5 mg/dL (15.0-30.0) L 12/03/18 17:42 Acetaminophen < 10 mcg/mL (10-20) L 12/03/18 17:42 - Diagnostic Findings Additional findings: CT OF THE HEAD WITHOUT CONTRAST 12/03/2018 5:46 pm TECHNIQUE: CT of the head was performed without the administration of intravenous contrast. Dose modulation, iterative reconstruction, and/or weight based adjustment of the mA/kV was utilized to reduce the radiation dose to as low as reasonably achievable. COMPARISON: 11/19/2018. HISTORY: ORDERING SYSTEM PROVIDED HISTORY: confusion Initial evaluation. FINDINGS: BRAIN/VENTRICLES: Minimal encephalomalacia is again seen involving the right parietal/occipital lobe. Otherwise, the bello-white differentiation appears maintained. No acute intracranial hemorrhage, mass effect or midline shift. There are areas of hypoattenuation in the periventricular and subcortical white matter, which is nonspecific, but may represent chronic microvasvular ischemic change. There is prominence of the ventricles and sulci due to global parenchymal volume loss. The ventricular prominence is out of proportion to the cortical sulci. This is similar to the prior exam. Minimal scattered atherosclerosis of the intracranial vasculature. ORBITS: The visualized portion of the orbits demonstrate no acute abnormality. SINUSES: The visualized paranasal sinuses and mastoid air cells demonstrate no acute abnormality. SOFT TISSUES/SKULL: No acute abnormality of the visualized skull or soft tissues. CT/CT head/brain wo con IMPRESSION: 1. No acute intracranial abnormality. 2. Global parenchymal volume loss with chronic microvascular ischemic changes. 3. 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 4. The degree of ventricular dilatation is out of proportion to the cortical sulci. A component of normal pressure hydrocephalus cannot be entirely excluded. Consult Discharge Plan - Plan Referrals: Whitney Richards MD [Primary Care Provider] -
--- NOTE | 2018-12-05 00:41 | Electrocardiograph Report ---
[email or web address] Test Date: 2018-12-03 Pat Name: Starla Aguilera Department: EXAM4 Room: 3B32 Gender: F [employer]: : 1955 Requested By: Nader Dwyer Order Number: [id number] Reading MD: Mara Banks Measurements Intervals [place] Rate: 99 P: HI: QRS: -39 QRSD: 89 T: 50 QT: 368 QTc: 473 Interpretive Statements Sinus rhythm, almost sinus tach Left axis deviation Electronically Signed On 12-05-2018 0:39:39 EDT by Mara Banks
[2018-12-05] MEDS: Ipratropium/Albuterol Neb 3 ML IH SCH ×7 (00:57→23:29)
[2018-12-05] MEDS: *HR* Heparin 5,000 UNIT/ML VIAL SQ SCH ×2 (05:19→16:28)
[2018-12-05 07:13] LABS: Hematocrit 35.2 % (35.3-44.9); Hemoglobin 10.9 g/dL (11.5-15.4); Mean Corpuscular Hemoglobin 29.4 pg (28.0-33.3); Mean Corpuscular Volume 94.9 fL (83.0-100.0); Mean Platelet Volume 9.3 fL (9.4-12.4); Platelet Count 228 K/mcL (140-400); Red Blood Count 3.71 M/mcL (3.82-4.97); Red Cell Distribution Width 14.5 % (11.5-14.5); White Blood Count 5.1 K/mcL (4.3-11.1)
[2018-12-05] MEDS: SALMETEROL XINAFOATE IH SCH ×2 (07:17→20:17)
[2018-12-05] MEDS: (Roflumilast [Daliresp] 500 MCG) PO SCH (07:17)
[2018-12-05] MEDS: cefTRIAXone 1,000 MG in Water for inj. (sterile) 10 ML IVP SCH (07:25)
[2018-12-05] MEDS: Magnesium Oxide 400 MG TABLET PO SCH (07:26)
[2018-12-05] MEDS: Divalproex (12 HR) 500 MG TABLET PO SCH ×2 (07:26→20:09)
[2018-12-05] MEDS: Lactobacillus 1 EACH CAP.SPRINK PO SCH (07:26)
[2018-12-05] MEDS: Nicotine 21 MG PATCH.TD24 TP SCH (07:26)
[2018-12-05] MEDS: *HR* LORazepam 0.5 MG TABLET PO PRN ×2 (07:27→15:53)
[2018-12-05] MEDS: Loratadine 10 MG TABLET PO SCH (07:27)
[2018-12-05] MEDS: Gabapentin 300 MG CAPSULE PO SCH ×2 (07:27→20:10)
[2018-12-05] MEDS: Tiotropium 18 MCG inhalation IH SCH (07:52)
[2018-12-05 07:58] LABS: BUN/Creatinine Ratio 12 (6-26); Blood Urea Nitrogen 10 mg/dL (8-23); Calcium 8.7 mg/dL (8.6-10.3); Carbon Dioxide 30 mEq/L (23-29); Chloride 101 mEq/L (98-107); Glucose 92 mg/dL (70-105); Osmolality,Calculated 283 (280-300); Potassium 3.7 mEq/L (3.5-5.1); Sodium 137 mEq/L (136-145); eGFR For African Americans > 60 (> 60); eGFR For Non-African Americans > 60 (> 60)
--- NOTE | 2018-12-05 09:57 | Internal Med Progress Note ---
Hospitalist Progress Note - Encounter Date of Encounter: 12/05/18 Time of Encounter: 09:57 - Subjective Interval History: Patient was seen and examined at bedside currently patient is sleeping and she does arouse to oral stimuli. 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 No focal deficits noted. Patient has a shuffled gait. Discussed treatment plan with the patient which includes continuation of antibiotics and evaluation by PT and OT patient may require inpatient rehabilitation - Exam Vitals: Temp Pulse Resp BP Pulse Ox 97.8 F 77 12 124/75 99 12/05/18 07:00 12/05/18 07:00 12/05/18 07:42 12/05/18 07:00 12/05/18 07:42 Exam: Skin: Free of rash and discoloration. Eyes: Sclera is white. There is no discharge from eyes. ENMT: Oral/pharyngeal mucosa is normal in appearance. There is no discharge from nose or ears. Respiratory: Normal breath sounds with no crackles and wheezes bilaterally. CV: Heart is regular with no gallop or murmur. GI: Abdomen is flat and soft with no palpable mass or visceromegaly. : There is no tenderness in patient's flanks bilaterally. Neuro exam: He has good strength in upper and lower extremities. He has normal eye movements. Psychiatric: He has normal affect. His thought process is appropriate to the situation. - Assessment and Plan (1) DVT prophylaxis Current Visit: No Status: Acute Assessment and Plan: Heparin subcutaneous (2) Generalized anxiety disorder Current Visit: No Status: Chronic Assessment and Plan: We will continue with home medications currently appears calm (3) COPD (chronic obstructive pulmonary disease) Current Visit: No Status: Chronic Assessment and Plan: Does not appear to be in exacerbation at this time we will continue bronchodi lators (4) Chronic respiratory failure with hypoxia Current Visit: No Status: Chronic Assessment and Plan: Currently on 2 L nasal cannula 98% apparently she is on home oxygen at 2 L continuous. (5) Acute encephalopathy Current Visit: No Status: Acute Assessment and Plan: suspect acute metabolic encephalopathy from UTI. Patient appears to be confused about her current situation. She is awake, alert, and oriented to person place time, however. She does seem to have baseline cognitive troubles that could be gradually worsening. Given findings of CT scan in the context of gait disturbance, will consult Neurology for evaluation, though UTI may be more likely than NPH. - Continue Rocephin - Consult Neurology 12/05 May be multifactorial UTI which we will continue with Rocephin Neurology consulted - NPH - no indication for any surgical interventions recommending stabilizing medically/psychiatrically in follow-up with neurology when she is more stable and her baseline- possible lumbar drain as outpatient -We will have patient evaluated by PT and OT she is high risk for falls and may benefit from inpatient rehabilitation (6) Anxiety Current Visit: No Status: Acute Assessment and Plan: [place], this time we will continue with home medications (7) UTI (urinary tract infection) Current Visit: Yes Status: Acute Assessment and Plan: Continue with Rocephin and urine cultures pending at this time - Time Spent with Patient Total time spent is greater than 50% in coordination of care (as documented) at patient's floor/unit and/or counseling patient: Internal Medicine: Result - Labs CBC & Chem 7: 12/05/18 06:25 12/05/18 06:25 Labs: Short CBC 12/05/18 Range/Units 06:25 WBC 5.1 (4.3-11.1) K/mcL Hgb 10.9 L (11.5-15.4) g/dL Hct 35.2 L (35.3-44.9) % Plt Count 228 (140-400) K/mcL BMP 12/05/18 06:25 Sodium 137 Potassium 3.7 Chloride 101 Carbon Dioxide 30 H BUN 10 Creatinine 0.83 Glucose 92 Calcium 8.7 Consult Discharge Plan - Plan Referrals: Whitney Richards MD [Primary Care Provider] - (3) COPD (chronic obstructive pulmonary disease) Qualifiers: COPD type: unspecified COPD Qualified Code(s): J44.9 - Chronic obstructive p ulmonary disease, unspecified (7) UTI (urinary tract infection) Qualifiers: Urinary tract infection type: site unspecified Hematuria presence: without hematuria Qualified Code(s): N39.0 - Urinary tract infection, site not specified
--- NOTE | 2018-12-05 12:13 | Neurology Progress Note ---
Date of Encounter: 12/05/18 Time of Encounter: 12:10 Assessment and Plan (1) Confusion Current Visit: Yes Status: Acute This appears stable and improved (2) Normal pressure hydrocephalus Current Visit: Yes Status: Acute I reviewed the patient's CT of head without contrast and compared to previous one that was performed few years ago (2009 and after) and i can see the change in the ventricle size and there does appear to be enlargement of the lateral ventricles bilaterally in relationship to the sulci and baseline diffuse cerebral atrophy. It is my opinion that there has been progressive enlargement of lateral ventricles, out of proportion of the cortical sulci. However, clini nakul it is difficult to correlate with her clinical symptoms. In terms of typical symptoms related to NPH, such as dementia, gait difficulty and urinary and bowel incontinence, she has likely some gait difficulty per history as well as cognitive impairment but both can be complicated by her ongoing anxiety and psychiatric conditions. Today her gait is small stepped but this appear to be complicated by ongoing anxiety. In terms of management at this there is no indication for any type of surgical intervention and the best approach would be to stabilize her medically and psychiatrically and then a neurology follow up is then needed when she is stable at baseline and a trial of lumbar drain then can be considered if indicated. Will sign off at this time. Please call if any questions Subjective Principal diagnosis: NPH Interval history: Patient seen and examined. She is neurologically stable. She was given Ativan prior to the evaluation. She is however, alert and oriented to time and place. No focal deficits noted. She has slight hand tremors still as well as some oral movement. Objective - Constitutional Vitals: Temp Pulse Resp BP Pulse Ox 97.8 F 77 14 124/75 98 12/05/18 07:00 12/05/18 07:00 12/05/18 11:08 12/05/18 07:00 12/05/18 11:08 - Neurological Exam Sensorimotor examination: Present: intact, other (Grossly intact) Motor Examination: Present: grossly full strength in all extremities Motor examination - right side: 5/5: deltoids, biceps, triceps, wrist flexion, wrist extension, breading machine tender, hip flexors, tibialis Anterior, quadriceps, toe extension (EHL), plantarflexion Motor examination - left side: 5/5: deltoids, biceps, triceps, wrist flexion, wrist extension, hip flexors, breading machine tender, quadriceps, tibialis Anterior, toe extension (EHL), plantarflexion Sensation intact: Present: other (Grossly intact) Posture: Present: other (None) Reflex and gait examination: other (Gait is abnormal. Is able to walk with very small tentative steps with hand being held and admtis that she is nervous) Reflexes: Biceps: 2+, Triceps: 2+, Brachioradialis: 2+, Patella: 2+, Achilles: 2+ Mental Status Examination: Present: awake, alert, oriented to person, oriented to place, oriented to time, follows commands appropriately, answers questions appropriately, no agnosia, no aphasia, no aproxia Cranial nerve examination: Present: PERRL, EOMI, visual woodson intact, corneal reflexes brisk symmetrically, sensory to face intact, mastication intact, no facial asymmetry is present, no dysarthria, hearing is intact symmetrically, soft palate elevates bilaterally upon phonation, gag reflex intact, flexes SCM and trapezius muscles symmetrically with full power, tongue protrudes midline, no atrophy or facial fasiculations present Results - Laboratory Findings CBC and BMP: 12/05/18 06:25 12/05/18 06:25 Abnormal lab findings: Abnormal lab results RBC 3.71 M/mcL (3.82-4.97) L 12/05/18 06:25 Hgb 10.9 g/dL (11.5-15.4) L 12/05/18 06:25 Hct 35.2 % (35.3-44.9) L 12/05/18 06:25 MCHC 31.0 g/dL (31.6-35.5) L 12/05/18 06:25 RDW 14.6 % (11.5-14.5) H 12/03/18 17:42 MPV 9.3 fL (9.4-12.4) L 12/05/18 06:25 Carbon Dioxide 30 mEq/L (23-29) H 12/05/18 06:25 Est GFR (Non-Af Amer) 55 (> 60) L 12/03/18 17:42 Glucose 136 mg/dL (70-105) H 12/03/18 17:42 Total Bilirubin 0.2 mg/dL (0.3-1.0) L 12/03/18 17:42 Urine Clarity Cloudy (Clear) A 12/03/18 19:58 Urine Nitrite Positive (Negative) A 12/03/18 19:58 Ur Leukocyte Esterase Moderate (Negative) H 12/03/18 19:58 Urine Microscopic RBC 15-30 per hpf (0-3) H 12/03/18 19:58 Urine Microscopic WBC TNTC per hpf (0-3) H 12/03/18 19:58 Ur Squamous Epith Cells Moderate per lpf (None-Few) H 12/03/18 19:58 Hyaline Casts Moderate per lpf (None-Few) H 12/03/18 19:58 Ur Culture Indicated? YES (NO) A 12/03/18 19:58 Salicylates < 2.5 mg/dL (15.0-30.0) L 12/03/18 17:42 Acetaminophen < 10 mcg/mL (10-20) L 12/03/18 17:42 Consult Discharge Plan - Plan Referrals: Whitney Richards MD [Primary Care Provider] -
[2018-12-05] MEDS ORDERED: *HR* LORazepam 0.5 MG TABLET PO ONE (16:55)
[2018-12-05] MEDS: Melatonin 3 MG TABLET PO SCH (20:10)
[2018-12-05] MEDS: *HR* LORazepam 0.5 MG TABLET PO SCH (20:10)
[2018-12-06 01:16] LABS: Basophils % 0.7 %; Eosinophils # 0.1 K/mcL (0.0-0.6); Eosinophils % 0.8 %; Hemoglobin 9.6 g/dL (11.5-15.4); Immature Granulocytes % 0.2 % (0-4); Lymphocytes # 2.2 K/mcL (0.6-4.6); Lymphocytes % 36.6 %; Mean Corpuscular Hemoglobin 29.4 pg (28.0-33.3); Mean Corpuscular Volume 94.8 fL (83.0-100.0); Monocytes # 0.7 K/mcL (0.0-1.3); Monocytes % 11.1 %; Neutrophils # 3.1 K/mcL (1.6-8.9); Platelet Count 190 K/mcL (140-400); Red Blood Count 3.27 M/mcL (3.82-4.97); Red Cell Distribution Width 14.6 % (11.5-14.5); Segmented Neutrophils % 50.6 %
[2018-12-06 01:39] LABS: BUN/Creatinine Ratio 19 (6-26); Blood Urea Nitrogen 18 mg/dL (8-23); Calcium 8.5 mg/dL (8.6-10.3); Carbon Dioxide 31 mEq/L (23-29); Chloride 100 mEq/L (98-107); Glucose 112 mg/dL (70-105); Osmolality,Calculated 291 (280-300); Potassium 3.9 mEq/L (3.5-5.1); Sodium 139 mEq/L (136-145); eGFR For African Americans > 60 (> 60); eGFR For Non-African Americans 59 (> 60)
[2018-12-06] MEDS: Ipratropium/Albuterol Neb 3 ML IH SCH ×3 (04:40→11:05)
[2018-12-06] MEDS: *HR* Heparin 5,000 UNIT/ML VIAL SQ SCH ×2 (04:44→16:10)
[2018-12-06] MEDS: Magnesium Oxide 400 MG TABLET PO SCH (08:23)
[2018-12-06] MEDS: Loratadine 10 MG TABLET PO SCH (08:23)
[2018-12-06] MEDS: *HR* LORazepam 0.5 MG TABLET PO SCH ×3 (08:23→20:19)
[2018-12-06] MEDS: Divalproex (12 HR) 500 MG TABLET PO SCH ×2 (08:23→20:19)
[2018-12-06] MEDS: Lactobacillus 1 EACH CAP.SPRINK PO SCH (08:24)
[2018-12-06] MEDS: Gabapentin 300 MG CAPSULE PO SCH ×2 (08:24→20:19)
[2018-12-06] MEDS: Nicotine 21 MG PATCH.TD24 TP SCH (08:24)
[2018-12-06] MEDS: cefTRIAXone 1,000 MG in Water for inj. (sterile) 10 ML IVP SCH (08:25)
[2018-12-06] MEDS: (Roflumilast [Daliresp] 500 MCG) PO SCH (09:13)
[2018-12-06] MEDS: SALMETEROL XINAFOATE IH SCH ×2 (09:13→20:24)
--- NOTE | 2018-12-06 10:10 | Internal Med Progress Note ---
Hospitalist Progress Note - Encounter Date of Encounter: 12/06/18 Time of Encounter: 10:04 - Subjective Interval History: She was seen and examined at bedside currently she is alert and following simple commands. She is asking when she can be discharged home to her cats. Currently appears calm discuss treatment plan with the patient which includes evaluation by PT OT as well as psychiatric evaluation - Exam Vitals: Temp Pulse Resp BP Pulse Ox 98.0 F 76 16 105/73 95 12/06/18 07:20 12/06/18 07:20 12/06/18 07:20 12/06/18 07:20 12/06/18 07:20 Exam: Skin: Free of rash and discoloration. Eyes: Sclera is white. There is no discharge from eyes. ENMT: Oral/pharyngeal mucosa is normal in appearance. There is no discharge from nose or ears. Respiratory: Normal breath sounds with no crackles and wheezes bilaterally. CV: Heart is regular with no gallop or murmur. GI: Abdomen is flat and soft with no palpable mass or visceromegaly. : There is no tenderness in patient's flanks bilaterally. Neuro exam: He has good strength in upper and lower extremities. He has normal eye movements. Psychiatric: He has normal affect. His thought process is appropriate to the situation. - Assessment and Plan (1) DVT prophylaxis Current Visit: No Status: Acute Assessment and Plan: Heparin subcutaneous (2) Generalized anxiety disorder Current Visit: No Status: Chronic Assessment and Plan: We will continue with home medications currently appears calm 12/06 Patient has some anxiety yesterday required extra dose of Ativan. We increased Ativan to 3 times a day. We will consult psychiatry to evaluate current medications (3) COPD (chronic obstructive pulmonary disease) Current Visit: No Status: Chronic Assessment and Plan: Does not appear to be in exacerbation at this time we will continue bronchodilators (4) Chronic respiratory failure with hypoxia Current Visit: No Status: Chronic Assessment and Plan: Currently on 2 L nasal cannula 98% apparently she is on home oxygen at 2 L continuous. 12/06 Sats are stable which we will continue oxygen (5) Acute encephalopathy Current Visit: No Status: Acute Assessment and Plan: suspect acute metabolic encephalopathy from UTI. Patient appears to be confused about her current situation. She is awake, alert, and oriented to person place time, however. She does seem to have baseline cognitive troubles that could be gradually worsening. Given findings of CT scan in the context of gait disturbance, will consult Neurology for evaluation, though UTI may be more likely than NPH. - Continue Rocephin - Consult Neurology 12/05 May be multifactorial UTI which we will continue with Rocephin Neurology consulted - NPH - no indication for any surgical interventions recommending stabilizing medically/psychiatrically in follow-up with neurology when she is more stable and her baseline- possible lumbar drain as outpatient -We will have patient evaluated by PT and OT she is high risk for falls and may benefit from inpatient rehabilitation 12/06 This may be multifactorial continue with Rocephin for UTI Neurology consulted - NPH - no indication for any surgical interventions recommending stabilizing medically/psychiatrically in follow-up with neurology when she is more stable and her baseline- possible lumbar drain as outpatient -We will have patient evaluated by PT and OT she is high risk for falls and may benefit from inpatient rehabilitation -We will have psychiatry evaluate patient as well as medications (6) Anxiety Current Visit: No Status: Acute Assessment and Plan: Calm at this time we will continue with home medications-patient did have anxiety over night and was wanting to leave to go check on her cats. She did require extra dose of Ativan and Ativan was increased to 3 times a day (7) UTI (urinary tract infection) Current Visit: Yes Status: Acute Assessment and Plan: Continue with Rocephin and urine cultures pending at this time - Time Spent with Patient Total time spent is greater than 50% in coordination of care (as documented) at patient's floor/unit and/or counseling patient: Internal Medicine: Result - Labs CBC & Chem 7: 12/06/18 01:02 12/06/18 01:02 Labs: Short CBC 12/06/18 Range/Units 01:02 WBC 6.0 (4.3-11.1) K/mcL Hgb 9.6 L (11.5-15.4) g/dL Hct 31.0 L (35.3-44.9) % Plt Count 190 (140-400) K/mcL Neutrophils # 3.1 (1.6-8.9) K/mcL BMP 12/06/18 01:02 Sodium 139 Potassium 3.9 Chloride 100 Carbon Dioxide 31 H BUN 18 Creatinine 0.96 Glucose 112 H Calcium 8.5 L Consult Discharge Plan - Plan Referrals: Whitney Richards MD [Primary Care Provider] - ___ (3) COPD (chronic obstructive pulmonary disease) Qualifiers: COPD type: unspecified COPD Qualified Code(s): J44.9 - Chronic obstructive pulmonary disease, unspecified (7) UTI (urinary tract infection) Qualifiers: Urinary tract infection type: site unspecified Hematuria presence: without hematuria Qualified Code(s): N39.0 - Urinary tract infection, site not specified
[2018-12-06] MEDS: Tiotropium 18 MCG inhalation IH SCH (11:08)
--- NOTE | 2018-12-06 12:17 | Consult Note ---
Date of Encounter: 12/07/18 Time of Encounter: 09:20 Assessment & Recommendation (1) Acute anxiety Current visit: Yes Status: Acute Assessment & Recommendation: Recommend rechecking depakote level, unlikely to be toxic level due to recent subtherapeutic levels but appropriate when searching for confusion source. Recommend checking Ammonia level given her Depakote prescription to rule out Hepatic encephalopathy contributing to confusion. Could consider increasing Buspirone to 10mg TID as patient continues to complain of anxiety. Also could consider weaning carefully from Ativan as this may be contributing to patients reported intermittent confusion. At time of interview Ms. Aguilera currently retains capacity for decision making regarding the treatment of her UTI. History of Present Illness Patient: known to practice within the last 3 years Requesting Physician: David Ennis MD Reason for consult: Medication Recommendation, Confusion, Capacity Assessment History of present illness: Ms. Aguilera is a 63 year old female seen on medical floor for capacity evaluation, confusion and medication reconciliation. Ms. Aguilera is well known to this provider. She does have clear lapses in memory including remembering being admitted to the psychiatric unit last week. She describes her mood today as "anxious" which is congruent with her affect. She states she worries about coming to the hospital because she thinks that we will institutionalize her and she will lose her cats whom she lives with. When asked what brought her to the hospital she states she was outside and it was hot and she began to have increasing anxiety and called the ambulance for help. She admits to calling the ambulance whenever her anxiety gets "really bad." Conversations with patients power of civil rights attorney last week confirm that she has severe anxiety and minimal coping skills. She states patient has been in and out of the hospital for anxiety and confusion with a workup at [facility] just two weeks ago. She admits to confusion "at times" which she blames on her UTI. At time of interview patient was able to accurately describe her current diagnosis of UTI. She was able to list the class of medication she was receiving for her UTI as antibiotic and understood the rational behind that treatment. She was able to weight the risks and benefits of stopping treatment of her UTI at this time and plans to continue receiving antibiotics until her UTI has been fully treated. CC: David Ennis MD Past Med Surg Social Fam HX - Past Medical History Medical history: arthritis, asthma, COPD, other - Past Psychiatric History Psychiatric history: Reports: anxiety, bipolar Past psychiatric history details: Patient most recently admitted to [facility] last week for confusion and concerns about her ability to care for herself at home. Conversation with her case sealer at that time indicated patient was in fact able to take care of herself at home and that she had a safe and secure house to return too. Patient has poor judgment with intermittent confusion which her power of civil rights attorney states has been present "for the last 2 years." Family psychiatric history: Unknown Family History of Suicide: Unknown - Past Surgical History Surgical History: appendectomy, orthopedic, other, other - Social History Smoking Status: Current every day smoker Smokeless Tobacco Status: No Alcohol use: none Drug use: none Occupational status: disabled Current living situation: Home - Independent Activity Level: Independent ambulation Recent Out of Country Travel Within the Last 8 Weeks: No Exposure or Possible Exposure to Illness During Travel: No - Family History Mother Living Status: Hx Family Cancer: Yes (lung) Sister Family Member Ethnicity: Non- Hx Family Endocrine Disorder: Yes (DM II) Medications & Allergies LORazepam [Ativan] 0.5 mg PO Q12H PRN #0 07/10/16 [History] Salmeterol Xinafoate [Serevent Diskus] 1 puff IH BID #0 07/10/16 [History] Tiotropium [place] [Spiriva Respimat] 2 puff IH DAILY #0 07/10/16 [History] Esomeprazole Magnesium [Nexium] 40 mg PO DAILY 12/31/16 [History] Tizanidine HCl 4 mg PO BID PRN 12/31/16 [History] Divalproex Sodium [Depakote Sprinkle] 500 mg PO BID 06/14/18 [History] Fluticasone Propionate [Flovent Hfa] 2 puff IH BID 06/14/18 [History] Gabapentin [Neurontin] 800 mg PO BID 06/14/18 [History] Roflumilast [Daliresp] 500 mcg PO DAILY 06/14/18 [History] cloNIDine HCl [CloNIDine HCl] 0.1 mg PO BID PRN 06/14/18 [History] Benztropine Mesylate 2 mg PO BID 12/04/18 [History] Buspirone HCl [Buspar] 10 mg PO BID 12/04/18 [History] Lactobacillus Acidophilus [Acidophilus] 1 tab PO DAILY 12/04/18 [History] Loratadine [Allergy Relief] 10 mg PO DAILY 12/04/18 [History] Magnesium Oxide [Magnesium] 400 mg PO DAILY 12/04/18 [History] Melatonin 10 mg PO HS 12/04/18 [History] Nicotine Patch [Nicoderm] 21 mg TP DAILY 12/04/18 [History] Quetiapine Fumarate [SEROquel] 25 - 50 mg PO HS 12/04/18 [History] Quetiapine Fumarate [Seroquel] 25 - 50 mg PO HS 12/04/18 [History] Allergy/AdvReac Type Severity Reaction Status Date / Time alprazolam [From Xanax] Allergy Itching Verified 11/30/18 21:00 bupropion [From Wellbutrin] Allergy Itching Verified 11/30/18 21:00 doxycycline Allergy Nausea Verified 11/30/18 21:00 Ethyl Chloride Allergy Itching Verified 11/30/18 21:00 fexofenadine [From Fannie] Allergy Itching Verified 11/30/18 21:00 hydroxyzine Allergy Hallucinati Verified 11/30/18 21:00 ng Procaine [From Novocain] Allergy Rash Verified 11/30/18 21:00 Penicillins AdvReac Itching Verified 11/30/18 21:00 Review of Systems Psychiatric: Reports: anxiety, confusion. Denies: suicidal ideation, homicidal ideation, auditory hallucinations, visual hallucinations Psychiatry Exam - Constitutional Vitals: Temp Pulse Resp BP Pulse Ox 97.8 F 82 16 91/65 96 12/06/18 10:44 12/06/18 10:44 12/06/18 11:05 12/06/18 10:44 12/06/18 11:05 General appearance: age & developmentally appropriate, unkempt, thin - Musculoskeletal Station: relaxed Strength & Tone: normal for patient - Psychiatric Patient Orientation: Yes Person, Yes Time, Yes Place, Yes Circumstance Level of alertness: Alert, Follows commands Behavior: cooperative, anxious Psychomotor activity: Abnormal movements (pronounced tardive dyskynesia) Eye Contact: Maintains Eye Contact Mood Description: Anxious Patient description of mood: "Anxious" Affect description: anxious Speech Volume: Normal Speech pattern: normal rate, normal rhythm, normal tone, spontaneous, appropriate Language & Vocabulary: consistent with education Thought Process: Intact, Logical, Linear, Goal Oriented Thought Content: Yes Intact, No Suicidal ideation, No Homicidal ideation, No Overt delusions, No Paranoid delusion Perceptual Disturbances: No Reacting to internal stimuli, No Auditory hallucinations, No Visual hallucinations Attention Span Ability: Capable of Focused Attention, Capable of Sustained Attention Memory Description: Immediate Intact, Recent Impaired Patient Reliability: Questionable Historian Fund of knowledge: Yes average Intelligence Estimate: Average Judgment: Poor Insight: Partial Results - Labs Labs: Laboratory Last Values WBC 6.0 K/mcL (4.3-11.1) 12/06/18 01:02 RBC 3.27 M/mcL (3.82-4.97) L 12/06/18 01:02 Hgb 9.6 g/dL (11.5-15.4) L 12/06/18 01:02 Hct 31.0 % (35.3-44.9) L 12/06/18 01:02 MCV 94.8 fL (83.0-100.0) 12/06/18 01:02 MCH 29.4 pg (28.0-33.3) 12/06/18 01:02 MCHC 31.0 g/dL (31.6-35.5) L 12/06/18 01:02 RDW 14.6 % (11.5-14.5) H 12/06/18 01:02 Plt Count 190 K/mcL (140-400) 12/06/18 01:02 MPV 9.0 fL (9.4-12.4) L 12/06/18 01:02 Immature Gran % 0.2 % (0-4) 12/06/18 01:02 Seg Neutrophils % 50.6 % 12/06/18 01:02 Lymphocytes % 36.6 % 12/06/18 01:02 Monocytes % 11.1 % 12/06/18 01:02 Eosinophils % 0.8 % 12/06/18 01:02 Basophils % 0.7 % 12/06/18 01:02 Neutrophils # 3.1 K/mcL (1.6-8.9) 12/06/18 01:02 Lymphocytes # 2.2 K/mcL (0.6-4.6) 12/06/18 01:02 Monocytes # 0.7 K/mcL (0.0-1.3) 12/06/18 01:02 Eosinophils # 0.1 K/mcL (0.0-0.6) 12/06/18 01:02 Basophils # 0.0 K/mcL (0.0-0.2) 12/06/18 01:02 Sodium 139 mEq/L (136-145) 12/06/18 01:02 Potassium 3.9 mEq/L (3.5-5.1) 12/06/18 01:02 Chloride 100 mEq/L (98-107) 12/06/18 01:02 Carbon Dioxide 31 mEq/L (23-29) H 12/06/18 01:02 BUN 18 mg/dL (8-23) 12/06/18 01:02 Creatinine 0.96 mg/dL (0.60-1.20) 12/06/18 01:02 Est GFR ( Amer) > 60 (> 60) 12/06/18 01:02 Est GFR (Non-Af Amer) 59 (> 60) L 12/06/18 01:02 BUN/Creatinine Ratio 19 (6-26) 12/06/18 01:02 Glucose 112 mg/dL (70-105) H 12/06/18 01:02 Calculated Osmolality 291 (280-300) 12/06/18 01:02 Calcium 8.5 mg/dL (8.6-10.3) L 12/06/18 01:02 Total Bilirubin 0.2 mg/dL (0.3-1.0) L 12/03/18 17:42 Direct Bilirubin 0.0 mg/dL (0.0-0.2) 12/03/18 17:42 Indirect Bilirubin 0.2 mg/dL (0.0-1.2) 12/03/18 17:42 AST 13 Units/L (13-39) 12/03/18 17:42 ALT 8 Units/L (7-52) 12/03/18 17:42 Alkaline Phosphatase 82 Units/L (34-104) 12/03/18 17:42 Ammonia 36 mcmol/L (16-53) 12/03/18 17:42 Serum Total Protein 6.6 g/dL (6.4-8.9) 12/03/18 17:42 Albumin 4.0 g/dL (3.5-5.7) 12/03/18 17:42 Globulin 2.6 g/dL (2.4-3.5) 12/03/18 17:42 Albumin/Globulin Ratio 1.5 (1.1-2.2) 12/03/18 17:42 Urine Color Yellow (Yellow) 12/03/18 19:58 Urine Clarity Cloudy (Clear) A 12/03/18 19:58 Urine pH 6.0 pH Units (5.0-8.0) 12/03/18 19:58 Ur Specific [place] 1.021 (1.010-1.025) 12/03/18 19:58 Urine Protein Negative mg/dL (Neg-Trace) 12/03/18 19:58 Urine Glucose (UA) Normal mg/dL (Normal) 12/03/18 19:58 Urine Ketones Negative mg/dL (Negative) 12/03/18 19:58 Urine Blood Negative (Negative) 12/03/18 19:58 Urine Nitrite Positive (Negative) A 12/03/18 19:58 Urine Bilirubin Negative (Negative) 12/03/18 19:58 Urine Urobilinogen Normal mg/dL (Normal) 12/03/18 19:58 Ur Leukocyte Esterase Moderate (Negative) H 12/03/18 19:58 Urine Microscopic RBC 15-30 per hpf (0-3) H 12/03/18 19:58 Urine Microscopic WBC TNTC per hpf (0-3) H 12/03/18 19:58 Ur Squamous Epith Cells Moderate per lpf (None-Few) H 12/03/18 19:58 Urine Bacteria None Seen per hpf (None-Few) 12/03/18 19:58 Hyaline Casts Moderate per lpf (None-Few) H 12/03/18 19:58 Ur Culture Indicated? YES (NO) A 12/03/18 19:58 Salicylates < 2.5 mg/dL (15.0-30.0) L 12/03/18 17:42 Urine Opiates Screen Negative ng/mL (Tpcmss=365) 12/03/18 19:58 Ur Buprenorphine Scrn Negative ng/mL (Cutoff=5) 12/03/18 19:58 Acetaminophen < 10 mcg/mL (10-20) L 12/03/18 17:42 Ur Barbiturates Screen Negative ng/mL (Plsuql=436) 12/03/18 19:58 Ur Phencyclidine Scrn Negative ng/mL (Cutoff=25) 12/03/18 19:58 Ur Amphetamines Screen Negative ng/mL (Xivnvv=4819) 12/03/18 19:58 U Benzodiazepines Scrn Negative ng/mL (Jioejl=947) 12/03/18 19:58 Urine Cocaine Screen Negative ng/mL (Cutoff= 300) 12/03/18 19:58 U Marijuana (THC) Screen Negative ng/mL (Cutoff = 50) 12/03/18 19:58 Ur Drug Screen Interp See Below 12/03/18 19:58 Ethyl Alcohol < 10 mg/dL (Less than 10) 12/03/18 17:42 Consult Discharge Plan - Plan Referrals: Whitney Richards MD [Primary Care Provider] - (Appointment has been requested. ) - Attending Attestation I examined this patient and my medical decision-making was reviewed with the Resident Physician. I agree with the documented findings, disposition and treatment plan as described except to the extent set forth below. Patient understands risks of leaving despite UTI and can apply them to her situation. She has capacity to make medical decisions. Encourage involving caresource to get her into care management so they can help support her to stay in her home despite loneliness and anxiety that often precipitate her ER visits. Aggre with med recommendations.
[2018-12-06] MEDS ORDERED: Ipratropium/Albuterol Neb 3 ML IH PRN (13:24)
[2018-12-06] MEDS: Melatonin 3 MG TABLET PO SCH (20:19)
[2018-12-07] MEDS: *HR* Heparin 5,000 UNIT/ML VIAL SQ SCH ×2 (04:40→16:24)
[2018-12-07] MEDS: Tiotropium 18 MCG inhalation IH SCH (07:37)
[2018-12-07 09:34] LABS: Adenovirus F 40/41 PCR Not detected (Not detect); Astrovirus PCR Not detected (Not detect); C.difficile Toxin A/B Gene PCR Not detected (Not detect); Campylobacter by PCR Not detected (Not detect); Cryptosporidium by PCR Not detected (Not detect); Cyclospora cayetanensis PCR Not detected (Not detect); E. coli O157 by PCR Not detected (Not detect); Entamoeba histolytica PCR Not detected (Not detect); Enteroaggregative E.coli(EAEC) Not detected (Not detect); Enteropathogenic E.coli(EPEC) Not detected (Not detect); Enterotoxigenic E.coli (ETEC) Not detected (Not detect); Giardia lamblia PCR Not detected (Not detect); Norovirus GI/GII PCR Not detected (Not detect); Plesiomonas shigelloides PCR Not detected (Not detect); Rotavirus A PCR Not detected (Not detect); Salmonella PCR Not detected (Not detect); Sapovirus PCR Not detected (Not detect); Shig/EnteroinvasiveE coli EIEC Not detected (Not detect); Shigalike tox-prod E coli STEC Not detected (Not detect); Vibrio PCR Not detected (Not detect); Vibrio cholerae PCR Not detected (Not detect); Yersinia enterocolitica PCR Not detected (Not detect)
[2018-12-07] MEDS: Divalproex (12 HR) 500 MG TABLET PO SCH ×2 (09:47→20:48)
[2018-12-07] MEDS: Gabapentin 300 MG CAPSULE PO SCH ×2 (09:47→20:49)
[2018-12-07] MEDS: Loratadine 10 MG TABLET PO SCH (09:47)
[2018-12-07] MEDS: Lactobacillus 1 EACH CAP.SPRINK PO SCH (09:48)
[2018-12-07] MEDS: Magnesium Oxide 400 MG TABLET PO SCH (09:48)
[2018-12-07] MEDS: Nicotine 21 MG PATCH.TD24 TP SCH (09:48)
[2018-12-07] MEDS: *HR* LORazepam 0.5 MG TABLET PO SCH ×2 (09:48→20:48)
[2018-12-07] MEDS: cefTRIAXone 1,000 MG in Water for inj. (sterile) 10 ML IVP SCH (09:50)
[2018-12-07 10:11] LABS: Hematocrit 34.8 % (35.3-44.9); Hemoglobin 10.6 g/dL (11.5-15.4); Mean Corpuscular HGB Conc 30.5 g/dL (31.6-35.5); Mean Corpuscular Hemoglobin 28.8 pg (28.0-33.3); Mean Corpuscular Volume 94.6 fL (83.0-100.0); Mean Platelet Volume 9.5 fL (9.4-12.4); Platelet Count 245 K/mcL (140-400); Red Blood Count 3.68 M/mcL (3.82-4.97); Red Cell Distribution Width 14.6 % (11.5-14.5); White Blood Count 6.2 K/mcL (4.3-11.1)
[2018-12-07] MEDS: (Roflumilast [Daliresp] 500 MCG) PO SCH (10:14)
[2018-12-07] MEDS: SALMETEROL XINAFOATE IH SCH ×2 (10:14→21:06)
[2018-12-07 10:27] LABS: BUN/Creatinine Ratio 17 (6-26); Blood Urea Nitrogen 15 mg/dL (8-23); Calcium 8.7 mg/dL (8.6-10.3); Carbon Dioxide 32 mEq/L (23-29); Chloride 101 mEq/L (98-107); Glucose 49 mg/dL (70-105); Osmolality,Calculated 286 (280-300); Potassium 3.7 mEq/L (3.5-5.1); Sodium 139 mEq/L (136-145); eGFR For African Americans > 60 (> 60); eGFR For Non-African Americans > 60 (> 60)
--- NOTE | 2018-12-07 11:16 | Internal Med Progress Note ---
Hospitalist Progress Note - Encounter Date of Encounter: 12/07/18 Time of Encounter: 11:02 - Subjective Interval History: Patient was seen and examined at bedside. Patient very agitated today-stating that she wants to leave. We discussed her treatment plan which includes possible rehabilitation-she was seen by PT OT recommending rehabilitation- patient states that she does not want to go to rehabilitation discussed her reasoning why she was admitted-confusion difficulty ambulating. Patient did admit that she is walking and would discuss with social research assistant possible rehabilitation - Exam Vitals: Temp Pulse Resp BP Pulse Ox 97.6 F 72 16 117/88 99 12/07/18 07:59 12/07/18 07:59 12/07/18 07:59 12/07/18 07:59 12/07/18 09:24 Exam: Skin: Free of rash and discoloration. Eyes: Sclera is white. There is no discharge from eyes. ENMT: Oral/pharyngeal mucosa is normal in appearance. There is no discharge from nose or ears. Respiratory: Normal breath sounds with no crackles and wheezes bilaterally. CV: Heart is regular with no gallop or murmur. GI: Abdomen is flat and soft with no palpable mass or visceromegaly. : There is no tenderness in patient's flanks bilaterally. Neuro exam: He has good strength in upper and lower extremities. He has normal eye movements. Psychiatric: Patient is agitated His thought process is appropriate to the situation. - Assessment and Plan (1) DVT prophylaxis Current Visit: No Status: Acute Assessment and Plan: Heparin subcutaneous (2) Generalized anxiety disorder Current Visit: No Status: Chronic Assessment and Plan: We will continue with home medications currently appears calm 12/06 Patient has some anxiety yesterday required extra dose of Ativan. We increased Ativan to 3 times a day. We will consult psychiatry to evaluate current medications 12/07 Patient was evaluated by psychiatry due to anxiety suggesting increasing BuSpar 10 mg 3 times a day we will decrease Ativan back down to twice a day and add when necessary Haldol. (3) COPD (chronic obstructive pulmonary disease) Current Visit: No Status: Chronic Assessment and Plan: Does not appear to be in exacerbation at this time we will continue bronchodilators (4) Chronic respiratory failure with hypoxia Current Visit: No Status: Chronic Assessment and Plan: Currently on 2 L nasal cannula 98% apparently she is on home oxygen at 2 L continuous. 12/06 Sats are stable which we will continue oxygen 12/07 Continue with home oxygen level-Sensor stable at this time (5) Acute encephalopathy Current Visit: No Status: Acute Assessment and Plan: suspect acute metabolic encephalopathy from UTI. Patient appears to be confused about her current situation. She is awake, alert, and oriented to person place time, however. She does seem to have baseline cognitive troubles that could be gradually worsening. Given findings of CT scan in the context of gait disturbance, will consult Neurology for evaluation, though UTI may be more likely than NPH. - Continue Rocephin - Consult Neurology 12/05 May be multifactorial UTI which we will continue with Rocephin Neurology consulted - NPH - no indication for any surgical interventions recommending stabilizing medically/psychiatrically in follow-up with neurology when she is more stable and her baseline- possible lumbar drain as outpatient -We will have patient evaluated by PT and OT she is high risk for falls and may benefit from inpatient rehabilitation 12/06 This may be multifactorial continue with Rocephin for UTI Neurology consulted - NPH - no indication for any surgical interventions recommending stabilizing medically/psychiatrically in follow-up with neurology when she is more stable and her baseline- possible lumbar drain as outpatient -We will have patient evaluated by PT and OT she is high risk for falls and may benefit from inpatient rehabilitation -We will have psychiatry evaluate patient as well as medications 12/07 Urine culture shows no significant growth-patient has received 3 days of Rocephin which we will discontinue Neurology consulted - NPH - no indication for any surgical interventions recommending stabilizing medically/psychiatrically in follow-up with neurology when she is more stable and her baseline- possible lumbar drain as outpatient Patient was evaluated by psychiatry recommending increasing BuSpar help with anxiety-at this time psychiatry has seen the patient is competent to make medical decisions Patient was evaluated by PT and OT which are recommending inpatient rehabilitation (6) Anxiety Current Visit: No Status: Acute Assessment and Plan: Calm at this time we will continue with home medications-patient did have anxiety over night and was wanting to leave to go check on her cats. She did require extra dose of Ativan and Ativan was increased to 3 times a day 12/07 Patient was agitated this morning she was evaluated by psychiatry yesterday recommends increasing BuSpar which we will increase to 3 times a day Haldol as needed for anxiety we will decrease Ativan to twice a day per recommendation psychiatry (7) UTI (urinary tract infection) Current Visit: Yes Status: Acute Assessment and Plan: Continue with Rocephin and urine cultures pending at this time 12/07 Per urine culture does grow patient received 3 days of Rocephin which we will stop - Time Spent with Patient Total time spent is greater than 50% in coordination of care (as documented) at patient's floor/unit and/or counseling patient: Internal Medicine: Result - Labs CBC & Chem 7: 12/07/18 09:17 12/07/18 09:17 Labs: Short CBC 12/07/18 Range/Units 09:17 WBC 6.2 (4.3-11.1) K/mcL Hgb 10.6 L (11.5-15.4) g/dL Hct 34.8 L (35.3-44.9) % Plt Count 245 (140-400) K/mcL BMP 12/07/18 09:17 Sodium 139 Potassium 3.7 Chloride 101 Carbon Dioxide 32 H BUN 15 Creatinine 0.87 Glucose 49 L Calcium 8.7 Consult Discharge Plan - Plan Referrals: Whitney Richards MD [Primary Care Provider] - (Appointment has been requested. ) (3) COPD (chronic obstructive pulmonary disease) Qualifiers: COPD type: unspecified COPD Qualified Code(s): J44.9 - Chronic obstructive pulmonary disease, unspecified (7) UTI (urinary tract infection) Qualifiers: Urinary tract infection type: site unspecified Hematuria presence: without hematuria Qualified Code(s): N39.0 - Urinary tract infection, site not specified
[2018-12-07 11:38] LABS: Valproate 58 mcg/mL (50-100)
[2018-12-07] MEDS: Melatonin 3 MG TABLET PO SCH (20:49)
[2018-12-08] MEDS: *HR* Heparin 5,000 UNIT/ML VIAL SQ SCH ×2 (04:06→17:24)
[2018-12-08 06:56] LABS: Basophils % 0.6 %; Eosinophils # 0.2 K/mcL (0.0-0.6); Eosinophils % 3.2 %; Hematocrit 30.4 % (35.3-44.9); Hemoglobin 9.2 g/dL (11.5-15.4); Immature Granulocytes % 0.4 % (0-4); Lymphocytes # 2.2 K/mcL (0.6-4.6); Lymphocytes % 41.3 %; Mean Corpuscular HGB Conc 30.3 g/dL (31.6-35.5); Mean Corpuscular Hemoglobin 28.7 pg (28.0-33.3); Mean Corpuscular Volume 94.7 fL (83.0-100.0); Mean Platelet Volume 9.5 fL (9.4-12.4); Monocytes # 0.6 K/mcL (0.0-1.3); Monocytes % 11.8 %; Neutrophils # 2.2 K/mcL (1.6-8.9); Platelet Count 211 K/mcL (140-400); Red Blood Count 3.21 M/mcL (3.82-4.97); Red Cell Distribution Width 14.4 % (11.5-14.5); Segmented Neutrophils % 42.7 %; White Blood Count 5.3 K/mcL (4.3-11.1)
[2018-12-08] MEDS: Tiotropium 18 MCG inhalation IH SCH (07:58)
[2018-12-08] MEDS: Magnesium Oxide 400 MG TABLET PO SCH (09:20)
[2018-12-08] MEDS: Nicotine 21 MG PATCH.TD24 TP SCH (09:20)
[2018-12-08] MEDS: Lactobacillus 1 EACH CAP.SPRINK PO SCH (09:20)
[2018-12-08] MEDS: *HR* LORazepam 0.5 MG TABLET PO SCH ×2 (09:21→19:56)
[2018-12-08] MEDS: Loratadine 10 MG TABLET PO SCH (09:21)
[2018-12-08] MEDS: Gabapentin 300 MG CAPSULE PO SCH ×2 (09:21→19:57)
[2018-12-08] MEDS: Divalproex (12 HR) 500 MG TABLET PO SCH ×2 (09:21→19:57)
[2018-12-08] MEDS: SALMETEROL XINAFOATE IH SCH ×2 (09:31→19:57)
[2018-12-08] MEDS: (Roflumilast [Daliresp] 500 MCG) PO SCH (09:31)
--- NOTE | 2018-12-08 10:44 | Psychiatry Progress Note ---
Date of Encounter: 12/08/18 Time of Encounter: 10:30 Subjective Interval history: Patient was resting in bed and seemed to be enjoying watching videos of cats. According to notes she is being considered for placement in a rehabilitation facility. She did not prior noted and [place] that she did not want to do that however today when I spoke with her she said that she understood that it was to help her gain strength and increased mobility and that she would be open to this as long as it was not a long time. She indicated that her primary concern is the well-being of her cats. She did say that her case briefer could take care of them while she was gone for a few weeks. She said that she understood that if she did not go that she could have continuing worsening of her mobility and increased falls risk and that in general going back home AGAINST MEDICAL ADVICE could result in medical complications up to and including . She is tolerating the medication adjustments. Review of Systems Psychiatric: Reports: anxiety. Denies: suicidal ideation, homicidal ideation, auditory hallucinations, visual hallucinations Results - Vital Signs Vital Signs: Temp Pulse Resp BP Pulse Ox 97.6 F 80 18 107/74 96 12/08/18 08:17 12/08/18 08:17 12/08/18 08:17 12/08/18 08:17 12/08/18 08:17 - Labs Labs: Laboratory Results - last 24 hr 12/07/18 12/08/18 09:17 06:31 WBC 5.3 RBC 3.21 L Hgb 9.2 L Hct 30.4 L MCV 94.7 MCH 28.7 MCHC 30.3 L RDW 14.4 Plt Count 211 MPV 9.5 Immature Gran % 0.4 Seg Neutrophils % 42.7 Lymphocytes % 41.3 Monocytes % 11.8 Eosinophils % 3.2 Basophils % 0.6 Neutrophils # 2.2 Lymphocytes # 2.2 Monocytes # 0.6 Eosinophils # 0.2 Basophils # 0.0 Sodium 139 Potassium 3.7 Chloride 101 Carbon Dioxide 32 H BUN 15 Creatinine 0.87 Est GFR ( Amer) > 60 Est GFR (Non-Af Amer) > 60 BUN/Creatinine Ratio 17 Glucose 49 L Calculated Osmolality 286 Calcium 8.7 Valproic Acid 58 - Impressions ITS Impressions Chest X-Ray 12/03/18 15:57 IMPRESSION: No acute cardiopulmonary disease with the above reservation. D/ / Juanjose Dunn MD / Juanjose Dunn MD Interpreting Provider: Juanjose Dunn MD Head CT 12/03/18 17:29 IMPRESSION: 1. No acute intracranial abnormality. 2. Global parenchymal volume loss with chronic microvascular ischemic changes. 3. 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 4. The degree of ventricular dilatation is out of proportion to the cortical sulci. A component of normal pressure hydrocephalus cannot be entirely excluded. D/ / Jordy Murcia MD / Jordy Murcia MD Interpreting Provider: Jordy Murcia MD Assessment and Plan (1) Acute anxiety Current visit: Yes Status: Acute Additional Plan: She continues to have medical decision-making capacity. Psychiatry will sign off at this time unless reconsultation. Consult Discharge Plan - Plan Referrals: Whitney Richards MD [Primary Care Provider] - (Appointment has been requested. ) Psychiatry Exam - Constitutional Vitals: Temp Pulse Resp BP Pulse Ox 97.6 F 80 18 107/74 96 12/08/18 08:17 12/08/18 08:17 12/08/18 08:17 12/08/18 08:17 12/08/18 08:17 General appearance: age & developmentally appropriate - Musculoskeletal Gait: other (In bed) Station: stooped Strength & Tone: normal for patient - Psychiatric Patient Orientation: Yes Person, Yes Time, Yes Place, Yes Circumstance Level of alertness: Alert Behavior: calm, cooperative Eye Contact: Maintains Eye Contact Mood Description: Euthymic/stable Patient description of mood: Okay Affect description: congruent with mood Speech Volume: Normal Speech pattern: normal rate Language & Vocabulary: consistent with education Thought Process: Intact Thought Content: No Suicidal ideation, No Homicidal ideation Perceptual Disturbances: No Auditory hallucinations, No Visual hallucinations Attention Span Ability: Capable of Focused Attention Memory Description: Grossly Intact Patient Reliability: Questionable Historian Fund of knowledge: Yes average Intelligence Estimate: Average Judgment: Fair Insight: Partial
--- NOTE | 2018-12-08 12:54 | Electrocardiograph Report ---
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
--- NOTE | 2018-12-08 13:33 | Physician Discharge Referral ---
ExtendedCare Referral Info Provider in Charge after Transfer: [facility] Level of Care: Skilled - Diagnosis (1) DVT prophylaxis Priority: Primary Status: Acute (2) Altered mental state Priority: Primary Status: Acute (3) UTI (urinary tract infection) Priority: Primary Status: Acute (4) Confusion Priority: Primary Status: Acute Prognosis: Fair Aware of Diagnosis: Patient Aware of Prognosis: Patient - Transfer Medications Home Medications: LORazepam [Ativan] 0.5 mg PO Q12H PRN #0 07/10/16 [History] Salmeterol Xinafoate [Serevent Diskus] 1 puff IH BID #0 07/10/16 [History] Tiotropium [place] [Spiriva Respimat] 2 puff IH DAILY #0 07/10/16 [History] Esomeprazole Magnesium [Nexium] 40 mg PO DAILY 12/31/16 [History] Tizanidine HCl 4 mg PO BID PRN 12/31/16 [History] Divalproex Sodium [Depakote Sprinkle] 500 mg PO BID 06/14/18 [History] Fluticasone Propionate [Flovent Hfa] 2 puff IH BID 06/14/18 [History] Gabapentin [Neurontin] 800 mg PO BID 06/14/18 [History] Roflumilast [Daliresp] 500 mcg PO DAILY 06/14/18 [History] cloNIDine HCl [CloNIDine HCl] 0.1 mg PO BID PRN 06/14/18 [History] Benztropine Mesylate 2 mg PO BID 12/04/18 [History] Buspirone HCl [Buspar] 10 mg PO BID 12/04/18 [History] Lactobacillus Acidophilus [Acidophilus] 1 tab PO DAILY 12/04/18 [History] Loratadine [Allergy Relief] 10 mg PO DAILY 12/04/18 [History] Magnesium Oxide [Magnesium] 400 mg PO DAILY 12/04/18 [History] Melatonin 10 mg PO HS 12/04/18 [History] Nicotine Patch [Nicoderm] 21 mg TP DAILY 12/04/18 [History] Quetiapine Fumarate [SEROquel] 25 - 50 mg PO HS 12/04/18 [History] Quetiapine Fumarate [Seroquel] 25 - 50 mg PO HS 12/04/18 [History] Allergies/Adverse Reactions: 3 Allergy/AdvReac Type Severity Reaction Status Date / Time alprazolam [From Xanax] Allergy Itching Verified 11/30/18 21:00 bupropion [From Wellbutrin] Allergy Itching Verified 11/30/18 21:00 doxycycline Allergy Nausea Verified 11/30/18 21:00 Ethyl Chloride Allergy Itching Verified 11/30/18 21:00 fexofenadine [From Fannie] Allergy Itching Verified 11/30/18 21:00 hydroxyzine Allergy Hallucinati Verified 11/30/18 21:00 ng Procaine [From Novocain] Allergy Rash Verified 11/30/18 21:00 Penicillins AdvReac Itching Verified 11/30/18 21:00 - Respiratory Orders Smoking Cessation: Smoking cessation has been advised. For more information, call the el? Tobacco Quit Line at 5-525-GVISNOW. - Advance Directives Code Status: Full Code - Rehabiliation Orders Rehab Orders: Evaluation for Physical Therapy, Evaluation for Occupational Therapy CERTIFICATION: I certify that the transfer of the above named patient to an Extended Care Facility is necessary for the continuing treatment of the diagnosis listed. The above information is true and accurate reflection of patient's current condition. Confidential - Redisclosure prohibited without a patient's written consent.
--- NOTE | 2018-12-08 13:58 | Internal Med Progress Note ---
Hospitalist Progress Note - Encounter Date of Encounter: 12/08/18 Time of Encounter: 13:56 - Subjective Interval History: Pt seen and examined in the room. She has no complaints at this time. She has no suicidal ideation. - Exam Vitals: Temp Pulse Resp BP Pulse Ox 97.5 F L 72 18 113/75 81 12/08/18 11:25 12/08/18 11:25 12/08/18 11:25 12/08/18 11:25 12/08/18 11:25 Exam: Skin: Free of rash and discoloration. Eyes: Sclera is white. There is no discharge from eyes. ENMT: Oral/pharyngeal mucosa is normal in appearance. There is no discharge f rom nose or ears. Respiratory: Normal breath sounds with no crackles and wheezes bilaterally. CV: Heart is regular with no gallop or murmur. GI: Abdomen is flat and soft with no palpable mass or visceromegaly. : There is no tenderness in patient's flanks bilaterally. Neuro exam: He has good strength in upper and lower extremities. He has normal eye movements. Psychiatric: Patient is agitated His thought process is appropriate to the situation. - Assessment and Plan (1) Altered mental state Current Visit: Yes Status: Acute Assessment and Plan: resolved, currently at the baseline. (2) UTI (urinary tract infection) Current Visit: Yes Status: Acute Assessment and Plan: Denies uninary symptoms. (3) Confusion Current Visit: Yes Status: Acute Assessment and Plan: resolved, currently at the baseline. (4) DVT prophylaxis Current Visit: Yes Status: Acute - Time Spent with Patient Total time spent is greater than 50% in coordination of care (as documented) at patient's floor/unit and/or counseling patient: Greater than 35 minutes Plan of Care Discussed with: patient Internal Medicine: Result - Labs CBC & Chem 7: 12/08/18 06:31 12/07/18 09:17 Labs: Short CBC 12/08/18 Range/Units 06:31 WBC 5.3 (4.3-11.1) K/mcL Hgb 9.2 L (11.5-15.4) g/dL Hct 30.4 L (35.3-44.9) % Plt Count 211 (140-400) K/mcL Neutrophils # 2.2 (1.6-8.9) K/mcL Consult Discharge Plan - Plan Referrals: Whitney Richards MD [Primary Care Provider] - (Appointment has been requested. ) (1) Altered mental state Qualifiers: Qualified Code(s): R41.82 - Altered mental status, unspecified (2) UTI (urinary tract infection) Qualifiers: Urinary tract infection type: site unspecified Hematuria presence: without hematuria Qualified Code(s): N39.0 - Urinary tract infection, site not specified
[2018-12-08] MEDS: Melatonin 3 MG TABLET PO SCH (19:57)
[2018-12-09] MEDS: *HR* Heparin 5,000 UNIT/ML VIAL SQ SCH ×2 (04:48→18:31)
[2018-12-09 04:59] LABS: Hematocrit 33.5 % (35.3-44.9); Mean Corpuscular HGB Conc 29.9 g/dL (31.6-35.5); Mean Corpuscular Hemoglobin 28.9 pg (28.0-33.3); Mean Corpuscular Volume 96.8 fL (83.0-100.0); Mean Platelet Volume 9.3 fL (9.4-12.4); Platelet Count 200 K/mcL (140-400); Red Blood Count 3.46 M/mcL (3.82-4.97); Red Cell Distribution Width 14.1 % (11.5-14.5); White Blood Count 5.6 K/mcL (4.3-11.1)
[2018-12-09 05:13] LABS: BUN/Creatinine Ratio 19 (6-26); Blood Urea Nitrogen 16 mg/dL (8-23); Calcium 8.6 mg/dL (8.6-10.3); Carbon Dioxide 34 mEq/L (23-29); Chloride 102 mEq/L (98-107); Glucose 90 mg/dL (70-105); Osmolality,Calculated 291 (280-300); Potassium 4.3 mEq/L (3.5-5.1); Sodium 140 mEq/L (136-145); eGFR For African Americans > 60 (> 60); eGFR For Non-African Americans > 60 (> 60)
[2018-12-09] MEDS: Tiotropium 18 MCG inhalation IH SCH (08:28)
[2018-12-09] MEDS: Nicotine 21 MG PATCH.TD24 TP SCH (09:51)
[2018-12-09] MEDS: Lactobacillus 1 EACH CAP.SPRINK PO SCH (09:52)
[2018-12-09] MEDS: Loratadine 10 MG TABLET PO SCH (09:52)
[2018-12-09] MEDS: Divalproex (12 HR) 500 MG TABLET PO SCH ×2 (09:52→21:42)
[2018-12-09] MEDS: Gabapentin 300 MG CAPSULE PO SCH ×2 (09:53→21:42)
[2018-12-09] MEDS: *HR* LORazepam 0.5 MG TABLET PO SCH ×2 (09:53→21:42)
[2018-12-09] MEDS: Magnesium Oxide 400 MG TABLET PO SCH (09:53)
--- NOTE | 2018-12-09 12:16 | Internal Med Progress Note ---
Hospitalist Progress Note - Encounter Date of Encounter: 12/09/18 Time of Encounter: 12:13 - Subjective Interval History: Ms. Aguilera is a 63 year old female with history of multiple psychiatric hospitalizations, COPD on 4L O2, CAD presented to ED after a [place] [employer] police officer witnessed patient with trouble walking down the street falling short of breath. Patient is confused as to what is bringing her here but she does admit to gait difficulties and shortness of breath. She was ambulating without oxygen properly running during this time. 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 Patient was re evaluated by medical staff at and there was no indication for psychiatry readmission. She denies headache, blurry vision, neck pain/stiffness, lymphadenoapthy, chest pain, (any worsening above baseline) shortness of breath, n/v, diarrhea, palpitations, edema, numbness/tingling. She does admit to gait difficulties which has been worsening for past week. Urinalysis in ED was consistent with UTI. Patient does appear confused to situation but is oriented to person, place, time. Urine tox screen was negative as well as APAP, etoh, and ASA levels. CT of head was done yesterday that showed no acute intracranial a bnormalities. 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 Also noted degree of ventricular dilatation is out of proportion to cortical sulci. Psychiatry and neurology was consulted, and symptoms were stable. PT/OT recommended ECF placement. She was seen and examined in room, she had an uneventful night, has no complaints at this point. - Exam Vitals: Temp Pulse Resp BP Pulse Ox 98.6 F 71 16 107/72 96 12/09/18 07:52 12/09/18 07:52 12/09/18 07:52 12/09/18 07:52 12/09/18 10:16 Exam: Skin: Free of rash and discoloration. Eyes: Sclera is white. There is no discharge from eyes. ENMT: Oral/pharyngeal mucosa is normal in appearance. There is no discharge from nose or ears. Respiratory: Normal breath sounds with no crackles and wheezes bilaterally. CV: Heart is regular with no gallop or murmur. GI: Abdomen is flat and soft with no palpable mass or visceromegaly. : There is no tenderness in patient's flanks bilaterally. Neuro exam: He has good strength in upper and lower extremities. He has normal eye movements. Psychiatric: Patient is agitated His thought process is appropriate to the situation. - Assessment and Plan (1) Altered mental state Current Visit: Yes Status: Acute Assessment and Plan: resolved, currently at the baseline. PT/OT recommended SNIF, waiting for placement. (2) UTI (urinary tract infection) Current Visit: Yes Status: Acute Assessment and Plan: Denies uninary symptoms. (3) Confusion Current Visit: Yes Status: Acute Assessment and Plan: resolved, currently at the baseline. (4) DVT prophylaxis Current Visit: Yes Status: Acute Assessment and Plan: Heparin subcutaneous - Time Spent with Patient Total time spent is greater than 50% in coordination of care (as documented) at patient's floor/unit and/or counseling patient: Greater than 35 minutes Plan of Care Discussed with: patient Internal Medicine: Result - Labs CBC & Chem 7: 12/09/18 04:32 12/09/18 04:32 Labs: Short CBC 12/09/18 Range/Units 04:32 WBC 5.6 (4.3-11.1) K/mcL Hgb 10.0 L (11.5-15.4) g/dL Hct 33.5 L (35.3-44.9) % Plt Count 200 (140-400) K/mcL BMP 12/09/18 04:32 Sodium 140 Potassium 4.3 Chloride 102 Carbon Dioxide 34 H BUN 16 Creatinine 0.83 Glucose 90 Calcium 8.6 Consult Discharge Plan - Plan Referrals: Whitney Richards MD [Primary Care Provider] - (Appointment has been requested. ) (1) Altered mental state Qualifiers: Qualified Code(s): R41.82 - Altered mental status, unspecified (2) UTI (urinary tract infection) Qualifiers: Urinary tract infection type: site unspecified Hematuria presence: without hematuria Qualified Code(s): N39.0 - Urinary tract infection, site not specifi ed
[2018-12-09] MEDS: SALMETEROL XINAFOATE IH SCH ×2 (15:18→21:42)
[2018-12-09] MEDS: (Roflumilast [Daliresp] 500 MCG) PO SCH (15:18)
[2018-12-09] MEDS: Melatonin 3 MG TABLET PO SCH (21:41)
[2018-12-10] MEDS: *HR* Heparin 5,000 UNIT/ML VIAL SQ SCH ×2 (05:47→18:19)
[2018-12-10] MEDS: Tiotropium 18 MCG inhalation IH SCH (07:19)
[2018-12-10] MEDS: *HR* LORazepam 0.5 MG TABLET PO SCH (10:33)
[2018-12-10] MEDS: Loratadine 10 MG TABLET PO SCH (10:34)
[2018-12-10] MEDS: Lactobacillus 1 EACH CAP.SPRINK PO SCH (10:35)
[2018-12-10] MEDS: Divalproex (12 HR) 500 MG TABLET PO SCH (10:35)
[2018-12-10] MEDS: Magnesium Oxide 400 MG TABLET PO SCH (10:36)
[2018-12-10] MEDS: Nicotine 21 MG PATCH.TD24 TP SCH (10:37)
[2018-12-10] MEDS: Gabapentin 300 MG CAPSULE PO SCH (10:37)
[2018-12-10] MEDS: (Roflumilast [Daliresp] 500 MCG) PO SCH (10:38)
[2018-12-10] MEDS: SALMETEROL XINAFOATE IH SCH (10:38)
--- NOTE | 2018-12-10 10:53 | Internal Med Progress Note ---
Hospitalist Progress Note - Encounter Date of Encounter: 12/10/18 Time of Encounter: 10:51 - Subjective Interval History: Patient seen and examined in the room. She reported absence of fever, chills, or night sweats. She has no chest pain, shortness of breath, or cough. - Exam Vitals: Temp Pulse Resp BP Pulse Ox 97.9 F 70 16 122/82 96 12/10/18 07:50 12/10/18 07:50 12/10/18 07:50 12/10/18 07:50 12/10/18 07:50 Exam: Skin: Free of rash and discoloration. Eyes: Sclera is white. There is no discharge from eyes. ENMT: Oral/pharyngeal mucosa is normal in appearance. There is no discharge from nose or ears. Respiratory: Normal breath sounds with no crackles and wheezes bilaterally. CV: Heart is regular with no gallop or murmur. GI: Abdomen is flat and soft with no palpable mass or visceromegaly. : There is no tenderness in patient's flanks bilaterally. Neuro exam: He has good strength in upper and lower extremities. He has normal eye movements. Psychiatric: Patient is agitated His thought process is appropriate to the situation. - Assessment and Plan (1) Altered mental state Current Visit: Yes Status: Acute Assessment and Plan: resolved, currently at the baseline. PT/OT recommended SNIF, waiting for placement. (2) UTI (urinary tract infection) Current Visit: Yes Status: Resolved Assessment and Plan: Denies uninary symptoms. Urine culture has no growth. (3) Confusion Current Visit: Yes Status: Acute Assessment and Plan: resolved, currently at the baseline. (4) DVT prophylaxis Current Visit: Yes Status: Acute Assessment and Plan: Heparin subcutaneous (5) Bipolar disorder Current Visit: No Status: Chronic Assessment and Plan: Mood stable, denies suicidal ideation or planning, continue home medications. - Time Spent with Patient Total time spent is greater than 50% in coordination of care (as documented) at patient's floor/unit and/or counseling patient: Greater than 35 minutes Plan of Care Discussed with: patient Internal Medicine: Result - Labs CBC & Chem 7: 12/09/18 04:32 12/09/18 04:32 Consult Discharge Plan - Plan Referrals: Whitney Richards MD [Primary Care Provider] - (Appointment has been requested. ) (1) Altered mental state Qualifiers: Qualified Code(s): R41.82 - Altered mental status, unspecified (2) UTI (urinary tract infection) Qualifiers: Urinary tract infection type: site unspecified Hematuria presence: without hematuria Qualified Code(s): N39.0 - Urinary tract infection, site not specified (5) Bipolar disorder Qualifiers: Active/Remission status: currently active Current bipolar episode type: de pressed Current episode severity: moderate Qualified Code(s): F31.32 - Bipolar disorder, current episode depressed, moderate
[2018-12-10 14:38] VITALS: BP 126/87
--- NOTE | 2018-12-10 15:13 | Discharge Summary ---
- NOTES TO OUTPATIENT PROVIDER Notes to Outpatient Provider: f/u with PCP within a month. f/u with psychiatry within a month. Date of Encounter: 12/10/18 Time of Encounter: 15:07 - Discharge Diagnosis (1) Altered mental state Priority: Primary Status: Acute Assessment and Plan: resolved, currently at the baseline. PT/OT recommended SNIF, waiting for placement. Qualifiers: Qualified Code(s): R41.82 - Altered mental status, unspecified (2) UTI (urinary tract infection) Priority: Primary Status: Resolved Assessment and Plan: Denies uninary symptoms. Urine culture has no growth. Qualifiers: Urinary tract infection type: site unspecified Hematuria presence: without hematuria Qualified Code(s): N39.0 - Urinary tract infection, site not specified (3) Confusion Priority: Primary Status: Acute Assessment and Plan: resolved, currently at the baseline. (4) DVT prophylaxis Priority: Primary Status: Acute Assessment and Plan: Heparin subcutaneous (5) Bipolar disorder Priority: Secondary Status: Chronic Assessment and Plan: Mood stable, denies suicidal ideation or planning, continue home medications. Qualifiers: Active/Remission status: currently active Current bipolar episode type: depressed Current episode severity: moderate Qualified Code(s): F31.32 - Bipolar disorder, current episode depressed, moderate Hospital course: Ms. Aguilera is a 63 year old female with history of multiple psychiatric hospitalizations, COPD on 4L O2, CAD presented to ED after a fire information officer witnessed patient with trouble walking down the street and falling short of breath. Patient is confused as to what is bringing her here but she does admit to gait difficulties and shortness of breath. 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 Patient was re evaluated by medical staff at and there was no indication for psychiatry readmission. She does admit to gait difficulties which has been worsening for past week. Urinalysis in ED was consistent with UTI. Patient does appear confused to situation but is oriented to person, place, time. Urine tox screen was negative as well as APAP, etoh, and ASA levels. CT of head was done yesterday that showed no acute intracranial abnormalities. 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 Psychiatry was consulted and recommended continue current treatment for her psychiatry disorders. PT/OT recommended ECF with rehabilitation. Patient is discharged to ECF today, she will follow-up with PCP and her psychiatry as scheduled. Discharge discussed with: patient Time spent discussing smoking cessation with patient: more than 10 minutes - Time Spent with Patient Total time spent providing and/or coordinating discharge services: Time spent: Greater than 30 minutes - Discharge Medications Prescriptions: New Haloperidol [Haldol] 1 mg PO QID PRN #30 tablet PRN Reason: Anxiety Continued Tiotropium [place] [Spiriva Respimat] 2 puff IH DAILY #0 Salmeterol Xinafoate [Serevent Diskus] 1 puff IH BID #0 Tizanidine HCl 4 mg PO BID PRN PRN Reason: Spasms Esomeprazole Magnesium [Nexium] 40 mg PO DAILY cloNIDine HCl [CloNIDine HCl] 0.1 mg PO BID PRN PRN Reason: Anxiety Divalproex Sodium [Depakote Sprinkle] 500 mg PO BID Fluticasone Propionate [Flovent Hfa] 2 puff IH BID Roflumilast [Daliresp] 500 mcg PO DAILY Buspirone HCl [Buspar] 10 mg PO BID Nicotine Patch [Nicoderm] 21 mg TP DAILY Benztropine Mesylate 2 mg PO BID Magnesium Oxide [Magnesium] 400 mg PO DAILY Quetiapine Fumarate [Seroquel] 25 - 50 mg PO HS Lactobacillus Acidophilus [Acidophilus] 1 tab PO DAILY Melatonin 10 mg PO HS Loratadine [Allergy Relief] 10 mg PO DAILY LORazepam [Ativan] 0.5 mg PO Q12H PRN 3 Days #6 tablet PRN Reason: Anxiety Gabapentin [Neurontin] 800 mg PO BID #8 tablet Discontinued Quetiapine Fumarate [Seroquel] 25 - 50 mg PO HS Home Medications: Salmeterol Xinafoate [Serevent Diskus] 1 puff IH BID #0 07/10/16 [History] Tiotropium [place] [Spiriva Respimat] 2 puff IH DAILY #0 07/10/16 [History] Esomeprazole Magnesium [Nexium] 40 mg PO DAILY 12/31/16 [History] Tizanidine HCl 4 mg PO BID PRN 12/31/16 [History] Divalproex Sodium [Depakote Sprinkle] 500 mg PO BID 06/14/18 [History] Fluticasone Propionate [Flovent Hfa] 2 puff IH BID 06/14/18 [History] Roflumilast [Daliresp] 500 mcg PO DAILY 06/14/18 [History] cloNIDine HCl [CloNIDine HCl] 0.1 mg PO BID PRN 06/14/18 [History] Benztropine Mesylate 2 mg PO BID 12/04/18 [History] Buspirone HCl [Buspar] 10 mg PO BID 12/04/18 [History] Lactobacillus Acidophilus [Acidophilus] 1 tab PO DAILY 12/04/18 [History] Loratadine [Allergy Relief] 10 mg PO DAILY 12/04/18 [History] Magnesium Oxide [Magnesium] 400 mg PO DAILY 12/04/18 [History] Melatonin 10 mg PO HS 12/04/18 [History] Nicotine Patch [Nicoderm] 21 mg TP DAILY 12/04/18 [History] Quetiapine Fumarate [Seroquel] 25 - 50 mg PO HS 12/04/18 [History] Gabapentin [Neurontin] 800 mg PO BID #8 tablet 12/10/18 [Rx] Haloperidol [Haldol] 1 mg PO QID PRN #30 tablet 12/10/18 [Rx] LORazepam [Ativan] 0.5 mg PO Q12H PRN 3 Days #6 tablet 12/10/18 [Rx] Allergies/Adverse Reactions: Allergy/AdvReac Type Severity Reaction Status Date / Time alprazolam [From Xanax] Allergy Itching Verified 11/30/18 21:00 bupropion [From Wellbutrin] Allergy Itching Verified 11/30/18 21:00 doxycycline Allergy Nausea Verified 11/30/18 21:00 Ethyl Chloride Allergy Itching Verified 11/30/18 21:00 fexofenadine [From Fannie] Allergy Itching Verified 11/30/18 21:00 hydroxyzine Allergy Hallucinati Verified 11/30/18 21:00 ng Procaine [From Novocain] Allergy Rash Verified 11/30/18 21:00 Penicillins AdvReac Itching Verified 11/30/18 21:00 Date of admission: 12/06/18 11:09 Primary care physician: Whitney Richards Consults: 12/04/18 11:38 Consult to Neurology [CONS] Routine Consulting Provider: Neurology [facility] Reason for Consult: encephalopathy Call Completed: Yes 12/04/18 11:40 Consult to Occupational Therapy [CONS] Routine Comment: Evaluate, develop and implement POC Reason for Consult: weakness Does patient have active BEDREST order?: No Is patient medically & hemodynamically stable?: Yes Consult to Physical Therapy [CONS] Routine Comment: Evaluate, develop and implement POC Reason for Consult: weakness, gait Does patient have active BEDREST order?: No Is patient medically & hemodynamically stable?: Yes 12/04/18 11:43 Consult to Structural Steel Trades Worker [CONS] Routine Reason for SW Consult: poor home situation, see ED notes. 12/06/18 09:58 Consult to Psychiatry [CONS] Routine Consulting Provider: Psychiatry [facility] Reason consult: Medication recommendation Confusion Capacity assessment Anticipated date of discharge: 12/10/18 - Constitutional Vitals: Temp Pulse Resp BP Pulse Ox 97.4 F L 83 20 126/87 99 12/10/18 14:37 12/10/18 14:37 12/10/18 14:37 12/10/18 14:37 12/10/18 14:37 General appearance: Present: A&O X 3 Exam: Skin: Free of rash and discoloration. Eyes: Sclera is white. There is no discharge from eyes. ENMT: Oral/pharyngeal mucosa is normal in appearance. There is no discharge from nose or ears. Respiratory: Normal breath sounds with no crackles and wheezes bilaterally. CV: Heart is regular with no gallop or murmur. GI: Abdomen is flat and soft with no palpable mass or visceromegaly. : There is no tenderness in patient's flanks bilaterally. Neuro exam: He has good strength in upper and lower extremities. He has normal eye movements. Psychiatric: Patient is agitated His thought process is appropriate to the situation. - Patient Status Disposition: Transfer SNF Condition: Fair Functional capacity at discharge: independent ambulation Overall status at discharge: patient is progressing back to baseline - Discharge Instructions Follow Up With: Whitney Richards MD [Primary Care Provider] - (Appointment has been requested. ) - Diet and Activity Activity: increase activity as tolerated Diet: low fat, low cholesterol, low salt diet
== END 2018-12-10 19:01 | DRG 463 ==
LOC: 3BNU 15:51 → EMEROOARM 15:51 → 3BNU 12-04 13:11
PROVIDERS: ADMIT Student in an Organized Health Care Education/Training Program; ATTEND Student in an Organized Health Care Education/Training Program

== ENCOUNTER 2019-01-08 21:33 | Observation (INO) ==
[2019-01-08] MEDS ORDERED: 0.9 % Sodium Chloride 1,000 ML IVC ONE (21:42)
[2019-01-08 22:11] LABS: Basophils % 0.4 %; Eosinophils % 0.6 %; Hematocrit 32.6 % (35.3-44.9); Hemoglobin 10.5 g/dL (11.5-15.4); Immature Granulocytes % 0.6 % (0-4); Lymphocytes # 1.8 K/mcL (0.6-4.6); Lymphocytes % 34.2 %; Mean Corpuscular HGB Conc 32.2 g/dL (31.6-35.5); Mean Corpuscular Volume 90.1 fL (83.0-100.0); Monocytes # 0.6 K/mcL (0.0-1.3); Monocytes % 10.9 %; Neutrophils # 2.8 K/mcL (1.6-8.9); Platelet Count 148 K/mcL (140-400); Red Blood Count 3.62 M/mcL (3.82-4.97); Red Cell Distribution Width 14.3 % (11.5-14.5); Segmented Neutrophils % 53.3 %; White Blood Count 5.2 K/mcL (4.3-11.1)
[2019-01-08 22:17] LABS: Bilirubin,Urine Negative (Negative); Blood,Urine Negative (Negative); Clarity,Urine Clear (Clear); Color,Urine Yellow (Yellow); Glucose,Urine (UA) Normal (Normal); Ketones,Urine Negative (Negative); Leukocyte Esterase,Urine Negative (Negative); Nitrite,Urine Negative (Negative); Protein,Urine Negative (Neg-Trace); Specific Gravity,Urine 1.023 (1.010-1.025); Urobilinogen,Urine Normal (Normal)
[2019-01-08 22:22] LABS: INR 1.1; Prothrombin Time 12.2 Seconds (9.4-12.1)
[2019-01-08 22:24] LABS: Amphetamine Screen,Urine Negative ng/mL (Cutoff=1000); Barbiturate Screen,Urine Negative ng/mL (Cutoff=200); Benzodiazepines Screen,Urine Negative ng/mL (Cutoff=200); Cannabinoid Screen,Urine Negative ng/mL (Cutoff = 50); Cocaine Screen,Urine Negative ng/mL (Cutoff= 300); Opiate Screen,Urine Negative ng/mL (Cutoff=300); Phencyclidine Screen,Urine Negative ng/mL (Cutoff=25)
[2019-01-08 22:24] LABS: Activated Partial Thrombo Time 32.6 Seconds (26.0-36.0)
[2019-01-08 22:36] LABS: Acetaminophen < 10 mcg/mL (10-20); Alanine Aminotransferase 4 Units/L (7-52); Albumin 3.4 g/dL (3.5-5.7); Albumin/Globulin Ratio 1.3 (1.1-2.2); Alkaline Phosphatase 62 Units/L (34-104); Aspartate Amino Transferase 12 Units/L (13-39); BUN/Creatinine Ratio 26 (6-26); Bilirubin,Indirect 0.2 mg/dL (0.0-1.2); Bilirubin,Total 0.2 mg/dL (0.3-1.0); Blood Urea Nitrogen 24 mg/dL (8-23); Calcium 8.7 mg/dL (8.6-10.3); Carbon Dioxide 28 mEq/L (23-29); Chloride 103 mEq/L (98-107); Ethanol < 10 mg/dL (Less than 10); Globulin 2.6 g/dL (2.4-3.5); Glucose 97 mg/dL (70-105); Osmolality,Calculated 290 (280-300); Potassium 4.2 mEq/L (3.5-5.1); Salicylate < 2.5 mg/dL (15.0-30.0); Sodium 138 mEq/L (136-145); Troponin I < 0.03 ng/mL (< 0.04); eGFR For African Americans > 60 (> 60); eGFR For Non-African Americans > 60 (> 60)
[2019-01-08] MEDS ORDERED: Lactulose Oral Soln 20 GM/30 ML UDC PO ONE (23:47)
[2019-01-09] MEDS ORDERED: Ondansetron 4 MG/2 ML VIAL IVP PRN (01:24)
[2019-01-09] MEDS ORDERED: Naloxone 0.4 MG/ML INJ IVP PRN (01:24)
[2019-01-09] MEDS ORDERED: Acetaminophen 325 MG TABLET PO PRN (01:24)
[2019-01-09] MEDS ORDERED: 0.9 % Sodium Chloride 1,000 ML IVC SCH (01:30)
[2019-01-09] MEDS ORDERED: *HR* LORazepam 0.5 MG TABLET PO PRN (02:00)
[2019-01-09 03:15] LABS: Alanine Aminotransferase 4 Units/L (7-52); Albumin 3.2 g/dL (3.5-5.7); Albumin/Globulin Ratio 1.3 (1.1-2.2); Alkaline Phosphatase 58 Units/L (34-104); Aspartate Amino Transferase 10 Units/L (13-39); BUN/Creatinine Ratio 30 (6-26); Bilirubin,Total 0.1 mg/dL (0.3-1.0); Blood Urea Nitrogen 22 mg/dL (8-23); Calcium 8.3 mg/dL (8.6-10.3); Carbon Dioxide 27 mEq/L (23-29); Chloride 106 mEq/L (98-107); Globulin 2.5 g/dL (2.4-3.5); Glucose 100 mg/dL (70-105); Magnesium 2.2 mg/dL (1.6-2.6); Osmolality,Calculated 295 (280-300); Potassium 3.9 mEq/L (3.5-5.1); Sodium 141 mEq/L (136-145); Total Protein 5.7 g/dL (6.4-8.9); eGFR For African Americans > 60 (> 60); eGFR For Non-African Americans > 60 (> 60)
[2019-01-09] MEDS ORDERED: *HR* Heparin 5,000 UNIT/ML VIAL SQ SCH (06:00)
[2019-01-09 06:54] VITALS: BP 122/78
[2019-01-09] MEDS ORDERED: SODIUM CHLORIDE 0.9% IV ONE (08:45)
[2019-01-09] MEDS ORDERED: LEVOCARNITINE IV ONE (08:45)
[2019-01-09] MEDS ORDERED: Haloperidol Lactate 5 MG/ML VIAL IM PRN (09:49)
[2019-01-09] MEDS ORDERED: SODIUM CHLORIDE 0.9% IV SCH (17:00)
[2019-01-09] MEDS ORDERED: LEVOCARNITINE IV SCH (17:00)
[2019-01-10 16:47] LABS: Valproate Free 33 ug/mL (7-23); Valproate Total 111 ug/mL (50-125)
[2019-01-11 12:49] LABS: Valproate % Free 30 % (5-18)
== END 2019-01-09 11:05 | disposition left against medical advice (07) ==
LOC: EMEROOARM 21:33 → 3BNU 21:33 → SUATTDRO 01-09 00:13 → 3BNU 01-09 00:36
PROVIDERS: ADMIT Pediatrics; ATTEND Internal Medicine

== ENCOUNTER 2019-01-12 14:32 | Observation (INO) ==
--- NOTE | 2019-01-12 15:07 | Emergency Department Note ---
Disposition Clinical Impression: Altered mental status Qualifiers: Altered mental status type: unspecified Qualified Code(s): R41.82 - Altered mental status, unspecified Disposition: Transfer Psychiatric Hosp Condition: Good Referrals: NONE,PCP [Primary Care Provider] - Forms: ED Satisfaction Letter Time of Disposition: 17:27 Psych HPI - General Chief Complaint: ED Psychiatric Symptoms Stated Complaint: psych Time Seen by Provider: 01/12/19 14:33 Source: patient, EMS Mode of arrival: other Limitations: altered mental status Nursing Notes Reviewed: Yes Vital Signs Reviewed: Yes - History of Present Illness HPI Narrative: 63F with Pmhx of psychiatric disorders that was seen at this facility this morning for a foreign body in her foot/shortness of breath, reported to the ED, had a workup, and was discharged, and then went to her PCP, and was brought back to the ED for AMS. Pt has difficulty recalling the nature of the events that led to her being here this morning. She does report some shortness of breath and some back pain. She also expresses worry that her 8 cats are alone and she would like her outpatient case manager to be called so they are cared for. She does not know what day it is, but knows what month it is. She reports that she lives alone in town, and she has a home health nurse twice a week. - Related Data Home Medications Medication Instructions Recorded Confirmed Salmeterol Xinafoate [Serevent 1 puff IH BID #0 07/10/16 01/01/19 Diskus] Tiotropium [place] [Spiriva 2 puff IH DAILY #0 07/10/16 01/01/19 Respimat] Esomeprazole Magnesium [Nexium] 40 mg PO DAILY 12/31/16 01/01/19 Tizanidine HCl 4 mg PO BID PRN 12/31/16 01/01/19 Divalproex Sodium [Depakote 500 mg PO BID 06/14/18 01/01/19 Sprinkle] Fluticasone Propionate [Flovent 2 puff IH BID 06/14/18 01/01/19 Hfa] Roflumilast [Daliresp] 500 mcg PO DAILY 06/14/18 01/01/19 cloNIDine HCl [CloNIDine HCl] 0.1 mg PO BID PRN 06/14/18 01/01/19 Benztropine Mesylate 2 mg PO BID 12/04/18 01/01/19 Buspirone HCl [Buspar] 10 mg PO BID 12/04/18 01/01/19 Lactobacillus Acidophilus 1 tab PO DAILY 12/04/18 01/01/19 [Acidophilus] Loratadine [Allergy Relief] 10 mg PO DAILY 12/04/18 01/01/19 Magnesium Oxide [Magnesium] 400 mg PO DAILY 12/04/18 01/01/19 Melatonin 10 mg PO HS 12/04/18 01/01/19 Nicotine Patch [Nicoderm] 21 mg TP DAILY 12/04/18 01/01/19 Quetiapine Fumarate [Seroquel] 25 - 50 mg PO HS 12/04/18 01/01/19 Previous Rx's Medication Instructions Recorded Gabapentin [Neurontin] 800 mg PO BID #8 tablet 12/10/18 LORazepam [Ativan] 0.5 mg PO Q12H PRN 3 Days #6 tablet 12/10/18 Allergies Allergy/AdvReac Type Severity Reaction Status Date / Time alprazolam [From Xanax] Allergy Itching Verified 12/29/18 19:42 bupropion [From Wellbutrin] Allergy Itching Verified 12/29/18 19:42 doxycycline Allergy Nausea Verified 12/29/18 19:42 Ethyl Chloride Allergy Itching Verified 12/29/18 19:42 fexofenadine [From Fannie] Allergy Itching Verified 12/29/18 19:42 hydroxyzine Allergy Hallucinati Verified 12/29/18 19:42 ng Procaine [From Novocain] Allergy Rash Verified 12/29/18 19:42 Penicillins AdvReac Itching Verified 12/29/18 19:42 Review of Systems: In addition to that documented in the HPI above, the additional ROS was obtained: Constitutional: Denies fevers or chills Eyes: Denies vision changes ENMT: Denies headache. URI symptoms CV: Denies chest pain Resp: Reports SOB GI: Denies abdominal pain : Denies painful urination MSK: Reports hx of recent falls due to not using her walker Neuro: Denies new numbness or tingling or weakness Reports occasional numbness and tingling in her hands which is chronic Past Medical History - Past Medical History Attestation: Yes The following information was validated with the patient. Medical history: Reports: COPD Surgical history: Reports: appendectomy, orthopedic, other, other Psychiatric history: Reports: bipolar, schizophrenia DEALER ANALYST history: Reports: no DEALER ANALYST history - Social History Smoking Status: Current some day smoker Smokeless Tobacco Status: No Alcohol use: Reports: none Drug use: Reports: none Physical Exam General: A&O x 2 - place, person, only month and not day, but also knows President. No acute distress. Well developed, well nourished. Pt has dystonic movements of face consistent with her long standing antipsychotic medication. Head: atraumatic, normocephalic. ENT: No conjunctival injection, no scleral icterus. PERRLA. EOMI. Oropharynx non- erythematous. mucous membranes moist. Neuro: No focal deficits, no speech deficit, no facial droop. BUE/BLE Str 5/5. Pulm: Lungs CTAB A/P. No wheezes, rales, ronchi. Cardio: RRR no m/r/g. Chest not tender to palpation. Back: Kyphotic posture, generalized tenderness to palpation, but no stepoffs, ecchymosis, or erythema noted. Abd: Soft, non-distended. Normoactive bowel sounds. Non-tender to palpation. No guarding. Non rigid. Extremities: Radial pulses 2+ aimee, dorsalis pedis/posterior tibialis 2+ aimee. No LE edema. No cyanosis, clubbing. Feet are dirty and patient reports she does not wear shoes. Skin: warm, dry, intact. No rashes. Psych: Agitated. Becomes extremely agitated when asked about her cats. Distractable with repeated questions. Does not appear to be responding to internal stimulus. - General Limitations: no limitations, altered mental status General appearance: alert, in no apparent distress Course Vital Signs Temperature 97.8 F 01/12/19 14:35 Pulse Rate 99 01/12/19 14:35 Respiratory Rate 18 01/12/19 14:35 Blood Pressure 127/85 01/12/19 14:35 O2 Sat by Pulse Oximetry 94 01/12/19 14:35 Temperature 97.8 F 01/12/19 14:35 Pulse Rate 99 01/12/19 14:35 Respiratory Rate 18 01/12/19 14:35 Blood Pressure 127/85 01/12/19 14:35 O2 Sat by Pulse Oximetry 94 01/12/19 14:35 Oxygen Delivery Oxygen Delivery Room Air Psych - MDM Narrative Medical decision making narrative: 1514: 63F with hx of bipolar disorder under case management that was sent here from PCP/Psychiatrist for inability to care for self/agitation. She was found yelling in an office or hallway - unclear as to the exact nature of why she was brought here. Will undergo medical screening and clearance and have evaluation at the bedside with [facility]. Pt presents with pink slip and has been undressed, placed in a gown, and has 1-on-1 sitter. As to her shortness of breath, her lung sounds are CTAB, she received a chest XR this morning which did not show any infiltrates, and her vitals are presently WNL. Shortness of breath may be baseline given her underlying dx of COPD. 1640: TOBY Frausto presents a report from [facility] from 12/31/18 which is from her psychiatrist which reports that the pt does not have capacity to make medical decisions. 1725: Pt was evaluated at bedside by [facility] and they will be placing the patient with geriatric psych. They await a final destination and pt will require transfer as she cannot be admitted here. Pt will continue to be monitored on during her time in the ED. - Medical Records Medical records reviewed: Yes I reviewed the patient's medical records. - Lab Data Lab results reviewed: Yes I reviewed the patient's lab results. Result diagrams: 01/12/19 15:07 01/12/19 15:07 Lab Results 01/12/19 01/12/19 Range/Units 15:07 15:07 WBC 5.2 (4.3-11.1) K/mcL RBC 3.72 L (3.82-4.97) M/mcL Hgb 10.8 L (11.5-15.4) g/dL Hct 33.7 L (35.3-44.9) % MCV 90.6 (83.0-100.0) fL MCH 29.0 (28.0-33.3) pg MCHC 32.0 (31.6-35.5) g/dL RDW 14.7 H (11.5-14.5) % Plt Count 125 L (140-400) K/mcL MPV 10.4 (9.4-12.4) fL Immature Gran % 0.4 (0-4) % Seg Neutrophils % 64.0 % Lymphocytes % 22.1 % Monocytes % 12.9 % Eosinophils % 0.2 % Basophils % 0.4 % Neutrophils # 3.3 (1.6-8.9) K/mcL Lymphocytes # 1.2 (0.6-4.6) K/mcL Monocytes # 0.7 (0.0-1.3) K/mcL Eosinophils # 0.0 (0.0-0.6) K/mcL Basophils # 0.0 (0.0-0.2) K/mcL Sodium 137 (136-145) mEq/L Potassium 3.9 (3.5-5.1) mEq/L Chloride 102 (98-107) mEq/L Carbon Dioxide 29 (23-29) mEq/L BUN 11 (8-23) mg/dL Creatinine 0.92 (0.60-1.20) mg/dL Est GFR ( Amer) > 60 (> 60) Est GFR (Non-Af Amer) > 60 (> 60) BUN/Creatinine Ratio 12 (6-26) Glucose 126 H (70-105) mg/dL Calculated Osmolality 285 (280-300) Calcium 8.7 (8.6-10.3) mg/dL TSH 0.739 (0.340-5.600) mcIU/mL Salicylates < 2.5 L (15.0-30.0) mg/dL Acetaminophen < 10 L (10-20) mcg/mL Ethyl Alcohol < 10 (Less than 10) mg/dL Psychiatric Medical Clearance - Medical Clearance Checklist Medical History: No Social History Section defined Current Vitals: Last Vital Signs Temp 97.8 F 01/12/19 14:35 Pulse 99 01/12/19 14:35 Resp 18 01/12/19 14:35 BP 127/85 01/12/19 14:35 Pulse Ox 94 01/12/19 14:35 Psychiatric Lab Panel: Drug Levels and Toxicity 01/12/19 15:07 Acetaminophen < 10 L Ethyl Alcohol < 10 Abnormal Labs: Abnormal lab results RBC 3.72 M/mcL (3.82-4.97) L 01/12/19 15:07 Hgb 10.8 g/dL (11.5-15.4) L 01/12/19 15:07 Hct 33.7 % (35.3-44.9) L 01/12/19 15:07 RDW 14.7 % (11.5-14.5) H 01/12/19 15:07 Plt Count 125 K/mcL (140-400) L 01/12/19 15:07 Glucose 126 mg/dL (70-105) H 01/12/19 15:07 Salicylates < 2.5 mg/dL (15.0-30.0) L 01/12/19 15:07 Acetaminophen < 10 mcg/mL (10-20) L 01/12/19 15:07 Statement of Medical Clearance: I have evaluated the patient, reviewed diagnostic information, and certify that the patient's medical condition is sufficiently stable that transfer to the psychiatric unit does not pose a significant risk of deterioration.
[2019-01-12 15:17] LABS: Basophils % 0.4 %; Eosinophils % 0.2 %; Hematocrit 33.7 % (35.3-44.9); Hemoglobin 10.8 g/dL (11.5-15.4); Immature Granulocytes % 0.4 % (0-4); Lymphocytes # 1.2 K/mcL (0.6-4.6); Lymphocytes % 22.1 %; Mean Corpuscular Volume 90.6 fL (83.0-100.0); Mean Platelet Volume 10.4 fL (9.4-12.4); Monocytes # 0.7 K/mcL (0.0-1.3); Monocytes % 12.9 %; Neutrophils # 3.3 K/mcL (1.6-8.9); Platelet Count 125 K/mcL (140-400); Red Blood Count 3.72 M/mcL (3.82-4.97); Red Cell Distribution Width 14.7 % (11.5-14.5); White Blood Count 5.2 K/mcL (4.3-11.1)
[2019-01-12 15:41] LABS: Acetaminophen < 10 mcg/mL (10-20); BUN/Creatinine Ratio 12 (6-26); Blood Urea Nitrogen 11 mg/dL (8-23); Calcium 8.7 mg/dL (8.6-10.3); Carbon Dioxide 29 mEq/L (23-29); Chloride 102 mEq/L (98-107); Ethanol < 10 mg/dL (Less than 10); Glucose 126 mg/dL (70-105); Osmolality,Calculated 285 (280-300); Potassium 3.9 mEq/L (3.5-5.1); Salicylate < 2.5 mg/dL (15.0-30.0); Sodium 137 mEq/L (136-145); eGFR For African Americans > 60 (> 60); eGFR For Non-African Americans > 60 (> 60)
--- NOTE | 2019-01-12 15:52 | Emergency Department Note ---
Disposition Clinical Impression: Altered mental status Qualifiers: Altered mental status type: unspecified Qualified Code(s): R41.82 - Altered mental status, unspecified Disposition: Transfer Psychiatric Hosp Condition: Good Referrals: NONE,PCP [Primary Care Provider] - Forms: ED Satisfaction Letter Time of Disposition: 18:12 Psych HPI - General Chief Complaint: ED Psychiatric Symptoms Stated Complaint: psych Time Seen by Provider: 01/12/19 14:33 Source: patient, EMS Mode of arrival: other - Related Data Home Medications Medication Instructions Recorded Confirmed Salmeterol Xinafoate [Serevent 1 puff IH BID #0 07/10/16 01/01/19 Diskus] Tiotropium [place] [Spiriva 2 puff IH DAILY #0 07/10/16 01/01/19 Respimat] Esomeprazole Magnesium [Nexium] 40 mg PO DAILY 12/31/16 01/01/19 Tizanidine HCl 4 mg PO BID PRN 12/31/16 01/01/19 Divalproex Sodium [Depakote 500 mg PO BID 06/14/18 01/01/19 Sprinkle] Fluticasone Propionate [Flovent 2 puff IH BID 06/14/18 01/01/19 Hfa] Roflumilast [Daliresp] 500 mcg PO DAILY 06/14/18 01/01/19 cloNIDine HCl [CloNIDine HCl] 0.1 mg PO BID PRN 06/14/18 01/01/19 Benztropine Mesylate 2 mg PO BID 12/04/18 01/01/19 Buspirone HCl [Buspar] 10 mg PO BID 12/04/18 01/01/19 Lactobacillus Acidophilus 1 tab PO DAILY 12/04/18 01/01/19 [Acidophilus] Loratadine [Allergy Relief] 10 mg PO DAILY 12/04/18 01/01/19 Magnesium Oxide [Magnesium] 400 mg PO DAILY 12/04/18 01/01/19 Melatonin 10 mg PO HS 12/04/18 01/01/19 Nicotine Patch [Nicoderm] 21 mg TP DAILY 12/04/18 01/01/19 Quetiapine Fumarate [Seroquel] 25 - 50 mg PO HS 12/04/18 01/01/19 Previous Rx's Medication Instructions Recorded Gabapentin [Neurontin] 800 mg PO BID #8 tablet 12/10/18 LORazepam [Ativan] 0.5 mg PO Q12H PRN 3 Days #6 tablet 12/10/18 Allergies Allergy/AdvReac Type Severity Reaction Status Date / Time alprazolam [From Xanax] Allergy Itching Verified 12/29/18 19:42 bupropion [From Wellbutrin] Allergy Itching Verified 12/29/18 19:42 doxycycline Allergy Nausea Verified 12/29/18 19:42 Ethyl Chloride Allergy Itching Verified 12/29/18 19:42 fexofenadine [From Fannie] Allergy Itching Verified 12/29/18 19:42 hydroxyzine Allergy Hallucinati Verified 12/29/18 19:42 ng Procaine [From Novocain] Allergy Rash Verified 12/29/18 19:42 Penicillins AdvReac Itching Verified 12/29/18 19:42 Past Medical History - Past Medical History Medical history: Reports: COPD Surgical history: Reports: appendectomy, orthopedic, other, other Psychiatric history: Reports: bipolar, schizophrenia CARTON STENCILER history: Reports: no CARTON STENCILER history - Social History Smoking Status: Current some day smoker Smokeless Tobacco Status: No Alcohol use: Reports: none Drug use: Reports: none Physical Exam - General Limitations: altered mental status General appearance: alert, in no apparent distress Course Vital Signs Temperature 97.8 F 01/12/19 14:35 Pulse Rate 99 01/12/19 14:35 Respiratory Rate 18 01/12/19 14:35 Blood Pressure 127/85 01/12/19 14:35 O2 Sat by Pulse Oximetry 94 01/12/19 14:35 Temperature 97.8 F 01/12/19 14:35 Pulse Rate 99 01/12/19 14:35 Respiratory Rate 18 01/12/19 14:35 Blood Pressure 127/85 01/12/19 14:35 O2 Sat by Pulse Oximetry 94 01/12/19 14:35 Oxygen Delivery Oxygen Delivery Room Air Psych - Lab Data Result diagrams: 01/12/19 15:07 01/12/19 15:07 Lab Results 01/12/19 01/12/19 01/12/19 Range/Units 15:07 15:07 17:45 WBC 5.2 (4.3-11.1) K/mcL RBC 3.72 L (3.82-4.97) M/mcL Hgb 10.8 L (11.5-15.4) g/dL Hct 33.7 L (35.3-44.9) % MCV 90.6 (83.0-100.0) fL MCH 29.0 (28.0-33.3) pg MCHC 32.0 (31.6-35.5) g/dL RDW 14.7 H (11.5-14.5) % Plt Count 125 L (140-400) K/mcL MPV 10.4 (9.4-12.4) fL Immature Gran % 0.4 (0-4) % Seg Neutrophils % 64.0 % Lymphocytes % 22.1 % Monocytes % 12.9 % Eosinophils % 0.2 % Basophils % 0.4 % Neutrophils # 3.3 (1.6-8.9) K/mcL Lymphocytes # 1.2 (0.6-4.6) K/mcL Monocytes # 0.7 (0.0-1.3) K/mcL Eosinophils # 0.0 (0.0-0.6) K/mcL Basophils # 0.0 (0.0-0.2) K/mcL Sodium 137 (136-145) mEq/L Potassium 3.9 (3.5-5.1) mEq/L Chloride 102 (98-107) mEq/L Carbon Dioxide 29 (23-29) mEq/L BUN 11 (8-23) mg/dL Creatinine 0.92 (0.60-1.20) mg/dL Est GFR ( Amer) > 60 (> 60) Est GFR (Non-Af Amer) > 60 (> 60) BUN/Creatinine Ratio 12 (6-26) Glucose 126 H (70-105) mg/dL Calculated Osmolality 285 (280-300) Calcium 8.7 (8.6-10.3) mg/dL TSH 0.739 (0.340-5.600) mcIU/mL Urine Color Yellow (Yellow) Urine Clarity Clear (Clear) Urine pH 7.5 (5.0-8.0) pH Units Ur Specific [place] 1.018 (1.010-1.025) Urine Protein Negative (Neg-Trace) mg/dL Urine Glucose (UA) Normal (Normal) mg/dL Urine Ketones Negative (Negative) mg/dL Urine Blood Negative (Negative) Urine Nitrite Negative (Negative) Urine Bilirubin Negative (Negative) Urine Urobilinogen Normal (Normal) mg/dL Ur Leukocyte Esterase Negative (Negative) Salicylates < 2.5 L (15.0-30.0) mg/dL Urine Opiates Screen (Gszfct=211) ng/mL Ur Buprenorphine Scrn (Cutoff=5) ng/mL Acetaminophen < 10 L (10-20) mcg/mL Ur Barbiturates Screen (Lyqnpk=867) ng/mL Ur Phencyclidine Scrn (Cutoff=25) ng/mL Ur Amphetamines Screen (Qhtdvb=0129) ng/mL U Benzodiazepines Scrn (Vxgrfk=066) ng/mL Urine Cocaine Screen (Cutoff= 300) ng/mL U Marijuana (THC) Screen (Cutoff = 50) ng/mL Ur Drug Screen Interp Ethyl Alcohol < 10 (Less than 10) mg/dL 01/12/19 Range/Units 17:45 WBC (4.3-11.1) K/mcL RBC (3.82-4.97) M/mcL Hgb (11.5-15.4) g/dL Hct (35.3-44.9) % MCV (83.0-100.0) fL MCH (28.0-33.3) pg MCHC (31.6-35.5) g/dL RDW (11.5-14.5) % Plt Count (140-400) K/mcL MPV (9.4-12.4) fL Immature Gran % (0-4) % Seg Neutrophils % % Lymphocytes % % Monocytes % % Eosinophils % % Basophils % % Neutrophils # (1.6-8.9) K/mcL Lymphocytes # (0.6-4.6) K/mcL Monocytes # (0.0-1.3) K/mcL Eosinophils # (0.0-0.6) K/mcL Basophils # (0.0-0.2) K/mcL Sodium (136-145) mEq/L Potassium (3.5-5.1) mEq/L Chloride (98-107) mEq/L Carbon Dioxide (23-29) mEq/L BUN (8-23) mg/dL Creatinine (0.60-1.20) mg/dL Est GFR ( Amer) (> 60) Est GFR (Non-Af Amer) (> 60) BUN/Creatinine Ratio (6-26) Glucose (70-105) mg/dL Calculated Osmolality (280-300) Calcium (8.6-10.3) mg/dL TSH (0.340-5.600) mcIU/mL Urine Color (Yellow) Urine Clarity (Clear) Urine pH (5.0-8.0) pH Units Ur Specific [place] (1.010-1.025) Urine Protein (Neg-Trace) mg/dL Urine Glucose (UA) (Normal) mg/dL Urine Ketones (Negative) mg/dL Urine Blood (Negative) Urine Nitrite (Negative) Urine Bilirubin (Negative) Urine Urobilinogen (Normal) mg/dL Ur Leukocyte Esterase (Negative) Salicylates (15.0-30.0) mg/dL Urine Opiates Screen Negative (Ketngj=678) ng/mL Ur Buprenorphine Scrn Negative (Cutoff=5) ng/mL Acetaminophen (10-20) mcg/mL Ur Barbiturates Screen Negative (Bpidgr=536) ng/mL Ur Phencyclidine Scrn Negative (Cutoff=25) ng/mL Ur Amphetamines Screen Negative (Vblwiu=0838) ng/mL U Benzodiazepines Scrn Negative (Niwswl=560) ng/mL Urine Cocaine Screen Negative (Cutoff= 300) ng/mL U Marijuana (THC) Screen Negative (Cutoff = 50) ng/mL Ur Drug Screen Interp See Below Ethyl Alcohol (Less than 10) mg/dL Psychiatric Medical Clearance - Medical Clearance Checklist Medical History: No Social History Section defined Current Vitals: Last Vital Signs Temp 97.8 F 01/12/19 14:35 Pulse 99 01/12/19 14:35 Resp 18 01/12/19 14:35 BP 127/85 01/12/19 14:35 Pulse Ox 94 01/12/19 14:35 Psychiatric Lab Panel: Drug Levels and Toxicity 01/12/19 01/12/19 15:07 17:45 Urine Opiates Screen Negative Acetaminophen < 10 L Ur Barbiturates Screen Negative Ur Phencyclidine Scrn Negative Ur Amphetamines Screen Negative U Benzodiazepines Scrn Negative Urine Cocaine Screen Negative U Marijuana (THC) Screen Negative Ethyl Alcohol < 10 Abnormal Labs: Abnormal lab results RBC 3.72 M/mcL (3.82-4.97) L 01/12/19 15:07 Hgb 10.8 g/dL (11.5-15.4) L 01/12/19 15:07 Hct 33.7 % (35.3-44.9) L 01/12/19 15:07 RDW 14.7 % (11.5-14.5) H 01/12/19 15:07 Plt Count 125 K/mcL (140-400) L 01/12/19 15:07 Glucose 126 mg/dL (70-105) H 01/12/19 15:07 Salicylates < 2.5 mg/dL (15.0-30.0) L 01/12/19 15:07 Acetaminophen < 10 mcg/mL (10-20) L 01/12/19 15:07 Statement of Medical Clearance: I have evaluated the patient, reviewed diagnostic information, and certify that the patient's medical condition is sufficiently stable that transfer to the psychiatric unit does not pose a significant risk of deterioration. Attestation Statement - Attestation Attestation: I examined this patient and my medical decision-making was reviewed with the Resident Physician. I agree with the documented findings, disposition and treatment plan as described except to the extent set forth below. 63-year-old female presenting to the emergency room for psychiatric evaluation. Patient was seen here earlier for a non-psych complaint. Family had gone to her doctor's office and they sent her here because she was confused. She admits that she was confused earlier. She denies drug abuse. No alcohol use. She denied any face arm or leg weakness or numbness consistent with any stroke like symptoms during this confusion episode. We will evaluate her for a psychiatric issue at this time. She was sent over with a pink slip. Apparently she is resting complaining the room in no acute distress. She consulted me her name location and date of without difficulty
[2019-01-12 16:01] LABS: Thyroid Stimulating Hormone 0.739 mcIU/mL (0.340-5.600)
[2019-01-12 17:57] LABS: Bilirubin,Urine Negative (Negative); Blood,Urine Negative (Negative); Clarity,Urine Clear (Clear); Color,Urine Yellow (Yellow); Glucose,Urine (UA) Normal (Normal); Ketones,Urine Negative (Negative); Leukocyte Esterase,Urine Negative (Negative); Nitrite,Urine Negative (Negative); PH,Urine 7.5 pH Units (5.0-8.0); Protein,Urine Negative (Neg-Trace); Specific Gravity,Urine 1.018 (1.010-1.025); Urobilinogen,Urine Normal (Normal)
[2019-01-12 18:07] LABS: Amphetamine Screen,Urine Negative ng/mL (Cutoff=1000); Barbiturate Screen,Urine Negative ng/mL (Cutoff=200); Benzodiazepines Screen,Urine Negative ng/mL (Cutoff=200); Cannabinoid Screen,Urine Negative ng/mL (Cutoff = 50); Cocaine Screen,Urine Negative ng/mL (Cutoff= 300); Opiate Screen,Urine Negative ng/mL (Cutoff=300); Phencyclidine Screen,Urine Negative ng/mL (Cutoff=25)
[2019-01-12] MEDS ORDERED: *HR* LORazepam 0.5 MG TABLET PO ONE ×2 (19:45→20:00)
[2019-01-12] MEDS: Nicotine 21 MG PATCH.TD24 TP SCH (20:18)
[2019-01-12] MEDS ORDERED: Melatonin 3 MG TABLET PO ONE (21:00)
[2019-01-12] MEDS ORDERED: Divalproex Sodium 125 MG CAPSULE PO ONE (21:00)
[2019-01-12] MEDS ORDERED: cloNIDine HCl 0.1 MG TABLET PO ONE (21:00)
[2019-01-12] MEDS ORDERED: Gabapentin 400 MG CAPSULE PO ONE (21:00)
[2019-01-12] MEDS ORDERED: Ziprasidone 20 MG/VIAL VIAL IM ONE (21:50)
[2019-01-12] MEDS ORDERED: Water for inj. (sterile) 10 ML ONE (21:50)
[2019-01-12] MEDS ORDERED: Ziprasidone 10 MG in Water for inj. (sterile) 0.5 ML IM ONE (21:59)
--- NOTE | 2019-01-13 02:08 | Emergency Department Note ---
Disposition Clinical Impression: Altered mental status Qualifiers: Altered mental status type: unspecified Qualified Code(s): R41.82 - Altered mental status, unspecified Disposition: Still a Patient Condition: Good Referrals: NONE,PCP [Primary Care Provider] - Forms: ED Satisfaction Letter Time of Disposition: 07:00 General Adult HPI - General Chief complaint: ED Psychiatric Symptoms Stated complaint: psych Time Seen by Provider: 01/12/19 14:33 Source: patient, EMS Mode of arrival: other Limitations: altered mental status - History of Present Illness Pain Scale: 0 - Related Data Home Medications Medication Instructions Recorded Confirmed Salmeterol Xinafoate [Serevent 1 puff IH BID #0 07/10/16 01/12/19 Diskus] Tiotropium [place] [Spiriva 2 puff IH DAILY #0 07/10/16 01/12/19 Respimat] Tizanidine HCl 4 mg PO BID PRN 12/31/16 01/12/19 Divalproex Sodium [Depakote 500 mg PO BID 06/14/18 01/12/19 Sprinkle] Fluticasone Propionate [Flovent 2 puff IH BID 06/14/18 01/12/19 Hfa] Roflumilast [Daliresp] 500 mcg PO DAILY 06/14/18 01/12/19 cloNIDine HCl [CloNIDine HCl] 0.1 mg PO BID 06/14/18 01/12/19 Benztropine Mesylate 2 mg PO BID 12/04/18 01/12/19 Buspirone HCl [Buspar] 10 mg PO BID 12/04/18 01/12/19 Lactobacillus Acidophilus 1 tab PO DAILY 12/04/18 01/12/19 [Acidophilus] Loratadine [Allergy Relief] 10 mg PO DAILY 12/04/18 01/12/19 Magnesium Oxide [Magnesium] 400 mg PO DAILY 12/04/18 01/12/19 Nicotine Patch [Nicoderm] 21 mg TP DAILY 12/04/18 01/12/19 Haloperidol 2 mg PO QID PRN 01/12/19 01/12/19 LORazepam [Ativan] 0.5 mg PO Q12H 01/12/19 01/12/19 Melatonin 10 mg PO HS 01/12/19 01/12/19 Omeprazole [PriLOSEC] 20 mg PO DAILY 01/12/19 01/12/19 Quetiapine Fumarate [Seroquel] 200 mg PO HS 01/12/19 01/12/19 Previous Rx's Medication Instructions Recorded Gabapentin [Neurontin] 800 mg PO BID #8 tablet 12/10/18 Allergies Allergy/AdvReac Type Severity Reaction Status Date / Time alprazolam [From Xanax] Allergy Itching Verified 12/29/18 19:42 bupropion [From Wellbutrin] Allergy Itching Verified 12/29/18 19:42 doxycycline Allergy Nausea Verified 12/29/18 19:42 Ethyl Chloride Allergy Itching Verified 12/29/18 19:42 fexofenadine [From Fannie] Allergy Itching Verified 12/29/18 19:42 hydroxyzine Allergy Hallucinati Verified 12/29/18 19:42 ng Procaine [From Novocain] Allergy Rash Verified 12/29/18 19:42 Penicillins AdvReac Itching Verified 12/29/18 19:42 Past Medical History - Past Medical History Medical history: Reports: COPD Surgical history: Reports: appendectomy, orthopedic, other, other Psychiatric history: Reports: bipolar, schizophrenia FICTION WRITER history: Reports: no FICTION 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 Siu and Dr. Limon. Plemony se refer to their notes for complete details of history and physical examination. At shift change patient has been medically cleared and evaluated by the [address] psychiatry department. They have recommended inpatient placement and are working on finding placement for the patient. At morning shift change patient is still awaiting psychiatric bed placement and is signed out to the [facility] physician, Dr. Agustín Casillas. Vital Signs Temperature 97.8 F 01/12/19 14:35 Pulse Rate 99 01/12/19 14:35 Respiratory Rate 18 01/12/19 14:35 Blood Pressure 127/85 01/12/19 14:35 O2 Sat by Pulse Oximetry 94 01/12/19 14:35 Temperature 98.3 F 01/13/19 04:48 Pulse Rate 64 01/13/19 04:48 Respiratory Rate 18 01/13/19 04:48 Blood Pressure 112/74 01/13/19 04:48 O2 Sat by Pulse Oximetry 97 01/13/19 04:48 Oxygen Delivery Oxygen Delivery Room Air Medical Decision Making - Lab Data Result diagrams: 01/12/19 15:07 01/12/19 15:07 Lab Results 01/12/19 01/12/19 01/12/19 Range/Units 15:07 15:07 17:45 WBC 5.2 (4.3-11.1) K/mcL RBC 3.72 L (3.82-4.97) M/mcL Hgb 10.8 L (11.5-15.4) g/dL Hct 33.7 L (35.3-44.9) % MCV 90.6 (83.0-100.0) fL MCH 29.0 (28.0-33.3) pg MCHC 32.0 (31.6-35.5) g/dL RDW 14.7 H (11.5-14.5) % Plt Count 125 L (140-400) K/mcL MPV 10.4 (9.4-12.4) fL Immature Gran % 0.4 (0-4) % Seg Neutrophils % 64.0 % Lymphocytes % 22.1 % Monocytes % 12.9 % Eosinophils % 0.2 % Basophils % 0.4 % Neutrophils # 3.3 (1.6-8.9) K/mcL Lymphocytes # 1.2 (0.6-4.6) K/mcL Monocytes # 0.7 (0.0-1.3) K/mcL Eosinophils # 0.0 (0.0-0.6) K/mcL Basophils # 0.0 (0.0-0.2) K/mcL Sodium 137 (136-145) mEq/L Potassium 3.9 (3.5-5.1) mEq/L Chloride 102 (98-107) mEq/L Carbon Dioxide 29 (23-29) mEq/L BUN 11 (8-23) mg/dL Creatinine 0.92 (0.60-1.20) mg/dL Est GFR ( Amer) > 60 (> 60) Est GFR (Non-Af Amer) > 60 (> 60) BUN/Creatinine Ratio 12 (6-26) Glucose 126 H (70-105) mg/dL Calculated Osmolality 285 (280-300) Calcium 8.7 (8.6-10.3) mg/dL TSH 0.739 (0.340-5.600) mcIU/mL Urine Color Yellow (Yellow) Urine Clarity Clear (Clear) Urine pH 7.5 (5.0-8.0) pH Units Ur Specific [place] 1.018 (1.010-1.025) Urine Protein Negative (Neg-Trace) mg/dL Urine Glucose (UA) Normal (Normal) mg/dL Urine Ketones Negative (Negative) mg/dL Urine Blood Negative (Negative) Urine Nitrite Negative (Negative) Urine Bilirubin Negative (Negative) Urine Urobilinogen Normal (Normal) mg/dL Ur Leukocyte Esterase Negative (Negative) Salicylates < 2.5 L (15.0-30.0) mg/dL Urine Opiates Screen (Chhsye=204) ng/mL Ur Buprenorphine Scrn (Cutoff=5) ng/mL Acetaminophen < 10 L (10-20) mcg/mL Ur Barbiturates Screen (Ttovbc=983) ng/mL Ur Phencyclidine Scrn (Cutoff=25) ng/mL Ur Amphetamines Screen (Aslewc=5065) ng/mL U Benzodiazepines Scrn (Tpulrt=068) ng/mL Urine Cocaine Screen (Cutoff= 300) ng/mL U Marijuana (THC) Screen (Cutoff = 50) ng/mL Ur Drug Screen Interp Ethyl Alcohol < 10 (Less than 10) mg/dL 01/12/19 Range/Units 17:45 WBC (4.3-11.1) K/mcL RBC (3.82-4.97) M/mcL Hgb (11.5-15.4) g/dL Hct (35.3-44.9) % MCV (83.0-100.0) fL MCH (28.0-33.3) pg MCHC (31.6-35.5) g/dL RDW (11.5-14.5) % Plt Count (140-400) K/mcL MPV (9.4-12.4) fL Immature Gran % (0-4) % Seg Neutrophils % % Lymphocytes % % Monocytes % % Eosinophils % % Basophils % % Neutrophils # (1.6-8.9) K/mcL Lymphocytes # (0.6-4.6) K/mcL Monocytes # (0.0-1.3) K/mcL Eosinophils # (0.0-0.6) K/mcL Basophils # (0.0-0.2) K/mcL Sodium (136-145) mEq/L Potassium (3.5-5.1) mEq/L Chloride (98-107) mEq/L Carbon Dioxide (23-29) mEq/L BUN (8-23) mg/dL Creatinine (0.60-1.20) mg/dL Est GFR ( Amer) (> 60) Est GFR (Non-Af Amer) (> 60) BUN/Creatinine Ratio (6-26) Glucose (70-105) mg/dL Calculated Osmolality (280-300) Calcium (8.6-10.3) mg/dL TSH (0.340-5.600) mcIU/mL Urine Color (Yellow) Urine Clarity (Clear) Urine pH (5.0-8.0) pH Units Ur Specific [place] (1.010-1.025) Urine Protein (Neg-Trace) mg/dL Urine Glucose (UA) (Normal) mg/dL Urine Ketones (Negative) mg/dL Urine Blood (Negative) Urine Nitrite (Negative) Urine Bilirubin (Negative) Urine Urobilinogen (Normal) mg/dL Ur Leukocyte Esterase (Negative) Salicylates (15.0-30.0) mg/dL Urine Opiates Screen Negative (Tmefjm=172) ng/mL Ur Buprenorphine Scrn Negative (Cutoff=5) ng/mL Acetaminophen (10-20) mcg/mL Ur Barbiturates Screen Negative (Otoqaa=860) ng/mL Ur Phencyclidine Scrn Negative (Cutoff=25) ng/mL Ur Amphetamines Screen Negative (Cusghr=1034) ng/mL U Benzodiazepines Scrn Negative (Tcgfgm=976) ng/mL Urine Cocaine Screen Negative (Cutoff= 300) ng/mL U Marijuana (THC) Screen Negative (Cutoff = 50) ng/mL Ur Drug Screen Interp See Below Ethyl Alcohol (Less than 10) mg/dL
[2019-01-13] MEDS ORDERED: *HR* LORazepam 0.5 MG TABLET PO ONE (13:08)
--- NOTE | 2019-01-13 18:52 | Emergency Department Note ---
Disposition Clinical Impression: Altered mental status Qualifiers: Altered mental status type: unspecified Qualified Code(s): R41.82 - Altered mental status, unspecified Disposition: Admitted As Inpatient Condition: Good Referrals: NONE,PCP [Primary Care Provider] - Forms: ED Satisfaction Letter Time of Disposition: 18:45 Psych HPI - General Chief Complaint: ED Psychiatric Symptoms Stated Complaint: psych Time Seen by Provider: 01/12/19 14:33 Source: patient, EMS Mode of arrival: ambulatory Limitations: no limitations Nursing Notes Reviewed: Yes Vital Signs Reviewed: Yes - Related Data Home Medications Medication Instructions Recorded Confirmed Salmeterol Xinafoate [Serevent 1 puff IH BID #0 07/10/16 01/12/19 Diskus] Tiotropium [place] [Spiriva 2 puff IH DAILY #0 07/10/16 01/12/19 Respimat] Tizanidine HCl 4 mg PO BID PRN 12/31/16 01/12/19 Divalproex Sodium [Depakote 500 mg PO BID 06/14/18 01/12/19 Sprinkle] Fluticasone Propionate [Flovent 2 puff IH BID 06/14/18 01/12/19 Hfa] Roflumilast [Daliresp] 500 mcg PO DAILY 06/14/18 01/12/19 cloNIDine HCl [CloNIDine HCl] 0.1 mg PO BID 06/14/18 01/12/19 Benztropine Mesylate 2 mg PO BID 12/04/18 01/12/19 Buspirone HCl [Buspar] 10 mg PO BID 12/04/18 01/12/19 Lactobacillus Acidophilus 1 tab PO DAILY 12/04/18 01/12/19 [Acidophilus] Loratadine [Allergy Relief] 10 mg PO DAILY 12/04/18 01/12/19 Magnesium Oxide [Magnesium] 400 mg PO DAILY 12/04/18 01/12/19 Nicotine Patch [Nicoderm] 21 mg TP DAILY 12/04/18 01/12/19 Haloperidol 2 mg PO QID PRN 01/12/19 01/12/19 LORazepam [Ativan] 0.5 mg PO Q12H 01/12/19 01/12/19 Melatonin 10 mg PO HS 01/12/19 01/12/19 Omeprazole [PriLOSEC] 20 mg PO DAILY 01/12/19 01/12/19 Quetiapine Fumarate [Seroquel] 200 mg PO HS 01/12/19 01/12/19 Previous Rx's Medication Instructions Recorded Gabapentin [Neurontin] 800 mg PO BID #8 tablet 12/10/18 Allergies Allergy/AdvReac Type Severity Reaction Status Date / Time alprazolam [From Xanax] Allergy Itching Verified 12/29/18 19:42 bupropion [From Wellbutrin] Allergy Itching Verified 12/29/18 19:42 doxycycline Allergy Nausea Verified 12/29/18 19:42 Ethyl Chloride Allergy Itching Verified 12/29/18 19:42 fexofenadine [From Fannie] Allergy Itching Verified 12/29/18 19:42 hydroxyzine Allergy Hallucinati Verified 12/29/18 19:42 ng Procaine [From Novocain] Allergy Rash Verified 12/29/18 19:42 Penicillins AdvReac Itching Verified 12/29/18 19:42 Past Medical History - Past Medical History Medical history: Reports: COPD Surgical history: Reports: appendectomy, orthopedic, other, other Psychiatric history: Reports: bipolar, schizophrenia DIETETIC INTERN history: Reports: no DIETETIC INTERN history - Social History Smoking Status: Current some day smoker Smokeless Tobacco Status: No Alcohol use: Reports: none Drug use: Reports: none Physical Exam - General Limitations: altered mental status General appearance: alert, in no apparent distress Course Vital Signs Temperature 97.8 F 01/12/19 14:35 Pulse Rate 99 01/12/19 14:35 Respiratory Rate 18 01/12/19 14:35 Blood Pressure 127/85 01/12/19 14:35 O2 Sat by Pulse Oximetry 94 01/12/19 14:35 Temperature 98.3 F 01/13/19 04:48 Pulse Rate 100 01/13/19 14:57 Respiratory Rate 18 01/13/19 14:57 Blood Pressure 145/98 01/13/19 14:57 O2 Sat by Pulse Oximetry 94 01/13/19 14:57 Oxygen Delivery Oxygen Delivery Room Air Psych - MDM Narrative Medical decision making narrative: 63-year-old female received in signout pending placement at a custodial facility. Patient was evaluated by behavioral health who felt that she did not meet criteria for inpatient admission however patient is unable to care for herself at home. Emergency guardianship was obtained by the [facility] and she is unable to make decisions for herself at this time. Patient has placement set up for a custodial facility however she must first be further evaluat ed by a operations support representative of the [place] [employer] of [employer] [facility] prior to going there. Because this could take several days she will be admitted to hospitalist for further care. - Lab Data Result diagrams: 01/12/19 15:07 01/12/19 15:07 Lab Results 01/12/19 01/12/19 01/12/19 Range/Units 15:07 15:07 17:45 WBC 5.2 (4.3-11.1) K/mcL RBC 3.72 L (3.82-4.97) M/mcL Hgb 10.8 L (11.5-15.4) g/dL Hct 33.7 L (35.3-44.9) % MCV 90.6 (83.0-100.0) fL MCH 29.0 (28.0-33.3) pg MCHC 32.0 (31.6-35.5) g/dL RDW 14.7 H (11.5-14.5) % Plt Count 125 L (140-400) K/mcL MPV 10.4 (9.4-12.4) fL Immature Gran % 0.4 (0-4) % Seg Neutrophils % 64.0 % Lymphocytes % 22.1 % Monocytes % 12.9 % Eosinophils % 0.2 % Basophils % 0.4 % Neutrophils # 3.3 (1.6-8.9) K/mcL Lymphocytes # 1.2 (0.6-4.6) K/mcL Monocytes # 0.7 (0.0-1.3) K/mcL Eosinophils # 0.0 (0.0-0.6) K/mcL Basophils # 0.0 (0.0-0.2) K/mcL Sodium 137 (136-145) mEq/L Potassium 3.9 (3.5-5.1) mEq/L Chloride 102 (98-107) mEq/L Carbon Dioxide 29 (23-29) mEq/L BUN 11 (8-23) mg/dL Creatinine 0.92 (0.60-1.20) mg/dL Est GFR ( Amer) > 60 (> 60) Est GFR (Non-Af Amer) > 60 (> 60) BUN/Creatinine Ratio 12 (6-26) Glucose 126 H (70-105) mg/dL Calculated Osmolality 285 (280-300) Calcium 8.7 (8.6-10.3) mg/dL TSH 0.739 (0.340-5.600) mcIU/mL Urine Color Yellow (Yellow) Urine Clarity Clear (Clear) Urine pH 7.5 (5.0-8.0) pH Units Ur Specific [place] 1.018 (1.010-1.025) Urine Protein Negative (Neg-Trace) mg/dL Urine Glucose (UA) Normal (Normal) mg/dL Urine Ketones Negative (Negative) mg/dL Urine Blood Negative (Negative) Urine Nitrite Negative (Negative) Urine Bilirubin Negative (Negative) Urine Urobilinogen Normal (Normal) mg/dL Ur Leukocyte Esterase Negative (Negative) Salicylates < 2.5 L (15.0-30.0) mg/dL Urine Opiates Screen (Hguwhf=876) ng/mL Ur Buprenorphine Scrn (Cutoff=5) ng/mL Acetaminophen < 10 L (10-20) mcg/mL Ur Barbiturates Screen (Tbjbwc=410) ng/mL Ur Phencyclidine Scrn (Cutoff=25) ng/mL Ur Amphetamines Screen (Sacmdk=6179) ng/mL U Benzodiazepines Scrn (Bommvi=957) ng/mL Urine Cocaine Screen (Cutoff= 300) ng/mL U Marijuana (THC) Screen (Cutoff = 50) ng/mL Ur Drug Screen Interp Ethyl Alcohol < 10 (Less than 10) mg/dL 01/12/19 Range/Units 17:45 WBC (4.3-11.1) K/mcL RBC (3.82-4.97) M/mcL Hgb (11.5-15.4) g/dL Hct (35.3-44.9) % MCV (83.0-100.0) fL MCH (28.0-33.3) pg MCHC (31.6-35.5) g/dL RDW (11.5-14.5) % Plt Count (140-400) K/mcL MPV (9.4-12.4) fL Immature Gran % (0-4) % Seg Neutrophils % % Lymphocytes % % Monocytes % % Eosinophils % % Basophils % % Neutrophils # (1.6-8.9) K/mcL Lymphocytes # (0.6-4.6) K/mcL Monocytes # (0.0-1.3) K/mcL Eosinophils # (0.0-0.6) K/mcL Basophils # (0.0-0.2) K/mcL Sodium (136-145) mEq/L Potassium (3.5-5.1) mEq/L Chloride (98-107) mEq/L Carbon Dioxide (23-29) mEq/L BUN (8-23) mg/dL Creatinine (0.60-1.20) mg/dL Est GFR ( Amer) (> 60) Est GFR (Non-Af Amer) (> 60) BUN/Creatinine Ratio (6-26) Glucose (70-105) mg/dL Calculated Osmolality (280-300) Calcium (8.6-10.3) mg/dL TSH (0.340-5.600) mcIU/mL Urine Color (Yellow) Urine Clarity (Clear) Urine pH (5.0-8.0) pH Units Ur Specific [place] (1.010-1.025) Urine Protein (Neg-Trace) mg/dL Urine Glucose (UA) (Normal) mg/dL Urine Ketones (Negative) mg/dL Urine Blood (Negative) Urine Nitrite (Negative) Urine Bilirubin (Negative) Urine Urobilinogen (Normal) mg/dL Ur Leukocyte Esterase (Negative) Salicylates (15.0-30.0) mg/dL Urine Opiates Screen Negative (Mvrgpb=902) ng/mL Ur Buprenorphine Scrn Negative (Cutoff=5) ng/mL Acetaminophen (10-20) mcg/mL Ur Barbiturates Screen Negative (Uonqwv=254) ng/mL Ur Phencyclidine Scrn Negative (Cutoff=25) ng/mL Ur Amphetamines Screen Negative (Smlntf=7460) ng/mL U Benzodiazepines Scrn Negative (Pzecvl=643) ng/mL Urine Cocaine Screen Negative (Cutoff= 300) ng/mL U Marijuana (THC) Screen Negative (Cutoff = 50) ng/mL Ur Drug Screen Interp See Below Ethyl Alcohol (Less than 10) mg/dL Psychiatric Medical Clearance - Medical Clearance Checklist Medical History: No Social History Section defined Current Vitals: Last Vital Signs Temp 98.3 F 01/13/19 04:48 Pulse 100 01/13/19 14:57 Resp 18 01/13/19 14:57 BP 145/98 01/13/19 14:57 Pulse Ox 94 01/13/19 14:57 Abnormal Labs: Abnormal lab results RBC 3.72 M/mcL (3.82-4.97) L 01/12/19 15:07 Hgb 10.8 g/dL (11.5-15.4) L 01/12/19 15:07 Hct 33.7 % (35.3-44.9) L 01/12/19 15:07 RDW 14.7 % (11.5-14.5) H 01/12/19 15:07 Plt Count 125 K/mcL (140-400) L 01/12/19 15:07 Glucose 126 mg/dL (70-105) H 01/12/19 15:07 Salicylates < 2.5 mg/dL (15.0-30.0) L 01/12/19 15:07 Acetaminophen < 10 mcg/mL (10-20) L 01/12/19 15:07 Statement of Medical Clearance: I have evaluated the patient, reviewed diagnostic information, and certify that the patient's medical condition is sufficiently stable that transfer to the psychiatric unit does not pose a significant risk of deterioration.
[2019-01-13] MEDS: Nicotine 21 MG PATCH.TD24 TP SCH (23:44)
[2019-01-14] MEDS ORDERED: Naloxone 0.4 MG/ML INJ IVP PRN (00:24)
[2019-01-14] MEDS ORDERED: traMADol 50 MG TABLET PO PRN (00:24)
[2019-01-14] MEDS ORDERED: Acetaminophen 325 MG TABLET PO PRN (00:24)
[2019-01-14] MEDS ORDERED: *HR* Promethazine 25 MG/ML VIAL IVP PRN (00:28)
[2019-01-14] MEDS ORDERED: tiZANidine 4 MG TABLET PO PRN (00:30)
[2019-01-14] MEDS ORDERED: 0.9 % Sodium Chloride 1,000 ML IVC SCH (00:30)
[2019-01-14] MEDS ORDERED: Melatonin 3 MG TABLET PO SCH (00:45)
[2019-01-14 01:07] LABS: Bilirubin,Urine Negative (Negative); Blood,Urine Negative (Negative); Clarity,Urine Clear (Clear); Color,Urine Yellow (Yellow); Glucose,Urine (UA) Normal (Normal); Ketones,Urine Negative (Negative); Leukocyte Esterase,Urine Negative (Negative); Nitrite,Urine Negative (Negative); Protein,Urine Negative (Neg-Trace); Specific Gravity,Urine 1.016 (1.010-1.025); Urobilinogen,Urine Normal (Normal)
--- NOTE | 2019-01-14 01:27 | Internal Med History&Physical ---
Date of Encounter: 01/13/19 Time of Encounter: 23:30 Internal Medicine - H&P: HPI Chief complaint: AMS Admitted From: Emergency Dept Plans for Post Hospital Care: Home History of present illness: Ms. Aguilera is a 63 year old female w/PMH of COPD, GERD, current tobacco abuse, anxiety, bipolar depression, and schizophrenia presents from the ED w/CC of AMS and confusion. Pt. had been assessed by Behavioral Health who felt she was inappropriate for admission to . Pt. is unable to care for herself at home. Emergency guardianship obtained by the [facility] as the patient is unable to make sound decisions for herself at this time. Patient will need assessed by the [facility] before she can go to an ECF. Patient reports chronic back pain and acid reflux on exam but denies recent illness, fever, chills, nausea, vomiting, headache, changes in vision, unusual bleeding, chest pain, shortness of breath, abdominal pain, diarrhea, constipation, numbness, tingling, dizziness, lightheadedness, pre-syncope, or syncope. Past Med Surg Social Fam HX - Past Medical History Source: patient, old records reviewed Medical history: COPD, GERD Psychiatric history: anxiety, bipolar, depression, schizophrenia - Past Surgical History Surgical History: appendectomy, orthopedic, other, other Additional surgical history: teeth extraction,barium swallow,EGD with ialation,urethral dilation,FLETCHER, L Knee repair - Social History Smoking Status: Current some day smoker Packs per day: 3-4 cigarettes per week Smokeless Tobacco Status: No Alcohol use: none Drug use: none Current living situation: Home Activity Level: Uses cane/walker Recent Out of Country Travel Within the Last 8 Weeks: No Exposure or Possible Exposure to Illness During Travel: No - Family History Mother Race: Family Member Ethnicity: Non- Living Status: Age at : 54 Cause of : Lung cancer Hx Family Respiratory Disorders: Yes (Unknown) Hx Family Cancer: Yes (Lung) Hx Family Musculoskeletal Disorders: Yes (Arthritis) Sister Race: Family Member Ethnicity: Non- Living Status: Age at : 54 Cause of : Cancer (Type unknown) Hx Family Cardiac Disorders: Yes (HLD) Hx Family Cancer: Yes (Unknown) Hx Family Endocrine Disorder: Yes (DM II) Father Race: Family Member Ethnicity: Non- Living Status: Age at : 54 Cause of : Liver cancer Hx Family Cardiac Disorders: Yes (HTN, HLD, [place]) Hx Family Cancer: Yes (Liver) Hx Family Endocrine Disorder: Yes (DM) Brother Race: Family Member Ethnicity: Non- Living Status: Still Living Hx Family Medical Disorders: No Internal Medicine - H&P: Meds Salmeterol Xinafoate [Serevent Diskus] 1 puff IH BID #0 07/10/16 [History] Tiotropium [place] [Spiriva Respimat] 2 puff IH DAILY #0 07/10/16 [History] Tizanidine HCl 4 mg PO BID PRN 12/31/16 [History] Divalproex Sodium [Depakote Sprinkle] 500 mg PO BID 06/14/18 [History] Fluticasone Propionate [Flovent Hfa] 2 puff IH BID 06/14/18 [History] Roflumilast [Daliresp] 500 mcg PO DAILY 06/14/18 [History] cloNIDine HCl [CloNIDine HCl] 0.1 mg PO BID 06/14/18 [History] Benztropine Mesylate 2 mg PO BID 12/04/18 [History] Buspirone HCl [Buspar] 10 mg PO BID 12/04/18 [History] Lactobacillus Acidophilus [Acidophilus] 1 tab PO DAILY 12/04/18 [History] Loratadine [Allergy Relief] 10 mg PO DAILY 12/04/18 [History] Magnesium Oxide [Magnesium] 400 mg PO DAILY 12/04/18 [History] Nicotine Patch [Nicoderm] 21 mg TP DAILY 12/04/18 [History] Gabapentin [Neurontin] 800 mg PO BID #8 tablet 12/10/18 [Rx] Haloperidol 2 mg PO QID PRN 01/12/19 [History] LORazepam [Ativan] 0.5 mg PO Q12H 01/12/19 [History] Melatonin 10 mg PO HS 01/12/19 [History] Omeprazole [PriLOSEC] 20 mg PO DAILY 01/12/19 [History] Quetiapine Fumarate [Seroquel] 200 mg PO HS 01/12/19 [History] Allergy/AdvReac Type Severity Reaction Status Date / Time alprazolam [From Xanax] Allergy Itching Verified 12/29/18 19:42 bupropion [From Wellbutrin] Allergy Itching Verified 12/29/18 19:42 doxycycline Allergy Nausea Verified 12/29/18 19:42 Ethyl Chloride Allergy Itching Verified 12/29/18 19:42 fexofenadine [From Fannie] Allergy Itching Verified 12/29/18 19:42 hydroxyzine Allergy Hallucinati Verified 12/29/18 19:42 ng Procaine [From Novocain] Allergy Rash Verified 12/29/18 19:42 Penicillins AdvReac Itching Verified 12/29/18 19:42 All Systems PM: A 10-system review of systems was performed and is negative for pertinent findings except as documented above in the HPI. - Constitutional Constitutional: as per HPI, falls, no chills, no fever(s), no night sweats - EENT Eyes: no change in vision, no discharge, no pain, no photophobia Ears: no ear discharge, no ear pain, no tinnitus Nose, mouth and throat: no dysphagia, no nasal discharge, no neck pain, no sore throat - Breasts Breasts: as per HPI - Cardiovascular Cardiovascular ROS IM: no chest pain, no diaphoresis, no dyspnea, no lighthe adedness, no palpitations, no syncope - Respiratory Respiratory: no cough, no dyspnea, no wheezing, no excessive phlegm production - Gastrointestinal Gastrointestinal: as per HPI, heartburn, no abdominal pain, no diarrhea, no hematemesis, no hematochezia, no melena, no nausea, no vomiting - Genitourinary Genitourinary: no change in urinary stream, no dysuria, no flank pain, no hem aturia Menstruation: as per HPI - Musculoskeletal Musculoskeletal ROS IM: as per HPI, back pain, no numbness, no tingling - Integumentary Integumentary IM: no rash, no unusual bruising - Neurological Neurological ROS: no confusion, no convulsions, no focal weakness, no numbness, no tingling, no tremor(s) - Psychiatric Psychiatric: as per HPI - Endocrine Endocrine IM: as per HPI - Hematologic/Lymphatic Hematologic/Lymphatic: no easy bruising - Allergic/Immunologic Allergic/Immunologic: as per HPI - Constitutional Vitals: Temp Pulse Resp BP Pulse Ox 98.5 F 88 16 131/82 95 01/14/19 00:37 01/14/19 00:37 01/14/19 00:37 01/14/19 00:37 01/14/19 00:37 General appearance: Present: cooperative, A&O X 3, pleasant, no acute distress, answers questions appropriately Exam: Patient examined at bedside. Patient reports chronic back pain and currently has indigestion. Patient denies any other symptoms or complaints on exam. VS: 98.5F temp, HR 80, RR 16, BP 131/82, SPO2 95% on room air. - Head Head exam: Present: atraumatic, normocephalic - Eye Eye exam: Present: PERRL, conjuntiva pink, sclera anicteric Pupils: Present: PERRL - ENT ENT exam: Present: normal exam - Neck Neck exam general surgery: Present: supple, trachea midline. Absent: lymphadenopathy - Respiratory Respiratory exam: Present: CTAB. Absent: accessory muscle use, rales, rhonchi, wheezes - Cardiovascular Cardiovascular exam: Present: RRR, +S1, +S2. Absent: diastolic murmur, gallop, rubs, systolic murmur - GI/Abdominal GI/Abdominal exam: Present: normal bowel sounds, soft, no peritoneal signs. Absent: distended, tenderness - Rectal Rectal exam: Present: deferred - Additional comments: exam deferred. - Extremities Exam Extremities exam: Present: warm, radial pulses palpable and symmetrical. Absent: calf tenderness, cyanotic, pedal edema - Back Exam Back exam: Present: normal inspection - Neurological Exam Neurological exam: Present: alert, CN II-XII intact, oriented X3, no focal deficits. Absent: pronater drift, facial droop, speech deficit - Psychiatric Psychiatric exam: Present: normal affect, normal mood - Skin Skin exam: Present: dry, intact Internal Med - H&P Results - Labs CBC & Chem 7: 01/14/19 04:27 01/14/19 04:27 - Impressions ITS Impressions Head CT 01/12/19 19:12 IMPRESSION: No acute intracranial abnormality. D/ / Marie Schwartz Cha, MD / Marie Schwartz Cha, MD Interpreting Provider: Marie Schwartz Cha, MD - Assessment and Plan (1) Altered mental state Current Visit: Yes Status: Acute Assessment and plan: Acute AMS and confusion. Pt. had been assessed by Behavioral Health who felt she was inappropriate for admission to . Pt. is unable to care for herself at home. Emergency guardianship obtained by the [facility] as the patient is unable to make sound decisions for herself at this time. Patient will need assessed by the [facility] before she can go to an ECF. CT of the head/brain on 01/12 showed no intracranial abnormality. Sitter. Supplemental O2 w/titration and SpO2 monitoring. Patient is moderate risk for further morbidity and complications d/t current AMS and confusion, extensive psychiatric hx on many different psychiatric medications, current inability to care for herself at home, COPD status requiring 24/7 O2, and current tobacco abuse. Observation. Qualifiers: Altered mental status type: disorientation Qualified Code(s): R41.0 - Disorientation, unspecified (2) COPD (chronic obstructive pulmonary disease) Current Visit: Yes Status: Chronic Assessment and plan: Hx of chronic COPD r/t tobacco abuse. Pt. reports she uses home O2 @ 4L. Supplemental O2 with titration and SPO2 monitoring. Continue patient's home nebs. Qualifiers: COPD type: unspecified COPD Qualified Code(s): J44.9 - Chronic obstructive pulmonary disease, unspecified (3) Tobacco abuse Current Visit: Yes Status: Chronic Assessment and plan: Hx of chronic tobacco abuse. Pt. reports she smoked 1 PPD. Now states she smokes 3-4 cigarettes per week. Continue pts. 21 mg. nicotine patch. (4) Tardive dyskinesia Current Visit: Yes Status: Chronic Assessment and plan: Hx of chronic tardive dyskinesia r/t pts. psychiatric medications. Monitor. (5) GERD (gastroesophageal reflux disease) Current Visit: Yes Status: Chronic Assessment and plan: Hx of chronic GERD that pt. reports is poorly controlled. IVP Protonix 40 mg BID ordered. Phenergan 12.5 mg IVP Q6HR for N/V. Qualifiers: Esophagitis presence: esophagitis presence not specified Qualified Code(s): K21.9 - Gastro-esophageal reflux disease without esophagitis (6) Back pain Current Visit: Yes Status: Chronic Assessment and plan: Hx of chronic lower back pain. Will use stair-step pain medications as needed. Monitor. Qualifiers: Back pain location: low back pain Chronicity: chronic Back pain lateralit y: bilateral Sciatica presence: without sciatica Qualified Code(s): M54.5 - Low back pain; G89.29 - Other chronic pain (7) Bipolar disorder Current Visit: Yes Status: Chronic Assessment and plan: Hx of chronic bipolar depression. Continue pts. home psychiatric medications. Qualifiers: Active/Remission status: currently active Current bipolar episode type: mixed Current episode severity: mild Qualified Code(s): F31.61 - Bipolar disorder, current episode mixed, mild (8) Anxiety and depression Current Visit: Yes Status: Chronic Assessment and plan: Hx of chronic anxiety and depression. Continue pts. home psychiatric medi cations. (9) Schizophrenia Current Visit: Yes Status: Chronic Assessment and plan: Hx of chronic schizophrenia. Continue pts. home psychiatric medications. Qualifiers: Schizophrenia type: undifferentiated schizophrenia Qualified Code(s): F20.3 - Undifferentiated schizophrenia (10) DVT prophylaxis Current Visit: Yes Status: Acute Assessment and plan: Bilateral SCDs on LEs for DVT prophylaxis. - Time Spent With Patient Total time spent is greater than 50% in coordination of care (as documented) at patient's floor/unit and/or counseling patient: Greater than 35 minutes
[2019-01-14] MEDS: Albuterol 2.5 MG/3 ML NEBULIZER IH SCH ×3 (04:19→15:39)
[2019-01-14 05:12] LABS: Hematocrit 34.3 % (35.3-44.9); Hemoglobin 10.9 g/dL (11.5-15.4); Mean Corpuscular HGB Conc 31.8 g/dL (31.6-35.5); Mean Corpuscular Hemoglobin 28.8 pg (28.0-33.3); Mean Corpuscular Volume 90.5 fL (83.0-100.0); Mean Platelet Volume 10.8 fL (9.4-12.4); Platelet Count 120 K/mcL (140-400); Red Blood Count 3.79 M/mcL (3.82-4.97); White Blood Count 7.5 K/mcL (4.3-11.1)
[2019-01-14 05:25] LABS: BUN/Creatinine Ratio 18 (6-26); Blood Urea Nitrogen 14 mg/dL (8-23); Carbon Dioxide 27 mEq/L (23-29); Chloride 103 mEq/L (98-107); Chol/HDL Ratio 2.3 (0-4.9); Cholesterol 167 mg/dL (< 200); Glucose 124 mg/dL (70-105); HDL Cholesterol 72 mg/dL (40-59); LDL Cholesterol,Calculated 63 mg/dL (0-99); Magnesium 1.7 mg/dL (1.6-2.6); Osmolality,Calculated 288 (280-300); Potassium 3.3 mEq/L (3.5-5.1); Sodium 138 mEq/L (136-145); Triglycerides 162 mg/dL (< 150); eGFR For African Americans > 60 (> 60); eGFR For Non-African Americans > 60 (> 60)
[2019-01-14] MEDS ORDERED: Pantoprazole 40 MG VIAL IVP SCH (06:00)
[2019-01-14] MEDS ORDERED: Gabapentin 400 MG CAPSULE PO SCH (09:00)
[2019-01-14] MEDS ORDERED: cloNIDine HCl 0.1 MG TABLET PO SCH (09:00)
[2019-01-14] MEDS ORDERED: Magnesium Oxide 400 MG TABLET PO SCH (09:00)
[2019-01-14] MEDS ORDERED: Loratadine 10 MG TABLET PO SCH (09:00)
[2019-01-14] MEDS ORDERED: Divalproex (12 HR) 500 MG TABLET PO SCH (09:00)
[2019-01-14] MEDS ORDERED: Nicotine 21 MG PATCH.TD24 TD SCH (09:00)
[2019-01-14] MEDS ORDERED: NON-FORMULARY MEDICATION 1 EACH EACH (Roflumilast [Daliresp] 500 MCG) PO SCH (09:00)
[2019-01-14] MEDS ORDERED: Lactobacillus 1 EACH CAP.SPRINK PO SCH (09:00)
[2019-01-14] MEDS ORDERED: Tiotropium 18 MCG inhalation IH SCH (10:00)
--- NOTE | 2019-01-14 13:17 | Internal Med Progress Note ---
Hospitalist Progress Note - Encounter Date of Encounter: 01/14/19 Time of Encounter: 11:20 - Subjective Interval History: Ms. Aguilera is a 63 year old female with PMH of COPD, GERD, current tobacco dependence, anxiety, bipolar depression, and schizophrenia presented to ER with c/o AMS and confusion. Pt. had been assessed by Behavioral Health who felt she was inappropriate for admission to . Pt is unable to care for herself at home. Emergency guardianship obtained by the [facility] since pt is not competent to make her own decisions. Patient will need assessed by the [facility] before she can go to an ECF. She was admitted in the hospital. Currently patient is alert, awake, O x 4. Mentation ortega seems to be at her baseline. She denied any suicidal ideation. - Exam Vitals: Temp Pulse Resp BP Pulse Ox 98.7 F 94 17 105/78 92 01/14/19 11:49 01/14/19 11:49 01/14/19 11:49 01/14/19 11:49 01/14/19 11:49 Exam: Gen: Alert, awake, Oriented to time,place and person Chest: Diminished breath sounds B/L, No wheezing, No crackles, No rales Heart: S1S2+ RRR No murmurs Abd: Soft, NT, BS +, No organomegaly Ext: No edema, pulses are palpable, No calf tenderness Neuro : No acute focal neuro deficits noticed Psych: anxious... No delusions.. No hallucinations. No SI / HI Skin: No rash. - Assessment and Plan (1) Altered mental state Current Visit: Yes Status: Acute Assessment and Plan: Her AMS / Confusion is due to behavioral and her underline psychiatric problems cont close monitoring resumed all psychiatric home medications Cont haldol as needed she does need placement waiting for state evaluation to clear he to go to In patient psychiatric unit (2) Schizophrenia Current Visit: Yes Status: Chronic Assessment and Plan: Hx of chronic schizophrenia. Continue pts. home psychiatric medications. (3) Bipolar disorder Current Visit: Yes Status: Chronic Assessment and Plan: with Schizophrenia resumed all home psych medications (4) COPD (chronic obstructive pulmonary disease) Current Visit: Yes Status: Chronic Assessment and Plan: Not in exacerbation resumed all home inhalers (5) Tobacco abuse Current Visit: Yes Status: Chronic Assessment and Plan: Counseled to quit smoking placed on nicotine patch (6) Tardive dyskinesia Current Visit: Yes Status: Chronic Assessment and Plan: stable no flare up now (7) GERD (gastroesophageal reflux disease) Current Visit: Yes Status: Chronic Assessment and Plan: On PPI (8) Back pain Current Visit: Yes Status: Chronic Assessment and Plan: Chronic low back pain Continue home medications (9) Hypertension Current Visit: Yes Status: Acute Assessment and Plan: Stable blood pressure with current home medications (10) DVT prophylaxis Current Visit: Yes Status: Acute Assessment and Plan: SQ heparin - Time Spent with Patient Total time spent is greater than 50% in coordination of care (as documented) at patient's floor/unit and/or counseling patient: Internal Medicine: Result - Labs CBC & Chem 7: 01/14/19 04:27 01/14/19 04:27 Labs: Short CBC 01/14/19 Range/Units 04:27 WBC 7.5 (4.3-11.1) K/mcL Hgb 10.9 L (11.5-15.4) g/dL Hct 34.3 L (35.3-44.9) % Plt Count 120 L (140-400) K/mcL BMP 01/14/19 04:27 Sodium 138 Potassium 3.3 L Chloride 103 Carbon Dioxide 27 BUN 14 Creatinine 0.80 Glucose 124 H Calcium 9.0 Urine 01/14/19 Range/Units 00:21 Urine Color Yellow (Yellow) Urine Clarity Clear (Clear) Urine pH 8.0 (5.0-8.0) pH Units Ur Specific [place] 1.016 (1.010-1.025) Urine Protein Negative (Neg-Trace) mg/dL Urine Glucose (UA) Normal (Normal) mg/dL Consult Discharge Plan - Plan Referrals: NONE,PCP [Primary Care Provider] - _ (1) Altered mental state Qualifiers: Altered mental status type: disorientation Qualified Code(s): R41.0 - Disorientation, unspecified (2) Schizophrenia Qualifiers: Schizophrenia type: undifferentiated schizophrenia Qualified Code(s): F20.3 - Undifferentiated schizophrenia (3) Bipolar disorder Qualifiers: Active/Remission status: currently active Current bipolar episode type: mixed Current episode severity: mild Qualified Code(s): F31.61 - Bipolar disorder, current episode mixed, mild (4) COPD (chronic obstructive pulmonary disease) Qualifiers: COPD type: unspecified COPD Qualified Code(s): J44.9 - Chronic obstructive pulmonary disease, unspecified (7) GERD (gastroesophageal reflux disease) Qualifiers: Esophagitis presence: esophagitis presence not specified Qualified Code(s): K21.9 - Gastro-esophageal reflux disease without esophagitis (8) Back pain Qualifiers: Back pain location: low back pain Chronicity: chronic Back pain laterality: bilateral Sciatica presence: without sciatica Qualified Code(s): M54.5 - Low back pain; G89.29 - Other chronic pain (9) Hypertension Qualifiers: Hypertension type: essential hypertension Qualified Code(s): I10 - Essential (primary) hypertension
--- NOTE | 2019-01-14 14:56 | Discharge Summary ---
- NOTES TO OUTPATIENT PROVIDER Notes to Outpatient Provider: f/u with PCP in one week. f/u with Psychiatry as scheduled. Orders not resulted at time of discharge: Pending orders 01/14/19 00:22 Fecal Hemoccult [Occult Blood,Stool] [BF] Stat Date of Encounter: 01/14/19 Time of Encounter: 14:53 - Discharge Diagnosis (1) Altered mental state Priority: Primary Status: Acute Qualifiers: Altered mental status type: disorientation Qualified Code(s): R41.0 - Disorientation, unspecified (2) Schizophrenia Priority: Primary Status: Chronic Qualifiers: Schizophrenia type: undifferentiated schizophrenia Qualified Code(s): F20.3 - Undifferentiated schizophrenia (3) Bipolar disorder Priority: Secondary Status: Chronic Qualifiers: Active/Remission status: currently active Current bipolar episode type: mixed Current episode severity: mild Qualified Code(s): F31.61 - Bipolar disorder, current episode mixed, mild (4) COPD (chronic obstructive pulmonary disease) Priority: Secondary Status: Chronic Qualifiers: COPD type: unspecified COPD Qualified Code(s): J44.9 - Chronic obstructive pulmonary disease, unspecified (5) Tobacco abuse Priority: Secondary Status: Chronic (6) Tardive dyskinesia Priority: Secondary Status: Chronic (7) GERD (gastroesophageal reflux disease) Priority: Secondary Status: Chronic Qualifiers: Esophagitis presence: esophagitis presence not specified Qualified Code(s): K21.9 - Gastro-esophageal reflux disease without esophagitis (8) Back pain Priority: Secondary Status: Chronic Qualifiers: Back pain location: low back pain Chronicity: chronic Back pain laterality: bilateral Sciatica presence: without sciatica Qualified Code(s): M54.5 - Low back pain; G89.29 - Other chronic pain (9) Hypertension Priority: Secondary Status: Acute Qualifiers: Hypertension type: essential hypertension Qualified Code(s): I10 - Essential (primary) hypertension (10) DVT prophylaxis Priority: Secondary Status: Acute Hospital course: Ms. Agiulera is a 63 year old female with PMH of COPD, GERD, current tobacco dependence, anxiety, bipolar depression, and schizophrenia presented to ER with c/o AMS and confusion. Pt. had been assessed by Behavioral Health who felt she was inappropriate for admission to . Pt is unable to care for herself at home. Emergency guardianship obtained by the [facility] since pt is not competent to make her own decisions. Patient will need assessed by the State before she can go to an ECF. She was admitted in the hospital. We continued her home psych medications. Currently patient is alert, awake, O x 4. Mentation ortega seems to be at her baseline. She denied any suicidal ideation. Her case was reviewed by [facility] and approved her to go to lock down dementia unit. So will d/c her in stable condition today. - Time Spent with Patient Total time spent providing and/or coordinating discharge services: Time spent: D/C greater than 8 hours after Admission (I provided [id number] service to this patient more than 8 hrs apart since pt got admitted in the hospital by my colleague.) - Discharge Medications Prescriptions: Continued Tiotropium [place] [Spiriva Respimat] 2 puff IH DAILY #0 Salmeterol Xinafoate [Serevent Diskus] 1 puff IH BID #0 Tizanidine HCl 4 mg PO BID PRN PRN Reason: Muscle Spasm cloNIDine HCl [CloNIDine HCl] 0.1 mg PO BID Divalproex Sodium [Depakote Sprinkle] 500 mg PO BID Fluticasone Propionate [Flovent Hfa] 2 puff IH BID Roflumilast [Daliresp] 500 mcg PO DAILY Buspirone HCl [Buspar] 10 mg PO BID Nicotine Patch [Nicoderm] 21 mg TP DAILY Benztropine Mesylate 2 mg PO BID Magnesium Oxide [Magnesium] 400 mg PO DAILY Lactobacillus Acidophilus [Acidophilus] 1 tab PO DAILY Loratadine [Allergy Relief] 10 mg PO DAILY Gabapentin [Neurontin] 800 mg PO BID #8 tablet Melatonin 10 mg PO HS Omeprazole [PriLOSEC] 20 mg PO DAILY Quetiapine Fumarate [Seroquel] 200 mg PO HS LORazepam [Ativan] 0.5 mg PO Q12H 5 Days #10 tablet Haloperidol 2 mg PO QID PRN 4 Days #15 tablet PRN Reason: Anxiety Home Medications: Salmeterol Xinafoate [Serevent Diskus] 1 puff IH BID #0 07/10/16 [History] Tiotropium [place] [Spiriva Respimat] 2 puff IH DAILY #0 07/10/16 [History] Tizanidine HCl 4 mg PO BID PRN 12/31/16 [History] Divalproex Sodium [Depakote Sprinkle] 500 mg PO BID 06/14/18 [History] Fluticasone Propionate [Flovent Hfa] 2 puff IH BID 06/14/18 [History] Roflumilast [Daliresp] 500 mcg PO DAILY 06/14/18 [History] cloNIDine HCl [CloNIDine HCl] 0.1 mg PO BID 06/14/18 [History] Benztropine Mesylate 2 mg PO BID 12/04/18 [History] Buspirone HCl [Buspar] 10 mg PO BID 12/04/18 [History] Lactobacillus Acidophilus [Acidophilus] 1 tab PO DAILY 12/04/18 [History] Loratadine [Allergy Relief] 10 mg PO DAILY 12/04/18 [History] Magnesium Oxide [Magnesium] 400 mg PO DAILY 12/04/18 [History] Nicotine Patch [Nicoderm] 21 mg TP DAILY 12/04/18 [History] Gabapentin [Neurontin] 800 mg PO BID #8 tablet 12/10/18 [Rx] Melatonin 10 mg PO HS 01/12/19 [History] Omeprazole [PriLOSEC] 20 mg PO DAILY 01/12/19 [History] Quetiapine Fumarate [Seroquel] 200 mg PO HS 01/12/19 [History] Haloperidol 2 mg PO QID PRN 4 Days #15 tablet 01/14/19 [Rx] LORazepam [Ativan] 0.5 mg PO Q12H 5 Days #10 tablet 01/14/19 [Rx] Allergies/Adverse Reactions: Allergy/AdvReac Type Severity Reaction Status Date / Time alprazolam [From Xanax] Allergy Itching Verified 12/29/18 19:42 bupropion [From Wellbutrin] Allergy Itching Verified 12/29/18 19:42 doxycycline Allergy Nausea Verified 12/29/18 19:42 Ethyl Chloride Allergy Itching Verified 12/29/18 19:42 fexofenadine [From Fannie] Allergy Itching Verified 12/29/18 19:42 hydroxyzine Allergy Hallucinati Verified 12/29/18 19:42 ng Procaine [From Novocain] Allergy Rash Verified 12/29/18 19:42 Penicillins AdvReac Itching Verified 12/29/18 19:42 Date of admission: 01/13/19 20:04 Primary care physician: PCP NONE Consults: 01/14/19 00:23 Consult to Nutrition [CONS] Routine Comment: strawberry ensure Consulting Provider: NUTRITION Reason for Dietary Consult: PO Supplementation 01/14/19 00:26 Consult to Television Receiver Analyzer [CONS] Routine Reason for SW Consult: Please assess patient for possible home needs for post-discharge planning. 01/14/19 00:27 Consult to Physical Therapy [CONS] Routine Comment: Evaluate, develop and implement POC Reason for Consult: Patient reports chronic falls. Please assess patient's ambulation strength, safety, stability, and possible home assistive/rehabilitation needs for post-discharge planning. Does patient have active BEDREST order?: No Is patient medically & hemodynamically stable?: Yes Patient assessed for mobility or mobilized this visit?: No - Constitutional Vitals: Temp Pulse Resp BP Pulse Ox 98.7 F 94 17 105/78 92 01/14/19 11:49 01/14/19 11:49 01/14/19 11:49 01/14/19 11:49 01/14/19 11:49 General appearance: Present: cooperative, A&O X 3, pleasant, no acute distress, answers questions appropriately Exam: Gen: Alert, awake, Oriented to time,place and person Chest: Diminished breath sounds B/L, No wheezing, No crackles, No rales Heart: S1S2+ RRR No murmurs Abd: Soft, NT, BS +, No organomegaly Ext: No edema, pulses are palpable, No calf tenderness Neuro : No acute focal neuro deficits noticed Psych: anxious... No delusions.. No hallucinations. No SI / HI Skin: No rash. - Patient Status Disposition: Transfer SNF Condition: Good Overall status at discharge: patient is back to baseline - Discharge Instructions Follow Up With: NONE,PCP [Primary Care Provider] - - Diet and Activity Activity: increase activity as tolerated Diet: low salt diet
--- NOTE | 2019-01-14 14:57 | Physician Discharge Referral ---
ExtendedCare Referral Info Transfer To: F Provider in Charge after Transfer: PCP Institutional Level of Care: Skilled - Diagnosis (1) Altered mental state Status: Acute (2) Schizophrenia Status: Chronic (3) Bipolar disorder Status: Chronic (4) COPD (chronic obstructive pulmonary disease) Status: Chronic (5) Tobacco abuse Status: Chronic (6) Tardive dyskinesia Status: Chronic (7) GERD (gastroesophageal reflux disease) Status: Chronic (8) Back pain Status: Chronic (9) Hypertension Status: Acute (10) DVT prophylaxis Status: Acute - Transfer Medications Prescriptions: LORazepam [Ativan] 0.5 mg PO Q12H 5 Days #10 tablet Haloperidol 2 mg PO QID PRN 4 Days #15 tablet PRN Reason: Anxiety Home Medications: Salmeterol Xinafoate [Serevent Diskus] 1 puff IH BID #0 07/10/16 [History] Tiotropium [place] [Spiriva Respimat] 2 puff IH DAILY #0 07/10/16 [History] Tizanidine HCl 4 mg PO BID PRN 12/31/16 [History] Divalproex Sodium [Depakote Sprinkle] 500 mg PO BID 06/14/18 [History] Fluticasone Propionate [Flovent Hfa] 2 puff IH BID 06/14/18 [History] Roflumilast [Daliresp] 500 mcg PO DAILY 06/14/18 [History] cloNIDine HCl [CloNIDine HCl] 0.1 mg PO BID 06/14/18 [History] Benztropine Mesylate 2 mg PO BID 12/04/18 [History] Buspirone HCl [Buspar] 10 mg PO BID 12/04/18 [History] Lactobacillus Acidophilus [Acidophilus] 1 tab PO DAILY 12/04/18 [History] Loratadine [Allergy Relief] 10 mg PO DAILY 12/04/18 [History] Magnesium Oxide [Magnesium] 400 mg PO DAILY 12/04/18 [History] Nicotine Patch [Nicoderm] 21 mg TP DAILY 12/04/18 [History] Gabapentin [Neurontin] 800 mg PO BID #8 tablet 12/10/18 [Rx] Melatonin 10 mg PO HS 01/12/19 [History] Omeprazole [PriLOSEC] 20 mg PO DAILY 01/12/19 [History] Quetiapine Fumarate [Seroquel] 200 mg PO HS 01/12/19 [History] Haloperidol 2 mg PO QID PRN 4 Days #15 tablet 01/14/19 [Rx] LORazepam [Ativan] 0.5 mg PO Q12H 5 Days #10 tablet 01/14/19 [Rx] Allergies/Adverse Reactions: Allergy/AdvReac Type Severity Reaction Status Date / Time alprazolam [From Xanax] Allergy Itching Verified 12/29/18 19:42 bupropion [From Wellbutrin] Allergy Itching Verified 12/29/18 19:42 doxycycline Allergy Nausea Verified 12/29/18 19:42 Ethyl Chloride Allergy Itching Verified 12/29/18 19:42 fexofenadine [From Fannie] Allergy Itching Verified 12/29/18 19:42 hydroxyzine Allergy Hallucinati Verified 12/29/18 19:42 ng Procaine [From Novocain] Allergy Rash Verified 12/29/18 19:42 Penicillins AdvReac Itching Verified 12/29/18 19:42 - Respiratory Orders Smoking Cessation: Smoking cessation has been advised. For more information, call the [place] Tobacco Quit Line at 7-278-ZNOL-NOW. CERTIFICATION: I certify that the transfer of the above named patient to an Extended Care Facility is necessary for the continuing treatment of the diagnosis listed. The above information is true and accurate reflection of patient's current condition. Confidential - Redisclosure prohibited without a patient's written consent.
[2019-01-14 17:11] VITALS: BP 137/89
--- NOTE | 2019-01-16 00:05 | Electrocardiograph Report ---
[facility] Test Date: 2019-01-12 Pat Name: Starla Aguilera Department: [id number] Room: 3B11 Gender: F Charge Loader: : [id number] Requested By: Lauar Cole Order Number: [id number] Reading MD: Mara Banks Measurements Intervals [place] Rate: 77 P: 46 ND: 161 QRS: -32 QRSD: 100 T: 40 QT: 385 QTc: 433 Interpretive Statements Sinus rhythm Probable left atrial enlargement Left axis deviation Electronically Signed On 01-16-2019 0:03:40 EDT by Mara Banks
== END 2019-01-14 17:26 ==
LOC: 3BNU 14:32 → EMEROOARM 14:32 → SUATTDRO 01-13 20:04 → 3BNU 01-13 21:05
PROVIDERS: ADMIT Internal Medicine; ATTEND Family Medicine

== ENCOUNTER 2019-05-05 04:42 | Observation (INO) ==
[2019-05-05] MEDS: 0.9 % Sodium Chloride 1,000 ML IVC SCH ×2 (04:45→15:30)
[2019-05-05 05:07] LABS: VBG HCO3 34 mEq/L (21-27); VBG PCO2 59 mmHg (41-51); VBG PH 7.37 pH Units (7.32-7.42); VBG PO2 34 mmHg (25-50)
[2019-05-05 05:40] LABS: Basophils % 0.2 %; Eosinophils % 0.1 %; Hematocrit 39.1 % (35.3-44.9); Hemoglobin 11.9 g/dL (11.5-15.4); INR 1.1; Immature Granulocytes % 0.5 % (0-4); Lymphocytes # 0.9 K/mcL (0.6-4.6); Lymphocytes % 11.1 %; Mean Corpuscular HGB Conc 30.4 g/dL (31.6-35.5); Mean Corpuscular Hemoglobin 28.1 pg (28.0-33.3); Mean Corpuscular Volume 92.2 fL (83.0-100.0); Mean Platelet Volume 9.1 fL (9.4-12.4); Monocytes # 1.7 K/mcL (0.0-1.3); Monocytes % 20.5 %; Platelet Count 124 K/mcL (140-400); Prothrombin Time 12.7 Seconds (9.4-12.1); Red Blood Count 4.24 M/mcL (3.82-4.97); Red Cell Distribution Width 15.1 % (11.5-14.5); Segmented Neutrophils % 67.6 %; White Blood Count 8.5 K/mcL (4.3-11.1)
[2019-05-05 05:54] LABS: Neutrophils # 5.8 K/mcL (1.6-8.9)
[2019-05-05 06:10] LABS: Alanine Aminotransferase 3 Units/L (7-52); Albumin 3.5 g/dL (3.5-5.7); Alkaline Phosphatase 91 Units/L (34-104); Aspartate Amino Transferase 12 Units/L (13-39); BUN/Creatinine Ratio 11 (6-26); Bilirubin,Direct 0.1 mg/dL (0.0-0.2); Bilirubin,Indirect 0.2 mg/dL (0.0-1.0); Bilirubin,Total 0.3 mg/dL (0.3-1.0); Blood Urea Nitrogen 10 mg/dL (8-23); Calcium 8.9 mg/dL (8.6-10.3); Carbon Dioxide 29 mEq/L (23-29); Chloride 94 mEq/L (98-107); Globulin 3.5 g/dL (2.4-3.5); Glucose 90 mg/dL (70-105); Magnesium 2.3 mg/dL (1.6-2.6); Osmolality,Calculated 281 (280-300); Phosphorous 5.3 mg/dL (2.7-4.5); Potassium 4.6 mEq/L (3.5-5.1); Sodium 136 mEq/L (136-145); Troponin I < 0.03 ng/mL (< 0.04); Valproate 101 mcg/mL (50-100); eGFR For African Americans > 60 (> 60); eGFR For Non-African Americans > 60 (> 60)
[2019-05-05 06:11] LABS: Bilirubin,Urine Small (Negative); Blood,Urine Negative (Negative); Clarity,Urine Cloudy (Clear); Color,Urine Dark Yellow (Yellow); Glucose,Urine (UA) Normal (Normal); Ketones,Urine Trace mg/dL (Negative); Leukocyte Esterase,Urine Small (Negative); Nitrite,Urine Negative (Negative); Protein,Urine Trace mg/dL (Neg-Trace); Specific Gravity,Urine 1.021 (1.010-1.025); Urobilinogen,Urine Normal (Normal)
[2019-05-05 06:13] LABS: Bacteria,Urine Many per hpf (None-Few); Hyaline Casts,Urine Moderate per lpf (None-Few); RBC,Urine 0-3 per hpf (0-3); Squamous Epithelial Cell,Urine Moderate per lpf (None-Few); WBC,Urine 50-100 per hpf (0-3)
[2019-05-05 06:16] LABS: Platelet Estimate Decreased (Normal)
[2019-05-05 06:31] LABS: Yeast,Urine Few per hpf (None Seen)
[2019-05-05] MEDS ORDERED: Ondansetron 4 MG/2 ML VIAL IVP PRN (07:31)
[2019-05-05] MEDS ORDERED: Ondansetron ODT 4 MG TAB.RAPDIS SL PRN (07:31)
[2019-05-05] MEDS ORDERED: Naloxone 0.4 MG/ML INJ IVP PRN (07:31)
[2019-05-05] MEDS ORDERED: Ringers Solution, Lactated 1,000 ML IVC ONE (09:48)
[2019-05-05] MEDS ORDERED: Ipratropium/Albuterol Neb 3 ML IH PRN (10:02)
[2019-05-05 11:07] LABS: Alanine Aminotransferase 3 Units/L (7-52); Albumin 3.2 g/dL (3.5-5.7); Albumin/Globulin Ratio 0.9 (1.1-2.2); Alkaline Phosphatase 83 Units/L (34-104); Aspartate Amino Transferase 10 Units/L (13-39); BUN/Creatinine Ratio 13 (6-26); Bilirubin,Total 0.3 mg/dL (0.3-1.0); Blood Urea Nitrogen 9 mg/dL (8-23); Calcium 8.2 mg/dL (8.6-10.3); Carbon Dioxide 28 mEq/L (23-29); Chloride 99 mEq/L (98-107); Globulin 3.4 g/dL (2.4-3.5); Glucose 98 mg/dL (70-105); Osmolality,Calculated 281 (280-300); Potassium 4.1 mEq/L (3.5-5.1); Sodium 136 mEq/L (136-145); Total Protein 6.6 g/dL (6.4-8.9); eGFR For African Americans > 60 (> 60); eGFR For Non-African Americans > 60 (> 60)
[2019-05-05 11:10] LABS: Acetaminophen < 10 mcg/mL (10-20); Salicylate < 2.5 mg/dL (15.0-30.0)
[2019-05-05 11:21] LABS: Thyroid Stimulating Hormone 0.535 mcIU/mL (0.340-5.600)
[2019-05-05] MEDS: Lactulose Oral Soln 20 GM/30 ML UDC PO SCH ×2 (12:07→21:40)
[2019-05-05] MEDS ORDERED: *HR* LORazepam 2 MG/ML VIAL IVP ONE (21:07)
[2019-05-05] MEDS ORDERED: Acetaminophen 325 MG TABLET PO ONE (21:25)
[2019-05-05] MEDS ORDERED: Haloperidol Lactate 5 MG/ML VIAL IVP ONE (23:04)
[2019-05-06] MEDS ORDERED: Ziprasidone 10 MG in Water for inj. (sterile) 0.5 ML IM ONE (04:24)
[2019-05-06 05:01] LABS: Amphetamine Screen,Urine Negative ng/mL (Cutoff=1000); Barbiturate Screen,Urine Negative ng/mL (Cutoff=200); Benzodiazepines Screen,Urine Negative ng/mL (Cutoff=200); Cannabinoid Screen,Urine Negative ng/mL (Cutoff = 50); Cocaine Screen,Urine Negative ng/mL (Cutoff= 300); Opiate Screen,Urine Negative ng/mL (Cutoff=300); Phencyclidine Screen,Urine Negative ng/mL (Cutoff=25)
[2019-05-06 05:39] LABS: Adenovirus Not Detected (Not Detect); Bordetella Pertussis Not Detected (Not Detect); Chlamydophila pneumoniae Not Detected (Not Detect); Coronavirus 229E Not Detected (Not Detect); Coronavirus HKU1 Not Detected (Not Detect); Coronavirus NL63 Not Detected (Not Detect); Coronavirus OC43 Not Detected (Not Detect); Human Metapneumovirus Not Detected (Not Detect); Human Rhinovirus/Enterovirus Not Detected (Not Detect); Influenza A Subtype 2009 H1 Not Detected (Not Detect); Influenza A Untypeable Not Detected (Not Detect); Influenza B Not Detected (Not Detect); Mycoplasma pneumoniae Not Detected (Not Detect); Parainfluenza Virus 1 Not Detected (Not Detect); Parainfluenza Virus 2 Not Detected (Not Detect); Parainfluenza Virus 3 Not Detected (Not Detect); Parainfluenza Virus 4 Not Detected (Not Detect); Respiratory Syncytial Virus Not Detected (Not Detect)
[2019-05-06 06:11] LABS: ABG Base Excess 7 mEq/L (-2 to 3); ABG HCO3 34 mEq/L (21-27); ABG Oxygen Saturation 94 % (95-98); ABG PCO2 57 mmHg (35-45); ABG PH 7.39 pH Units (7.32-7.45); ABG PO2 72 mmHg (85-104); ABG TCO2 36 mEq/L (20-26)
[2019-05-06 07:04] LABS: Hematocrit 35.4 % (35.3-44.9); Hemoglobin 11.2 g/dL (11.5-15.4); Mean Corpuscular HGB Conc 31.6 g/dL (31.6-35.5); Mean Corpuscular Hemoglobin 28.1 pg (28.0-33.3); Mean Corpuscular Volume 88.7 fL (83.0-100.0); Mean Platelet Volume 9.5 fL (9.4-12.4); Platelet Count 112 K/mcL (140-400); Red Blood Count 3.99 M/mcL (3.82-4.97); Red Cell Distribution Width 14.7 % (11.5-14.5); White Blood Count 8.5 K/mcL (4.3-11.1)
[2019-05-06 07:32] LABS: BUN/Creatinine Ratio 13 (6-26); Blood Urea Nitrogen 8 mg/dL (8-23); Calcium 9.1 mg/dL (8.6-10.3); Carbon Dioxide 30 mEq/L (23-29); Chloride 94 mEq/L (98-107); Glucose 126 mg/dL (70-105); Osmolality,Calculated 288 (280-300); Potassium 3.7 mEq/L (3.5-5.1); Sodium 139 mEq/L (136-145); eGFR For African Americans > 60 (> 60); eGFR For Non-African Americans > 60 (> 60)
[2019-05-06 08:17] LABS: Lymphocytes # 0.6 K/mcL (0.6-4.6); Monocytes # 2.1 K/mcL (0.0-1.3); Neutrophils # 5.8 K/mcL (1.6-8.9); Platelet Estimate Slight Decrease (Normal)
[2019-05-06] MEDS: Lactulose Oral Soln 20 GM/30 ML UDC PO SCH ×2 (12:45→21:17)
[2019-05-06] MEDS: *HR* LORazepam 2 MG/ML VIAL IVP PRN (18:03)
[2019-05-06] MEDS: cloNIDine HCl 0.1 MG TABLET PO SCH (21:16)
[2019-05-06] MEDS: Magnesium Oxide 400 MG TABLET PO SCH (21:16)
[2019-05-06] MEDS: OLANZapine 5 MG TAB.RAPDIS PO SCH (21:16)
[2019-05-06] MEDS: Divalproex Sodium 125 MG CAPSULE PO SCH (21:19)
[2019-05-07] MEDS: cloNIDine HCl 0.1 MG TABLET PO SCH ×2 (07:44→20:30)
[2019-05-07] MEDS: Lactobacillus 1 EACH CAP.SPRINK PO SCH (07:45)
[2019-05-07] MEDS: Magnesium Oxide 400 MG TABLET PO SCH ×2 (07:45→20:29)
[2019-05-07] MEDS: Divalproex Sodium 125 MG CAPSULE PO SCH ×3 (07:46→20:30)
[2019-05-07] MEDS: *HR* LORazepam 2 MG/ML VIAL IVP PRN (07:47)
[2019-05-07] MEDS: Lactulose Oral Soln 20 GM/30 ML UDC PO SCH ×2 (07:47→20:30)
[2019-05-07] MEDS ORDERED: NON-FORMULARY MEDICATION 1 EACH EACH (Tiotropium Bromide [Spiriva Respimat] 2 PUFF) IH SCH (08:00)
[2019-05-07] MEDS: Tiotropium 18 MCG inhalation IH SCH (10:38)
[2019-05-07] MEDS: *HR* Heparin 5,000 UNIT/ML VIAL SQ SCH (17:02)
[2019-05-07] MEDS: OLANZapine 5 MG TAB.RAPDIS PO SCH (20:29)
[2019-05-07] MEDS ORDERED: *HR* LORazepam 0.5 MG TABLET PO PRN (21:00)
[2019-05-08] MEDS: *HR* Heparin 5,000 UNIT/ML VIAL SQ SCH (05:56)
[2019-05-08 07:13] VITALS: BP 144/96
[2019-05-08] MEDS: cloNIDine HCl 0.1 MG TABLET PO SCH (07:33)
[2019-05-08] MEDS: Magnesium Oxide 400 MG TABLET PO SCH (07:34)
[2019-05-08] MEDS: Divalproex Sodium 125 MG CAPSULE PO SCH (07:34)
[2019-05-08] MEDS: Lactobacillus 1 EACH CAP.SPRINK PO SCH (07:34)
[2019-05-08] MEDS: Lactulose Oral Soln 20 GM/30 ML UDC PO SCH (07:34)
[2019-05-08] MEDS: Tiotropium 18 MCG inhalation IH SCH (07:59)
== END 2019-05-08 10:50 ==
LOC: CDU 04:42 → EMEROOARM 04:42 → CDU 07:50 → 3ANU 05-06 03:49
PROVIDERS: ADMIT Internal Medicine; ATTEND Internal Medicine